=== PATIENT | male | born 1950 | race Caucasian/White ===

== ENCOUNTER 2023-07-22 15:19 | Outpatient (OUT) | payer MEDICARE, SELFPAY ==
--- NOTE | 2023-07-22 15:26 | CT_ITS ---
[address] [address] Patient Name: BECKI ALARCON MRN: [id number] date: 1950 Sex: M Assigned Patient Location: CT Current Patient Location: CT Accession/Order Number: [id number] Exam Date: 07/22/2023 15:30 Report Date: 07/22/2023 23:00 At the request of: ANGEL CARBALLO Procedure: CT lung screening low-dose EXAMINATION: CT lung screening low-dose HISTORY: Nicotine Dependence F17.210 COMPARISON: CT chest 07/09/2022 TECHNIQUE: Axial, Coronal, and Sagittal images were created without the administration of IV contrast material. Dose reduction techniques were achieved by using automated exposure control and/or adjustment of mA and/or kV according to patient size and/or use of iterative reconstruction technique. FINDINGS: LUNGS: Stable scarring within posterior right lung base. No suspicious nodules or acute infiltrates. Minimal emphysematous changes. PLEURA: No mass, effusion, or pneumothorax. VASCULATURE: No abnormality. PRATIMA: No mass or pathologic adenopathy. MEDIASTINUM: No mass or pathologic adenopathy. CARDIAC: No enlargement, pericardial thickening, or significant calcification. AORTA: No aneurysm or dissection. CHEST WALL: No mass or axillary adenopathy BONES: Subacute fracture of anterior lateral left seventh rib. LIMITED ABDOMEN: No suspicious findings. Limited images of the upper abdomen. OTHER: Negative. CT/CT lung screening low-dose IMPRESSION: 1. Lung-RADS Category 1 Negative. No nodules and definitely benign nodules. Continue annual screening with LDCT in 12 months. 2. Subacute healing fracture of anterior lateral left seventh rib. Electronically authenticated by: ESE MARRERO Date: 07/22/2023 23:00
== END 2023-07-22 15:20 | disposition home or self-care (01) ==
LOC: CT 15:19
PROVIDERS: PCP Internal Medicine; Visit Provider Internal Medicine
DX: F17.210 Nicotine dependence, cigarettes, uncomplicated (principal)
CPT/HCPCS: 71271

== ENCOUNTER 2024-08-02 15:26 | Outpatient (OUT) | payer MEDICARE, SELFPAY ==
--- NOTE | 2024-08-02 15:28 | CT_ITS ---
The [address] [address] Patient Name: BECKI ALARCON MRN: [id number] date: 1950 Sex: M Assigned Patient Location: CT Current Patient Location: Accession/Order Number: [id number] Exam Date: 08/02/2024 15:47 Report Date: 08/04/2024 07:17 At the request of: ANGEL CARBALLO Procedure: CT lung screening low-dose EXAMINATION: CT lung screening low-dose HISTORY: Nicotine Dependence COMPARISON: CT LUNG CANCER SCREENING 07/22/2023, 07/09/2022 TECHNIQUE: Axial, Coronal, and Sagittal images were created without the administration of IV contrast material. Dose reduction techniques were achieved by using automated exposure control and/or adjustment of mA and/or kV according to patient size and/or use of iterative reconstruction technique. FINDINGS: LUNGS: Stable scarring within posterior right lung base. Mild emphysematous changes. No suspicious nodules. PLEURA: No mass, effusion, or pneumothorax. VASCULATURE: No abnormality. PRATIMA: No mass or pathologic adenopathy. MEDIASTINUM: No mass or pathologic adenopathy. CARDIAC: No enlargement, pericardial thickening, or pericardial effusion. Coronary Artery calcifications: AORTA: No aneurysm or dissection. CHEST WALL: No mass or axillary adenopathy BONES: No bone lesion or fracture. LIMITED ABDOMEN: No suspicious findings. Limited images of the upper abdomen. OTHER: Negative. CT/CT lung screening low-dose IMPRESSION: 1. Lung-RADS 2- Benign Appearance or Behavior. Nodules with a very low likelihood of becoming a clinically active cancer due to size or lack of growth. Follow-up CT Chest in 1 year. Electronically authenticated by: ESE MARRERO Date: 08/04/2024 07:17
--- OUTSIDE RECORDS SUMMARY | 2024-08-02 15:45 | XMS_ITS | CCD ---
Author Organization [facility] Care Team Providers Care Office Technology Professor Name Role Phone WATSON CARBALLO Primary Care Physician [phone] MD Riky Self Attending Provider DO Watson Carballo Primary Care Provider KAIT, DR ORTIZ Admitting Unavailable KAIT, DR ORTIZ Attending Unavailable KAIT, DR ORTIZ Admitting Unavailable BALL, DR ORTIZ Attending Unavailable KAIT, DR ORTIZ Primary Care Unavailable KAIT, DR ORTIZ Consulting Unavailable WAUKESHA, DR JOANNA Portillo Consulting Unavailable DAYA CHANEL Admitting Unavailable DAYA CHANEL Attending Unavailable ELIDA, DR ESE Rosenbaum Consulting Unavailable DAYA CHANEL Consulting Unavailable KAIT, DR ORTIZ Admitting Unavailable KAIT, DR ORTIZ Attending Unavailable Watson Carballo Unavailable Renu Soni Unavailable Cheryl Wild Unavailable Janina Valdes Unavailable Janina Valdes Attending Unavailable Janina Valdes Admitting Unavailable NO FAMILY, PHYSICIAN Primary Care Unavailable Watson Carballo Primary Care Unavailable Riky Self Attending Unavailable Riky Self Admitting Unavailable Georgiana Rhodes Primary Care Physician Watson Ferraro DO Primary Care Provider Riky SELF Attending Unavailable Riky SELF Attending Unavailable Riky SELF Attending Unavailable Riky SELF Referring Unavailable Riky SELF Admitting Unavailable Riky SELF Attending Unavailable Riky SELF Attending Unavailable Rand FIELD SERVICER-HEADING MACHINE OPERATORZacarias Attending Cecillev ailable Watson Carballo DO Primary Care Unavail dianna David MD, Daya Mendes Attending Unavailab bella David MD, Dyaa Mendes Admitting Unavailab Watson Dimas DO Primary Care Unavail able Bharath Elam Consulting Unavailable Rand FIELD SERVICER-HEADING MACHINE OPERATOR, Zacarias Baker Attending Unav ailable Ball DO, [facility] Unavail able Rand FIELD SERVICER-HEADING MACHINE OPERATOR, Zacarias Baker Attending Unav ailable Ball DO, [facility] Unavail able Rand FIELD SERVICER-HEADING MACHINE OPERATOR, Zacarias Baker Attending Unav ailable Ball DO, [facility] Unavail able Rand FIELD SERVICER-HEADING MACHINE OPERATOR, Zacarias Baker Attending Unav ailable Ball DO, [facility] Unavail able Latrell CARRION, Milind Holloway Consulting Unavail able Rand FIELD SERVICER-HEADING MACHINE OPERATOR, Zacarias Baker Admitting Unav ailable Rand FIELD SERVICER-HEADING MACHINE OPERATOR, Zacarias Baker Attending Unav ailable Ball DO, [facility] Unavail able Rand FIELD SERVICER-HEADING MACHINE OPERATOR, Zacarias Baker Attending Unav ailable Ball DO, [facility] Unavail able Joann CARRION, Daya Mendes Attending Unavailab le Ball DO, [facility] Unavail able Joann CARRION, Daya Mendes Attending Unavailab le Ball DO, [facility] Unavail able Joann CARRION, Daya Mendes Attending Unavailab le Ball DO, [facility] Unavail able Rand FIELD SERVICER-HEADING MACHINE OPERATOR, Zacarias Baker Attending Unav ailable Ball DO, [facility] Unavail able Rand FIELD SERVICER-HEADING MACHINE OPERATOR, Zacarias Baker Attending Unav ailable Ball DO, [facility] Unavail able Kloepfer FIELD SERVICER-HEADING MACHINE OPERATOR, Dilcia Morejon Attending Un available Ball DO, [facility] Unavail able Latrell CARRION, Milind Holloway Consulting Unavail able Rand FIELD SERVICER-HEADING MACHINE OPERATOR, Zacarias Baker Attending Unav ailable Ball DO, [facility] Unavail able Rand FIELD SERVICER-HEADING MACHINE OPERATOR, Zacarias Baker Attending Unav ailable Ball DO, [facility] Unavail able Rand FIELD SERVICER-HEADING MACHINE OPERATOR, Zacarias Baker Attending Unav ailable Ball DO, [facility] Unavail able Rand FIELD SERVICER-HEADING MACHINE OPERATOR, Zacarias Baker Attending Unav ailable Ball DO, [facility] Unavail able Rand FIELD SERVICER-HEADING MACHINE OPERATOR, Zacarias Baker Attending Unav ailable Ball DO, [facility] Unavail able Rand FIELD SERVICER-HEADING MACHINE OPERATOR, Zacarias Baker Attending Unav ailable Ball DO, [facility] Unavail able RY, JUANIS P Attending Unavailable BALL, WATSON E Referring Unavailable BALL, WATSON E Primary Care Unavailable RY, JUANIS P Attending Unavailable BALL, WATSON E Referring Unavailable BALL, WATSON E Primary Care Unavailable RY, JUANIS P Attending Unavailable BALL, WATSON E Referring Unavailable BALL, WATSON E Primary Care Unavailable RY, JUANIS P Attending Unavailable BALL, WATSON E Referring Unavailable BALL, WATSON E Primary Care Unavailable RY, JUANIS P Attending Unavailable BALL, WATSON E Referring Unavailable BALL, WATSON E Primary Care Unavailable RY, JUANIS P Attending Unavailable BALL, WATSON E Referring Unavailable BALL, WATSON E Primary Care Unavailable RY, JUANIS P Attending Unavailable BALL, WATSON E Referring Unavailable BALL, WATSON E Primary Care Unavailable KOLMICHAEL VALENZUELA R Referring Unavailab le BALL, WATSON E Primary Care Unavailable KOLNICOLAS, MICHAEL R Referring Unavailab le BALL, WATSON E Primary Care Unavailable RY, JUANIS P Attending Unavailable BALL, WATSON E Referring Unavailable BALL, WATSON E Primary Care Unavailable RY, JUANIS P Attending Unavailable BALL, WATSON E Referring Unavailable BALL, WATSON E Primary Care Unavailable RY, JUANIS P Attending Unavailable BALL, WATSON E Referring Unavailable BALL, WATSON E Primary Care Unavailable Allergies Allergy Classification Reported Allergen(s) Allergy Type Date of Onset Reaction(s) Facility (16 sources) leflunomide; Translations: [leflunomide] Drug Allergy 3 Unknown (qualifier value), Other (See Comments) [facility] (1 source) Unable to Assess Drug allergy (disorder) 2 [facility] Repository (1 source) patient allergy list reviewed by nurse or physicia Propensity to adverse reactions 9 Comment:Done kapturem Other (1 source) Allergies Reconciled Propensity to adverse reactions Unknown [facility] [employer] Other (1 source) No Known Medication Allergies; Translations: [No Known Medication Allergies] Propensity to adverse reactions (disorder) [facility] Repository Medications Current Medications Medication Drug Class(es) Dates Sig (Normalized) Sig (Original) acetaminophen 325 mg / HYDROcodone bitartrate 7.5 mg oral tablet (2 sources) Opioid Agonist Start: 06-25-2022 take 1 tablet by mouth once [place] 325 mg-7.5 mg oral tablet 1 tab(s), Oral, Once, 1 tab(s), Refill(s) 0, Take 1 hour prior to procedure. Don't drive or operate machinery while taking this medication., [id number], 167, cm, 04/14/22 13:22:00 EDT, Height/Length Dosing, 72, kg, 04/14/22 13:22:00 EDT, W... Start Date: 06/25/22 Status: Ordered acetaminophen 325 mg / oxyCODONE hydrochloride 5 mg oral tablet (1 source) Opioid Agonist take 1 tablet by mouth every six hours oxyCODONE-Acetami nophen 5-325 MG 1 tablet as needed Orally every 6 hrs Active amLODIPine Besylate-Valsartan (7 sources) amLODIPine Besylate-Valsarta n Active amlodipine besylate/valsartan (AMLODIPINE-VALSARTAN ORAL) (8 sources) amlodipine besylate/valsarta n (AMLODIPINE-VALSA RTAN ORAL) Take by mouth daily. Active amlodipine besyl ate/valsartan (AMLODIPINE-VALSARTAN ORAL) Take by mouth daily. 0 Active apixaban 5 mg oral tablet (16 sources) Factor Xa Inhibitor Start: 08-10-2023 take 1 tablet by mouth twice daily Apixaban (Eliquis) 5 mg tablet Active 5 MG PO Twice daily December 15, 2023 12:00am take 1 tablet by mouth every twe lve hours Eliquis 2.5 MG 1 tablet Orally Twice a day Active ascorbic acid 500 mg oral capsule (2 sources) Vitamin C Start: 03-08-2024 Ascorbic Acid (Vitamin C) Active MG PO March 08, 2024 12:00am aspirin 81 mg delayed release oral tablet (20 sources) Platelet Aggregation Inhibitor, Nonsteroidal Anti-inflammatory Drug Start: 06-13-2024 take 1 tablet by mouth once daily aspirin 81 mg Oral EC Tab 81 mg = 1 tab(s), Oral, Daily Start Date: 06/13/24 Status: Ordered Start: 03-08-2024 take 81 mg by mouth once daily Aspirin Active 81 MG PO Daily March 08, 2024 12:00am aspirin 81 mg ch ewable tablet Chew 1 tablet (81 mg total) and swallow nightly. Active End: 09-11-2023 take 1 tablet by mouth once daily aspirin 325 mg EC tablet Take 325 mg by mouth daily. 0 09/11/2023 Discontinued (Therapy completed) take 1 tablet by mack once daily Aspirin 81 MG 1 tablet Orally Once a day Active Aspirin Active cephalexin 500 mg oral capsule (12 sources) Cephalosporin Antibacterial Start: 06-08-2023 take 1 capsule by mouth every eight hours Cephalexin 500 MG 1 capsule Orally tid for 10 day(s) Jun, Active Start: 01-16-2023 take 1 capsule by [facility] every eight hours Cephalexin 500 MG 1 capsule Orally tid for 10 day(s) January, Not-Taking Start: 11-25-2022 take 1 capsule by mo [facility] every six hours Cephalexin 500 MG 1 capsule Orally every 6 hrs for 7 days Nov, Not-Taking cholecalciferol 0.05 mg oral capsule (2 sources) Vitamin D Start: 03-08-2024 take 50 ug by mouth once daily Cholecalciferol (Vitamin D3) Active 50 MCG PO Daily March 08, 2024 12:00am ciprofloxacin 500 mg oral tablet (1 source) Quinolone Antimicrobial Start: 08-10-2023 End: 08-17-2023 Cipro 500 mg Tab 500 mg = 1 tab(s), Oral, BID, start 3 days prior to procedure, X 7 day(s), # 14 tab(s), Refills(s) 0, Pharmacy: [id number], 167, cm, 08/10/23 13:04:00 EST, Height/Length Dosing, 75, kg, 08/10/23 13:04:00 EST, Weight Dosing Start Date: 08/10/23 Stop Date: 08/17/23 Status: Ordered folic acid 1 mg oral tablet (19 sources) Start: 03-08-2024 take 1 mg by mouth once daily Folic Acid Active 1 MG PO Daily March 08, 2024 12:00am Folic Acid Activ e furosemide 40 mg oral tablet (1 source) Loop Diuretic Start: 06-08-2023 End: 06-15-2023 take 1 tablet by mouth every twenty-four hours Furosemide 40 MG 1 tablet Orally Once a day Jun, Jun, Active hydroxychloroquine sulfate 200 mg oral tablet (20 sources) Antimalarial, Antirheumatic Agent Start: 04-14-2022 take 200 mg by mouth once daily at bedtime Hydroxychloroquine Active 200 MG PO Daily at bedtime March 08, 2024 12:00am Plaquenil Active Hydroxychloroqui ne Sulfate Active levoFLOXacin 500 mg oral tablet (1 source) Quinolone Antimicrobial Start: 04-14-2022 take 1 tablet by mouth once daily Levaquin 500 mg Tab 500 mg = 1 tab(s), Oral, Daily, # 7 tab(s), Refills(s) 0, Pharmacy: [id number], 167, cm, 04/14/22 13:22:00 EDT, Height/Length Dosing, 72, kg, 04/14/22 13:22:00 EDT, Weight Dosing Start Date: 04/14/22 Status: Ordered meloxicam 15 mg oral tablet (14 sources) Nonsteroidal Anti-inflammatory Drug Start: 04-14-2022 End: 09-11-2023 meloxicam 15 mg oral tablet Refills(s) 0 Start Date: 04/14/22 Status: Ordered Meloxicam Active methotrexate 2.5 mg oral tablet (20 sources) Folate Analog Metabolic Inhibitor Start: 03-08-2024 take 2.5 mg by mouth every week Methotrexate Sodium Active 2.5 MG PO every week March 08, 2024 12:00am Start: 04-14-2022 Trexall 2.5 mg Tab Refills(s) 0 Start Date: 04/14/22 Status: Ordered Start: 04-14-2022 Trexall 2.5 mg Tab Refills(s) 0 Start Date: 04/14/22 Status: Ordered take 6 tablets by [facility] every week methotrexate 2.5 mg chemo tablet Take 6 tablets by mouth once a week Active Methotrexate Act maylin Multivitamin preparation (7 sources) Multivitamin Act maylin mupirocin 0.02 mg/mg topical ointment (2 sources) RNA Synthetase Inhibitor Antibacterial Start: 02-18-20 Mupirocin 2 % 1 application Externally three times a day for 7 days Feb, Active potassium chloride 20 meq extended release oral tablet (1 source) Start: 06-08-20 End: 06-15-20 take 1 tablet by mouth every twenty-four hours Potassium Chloride ER 20 MEQ 1 tablet with food Orally Once a day Jun, Jun, Active predniSONE 5 mg oral tablet (14 sources) Start: 03-08-20 End: 06-15-20 take 5 mg by mouth once daily Prednisone Active 5 MG PO Daily June 15, 2024 3:19pm Start: 04-14-2022 predniSONE 5 m g Tab Refills(s) 0 Start Date: 04/14/22 Status: Ordered take 1 tablet by mack th every twenty-four hours predniSONE 5 MG 1 tablet Orally Once a day Active Turmeric Root Extract (2 sources) Start: 03-08-2024 take 1500 mg by mouth once daily Turmeric Root Extract Active 1500 MG PO Daily March 08, 2024 12:00am valsartan (20 sources) Angiotensin 2 Receptor Homa Start: 05-20-2024 take 1 tablet by mouth once daily Valsartan Active 0 .ROUTE .COMPLEX May 20, 2024 12:51pm Take 1 tablet by mouth once daily Start: 04-14-2022 End: 05-20-2024 take 160 mg by mouth once daily Valsartan Discontinued 160 MG PO Daily December 15, 2023 12:00am May 20, 2024 12:51pm take 0.5 tablet by m outh in the morning valsartan (DIOVAN) 80 mg tablet Take 0.5 tablets (40 mg total) by mouth in the morning. Active Valsartan Active zinc sulfate 220 mg oral capsule (2 sources) Start: 03-08-2024 take 1 capsule by mouth once daily Zinc Sulfate (Orazinc) 50 mg zinc (220 mg) capsule Active 50 MG PO Daily March 08, 2024 12:00am Completed/Discontinued Medications Medication Drug Class(es) Dates Sig (Normalized) Sig (Original) amLODIPine 10 mg oral tablet (20 sources) Dihydropyridine Calcium Channel Homa Start: 11-26-2023 End: 03-08-2024 take 1 tablet by mouth once daily Amlodipine Discontinued 0 .ROUTE .COMPLEX 90 February 21, 2024 6:22pm March 08, 2024 3:17pm Take 1 tablet by mouth once daily Start: 11-26-2023 End: 11-26-2023 take 10 mg by mouth once daily Amlodipine Discontinued 10 MG PO Daily November 26, 2023 12:00am November 26, 2023 9:45am Start: 04-14-2022 amLODIPine 10 mg Tab Refills(s) 0 Start Date: 04/14/22 Status: Ordered doxycycline hyclate 100 mg oral tablet (11 sources) Tetracycline-class Drug Start: 01-16-2023 take 1 tablet by mouth every twelve hours Doxycycline Hyclate 100 MG 1 tablet Orally Twice a day for 10 day(s) January, Not-Taking Start: 11-28-2022 take 1 capsule by [facility] twice daily Doxycycline Hyclate 100 MG 1 capsule Orally twice daily for 7 days Nov, Not-Taking Ketorolac (8 sources) Nonsteroidal Anti-inflammatory Drug, Cyclooxygenase Inhibitor Start: 07-25-2017 Toradol per 15 mg Jul, 30 mg lidocaine 25 mg/ml / prilocaine 25 mg/ml topical cream (5 sources) Antiarrhythmic, Amide Local Anesthetic Start: 07-29-2024 End: 07-29-2024 1 Application, topical, Once, On Thu07/29/24 at 1500, For 1 dose, If no allergy, apply topically to wounds with each wound care appointment with practitioner for pain control. Start: 07-06-2024 End: 07-06-2024 1 Application, topical, Once , On Thu07/06/24 at 1615, For 1 dose, If no allergy, apply topically to wounds with each wound care appointment with practitioner for pain control. Start: 10-23-2023 End: 10-23-2023 lidocaine-prilocaine (EMLA) cream 1 Application Start: 09-23-2023 End: 09-23-2023 lidocaine-prilocaine (EMLA) cream 1 Application Start: 09-11-2023 End: 09-11-2023 lidocaine-prilocaine (EMLA) cream 1 Application potassium nitrate 250 mg/ml / silver nitrate 750 mg/ml medicated pad (1 source) Start: 10-23-2023 End: 10-23-2023 silver nitrate applicators (ARZOL) applicator 1 Application Start: 10-23-2023 End: 10-23-2023 silver nitrate applicators ( ARZOL) applicator 1 Application traMADol hydrochloride 50 mg oral tablet (1 source) Opioid Agonist Start: 02-18-2023 End: 09-11-2023 take 1 tablet by mouth every six hours as needed for pain traMADoL (ULTRAM) 50 mg tablet Take 1 tablet (50 mg total) by mouth every 6 (six) hours as needed for pain. 0 02/18/2023 09/11/2023 Discontinued (Therapy completed) Triamcinolone (8 sources) Corticosteroid Start: 07-25-2017 [place] Jul, 40 mg Problems Active Problems Problem Classification Problem Date Documented Da te Episodic/Chronic Cancer of prostate (20 sources) Malignant neoplasm of prostate; Translations: [Malignant tumor of prostate] Onset: 08-11-2022 Chronic Chronic ulcer of skin (1 source) Pressure ulcer of other site, unspecified stage; Translations: [Pressure ulcer of other site, unspecified stage] Onset: 02-17-2023 Chronic Complication of device; implant or graft (3 sources) Occlusion of arterial bypass graft; Translations: [Other specified complication of vascular prosthetic devices, implants and grafts, initial encounter] 03-06-2024 Chronic Diabetes mellitus with complications (16 sources) Secondary diabetes mellitus; 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] Onset: 09-11-2023 09-11-2023 Chronic Diverticulosis and diverticulitis (14 sources) Diverticulosis of sigmoid colon; Translations: [Diverticulosis of large intestine without perforation or abscess without bleeding] Onset: 07-07-2024 12-12-2023 Chronic Essential hypertension (20 sources) Essential hypertension; Translations: [Essential (primary) hypertension] Onset: 07-28-2014 04-11-2022 Chronic Genitourinary symptoms and ill-defined conditions (9 sources) Nocturia 04-11-2022 Episodic Hyperplasia of prostate (11 sources) Benign prostatic hyperplasia; Translations: [Benign prostatic hypertrophy without outflow obstruction] Onset: 07-25-2015 04-11-2022 Chronic Joint disorders and dislocations; trauma-related (1 source) Unspecified tear of unspecified meniscus, current injury, right knee, initial encounter; Translations: [Unspecified tear of unspecified meniscus, current injury, right knee, initial encounter] Episodic Osteoarthritis (9 sources) Osteoarthritis; Translations: [Unspecified osteoarthritis, unspecified site] Onset: 09-11-2023 09-11-2023 Chronic Other aftercare (1 source) Long-term current use of drug therapy; Translations: [Other intermediate (current) drug therapy] Episodic Other circulatory disease (4 sources) History of arterial bypass of lower limb artery; Translations: [Presence of other vascular implants and grafts] Onset: 09-07-2023 12-15-2023 Chronic Other connective tissue disease (9 sources) Pain in both feet 04-11-2022 Episodic Other connective tissue disease (1 source) Pain in right leg Onset: 02-25-2023 Episodic Other connective tissue disease (1 source) Pain in left leg Onset: 02-25-2023 Episodic Other diseases of veins and lymphatics (14 sources) Peripheral venous insufficiency; Translations: [Unspecified venous (peripheral) insufficiency] Onset: 03-27-2014 04-11-2022 Episodic Other diseases of veins and lymphatics (4 sources) Venous insufficiency (chronic) (peripheral); Translations: [Venous (peripheral) insufficiency, unspecified] 12-15-2023 Episodic Other injuries and conditions due to external causes (1 source) Foreign body in left ear; Translations: [Foreign body in left ear, initial encounter] Episodic Other nervous system disorders (8 sources) Neuropathy; Translations: [Polyneuropathy, unspecified] Onset: 09-11-2023 09-11-2023 Chronic Other nervous system disorders (16 sources) Paresthesia; Translations: [Paresthesia of skin] Onset: 07-07-2024 04-11-2022 Episodic Other nervous system disorders (1 source) Other disturbances of skin sensation Onset: 02-25-2023 Episodic Other non-traumatic joint disorders (17 sources) Charcot's joint of foot; Translations: [Charcot's joint, left ankle and foot] Onset: 09-11-2023 04-11-2022 Chronic Other non-traumatic joint disorders (2 sources) Arthropathy associated with a neurological disorder; Translations: [Charcot's joint, right ankle and foot] Chronic Other non-traumatic joint disorders (2 sources) Arthralgia of the pelvic region and thigh; Translations: [Pain in unspecified hip] Onset: 08-25-2013 Episodic Other nutritional; endocrine; and metabolic disorders (1 source) Obesity; Translations: [Obesity, unspecified] Onset: 09-19-2013 Chronic Other nutritional; endocrine; and metabolic disorders (10 sources) Overweight; Translations: [Overweight] 04-11-2022 Episodic Other skin disorders (1 source) Abnormal granulation tissue; Translations: [Granulomatous disorder of the skin and subcutaneous tissue, unspecified] 10-23-2023 Episodic Otitis media and related conditions (1 source) Dysfunction of left eustachian tube; Translations: [Other specified disorders of Eustachian tube, left ear] Episodic Peripheral and visceral atherosclerosis (17 sources) Atherosclerosis of artery of lower limb; Translations: [Atherosclerosis of alutiiq arteries of extremities with intermittent claudication, left leg] Onset: 09-11-2023 Chronic Phlebitis; thrombophlebitis and thromboembolism (11 sources) H/O: Deep vein thrombosis; Translations: [Thrombophlebitis of superficial veins of lower extremity] Onset: 03-27-2014 04-11-2022 Episodic Residual codes; unclassified (6 sources) History of arterial bypass of lower limb artery; Translations: [Other specified postprocedural states] Onset: 09-07-2023 03-06-2024 Episodic Residual codes; unclassified (1 source) Other specified postprocedural states; Translations: [Other specified postprocedural states] Onset: 07-07-2024 Episodic Rheumatoid arthritis and related disease (20 sources) Rheumatoid arthritis; Translations: [Rheumatoid arthritis of left wrist] Onset: 08-25-2013 04-11-2022 Chronic Skin and subcutaneous tissue infections (3 sources) Cellulitis of left toe Episodic Spondylosis; intervertebral disc disorders; other back problems (16 sources) Lumbar spondylosis; Translations: [Lumbosacral spondylosis without myelopathy] Onset: 07-07-2024 04-11-2022 Chronic Spondylosis; intervertebral disc disorders; other back problems (2 sources) Lumbar radiculopathy; Translations: [Radiculopathy, lumbar region] Onset: 08-25-2013 Episodic Substance-related disorders (20 sources) Nicotine dependence; Translations: [Nicotine dependence, unspecified, uncomplicated] Onset: 07-28-2014 Chronic Superficial injury; contusion (2 sources) Contusion of left shoulder; Translations: [Contusion of left shoulder, initial encounter] Episodic Unclassified (1 source) Wound Check Onset: 11-06-2023 Varicose veins of lower extremity (1 source) Varicose veins of lower limb co-occurrent with edema; Translations: [Varicose veins of left lower extremity with other complications] 07-07-2024 Episodic Past or Other Problems Problem Classification Problem Date Documented Date Episodic/Chronic Blindness and vision defects (1 source) Diplopia; Translations: [Diplopia] Onset: 10-08-2023 Episodic Complications of surgical procedures or medical care (19 sources) Dehiscence of surgical wound; Translations: [Disruption of external operation (surgical) wound, not elsewhere classified, initial encounter] Onset: 09-11-2023 09-11-2023 Episodic Immunizations and screening for infectious disease (9 sources) Vaccination given; Translations: [Encounter for immunization] Onset: 09-11-2023 09-11-2023 Episodic Other circulatory disease (8 sources) Ischemia; Translations: [Other disorder of circulatory system] Onset: 09-11-2023 09-11-2023 Episodic Other connective tissue disease (4 sources) Pain in right foot; Translations: [PAIN IN RIGHT FOOT] Onset: 07-18-2021 Episodic Other connective tissue disease (1 source) Pain in left foot; Translations: [PAIN IN LEFT FOOT] Onset: 07-25-2021 Episodic Other screening for suspected conditions (not mental disorders or infectious disease) (20 sources) Raised prostate specific antigen; Translations: [Elevated prostate specific antigen [PSA]] Onset: 04-14-2022 Episodic Other skin disorders (8 sources) Acquired keratoderma; 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] Onset: 09-11-2023 09-11-2023 Episodic Other skin disorders (1 source) Granulomatous disorder of the skin and subcutaneous tissue, unspecified; Translations: [Granulomatous disorder of the skin and subcutaneous tissue, unspecified] Onset: 10-09-2023 Episodic Residual codes; unclassified (1 source) Tobacco user; Translations: [Nondependent tobacco use disorder] Onset: 07-28-2014 Episodic Residual codes; unclassified (1 source) Edema; Translations: [Edema] Onset: 03-27-2014 Episodic Unclassified (9 sources) Contusion of left shoulder 04-11-2022 Unclassified (1 source) Identification of preoperative respiratory status; Translations: [Encounter for preprocedural respiratory examination] Onset: 07-28-2014 Results Test Name Value Interpretation Reference Range Facility Xeroform 4x4on 07-29-2024 Applied in clinic today MANUALLY TRANSCRIBED RESULTS [facility] Xeroform 4x4on 07-15-2024 Applied in clinic today. MANUALLY TRANSCRIBED RESULTS [facility] .eGFRon 07-12-2024 GFR/1.73 sq M.predicted MDRD (S/P/Bld) [Vol rate/Area] mL/min/{1.73_m2} Normal >=60 [facility] Comment on above: Result Comment: [facility] have implemented the eGFR calculation approach that does not have a coefficient for race and that conforms to the NKF-ASN Task Force Recommendations. Stages of Chronic Kidney Disease GFR Stage 3a Mild to moderate loss of kidney function 59 to 45 Stage 3b Moderate to severe loss of kidney function 44 to 33 Stage 4 Severe loss of kidney function 29 to 15 Stage 5 Kidney failure Less than 15 GFR calculated using the CKD-Epi Creatinine Equation (2020): eGFR = 142 X min(SCr/?, 1)? X max(SCr /?, 1)-1.200 X 0.9938Age X 1.012 [if female] Abbreviations/Units: eGFR (estimated glomerular filtration rate) = mL/min/1.73 m2 SCr (standardized serum creatinine) = mg/dL ? = 0.7 (females) or 0.9 (males) ? = -0.241 (females) or -0.302 (males) min = indicates the minimum of SCr/? or 1 max = indicates the maximum of SCr/? or 1 Age = years Performed By: #### E GFR ####[facility] [place] [address] Creatinineon 07-12-2024 Creatinine [Mass/Vol] 0.77 mg/dL Normal 0.61-1.24 [facility] Comment on above: Performed By: #### C ANGE #### [facility] [address] [place] [address] IR Angiogram Extremity Lower Lefton 07-12-2024 IR Angiogram Extremity Lower Left _Preop diagnosis: Graft threatening stenosis of left femoral to distal bypass graft Postop diagnosis: Same with occluded outflow Procedure: #1 ultrasound-guided access of right common femoral artery 2. Abdominal aortogram 3. Left lower extremity angiogram 4. Mynx closure of right common femoral artery Procedure note: The right common femoral artery was accessed under ultrasound guidance and a 5 Georgian sheath introduced. An Omni Flush catheter was inserted and parked in the aorta and an abdominal aortogram was performed. This revealed patent bilateral renal arteries. The distal aorta was patent. The bilateral common and external iliac arteries were patent. The bilateral internal iliac arteries were patent. The catheter was advanced into the left common femoral artery and an angiogram was performed that revealed a patent common femoral and profundofemoral artery. The proximal SFA is patent. The bypass graft is widely patent. There is no evidence of stenosis in the proximal bypass graft. The distal SFA and popliteal arteries are occluded. The above and below-knee popliteal arteries are occluded. There is reconstitution of the peroneal artery that is the main runoff to the foot. The bypass graft is patent down to the distal posterior tibial artery just above the ankle. However, the posterior tibial artery distal to the bypass graft is chronically occluded. There is retrograde filling of branches from the posterior tibial artery to the peroneal artery with branches supplying the foot. The dorsalis pedis artery also opacified. A stiff Glidewire was inserted and the 5 Georgian sheath was exchanged for a 6 Georgian sheath that was parked into the bypass graft in the mid thigh. A support catheter and Glidewire was used to select the posterior tibial artery distal to the bypass graft anastomosis. The Glidewire was able to pass. However, it ended up in a perforation that was confirmed by angiogram. Multiple 014 wires with floppy tips were used to attempt to cross the posterior tibial artery occlusion. However, this was unsuccessful. The distal posterior tibial artery was chronically occluded. An angiogram was performed again of the left lower extremity that opacified the peroneal artery up to its origin. At this time the outflow could not be recanalized. The sheath was then removed and the access site was closed with a 6 Georgian minx device. Pressure held for 10 minutes with no bleeding or hematoma. The patient tolerated the procedure well. Final Signed by: Milind Sams MD Signed (Electronic Signature): 07/12/2024 2:13 pm Transcribed DT/TM: 07/12/2024 2:13 (If Report Is Signed, Electronically Signed in Other Vendor System) Normal [facility] Cardiovascular Surgery Offic e/ClinicNoteon 07-07-2024 Cardiovascular Surgery Office/ClinicNote Chief Complaint fem/pop f/u History of Present Illness Routine office f/u s/p Lt Fem/PT bypass (cryovein) 02/09/24. Continues with a slow to heal wound of the left ankle, he is seeing wound care services in [facility] for this now. They are assuming care of the slow to heal wound. He recently underwent his postoperative graft testing, with arterial duplex. Results of this do show elevated velocities proximally within the graft 202.7 cm/sec and distally unable to obtain we discussed that this could mean a significant stenosis. Recommendation would be for formal angiogram with possible balloon angioplasty. He is interested in proceeding with this. Review of Systems Constitutional: No fevers, chills, sweats, weakness Eye: No recent vision changes, double vision ENMT: No ear pain, nasal congestion, sore throat, voice changes Respiratory: No shortness of breath, cough, wheezing or sputum Cardiovascular: No Chest pain or tightness, palpitations, syncope, swelling Gastrointestinal: No nausea, vomiting, diarrhea, blood in stool, indigestion Genitourinary: No hematuria, frequency or urgency Alejandro/Lymph: Negative for bruising tendency, swollen lymph glands Endocrine: Negative for excessive thirst, excessive hunger Musculoskeletal: No back pain, neck pain, joint pain, muscle pain, injury Integumentary: No rash, pruritus, abrasions, Neurologic: No headache, dizziness, fainting, seizures, balance problems Psychiatric: No anxiety, depression, suicidal thoughts [1] Physical Exam Vitals & Measurements HR: 70 (Peripheral) BP: 136/90 SpO2: 93 HT: 168 cm WT: 80.1 kg WT: 80.1 kg (Dosing) BMI: 28.38 General: calm, cooperative, A/Ox4 Lungs: Clear to auscultation bilaterally Heart: Normal rate, regular rhythm, no murmur, gallop or edema Abdomen: Soft, non-tender, non-distended, normal bowel sounds, no masses Left lower extremity: Left foot is pink and warm. Post tib pulse by Doppler with ease. Distal ankle incision still with 1 cm x 2 mm depth nonhealing area. [2] Additional Vitals BP Position/Location: Sitting, Right arm Assessment/Plan 1. S/P femoral-tibial bypass Recently underwent duplex of the bypass graft left lower extremity. The proximal and distal anastomosis of the graft concerning for a stenoses. Reviewed with the patient what this means. We discussed getting a formal angiogram with possible balloon angioplasty of the graft. He is interested in proceeding. He met with Dr. Sams today in the office and is agreeable with proceeding with angiogram. We will get this arranged for next week hopefully. He will need to stop his Eliquis 72 hours prior to procedure. Medical Decision Making Chronic conditions NOT treated during this visit that affected my overall medical decision making: [] Treatment plans discussed but not opted for at this time: [] Prescribed medication that requires intensive monitoring for toxicity: [] I have reviewed the patient?s medication list for medication interactions/contrain dications and/or for upcoming procedures: [yes or no] Time Spent with the Patient I have personally spent [25] minutes on this date, directly related to today's patient visit, including pre and post visit work, for this date of service. Time listed does not include time spent on separately billable services. Problem List/Past Medical History Ongoing Cancer of prostate Chronic rheumatic arthritis Nicotine abuse Nonhealing nonsurgical wound PAD (peripheral artery disease) Historical No qualifying data Procedure/Surgical History BIOPSY OF PROSTATE Colonoscopy (2010) Right foot reconstruction (2012) Bypass Graft Femorotibial (Left) (05/18/2023) Bypass Graft Femorotibial (Left) (02/09/2024) Medications aspirin 81 mg oral delayed release tablet, 81 mg, Oral, Daily DME, See Instructions Eliquis 5 mg oral tablet, See Instructions, Take 1 tablet by mouth twice daily folic acid 1 mg oral tablet, 1 mg= 1 tabs, Oral, HS (at bedtime) hydroxychloroquine 200 mg oral tablet, 200 mg= 1 tabs, Oral, HS (at bedtime) methotrexate 2.5 mg oral tablet, 20 mg= 8 tabs, Oral, Mclean predniSONE 5 mg oral tablet, 5 mg= 1 tabs, Oral, Daily, PRN Turmeric, 1500 mg, Oral, Daily valsartan 160 mg oral tablet, 160 mg= 1 tabs, Oral, Daily Vitamin C 500 mg oral tablet, 500 mg= 1 tabs, Oral, Daily Vitamin D3 2000 intl units oral capsule, 100 mcg= 2 caps, Oral, Daily zinc (as acetate) 50 mg oral capsule, 50 mg= 1 caps, Oral, Daily, on an empty stomach 1 hour before or 2 hours after eating Allergies No Known Allergies Social History Alcohol Never Exercise Exercise type: None d/t PAD and foot pain. Tries to be active by grocery shopping, yard work, etc. Up until December 2022 was bicycling daily.. Home/Environment Lives with Adult son. Living situation: Residential home. 3 CATS Nutrition/Health Regular, Caffeine intake amount: DENIES. Substance Abuse Denies All Tobacco 10 or more cigarettes (1/2 pack or more)/day in las (more content not included)... Normal [facility] Xeroform 4x4on 07-06-2024 Applied in clinic today MANUALLY TRANSCRIBED RESULTS [facility] VL Ankle Brachial Indiceson 07-05-2024 VL Ankle Brachial Indices Preliminary Technologist Report An ankle brachial index was performed. Patient has a left lower extremity superficial femoral artery to distal posterior tibial artery bypass graft. Unable to obtain left lower extremity ankle pressures due to the location of the bypass graft. See below for details. Medical Record Coder: Aicha Rodas RVT _ Radiologist Report BILATERAL LOWER EXTREMITY FENG STUDY CLINICAL INFORMATION: 74-year-old male with prior extremity bypass. COMPARISON: None. Bilateral brachial pressures, 136 mmHg left and 143 mmHg right, were performed along with segmental pressures of both lower legs at the ankles. LEFT: Posterior Tibial FENG = unable to obtain Dorsalis Pedis FENG = unable to obtain Toe Brachial Index = 0.50 RIGHT: Posterior Tibial FENG = 1.07 Dorsalis Pedis FENG = 1.09 Toe Brachial Index = 0.86 IMPRESSION: FENG could not be obtained on the left. Mild left small vessel disease. No evidence for peripheral arterial disease (PAD) on the right. Irregular cardiac rhythm. Correlate with history of cardiac arrhythmia and EKG as clinically necessary. Based on the findings of this testing the patient may benefit by being referred to Vascular Rehabilitation. If interested, please contact our Vascular Rehabilitation Department at [phone]. Final Signed by: Shonna CARRION, Benji Funes Signed (Electronic Signature): 07.05.2024 3:16 pm Transcribed by: Benji Kilpatrick MD Transcribed DT/TM: 07.05.2024 2:31 (If Report is Signed, Electronically Signed in Other Vendor System) Normal [facility] VL Extremity Arterial Duplex Lower Lefton 07-05-2024 VL Extremity Arterial Duplex Lower Left Preliminary Technologist Report A left superficial femoral to distal posterior tibial artery bypass graft was performed. Unable to visualize the distal anastomosis and the outflow artery due to bandage and non-healing wound. Incidental non-vascularized area noted in the left groin. Please see information as listed below. Medical Record Coder: Aicha Rodas RVT _ Radiologist Report FEMORAL- DISTAL POSTERIOR TIBIAL BYPASS GRAFT ARTERIAL DUPLEX STUDY CLINICAL INFORMATION: . COMPARISON: . TECHNIQUE: Grayscale and color-flow imaging was performed along with Doppler and waveform analysis of the bypass graft. LOWER EXTREMITY: Left lower extremity: Left Inflow (superficial femoral artery): 105.4 cm/sec Left proximal anastomosis: 202.7 cm/sec Left proximal bypass: 87.1 cm/sec Left mid bypass: 82.7 cm/sec Left distal bypass: 30.8 cm/sec Left distal anastomosis: unable to obtain Left Outflow (distal posterior tibial artery): unable to obtain Incidentally noted was an anechoic structure in the left groin measuring 1.7 cm. This may represent a small hematoma or seroma. Other etiologies are possible to exclude. CONCLUSION: Elevated velocity at the proximal anastomosis. A hemodynamically significant stenosis is suspected. The distal anastomosis cannot be visualized secondary to overlying bandages. Final Signed by: Cameron Kc MD Signed (Electronic Signature): 07.05.2024 3:22 pm Transcribed by: Cameron Kc MD Transcribed DT/TM: 07.05.2024 2:48 (If Report is Signed, Electronically Signed in Other Vendor System) Normal [facility] Cardiovascular Surgery Offic e/ClinicNoteon 06-23-2024 Cardiovascular Surgery Office/ClinicNote Chief Complaint slow to heal incisions History of Present Illness Routine office f/u s/p Lt Fem/PT bypass (cryovein) 02/09/24. Continues with a slow to heal wound of the left ankle. The distal 1 cm has yet to fully close. There is approximately a 2 mm in depth by 1 cm in length part of the wound that has been very resistant to healing. We talked about wound care options. Will have him continue with Dee Dee Promogran dressing as we have discussed previously. Referral to wound care. He does have a easily audible post tib pulse by Doppler. Denies any fever or chills. Denies any new issues or concerns other than the incision that has been resistant to healing. Review of Systems Constitutional: No fevers, chills, sweats, weakness Eye: No recent vision changes, double vision ENMT: No ear pain, nasal congestion, sore throat, voice changes Respiratory: No shortness of breath, cough, wheezing or sputum Cardiovascular: No Chest pain or tightness, palpitations, syncope, swelling Gastrointestinal: No nausea, vomiting, diarrhea, blood in stool, indigestion Genitourinary: No hematuria, frequency or urgency Alejandro/Lymph: Negative for bruising tendency, swollen lymph glands Endocrine: Negative for excessive thirst, excessive hunger Musculoskeletal: No back pain, neck pain, joint pain, muscle pain, injury Integumentary: No rash, pruritus, abrasions, Neurologic: No headache, dizziness, fainting, seizures, balance problems Psychiatric: No anxiety, depression, suicidal thoughts Physical Exam General: calm, cooperative, A/Ox4 Lungs: Clear to auscultation bilaterally Heart: Normal rate, regular rhythm, no murmur, gallop or edema Abdomen: Soft, non-tender, non-distended, normal bowel sounds, no masses Left lower extremity: Left foot is pink and warm. Post tib pulse by Doppler with ease. Distal ankle incision still with 1 cm x 2 mm depth nonhealing area. Additional Vitals No qualifying data available. Assessment/Plan 1. S/P femoral-tibial bypass Still unable to get the distal 1 cm of the ankle incision on the left to heal and close. This has been going on now for 4 months. Will make referral to wound care. He request that this be in [place]. We will help make these arrangements for them. Continue Dee Dee dressing changes every 72 hours. Easily audible dorsalis pedis pulse by Doppler. No other issues. Will arrange for graft duplex now that the area of the graft is healed and okay for duplex. Medical Decision Making Chronic conditions NOT treated during this visit that affected my overall medical decision making: [] Treatment plans discussed but not opted for at this time: [] Prescribed medication that requires intensive monitoring for toxicity: [] I have reviewed the patient?s medication list for medication interactions/contrain dications and/or for upcoming procedures: [yes or no] Time Spent with the Patient I have personally spent [] minutes on this date, directly related to today's patient visit, including pre and post visit work, for this date of service. Time listed does not include time spent on separately billable services. Problem List/Past Medical History Ongoing Cancer of prostate Chronic rheumatic arthritis Nicotine abuse Nonhealing nonsurgical wound PAD (peripheral artery disease) Historical No qualifying data Procedure/Surgical History BIOPSY OF PROSTATE Colonoscopy (2010) Right foot reconstruction (2012) Bypass Graft Femorotibial (Left) (05/18/2023) Bypass Graft Femorotibial (Left) (02/09/2024) Medications aspirin 81 mg oral delayed release tablet, 81 mg, Oral, Daily DME, See Instructions Eliquis 5 mg oral tablet, See Instructions, Take 1 tablet by mouth twice daily folic acid 1 mg oral tablet, 1 mg= 1 tabs, Oral, HS (at bedtime) hydroxychloroquine 200 mg oral tablet, 200 mg= 1 tabs, Oral, HS (at bedtime) Lasix 40 mg oral tablet, See Instructions, PRN, Daily as needed for swelling in Left Leg. methotrexate 2.5 mg oral tablet, 20 mg= 8 tabs, Oral, Mclean potassium chloride 20 mEq oral tablet, extended release, 20 mEq= 1 tabs, Oral, Daily, 1 refills, Take on days that Lasix is taken. predniSONE 5 mg oral tablet, 5 mg= 1 tabs, Oral, Daily, PRN Turmeric, 1500 mg, Oral, Daily valsartan 160 mg oral tablet, 160 mg= 1 tabs, Oral, Daily Vitamin C 500 mg oral tablet, 500 mg= 1 tabs, Oral, Daily Vitamin D3 2000 intl units oral capsule, 100 mcg= 2 caps, Oral, Daily zinc (as acetate) 50 mg oral capsule, 50 mg= 1 caps, Oral, Daily, on an empty stomach 1 hour before or 2 hours after eating Allergies No Known Allergies Social History Alcohol Never Exercise Exercise type: None d/t PAD and foot pain. Tries to be active by grocery shopping, yard work, etc. Up until December 2022 was bicycling daily.. Home/Environment Lives with Adult son. Living situation: Residential home. 3 CATS Nutrition/Health Regular, Caffeine intake amount: DENIES. Substance Abuse Denies All Tobacco 10 or more cigarettes (more content not included)... Normal [facility] Ambulatory Visit Summaryon 1 Ambulatory Visit Summary Ambulatory Visit Summary BECKI ALARCON :1950 Visit Date:06/13/2024 Ambulatory Visit Instructions Your Diagnosis Prostate cancer Current smoker Your Care Team Attending Physician - Riky SELF MD Primary Care Physician - WATSON CARBALLO DO This Is Your Medications List Contact prescribing physician if questions or concerns apixaban (Eliquis 5 mg oral tablet) aspirin (aspirin 81 mg Oral EC Tab) hydroxychloroquine (hydroxychloroquine 200 mg Tab) methotrexate (Trexall 2.5 mg Tab) predniSONE (predniSONE 5 mg Tab) valsartan (valsartan 160 mg Tab) Procedures Performed Transrectal biopsy of prostate using ultrasound guidance (09/22/2023), Transperineal needle biopsy of prostate using ultrasound guidance (07/22/2022), MRI-US fusion guided transperineal biopsy of prostate (05/27/2022), Colonoscopy, Leg, Right foot. Discharge Vitals Heart Rate (Peripheral) 99 Respiratory Rate 16 Blood Pressure 118/82 Height 66 in Height 167 cm Weight 176 lb Weight 80 kg BMI 28.69 What to do next Scheduled Follow-Up Appointments Thursday 2:15 PM EDT With: Riky SELF MD Where: [facility] [place] [address]- You Need to Schedule the Following Appointments Follow Up with Riky SELF MD, URL When: Comments: 8 mos w/ PSA Where: [facility] [address] [place] [address] [phone] Medications What How Much When Instructions Unchanged apixaban (Eliquis 5 mg oral tablet) Contact prescribing physician if questions or concerns Unchanged aspirin (aspirin 81 mg Oral EC Tab) 1 Tablets By Mouth Every day Contact prescribing physician if questions or concerns Unchanged hydroxychloroquine (hydroxychloroquine 200 mg Tab) Contact prescribing physician if questions or concerns Unchanged methotrexate (Trexall 2.5 mg Tab) Contact prescribing physician if questions or concerns Unchanged predniSONE (predniSONE 5 mg Tab) Contact prescribing physician if questions or concerns Unchanged valsartan (valsartan 160 mg Tab) Contact prescribing physician if questions or concerns Allergies No Known Allergies No Known Medication Allergies Problems Ongoing - Any problem that you are currently receiving treatment for. Current smoker Elevated PSA Prostate cancer Historical - Any problem that you are no longer receiving treatment for. Benign prostatic hyperplasia Bilateral foot pain Charcot joint of foot Chronic venous insufficiency Contusion of left shoulder Elevated PSA Essential hypertension History of DVT (deep vein thrombosis) Lumbar spondylosis Nicotine dependence Nocturia Overweight Paresthesia Rheumatoid arthritis Patient Survey You may receive a survey via text or e-mail asking about your office visit. Please share your experience with us by completing your survey. We appreciate your feedback and thank you for choosing us for your care. Education Materials Prostate Cancer Screening Prostate cancer screening is testing that is done to check for the presence of prostate cancer in men. The prostate gland is a walnut-sized gland that is located below the bladder and in front of the rectum in males. The function of the prostate is to add fluid to semen during ejaculation. Prostate cancer is one of the most common types of cancer in men. Who should have prostate cancer screening? Screening recommendations vary based on age and other risk factors, as well as between the professional organizations who make the recommendations. In general, screening is recommended if: ? You are age 50 to 70 and have an average risk for prostate cancer. You should talk with your health care provider about your need for screening and how often screening should be done. Because most prostate cancers are slow growing and will not cause , screening in this age group is generally reserved for men who have a 10- to 15-year life expectancy. ? You are younger than age 50, and you have these risk factors: ? Having a father, brother, or uncle who has been diagnosed with prostate cancer. The risk is higher if your family member's cancer occurred at an early age or if you have multiple family members with prostate cancer at an early age. ? Being a male who is Black or is of Geo or sub-Saharan descent. In general, screening is not recommended if: ? You are younger than age 40. ? You are between the ages of 40 and 49 and you have no risk factors. ? You are 70 years of age or older. At this age, the risks that screening can cause are greater than the benefits that it may provide. If you are at high risk for prostate cancer, your health care provider may recommend that you have screenings more often or that you start screening at a younger age. How is screening for prostate can (more content not included)... Normal [facility] Urology Office/Clinic Noteon 06-13-2024 Urology Office/Clinic Note Urology Office/Clinic Note Chief Complaint 8 month follow up with PSA HPI Staff 8 month follow up with PSA. Previous Dx: prostate cancer (ACTIVE SURVEILLANCE). S/P TRUS BX done 09/22/23 . Current PSA: 05/18/24- 5.46 & 11% Dysuria: denies Incomplete bladder emptying: denies Hematuria: denies Frequency: denies Urgency: yes Nocturia: sometimes 2 x a night and sometimes none at all Stream: denies hesitancy, has a steady stream Leaking: off and on Post void dripping: denies Wearing pads/ Depends: denies Urge incontinence: denies Stress incontinence: denies Incontinence without Sensory Awareness: denies Abdominal pain: denies Flank pain: denies Sexual complaints: _ History of Present Illness Tests reviewed: reviewed UA, PSA I have reviewed the previous health record information and history for this patient from Dr. Self. I have reviewed and verified the staff HPI to be accurate for this encounter. Review of Systems PHQ Score Initial Depression Screen Score: 0 SCORE ROS - Provider Constitutional: denies weight loss, denies hot flashes. Eyes: denies eye problems. Gastrointestinal: denies nausea, denies vomiting. Cardiovascular: denies chest pain or angina. Integumentary: no dryness Musculoskeletal: denies musculoskeletal symptoms. ENMT: denies otolaryngeal symptoms. Respiratory: no shortness of breath. Heme/Lymph: denies easy bleeding tendency, denies easy bruising tendency. Psychiatric: no confusion, no anxiety. Genitourinary: See HPI. Physical Exam Vitals & Measurements HR: 99(Peripheral) RR: 16 BP: 118/82 HT: 66 in HT: 167 cm WT: 80 kg WT: 176 lb BMI: 28.69 General Appearance: alert, no distress, well nourished, well developed male. Assessment/Plan 1. Prostate cancer (C61: Malignant neoplasm of prostate) ACTIVE SURVEILLANCE. PSA: 07/2019 - 3.75 07/2020 - 3.86 07/2021 - 4.36 08/2021 - 4.38 12/2021 - 3.95 02/2022 - 4.46 & 12% free 12/09/22 - 5.01 & 10% 06/17/23 - 6.60 & 10% 05/16/24 - 5.46 & 11% MRI prostate wo w con 05/27/22 - No MRI evidence of prostate malignancy. BPH change. S/P TRUS/Bx 07/22/22 - GS 7 (3+4), 28% core involvement in 2 cores. Repeat TRUS/bx 09/22/23 - Benign. PSA decreased. Will continue to monitor. UA today negative for blood and infection. Not taking any BPH meds. No bother with urination. -F/u in 8 mos w/ PSA 2. Current smoker (F17.200: Nicotine dependence, unspecified, uncomplicated) Began smoking cigarettes in 1969. Risk factor for urothelial ca. Follow-up With When Contact Information CLAIR CARRION, Riky R, URL [facility] [address], [place] [address] [phone] Additional Instructions: 8 mos w/ PSA Patient Education Prostate Cancer Screening Steps to Quit Smoking Nalini Sewell, personally scribed for Dr. Self on 06/13/2024 14:11:17. . Documentation recorded by the giovannaibeNalini, accurately reflects the services(s) I performed and decisions made by me. Authenticated by Dr. Self on 06/13/2024 14:15:26. Problem List/Past Medical History Ongoing Current smoker Elevated PSA Prostate cancer Historical Benign prostatic hyperplasia Bilateral foot pain Charcot joint of foot Chronic venous insufficiency Contusion of left shoulder Elevated PSA Essential hypertension History of DVT (deep vein thrombosis) Lumbar spondylosis Nicotine dependence Nocturia Overweight Paresthesia Rheumatoid arthritis Procedure/Surgical History Transrectal biopsy of prostate using ultrasound guidance (09/22/2023), Transperineal needle biopsy of prostate using ultrasound guidance (07/22/2022), MRI-US fusion guided transperineal biopsy of prostate (05/27/2022), Colonoscopy, Leg, Right foot. Medications aspirin 81 mg Oral EC Tab, 81 mg= 1 tab(s), Oral, Daily Eliquis 5 mg oral tablet hydroxychloroquine 200 mg Tab predniSONE 5 mg Tab Trexall 2.5 mg Tab valsartan 160 mg Tab Allergies No Known Allergies No Known Medication Allergies Social History Tobacco 5-9 cigarettes (between 1/4 to 1/2 pack)/day in last 30 days Tobacco Use:. Never Smokeless Tobacco Use:. Cigarettes, Ready to change: No. Household tobacco concerns: No. Yes, 06/13/2024 Family History Family history is negative Immunizations Vaccine Date Status Comments influenza virus vaccine, inactivated 07/10/2023 Recorded influenza virus vaccine, inactivated 06/30/2022 Recorded SARS-CoV-2 mRNA (tozinameran 5y-11y) vac - Not Given Postpone due to refusal SARS-CoV-2 (COVID-19) mRNA-1273 vaccine 07/03/2021 Recorded 2023-08-10: TPV65 SARS-CoV-2 (COVID-19) mRNA-1273 vaccine 12/14/2020 Recorded 2023-08-10: TPV65 SARS-CoV-2 (COVID-19) mRNA-1273 vaccine 11/13/2020 Recorded 2023-08-10: TPV65 pneumococcal 13-valent vaccine 11/26/2018 Recorded influenza virus vaccine, inactivated 08/01/2017 Recorded influenza virus vaccine, inactivated 07/27/2015 Recorded in (more content not included)... Normal [facility] Comment on above: Result Comment: Elec tronically Signed By: Riky SELF MD\.br\Date and Time Signed: 06/13/24 14:15 EDT\.br\Electronically Co-Signed By: Nalini High.br\Date and Time Co-Signed: 06/13/24 14:11 EDT Cardiovascular Surgery Offic e/ClinicNoteon 05-19-2024 Cardiovascular Surgery Office/ClinicNote History of Present Illness Routine office f/u s/p Lt Fem/PT bypass (cryovein) 02/09/24. Distal ankle incision wound is slowly improving. He continues to use deep Dee Dee Promogran dressing. When I examined the wound today the tissue is pink and getting granulocytes, however the Dee Dee dressing was pretty dry and this was its third day of being on the wound. Instructed him to use keep the Dee Dee more moist, sterile water application. He understands this. Denies any claudication issues. Left foot is pink and warm Review of Systems Constitutional: no fevers, chills, sweats Eye: no recent visual problems ENMT: no ear pain, nasal congestion or sore throat Respiratory: no shortness of breath, cough Cardiovascular: no chest pain, palpitations, syncope Gastrointestinal: no nausea, vomiting or diarrhea Genitourinary: no hematuria or dysuria Physical Exam Vitals & Measurements HR: 75 (Peripheral) BP: 128/82 SpO2: 95 HT: 168 cm WT: 79.46 kg WT: 79.46 kg (Dosing) BMI: 28.15 Cardio: Regular rate and rhythm, no murmurs, rubs, or gallops Lungs: Clear to auscultation bilaterally, no rales/rhonchi/wheezes Abdomen: Normal bowel sounds x 4 quadrants, soft, non-tender, no pulsatile masses Skin: groin incision intact, no eryhtema, drainage. Incisions healing appropriately, without erythema or drainage Lower extremitity: distal pulses AT/PT +1, warm and pink feet, cap refill <3 sec , generlaized mild edema [1] Additional Vitals BP Position/Location: Sitting, Left arm Assessment/Plan 1. S/P femoropopliteal bypass surgery Continue Dee Dee Promogran dressing every 72 hours. Instructed him to moisten the Dee Dee more initially, and as needed. After 72 hours the Dee Dee dressing has not been disintegrating. The wound itself appears healthy, the tissue is pink and granular. Additional Dee Dee given to him with Telfa dressing to continue to use. Follow-up in the office as scheduled Medical Decision Making Chronic conditions NOT treated during this visit that affected my overall medical decision making: [] Treatment plans discussed but not opted for at this time: [] Prescribed medication that requires intensive monitoring for toxicity: [] I have reviewed the patient?s medication list for medication interactions/contrain dications and/or for upcoming procedures: [yes or no] Time Spent with the Patient I have personally spent [] minutes on this date, directly related to today's patient visit, including pre and post visit work, for this date of service. Time listed does not include time spent on separately billable services. Problem List/Past Medical History Ongoing Cancer of prostate Chronic rheumatic arthritis Nicotine abuse Nonhealing nonsurgical wound PAD (peripheral artery disease) Historical No qualifying data Procedure/Surgical History BIOPSY OF PROSTATE Colonoscopy (2010) Right foot reconstruction (2012) Bypass Graft Femorotibial (Left) (05/18/2023) Bypass Graft Femorotibial (Left) (02/09/2024) Medications aspirin 81 mg oral delayed release tablet, 81 mg, Oral, Daily DME, See Instructions Eliquis 5 mg oral tablet, See Instructions, Take 1 tablet by mouth twice daily folic acid 1 mg oral tablet, 1 mg= 1 tabs, Oral, HS (at bedtime) hydroxychloroquine 200 mg oral tablet, 200 mg= 1 tabs, Oral, HS (at bedtime) Lasix 40 mg oral tablet, See Instructions, PRN, Daily as needed for swelling in Left Leg. methotrexate 2.5 mg oral tablet, 20 mg= 8 tabs, Oral, Mclean potassium chloride 20 mEq oral tablet, extended release, 20 mEq= 1 tabs, Oral, Daily, 1 refills, Take on days that Lasix is taken. predniSONE 5 mg oral tablet, 5 mg= 1 tabs, Oral, Daily, PRN Turmeric, 1500 mg, Oral, Daily valsartan 160 mg oral tablet, 160 mg= 1 tabs, Oral, Daily Vitamin C 500 mg oral tablet, 500 mg= 1 tabs, Oral, Daily Vitamin D3 2000 intl units oral capsule, 100 mcg= 2 caps, Oral, Daily zinc (as acetate) 50 mg oral capsule, 50 mg= 1 caps, Oral, Daily, on an empty stomach 1 hour before or 2 hours after eating Allergies No Known Allergies Social History Alcohol Never Exercise Exercise type: None d/t PAD and foot pain. Tries to be active by grocery shopping, yard work, etc. Up until December 2022 was bicycling daily.. Home/Environment Lives with Adult son. Living situation: Residential home. 3 CATS Nutrition/Health Regular, Caffeine intake amount: DENIES. Substance Abuse Denies All Tobacco 10 or more cigarettes (1/2 pack or more)/day in last 30 days Use:. Cigarettes, 0.5 per day. Packs, Started age 21 Years. [1] Office Visit Note; Zacarias Jimenez 04/28/2024 14:25 EDT Electronically signed by Rand PERAZA, Zacarias Baker 05/19/24 14:02 EDT Electronically signed by Daya David MD 06/23/2024 09:30 EDT Normal [facility] Cardiovascular Surgery Offic e/ClinicNoteon 04-28-2024 Cardiovascular Surgery Office/ClinicNote History of Present Illness Routine office f/u s/p Lt Fem/PT bypass (cryovein) 02/09/24. Distal ankle incision wound is slowly improving. He continues to use deep Dee Dee Promogran dressing. When I noticed in the office today is when he unwrapped his gauze dressing over top of the Dee Dee he is peeling off not only portions of Dee Dee but also scabbing with the gauze wrap. I will show him how to apply Telfa over top of this to prevent this from happening. This is delaying wound healing. Also noticed some more generalized edema in this leg today, he states he ran out of Lasix. The left foot remains pink and normothermic to touch, +1 PT pulse, +1 DP pulse. Review of Systems Constitutional: No fevers, chills, sweats, weakness Eye: No recent vision changes, double vision ENMT: No ear pain, nasal congestion, sore throat, voice changes Respiratory: No shortness of breath, cough, wheezing or sputum Cardiovascular: No Chest pain or tightness, palpitations, syncope, +swelling Gastrointestinal: No nausea, vomiting, diarrhea, blood in stool, indigestion Genitourinary: No hematuria, frequency or urgency Alejandro/Lymph: Negative for bruising tendency, swollen lymph glands Endocrine: Negative for excessive thirst, excessive hunger Musculoskeletal: No back pain, neck pain, joint pain, muscle pain, injury Integumentary: No rash, pruritus, abrasions, Neurologic: No headache, dizziness, fainting, seizures, balance problems Psychiatric: No anxiety, depression, suicidal thoughts Physical Exam Cardio: Regular rate and rhythm, no murmurs, rubs, or gallops Lungs: Clear to auscultation bilaterally, no rales/rhonchi/wheezes Abdomen: Normal bowel sounds x 4 quadrants, soft, non-tender, no pulsatile masses Skin: groin incision intact, no eryhtema, drainage. Incisions healing appropriately, without erythema or drainage Lower extremitity: distal pulses AT/PT +1, warm and pink feet, cap refill <3 sec , generlaized mild edema Additional Vitals No qualifying data available. Assessment/Plan 1. S/P femoral-tibial bypass Slow progress of the left ankle wound to fully close. He is using Dee Dee Promogran every 72 hours as directed however when he unwrapped the gauze wrap he uses and keeps peeling off new tissue growth that adheres to the gauze. I gave him Telfa and showed him how to use Telfa over top of the Dee Dee dressing so this gauze wrap does not peel off each time he removes it. He will continue using the Dee Dee Promogran dressing to the wound every 72 hours as previously directed. Otherwise no new issues. Follow-up in the office as scheduled and call with any questions or concerns. Ordered: Post-Op Follow-UP Visit [id number] Medical Decision Making Chronic conditions NOT treated during this visit that affected my overall medical decision making: [] Treatment plans discussed but not opted for at this time: [] Prescribed medication that requires intensive monitoring for toxicity: [] I have reviewed the patient?s medication list for medication interactions/contrain dications and/or for upcoming procedures: [yes or no] Time Spent with the Patient I have personally spent [] minutes on this date, directly related to today's patient visit, including pre and post visit work, for this date of service. Time listed does not include time spent on separately billable services. Problem List/Past Medical History Ongoing Cancer of prostate Chronic rheumatic arthritis Nicotine abuse Nonhealing nonsurgical wound PAD (peripheral artery disease) Historical No qualifying data Procedure/Surgical History BIOPSY OF PROSTATE Colonoscopy (2010) Right foot reconstruction (2012) Bypass Graft Femorotibial (Left) (05/18/2023) Bypass Graft Femorotibial (Left) (02/09/2024) Medications aspirin 81 mg oral delayed release tablet, 81 mg, Oral, Daily DME, See Instructions Eliquis 5 mg oral tablet, 5 mg= 1 tabs, Oral, BID, 6 refills folic acid 1 mg oral tablet, 1 mg= 1 tabs, Oral, HS (at bedtime) hydroxychloroquine 200 mg oral tablet, 200 mg= 1 tabs, Oral, HS (at bedtime) Lasix 40 mg oral tablet, See Instructions, PRN, Daily as needed for swelling in Left Leg. methotrexate 2.5 mg oral tablet, 20 mg= 8 tabs, Oral, Mclean predniSONE 5 mg oral tablet, 5 mg= 1 tabs, Oral, Daily, PRN Turmeric, 1500 mg, Oral, Daily valsartan 160 mg oral tablet, 160 mg= 1 tabs, Oral, Daily Vitamin C 500 mg oral tablet, 500 mg= 1 tabs, Oral, Daily Vitamin D3 2000 intl units oral capsule, 100 mcg= 2 caps, Oral, Daily zinc (as acetate) 50 mg oral capsule, 50 mg= 1 caps, Oral, Daily, on an empty stomach 1 hour before or 2 hours after eating Allergies No Known Allergies Social History Alcohol Never Exercise Exercise type: None d/t PAD and foot pain. Tries to be active by grocery shopping, yard work, etc. Up until December 2022 was bicycling daily.. Home/Environment Lives with Adult son. Living situation: Residential home. 3 [employer] Nutrition/Health Regular, Caffeine intake amoun (more content not included)... Normal [facility] Cardiovascular Surgery Offic e/ClinicNoteon 04-14-2024 Cardiovascular Surgery Office/ClinicNote Chief Complaint fem/pop f/u History of Present Illness Routine office f/u s/p Lt Fem/PT bypass (cryovein) 02/09/24. The right ankle incision is slowly healing, the exudate is gone after using the Melgisorb Ag dressing. Educated him on using Dee Dee Promogran dressing. This will be placed and refreshed every 72 hours. The incision and tissue itself looks healthy. Right foot is pink and warm. Overall nice progress Review of Systems Constitutional: no fevers, chills, sweats Eye: no recent visual problems ENMT: no ear pain, nasal congestion or sore throat Respiratory: no shortness of breath, cough Cardiovascular: no chest pain, palpitations, syncope Gastrointestinal: no nausea, vomiting or diarrhea Genitourinary: no hematuria or dysuria Physical Exam Cardio: Regular rate and rhythm, no murmurs, rubs, or gallops Lungs: Clear to auscultation bilaterally, no rales/rhonchi/wheezes Abdomen: Normal bowel sounds x 4 quadrants, soft, non-tender, no pulsatile masses Skin: groin incision intact, no eryhtema, drainage. Incisions healing appropriately, without erythema or drainage Lower extremitity: distal pulses AT/PT +1, warm and pink feet, cap refill <3 sec , trace edema Additional Vitals No qualifying data available. Assessment/Plan 1. S/P femoral-tibial bypass Right ankle wound steadily improving. Will start using Dee Dee Promogran dressing. This was cut and applied to the wound today in the office, he was educated on how to do this. He will reapply a new piece of this every 72 hours. Wound itself appears healthy, tissue is pink. Right foot is pink and warm. Wound itself appears healthy, tissue is pink. Right foot is pink and warm. Will see him back in the office in 2 weeks, to call if any questions or concerns Ordered: Post-Op Follow-UP Visit [id number] Medical Decision Making Chronic conditions NOT treated during this visit that affected my overall medical decision making: [] Treatment plans discussed but not opted for at this time: [] Prescribed medication that requires intensive monitoring for toxicity: [] I have reviewed the patient?s medication list for medication interactions/contrain dications and/or for upcoming procedures: [yes or no] Time Spent with the Patient I have personally spent [] minutes on this date, directly related to today's patient visit, including pre and post visit work, for this date of service. Time listed does not include time spent on separately billable services. Problem List/Past Medical History Ongoing Cancer of prostate Chronic rheumatic arthritis Nicotine abuse Nonhealing nonsurgical wound PAD (peripheral artery disease) Historical No qualifying data Procedure/Surgical History BIOPSY OF PROSTATE Colonoscopy (2010) Right foot reconstruction (2012) Bypass Graft Femorotibial (Left) (05/18/2023) Bypass Graft Femorotibial (Left) (02/09/2024) Medications aspirin 81 mg oral delayed release tablet, 81 mg, Oral, Daily DME, See Instructions Eliquis 5 mg oral tablet, 5 mg= 1 tabs, Oral, BID, 6 refills folic acid 1 mg oral tablet, 1 mg= 1 tabs, Oral, HS (at bedtime) hydroxychloroquine 200 mg oral tablet, 200 mg= 1 tabs, Oral, HS (at bedtime) Lasix 40 mg oral tablet, See Instructions, PRN, Daily as needed for swelling in Left Leg. methotrexate 2.5 mg oral tablet, 20 mg= 8 tabs, Oral, Mclean predniSONE 5 mg oral tablet, 5 mg= 1 tabs, Oral, Daily, PRN Turmeric, 1500 mg, Oral, Daily valsartan 160 mg oral tablet, 160 mg= 1 tabs, Oral, Daily Vitamin C 500 mg oral tablet, 500 mg= 1 tabs, Oral, Daily Vitamin D3 2000 intl units oral capsule, 100 mcg= 2 caps, Oral, Daily zinc (as acetate) 50 mg oral capsule, 50 mg= 1 caps, Oral, Daily, on an empty stomach 1 hour before or 2 hours after eating Allergies No Known Allergies Social History Alcohol Never Exercise Exercise type: None d/t PAD and foot pain. Tries to be active by grocery shopping, yard work, etc. Up until December 2022 was bicycling daily.. Home/Environment Lives with Adult son. Living situation: Residential home. 3 [employer] Nutrition/Health Regular, Caffeine intake amount: DENIES. Substance Abuse Denies All Tobacco 10 or more cigarettes (1/2 pack or more)/day in last 30 days Use:. Cigarettes, 0.5 per day. Packs, Started age 21 Years. Electronically signed by Zacarias Jimenez 04/14/24 14:38 EDT Electronically signed by Daya David MD 06/27/2024 12:59 EDT Normal [facility] Cardiovascular Surgery Offic e/ClinicNoteon 03-30-2024 Cardiovascular Surgery Office/ClinicNote History of Present Illness Routine office f/u s/p Lt Fem/PT bypass (cryovein) 02/09/24. Rt ankle incision is slow to heel. Approximately the incision is yet to fully close there is a shallow 2 mm in depth nonhealing portion of the wound with some sloughing tissue. The remaining sutures are not serving any purpose, we will remove these today. Distally the wound is scabbing over and appears to be healing nicely. mild 1+ edema around the incision. No erythema or drainage. No other issues or concerns. Review of Systems Constitutional: No fevers, chills, sweats, weakness Eye: No recent vision changes, double vision ENMT: No ear pain, nasal congestion, sore throat, voice changes Respiratory: No shortness of breath, cough, wheezing or sputum Cardiovascular: No Chest pain or tightness, palpitations, syncope, swelling Gastrointestinal: No nausea, vomiting, diarrhea, blood in stool, indigestion Genitourinary: No hematuria, frequency or urgency Alejandro/Lymph: Negative for bruising tendency, swollen lymph glands Endocrine: Negative for excessive thirst, excessive hunger Musculoskeletal: No back pain, neck pain, joint pain, muscle pain, injury Integumentary: No rash, pruritus, abrasions, Neurologic: No headache, dizziness, fainting, seizures, balance problems Psychiatric: No anxiety, depression, suicidal thoughts Physical Exam Vitals & Measurements HR: 73 (Peripheral) BP: 126/82 SpO2: 95 HT: 168 cm WT: 77.51 kg WT: 77.51 kg (Dosing) BMI: 27.46 Cardio: Regular rate and rhythm, no murmurs, rubs, or gallops Lungs: Clear to auscultation bilaterally, no rales/rhonchi/wheezes Abdomen: Normal bowel sounds x 4 quadrants, soft, non-tender, no pulsatile masses Skin: groin incision intact, no eryhtema, drainage. Incisions healing appropriately, without erythema or drainage Lower extremitity: distal pulses AT/PT +1, warm and pink feet, cap refill <3 sec , mild edema Additional Vitals BP Position/Location: Sitting, Left arm Assessment/Plan 1. S/P femoral-tibial bypass Start Mepilex AG to proximal section of distal ankle incision, change every 72 hours. Educated on how to use/apply this. A section of Mepilex was applied to the wound today in the office. And covered with dressing. To use Lasix prn for sweilling Packet of Mepilex Ag was sent home with him. He understands how to use this. Continue Eliquis and aspirin. Follow-up as scheduled Ordered: Post-Op Follow-UP Visit [id number] Medical Decision Making Chronic conditions NOT treated during this visit that affected my overall medical decision making: [] Treatment plans discussed but not opted for at this time: [] Prescribed medication that requires intensive monitoring for toxicity: [] I have reviewed the patient?s medication list for medication interactions/contrain dications and/or for upcoming procedures: [yes or no] Time Spent with the Patient I have personally spent [] minutes on this date, directly related to today's patient visit, including pre and post visit work, for this date of service. Time listed does not include time spent on separately billable services. Problem List/Past Medical History Ongoing Cancer of prostate Chronic rheumatic arthritis Nicotine abuse Nonhealing nonsurgical wound PAD (peripheral artery disease) Historical No qualifying data Procedure/Surgical History BIOPSY OF PROSTATE Colonoscopy (2010) Right foot reconstruction (2012) Bypass Graft Femorotibial (Left) (05/18/2023) Bypass Graft Femorotibial (Left) (02/09/2024) Medications aspirin 81 mg oral delayed release tablet, 81 mg, Oral, Daily DME, See Instructions Eliquis 5 mg oral tablet, 5 mg= 1 tabs, Oral, BID, 6 refills folic acid 1 mg oral tablet, 1 mg= 1 tabs, Oral, HS (at bedtime) hydroxychloroquine 200 mg oral tablet, 200 mg= 1 tabs, Oral, HS (at bedtime) Lasix 40 mg oral tablet, See Instructions, PRN, Daily as needed for swelling in Left Leg. methotrexate 2.5 mg oral tablet, 20 mg= 8 tabs, Oral, Mclean predniSONE 5 mg oral tablet, 5 mg= 1 tabs, Oral, Daily, PRN Turmeric, 1500 mg, Oral, Daily valsartan 160 mg oral tablet, 160 mg= 1 tabs, Oral, Daily Vitamin C 500 mg oral tablet, 500 mg= 1 tabs, Oral, Daily Vitamin D3 2000 intl units oral capsule, 100 mcg= 2 caps, Oral, Daily zinc (as acetate) 50 mg oral capsule, 50 mg= 1 caps, Oral, Daily, on an empty stomach 1 hour before or 2 hours after eating Allergies No Known Allergies Social History Alcohol Never Exercise Exercise type: None d/t PAD and foot pain. Tries to be active by grocery shopping, yard work, etc. Up until December 2022 was bicycling daily.. Home/Environment Lives with Adult son. Living situation: Residential home. 3 [employer] Nutrition/Health Regular, Caffeine intake amount: DENIES. Substance Abuse Denies All Tobacco 10 or more cigarettes (1/2 pack or more)/day in last 30 days Use:. Cigarettes, 0.5 per day. Packs, Started age 21 Years. [1] Office Visit Note; Zacarias Jimenez / (more content not included)... Normal [facility] Cardiovascular Surgery Offic e/ClinicNoteon 03-09-2024 Cardiovascular Surgery Office/ClinicNote Chief Complaint surgery f/u History of Present Illness Routine office f/u s/p Lt Fem/PT bypass (cryovein) 02/09/24. Swelling is better, trace edema at most in the left leg. Incision appears to be healing okay. I think we can start taking stitches out today. Denies any new issues or concerns. No drainage, no erythema. Review of Systems Constitutional: no fevers, chills, sweats Eye: no recent visual problems ENMT: no ear pain, nasal congestion or sore throat Respiratory: no shortness of breath, cough Cardiovascular: no chest pain, palpitations, syncope Gastrointestinal: no nausea, vomiting or diarrhea Genitourinary: no hematuria or dysuria Physical Exam Vitals & Measurements HR: 74 (Peripheral) BP: 122/80 SpO2: 96 HT: 168 cm WT: 78.9 kg WT: 78.9 kg (Dosing) BMI: 27.95 General: Alert/Oriented x4, NAD Cardio: Regular rate and rhythm, no murmurs, rubs, or gallops Lungs: Clear to auscultation bilaterally, no rales/rhonchi/wheezes Abdomen: Normal bowel sounds x 4 quadrants, soft, non-tender, no pulsatile masses Skin: groin incision intact, no eryhtema, drainage. Incisions healing appropriately, without erythema or drainage Lower extremitity: distal pulses AT/PT +1, warm and pink feet, cap refill <3 sec [1] Additional Vitals BP Position/Location: Sitting, Left arm Assessment/Plan 1. S/P femoral-tibial bypass Every other suture removed today. 4 total stitches remain. incision appears to be healing appropriately. Applied some Steri-Strips just to reinforce if his leg were to swell. Will also send him in some Lasix he can use as needed if his leg wants to swell over the holiday. Follow-up in the office next week, remaining stitches can be removed next week unless his leg swells up significantly in the meantime. Call with any questions or concerns. Slow steady progress Ordered: Post-Op Follow-UP Visit [id number] Medical Decision Making Chronic conditions NOT treated during this visit that affected my overall medical decision making: [] Treatment plans discussed but not opted for at this time: [] Prescribed medication that requires intensive monitoring for toxicity: [] I have reviewed the patient?s medication list for medication interactions/contrain dications and/or for upcoming procedures: [yes or no] Time Spent with the Patient I have personally spent [] minutes on this date, directly related to today's patient visit, including pre and post visit work, for this date of service. Time listed does not include time spent on separately billable services. Problem List/Past Medical History Ongoing Cancer of prostate Chronic rheumatic arthritis Nicotine abuse Nonhealing nonsurgical wound PAD (peripheral artery disease) Historical No qualifying data Procedure/Surgical History BIOPSY OF PROSTATE Colonoscopy (2010) Right foot reconstruction (2012) Bypass Graft Femorotibial (Left) (05/18/2023) Bypass Graft Femorotibial (Left) (02/09/2024) Medications aspirin 81 mg oral delayed release tablet, 81 mg, Oral, Daily DME, See Instructions Eliquis 5 mg oral tablet, 5 mg= 1 tabs, Oral, BID, 6 refills folic acid 1 mg oral tablet, 1 mg= 1 tabs, Oral, HS (at bedtime) hydroxychloroquine 200 mg oral tablet, 200 mg= 1 tabs, Oral, HS (at bedtime) Lasix 40 mg oral tablet, 40 mg= 1 tabs, Oral, Daily methotrexate 2.5 mg oral tablet, 20 mg= 8 tabs, Oral, Mclean potassium chloride 20 mEq oral tablet, extended release, 20 mEq= 1 tabs, Oral, Daily predniSONE 5 mg oral tablet, 5 mg= 1 tabs, Oral, Daily, PRN Turmeric, 1500 mg, Oral, Daily valsartan 160 mg oral tablet, 160 mg= 1 tabs, Oral, Daily Vitamin C 500 mg oral tablet, 500 mg= 1 tabs, Oral, Daily Vitamin D3 2000 intl units oral capsule, 100 mcg= 2 caps, Oral, Daily zinc (as acetate) 50 mg oral capsule, 50 mg= 1 caps, Oral, Daily, on an empty stomach 1 hour before or 2 hours after eating Allergies No Known Allergies Social History Alcohol Never Exercise Exercise type: None d/t PAD and foot pain. Tries to be active by grocery shopping, yard work, etc. Up until December 2022 was bicycling daily.. Home/Environment Lives with Adult son. Living situation: Residential home. 3 CATS Nutrition/Health Regular, Caffeine intake amount: DENIES. Substance Abuse Denies All Tobacco 10 or more cigarettes (1/2 pack or more)/day in last 30 days Use:. Cigarettes, 0.5 per day. Packs, Started age 21 Years. [1] Office Visit Note; Zacarias Jimenez 03/02/2024 13:59 EDT Electronically signed by Zacarias Jimenez 03/09/24 14:09 EDT Electronically signed by Daya David MD 03/14/2024 12:41 EDT Normal [facility] Cardiovascular Surgery Offic e/ClinicNoteon 03-02-2024 Cardiovascular Surgery Office/ClinicNote Chief Complaint surgery f/u History of Present Illness Routine office f/u s/p Lt Fem/PT bypass (cryovein) 02/09/24. Has been on Lasix daily , He says he is got 2 more days of this left. This swelling is steadily improving, this is a slow process. He still has 1+ pitting edema in the left ankle. The left ankle incision edges are well-approximated, sutures remain, there is no erythema or drainage noted. Still would not remove stitches at this point fearing dehiscence. No claudication symptoms. Left foot is pink and warm. +2 dorsalis pedis pulse, +1 post tib. Has some numbness around the left ankle other than that no symptoms. Review of Systems Constitutional: No fevers, chills, sweats, weakness Eye: No recent vision changes, double vision ENMT: No ear pain, nasal congestion, sore throat, voice changes Respiratory: No shortness of breath, cough, wheezing or sputum Cardiovascular: No Chest pain or tightness, palpitations, syncope, + swelling Gastrointestinal: No nausea, vomiting, diarrhea, blood in stool, indigestion Genitourinary: No hematuria, frequency or urgency Alejandro/Lymph: Negative for bruising tendency, swollen lymph glands Endocrine: Negative for excessive thirst, excessive hunger Musculoskeletal: No back pain, neck pain, joint pain, muscle pain, injury Integumentary: No rash, pruritus, abrasions, Neurologic: No headache, dizziness, fainting, seizures, balance problems Psychiatric: No anxiety, depression, suicidal thoughts Physical Exam General: Alert/Oriented x4, NAD Cardio: Regular rate and rhythm, no murmurs, rubs, or gallops Lungs: Clear to auscultation bilaterally, no rales/rhonchi/wheezes Abdomen: Normal bowel sounds x 4 quadrants, soft, non-tender, no pulsatile masses Skin: groin incision intact, no eryhtema, drainage. Incisions healing appropriately, without erythema or drainage Lower extremitity: distal pulses AT/PT +1, warm and pink feet, cap refill <3 sec Additional Vitals No qualifying data available. Assessment/Plan 1. S/P femoropopliteal bypass surgery Finish course of Lasix. Keep the left leg elevated above the heart level. Most distal suture removed, the remaining stitches remain. +1 edema around the left ankle. Removing stitches at this point would cause a dehiscence of the incision Keep it clean. A new silver Mepilex dressing was applied to the distal ankle incision. The remaining incisions are healed. Continue Eliquis twice daily for graft patency. Follow-up in the office as scheduled. Medical Decision Making Chronic conditions NOT treated during this visit that affected my overall medical decision making: [] Treatment plans discussed but not opted for at this time: [] Prescribed medication that requires intensive monitoring for toxicity: [] I have reviewed the patient?s medication list for medication interactions/contrain dications and/or for upcoming procedures: [yes or no] Time Spent with the Patient I have personally spent [] minutes on this date, directly related to today's patient visit, including pre and post visit work, for this date of service. Time listed does not include time spent on separately billable services. Problem List/Past Medical History Ongoing Cancer of prostate Chronic rheumatic arthritis Nicotine abuse Nonhealing nonsurgical wound PAD (peripheral artery disease) Historical No qualifying data Procedure/Surgical History BIOPSY OF PROSTATE Colonoscopy (2010) Right foot reconstruction (2012) Bypass Graft Femorotibial (Left) (05/18/2023) Bypass Graft Femorotibial (Left) (02/09/2024) Medications aspirin 81 mg oral delayed release tablet, 81 mg, Oral, Daily DME, See Instructions Eliquis 5 mg oral tablet, 5 mg= 1 tabs, Oral, BID folic acid 1 mg oral tablet, 1 mg= 1 tabs, Oral, HS (at bedtime) hydroxychloroquine 200 mg oral tablet, 200 mg= 1 tabs, Oral, HS (at bedtime) Lasix 40 mg oral tablet, 40 mg= 1 tabs, Oral, Daily methotrexate 2.5 mg oral tablet, 20 mg= 8 tabs, Oral, Mclean potassium chloride 20 mEq oral tablet, extended release, 20 mEq= 1 tabs, Oral, Daily predniSONE 5 mg oral tablet, 5 mg= 1 tabs, Oral, Daily, PRN Turmeric, 1500 mg, Oral, Daily valsartan 160 mg oral tablet, 160 mg= 1 tabs, Oral, Daily Vitamin C 500 mg oral tablet, 500 mg= 1 tabs, Oral, Daily Vitamin D3 2000 intl units oral capsule, 100 mcg= 2 caps, Oral, Daily zinc (as acetate) 50 mg oral capsule, 50 mg= 1 caps, Oral, Daily, on an empty stomach 1 hour before or 2 hours after eating Allergies No Known Allergies Social History Alcohol Never Exercise Exercise type: None d/t PAD and foot pain. Tries to be active by grocery shopping, yard work, etc. Up until December 2022 was bicycling daily.. Home/Environment Lives with Adult son. Living situation: Residential home. 3 [address]S Nutrition/Health Regular, Caffeine intake amount: DENIES. Substance Abuse Denies All Tobacco 10 or more cigarettes (1/2 pack or more)/day in last 30 days Use:. Cigarettes, (more content not included)... Normal [facility] Cardiovascular Surgery Offic e/ClinicNoteon 02-24-2024 Cardiovascular Surgery Office/ClinicNote Chief Complaint surgery f/u History of Present Illness Routine office f/u s/p Lt Fem/PT bypass (cryovein) 02/09/24. Has been on Lasix daily, swelling is better, but still 1+ pitting below the knees. His son is with him, he informs me that his dad has not been elevating his legs at rest. And Becki agrees, I educated him that the incision on the ankle area is going to have a hard time healing until he gets the swelling out of the leg. Denies having any claudication symptoms with activity. He states he is walking well, does not really need his walker?he states this. Excellent signals left foot by Doppler. The erythema is better. Biggest cruz at this point is getting the swelling out of his leg, we will continue the Lasix for an additional week. But he needs to take responsibility and keep the leg elevated, this will help the most. Review of Systems Constitutional: No fevers, chills, sweats, weakness Eye: No recent vision changes, double vision ENMT: No ear pain, nasal congestion, sore throat, voice changes Respiratory: No shortness of breath, cough, wheezing or sputum Cardiovascular: No Chest pain or tightness, palpitations, syncope, + swelling Gastrointestinal: No nausea, vomiting, diarrhea, blood in stool, indigestion Genitourinary: No hematuria, frequency or urgency Alejandro/Lymph: Negative for bruising tendency, swollen lymph glands Endocrine: Negative for excessive thirst, excessive hunger Musculoskeletal: No back pain, neck pain, joint pain, muscle pain, injury Integumentary: No rash, pruritus, abrasions, Neurologic: No headache, dizziness, fainting, seizures, balance problems Psychiatric: No anxiety, depression, suicidal thoughts Physical Exam General: Alert/Oriented x4, NAD Cardio: Regular rate and rhythm, no murmurs, rubs, or gallops Lungs: Clear to auscultation bilaterally, no rales/rhonchi/wheezes Abdomen: Normal bowel sounds x 4 quadrants, soft, non-tender, no pulsatile masses Skin: groin incision intact, no eryhtema, drainage. Incisions healing appropriately, without erythema or drainage Lower extremitity: distal pulses AT/PT by Doppler, warm and pink feet, cap refill <3 sec Additional Vitals No qualifying data available. Assessment/Plan 1. S/P femoropopliteal bypass surgery All incisions except the distal ankle incision have healed nicely. Still too much edema in the left leg. He needs to keep the leg elevated?he still has not been doing this despite continued education to keep the leg elevated above heart level at rest. Will continue the Lasix for an additional week. The erythema has cleared up. No claudication symptoms. Continue Eliquis 5 Mg twice daily for graft patency. Follow-up next week as scheduled. Call with any questions or concerns Medical Decision Making Chronic conditions NOT treated during this visit that affected my overall medical decision making: [] Treatment plans discussed but not opted for at this time: [] Prescribed medication that requires intensive monitoring for toxicity: [] I have reviewed the patient?s medication list for medication interactions/contrain dications and/or for upcoming procedures: [yes or no] Time Spent with the Patient I have personally spent [] minutes on this date, directly related to today's patient visit, including pre and post visit work, for this date of service. Time listed does not include time spent on separately billable services. Problem List/Past Medical History Ongoing Cancer of prostate Chronic rheumatic arthritis Nicotine abuse Nonhealing nonsurgical wound PAD (peripheral artery disease) Historical No qualifying data Procedure/Surgical History BIOPSY OF PROSTATE Colonoscopy (2010) Right foot reconstruction (2012) Bypass Graft Femorotibial (Left) (05/18/2023) Bypass Graft Femorotibial (Left) (02/09/2024) Medications aspirin 81 mg oral delayed release tablet, 81 mg, Oral, Daily DME, See Instructions Eliquis 5 mg oral tablet, 5 mg= 1 tabs, Oral, BID folic acid 1 mg oral tablet, 1 mg= 1 tabs, Oral, HS (at bedtime) hydroxychloroquine 200 mg oral tablet, 200 mg= 1 tabs, Oral, HS (at bedtime) Lasix 40 mg oral tablet, See Instructions, 1 tabs Oral BID x 3 days then 1 time daily thereafter methotrexate 2.5 mg oral tablet, 20 mg= 8 tabs, Oral, Mclean potassium chloride 20 mEq oral tablet, extended release, See Instructions, 1 tabs Oral BID x 3 days, then 1 time daily thereafter predniSONE 5 mg oral tablet, 5 mg= 1 tabs, Oral, Daily, PRN Turmeric, 1500 mg, Oral, Daily valsartan 160 mg oral tablet, 160 mg= 1 tabs, Oral, Daily Vitamin C 500 mg oral tablet, 500 mg= 1 tabs, Oral, Daily Vitamin D3 2000 intl units oral capsule, 100 mcg= 2 caps, Oral, Daily zinc (as acetate) 50 mg oral capsule, 50 mg= 1 caps, Oral, Daily, on an empty stomach 1 hour before or 2 hours after eating Allergies No Known Allergies Social History Alcohol Never Exercise Exercise type: None d/t PAD and foot pain. Tries to be active by grocery (more content not included)... Normal [facility] Cardiovascular Surgery Offic e/ClinicNoteon 02-16-2024 Cardiovascular Surgery Office/ClinicNote Chief Complaint f/u History of Present Illness Routine office f/u s/p Lt Fem/PT bypass (cryovein) 02/09/24. 2+ edema in the left leg, do not think he has been elevating the leg is much as he should be. He admits to this. The incisions all appear to be healing appropriately. Sutures are intact and edges well-approximated in the distal incision. There is some erythema around the distal GAVI site. No drainage noted. Denies any claudication type symptoms. No fevers or chills, chest pain or shortness of breath. Will start him on Lasix for the edema and he can increase his Eliquis to normal 5 mg twice daily dosing. He understands he needs to keep the leg elevated more at rest. Review of Systems Constitutional: No fevers, chills, sweats, weakness Eye: No recent vision changes, double vision ENMT: No ear pain, nasal congestion, sore throat, voice changes Respiratory: No shortness of breath, cough, wheezing or sputum Cardiovascular: No Chest pain or tightness, palpitations, syncope, + swelling Gastrointestinal: No nausea, vomiting, diarrhea, blood in stool, indigestion Genitourinary: No hematuria, frequency or urgency Alejandro/Lymph: Negative for bruising tendency, swollen lymph glands Endocrine: Negative for excessive thirst, excessive hunger Musculoskeletal: No back pain, neck pain, joint pain, muscle pain, injury Integumentary: No rash, pruritus, abrasions, Neurologic: No headache, dizziness, fainting, seizures, balance problems Psychiatric: No anxiety, depression, suicidal thoughts Physical Exam General: Alert/Oriented x4, NAD Cardio: Regular rate and rhythm, no murmurs, rubs, or gallops Lungs: Clear to auscultation bilaterally, no rales/rhonchi/wheezes Abdomen: Normal bowel sounds x 4 quadrants, soft, non-tender, no pulsatile masses Skin: groin incision intact, no eryhtema, drainage. Incisions healing appropriately, without erythema or drainage Lower extremitity: distal pulses AT/PT by Doppler, warm and pink feet, cap refill <3 sec Additional Vitals No qualifying data available. Assessment/Plan 1. S/P femoropopliteal bypass surgery Instructed to increase Eliquis dose to full 5 mg twice daily dosing. He has this Rx at home. Okay to resume home dose of valsartan, BPs have been in the 130s at home. Start Lasix 40 mg daily with KCl for edema ATX for erythema around the distal GAVI site Hold resuming amlodipine for now Follow-up in the office next week as scheduled. Call with any questions or concerns. All questions answered. Medical Decision Making Chronic conditions NOT treated during this visit that affected my overall medical decision making: [] Treatment plans discussed but not opted for at this time: [] Prescribed medication that requires intensive monitoring for toxicity: [] I have reviewed the patient?s medication list for medication interactions/contrain dications and/or for upcoming procedures: [yes or no] Time Spent with the Patient I have personally spent [] minutes on this date, directly related to today's patient visit, including pre and post visit work, for this date of service. Time listed does not include time spent on separately billable services. Problem List/Past Medical History Ongoing Cancer of prostate Chronic rheumatic arthritis Nicotine abuse Nonhealing nonsurgical wound PAD (peripheral artery disease) Historical No qualifying data Procedure/Surgical History BIOPSY OF PROSTATE Colonoscopy (2010) Right foot reconstruction (2012) Bypass Graft Femorotibial (Left) (05/18/2023) Bypass Graft Femorotibial (Left) (02/09/2024) Medications aspirin 81 mg oral delayed release tablet, 81 mg, Oral, Daily DME, See Instructions Eliquis 2.5 mg oral tablet, 2.5 mg, Oral, BID folic acid 1 mg oral tablet, 1 mg= 1 tabs, Oral, HS (at bedtime) hydroxychloroquine 200 mg oral tablet, 200 mg= 1 tabs, Oral, HS (at bedtime) methotrexate 2.5 mg oral tablet, 20 mg= 8 tabs, Oral, Mclean predniSONE 5 mg oral tablet, 5 mg= 1 tabs, Oral, Daily, PRN Turmeric, 1500 mg, Oral, Daily Vitamin C 500 mg oral tablet, 500 mg= 1 tabs, Oral, Daily Vitamin D3 2000 intl units oral capsule, 100 mcg= 2 caps, Oral, Daily zinc (as acetate) 50 mg oral capsule, 50 mg= 1 caps, Oral, Daily, on an empty stomach 1 hour before or 2 hours after eating Allergies No Known Allergies Social History Alcohol Never Exercise Exercise type: None d/t PAD and foot pain. Tries to be active by grocery shopping, yard work, etc. Up until December 2022 was bicycling daily.. Home/Environment Lives with Adult son. Living situation: Residential home. 3 [address] Nutrition/Health Regular, Caffeine intake amount: DENIES. Substance Abuse Denies All Tobacco 10 or more cigarettes (1/2 pack or more)/day in last 30 days Use:. Cigarettes, 0.5 per day. Packs, Started age 21 Years. [1] Progress/SOAP Note; Zacarias Jimenez 02/11/2024 09:32 EDT Electronically signed by Pratima (more content not included)... Normal [facility] .eGFRon 02-12-2024 GFR/1.73 sq M.predicted MDRD (S/P/Bld) [Vol rate/Area] mL/min/{1.73_m2} Normal >=60 [facility] Comment on above: Result Comment: [facility] have implemented the eGFR calculation approach that does not have a coefficient for race and that conforms to the NKF-ASN Task Force Recommendations. Stages of Chronic Kidney Disease GFR Stage 3a Mild to moderate loss of kidney function 59 to 45 Stage 3b Moderate to severe loss of kidney function 44 to 33 Stage 4 Severe loss of kidney function 29 to 15 Stage 5 Kidney failure Less than 15 GFR calculated using the CKD-Epi Creatinine Equation (2020): eGFR = 142 X min(SCr/?, 1)? X max(SCr /?, 1)-1.200 X 0.9938Age X 1.012 [if female] Abbreviations/Units: eGFR (estimated glomerular filtration rate) = mL/min/1.73 m2 SCr (standardized serum creatinine) = mg/dL ? = 0.7 (females) or 0.9 (males) ? = -0.241 (females) or -0.302 (males) min = indicates the minimum of SCr/? or 1 max = indicates the maximum of SCr/? or 1 Age = years Performed By: #### E GFR #### [address] [address] Basic Metabolic Profileon Anion gap [Moles/Vol] 9 mmol/L Normal 4-12 [facility] Comment on above: Performed By: #### C [id number] #### [address] [address] Calcium [Mass/Vol] 8.6 mg/dL Normal 8.5-10.3 [facility] Comment on above: Performed By: #### C [id number] #### [address] [place] [address] Chloride [Moles/Vol] 108 mmol/L Normal 98-110 [facility] Comment on above: Performed By: #### C [id number] #### [address] [address] CO2 [Moles/Vol] 21 mmol/L Low 22-32 [facility] Comment on above: Performed By: #### C [id number] #### [address] [address] Creatinine [Mass/Vol] 0.90 mg/dL Normal 0.61-1.24 [facility] Comment on above: Performed By: #### C [id number] #### [address] [address] Glucose [Mass/Vol] 99 mg/dL Normal 70-99 [facility] Comment on above: Performed By: #### C [id number] #### [address] [address] Potassium [Moles/Vol] 3.7 mmol/L Normal 3.4-4.8 [facility] Comment on above: Performed By: #### C [id number] #### [address] [address] Sodium [Moles/Vol] 138 mmol/L Normal 133-142 [facility] Comment on above: Performed By: #### C [id number] #### [address] [address] Urea nitrogen [Mass/Vol] 25 mg/dL Normal 8-26 [facility] Comment on above: Performed By: #### C [id number] #### [address] [address] Urea nitrogen/Creatinine [Mass ratio] 27.8 mg/mg High 10.0-20.0 [facility] Comment on above: Performed By: #### C [id number] #### [address] [address] CBC w/ Diffon 02-12-2024 Erythrocyte distribution width (RBC) [Ratio] 17.1 % High 11.6-14.8 [facility] Comment on above: Performed By: #### C [id number] #### [address] [address] Hematocrit (Bld) [Volume fraction] 33.4 % Low 41.0-53.0 [facility] Comment on above: Performed By: #### C [id number] #### [address] [address] Hemoglobin (Bld) [Mass/Vol] 11.4 g/dL Low 13.5-17.5 [facility] Comment on above: Performed By: #### C [id number] #### [address] [address] MCH (RBC) [Entitic mass] 30.2 pg Normal 27.0-35.0 [facility] Comment on above: Performed By: #### C [id number] #### [address] [address] MCHC 34.0 % Normal 31.0-37.0 [facility] Comment on above: Performed By: #### C [id number] #### [address] [address] MCV (RBC) [Entitic vol] 88.9 fL Normal 80.0-100.0 [facility] Comment on above: Performed By: #### C [id number] #### [address] [address] Platelet 174 x10*3/mcL Normal 150-450 [facility] Comment on above: Performed By: #### C [id number] #### [address] [address] Platelet mean volume (Bld) [Entitic vol] 8.4 fL Normal 6.7-10.6 [facility] Comment on above: Performed By: #### C [id number] #### [address] [address] RBC 3.76 x10*6/mcL Low 4.30-5.80 [facility] Comment on above: Performed By: #### C [id number] #### [address] [address] WBC 7.5 x10*3/mcL Normal 4.5-11.0 [facility] Comment on above: Performed By: #### C [id number] #### [address] [address] Diff [place] 02-12-2024 Baso Absolute 0.0 x10*3/mcL Normal 0.0-0.2 [facility] Comment on above: Performed By: #### P TT #### [address] [address] Basophils/100 WBC (Bld) 0.4 % Normal 0.0-1.2 [facility] Comment on above: Performed By: #### P TT #### [address] [address] Eos Absolute 0.1 x10*3/mcL Normal 0.0-0.4 [facility] Comment on above: Performed By: #### P TT #### [address] [address] Eosinophils/100 WBC (Bld) 1.0 % Normal 0.0-6.1 [facility] Comment on above: Performed By: #### P TT #### [address] [address] Lymph Absolute 1.0 x10*3/mcL Normal 1.0-4.8 [facility] Comment on above: Performed By: #### P TT #### [address] [address] Lymphocytes/100 WBC (Bld) 13.6 % Low 27.2-40.8 [facility] Comment on above: Performed By: #### P TT #### [address] [address] Coal Absolute 1.1 x10*3/mcL Normal 0.3-1.1 [facility] Comment on above: Performed By: #### P TT #### [address] [address] Monocytes/100 WBC (Bld) 15.1 % High 4.7-13.9 [facility] Comment on above: Performed By: #### P TT #### [address] [address] Neutro Absolute 5.2 x10*3/mcL Normal 1.8-7.7 [facility] Comment on above: Performed By: #### P TT #### [address] [address] Neutro Auto 69.9 % Normal 47.2-70.8 [facility] Comment on above: Performed By: #### P TT #### [address] [address] Inpatient Clinical Summaryon 02-12-2024 Inpatient Clinical Summary [address] [address] Clinical Summary Person Information Name: Bceki Alarcon Age: 74 Years : 1950 Sex: Male PCP: Watson Carballo DO Marital Status: PCP: Race: White Ethnicity: Not or Language: Telugu Visit Id: Visit Reason: Surgery Speciality: Acuity: Enc Type: Inpatient Med Service: Surgery Arrival: 02/09/2024 06:37:17 Discharge: Dispo Type: Address: [address] [place] [phone] Diagnosis: 1:PAD (peripheral artery disease); 2:S/P femoral-tibial bypass Discharged To: Home Treatments: Devices/Equipment: Professional Skilled Services: Special Services and Community Resources: Mode of Discharge Transportation: Discharge Orders Allergies No Known Allergies Functional Status: Sensory Deficits: None History of Falls: Mobility Assistance Prior to Admission: ADLs: Independent Gait: Ambulation Assist: Assistive Device: Walker Special Orthopedic Devices: Current Level of Assistance for Self-Care/Mobility: Cognitive Status: Orientation: Orientation Assessment Oriented x 4 Level of Consciousness: Alert Characteristics of Speech: Clear Aspiration Risk: None Affect/Behavior: Calm, Cooperative Laboratory or Other Results This Visit (last charted value for your 02/09/2024 visit) Hematology 02/12/2024 3:37 AM WBC: 7.5 x10 RBC: 3.76 x10 Neutro Auto: 69.9 % -- Normal range between ( 47.2 and 70.8 ) Lymph Auto: 13.6 % -- Normal range between ( 27.2 and 40.8 ) Coal Auto: 15.1 % -- Normal range between ( 4.7 and 13.9 ) Eos Auto: 1.0 % -- Normal range between ( 0.0 and 6.1 ) Basophil Auto: 0.4 % -- Normal range between ( 0.0 and 1.2 ) Baso Absolute: 0.0 x10 MCV: 88.9 fL -- Normal range between ( 80.0 and 100.0 ) MCHC: 34.0 % -- Normal range between ( 31.0 and 37.0 ) Lymph Absolute: 1.0 x10 Hct: 33.4 % -- Normal range between ( 41.0 and 53.0 ) Coal Absolute: 1.1 x10 MCH: 30.2 pg -- Normal range between ( 27.0 and 35.0 ) Neutro Absolute: 5.2 x10 Hgb: 11.4 g/dL -- Normal range between ( 13.5 and 17.5 ) Mean Platelet Volume: 8.4 fL -- Normal range between ( 6.7 and 10.6 ) Platelet: 174 x10 Eos Absolute: 0.1 x10 RDW: 17.1 % -- Normal range between ( 11.6 and 14.8 ) 02/03/2024 1:27 PM Platelets: Platelets Coagulation 02/09/2024 3:44 PM PTT: 26.7 seconds -- Normal range between ( 19.5 and 28.2 ) Chemistry 02/12/2024 3:37 AM Creatinine Lvl: 0.90 mg/dL -- Normal range between ( 0.61 and 1.24 ) BUN: 25 mg/dL -- Normal range between ( 8 and 26 ) Glucose Lvl: 99 mg/dL -- Normal range between ( 70 and 99 ) Potassium Lvl: 3.7 mmol/L -- Normal range between ( 3.4 and 4.8 ) Sodium Lvl: 138 mmol/L -- Normal range between ( 133 and 142 ) Calcium Lvl: 8.6 mg/dL -- Normal range between ( 8.5 and 10.3 ) Chloride: 108 mmol/L -- Normal range between ( 98 and 110 ) CO2: 21 mmol/L -- Normal range between ( 22 and 32 ) Anion Gap: 9 -- Normal range between ( 4 and 12 ) Estimated GFR: >60 mL/min/1.73m? BUN Crea Ratio: 27.8 -- Normal range between ( 10.0 and 20.0 ) Blood Bank 02/09/2024 7:23 AM Product Requested: RBCs 02/03/2024 1:43 PM ABO/Rh: B POS Computer XM Interp: Computer XM OK Antibody Screen: Negative ABSC 02/03/2024 1:27 PM Product Ready: Done POC Testing 02/11/2024 12:38 PM POC Gluc Random: 97 mg/dL -- Normal range between ( 70 and 99 ) Measurements: Height: Weight: Blood Pressure: 115 mmHg / BMI: Respiratory: Respirations: Unlabored Respiratory Symptoms: Cough Cardiovascular: Heart Sounds: Heart Rhythm: Regular Gastrointestinal: GI Symptoms: Bowel Sounds: Hypoactive Vital Signs: Temp Axillary: Temp Temporal Artery: 36.0 degC Temp Oral: 36.8 degC Temp Rectal: Apical Heart Rate: Peripheral Pulse Rate: 62 bpm Heart Rate: 92 bpm Respiratory Rate: 16 br/min Diet Diet: Feeding Tolerance: Appetite: Fair [place] Assessment: 19 Procedures BIOPSY OF PROSTATE Immunizations No Immunizations Documented This Visit HERE ARE THE MEDICATION CHANGES THAT OCCURRED DURING YOUR HOSPITAL STAY Medications That Were Updated - Follow Current Instructions Other Medications Current: apixaban (Eliquis 2.5 mg oral tablet) 2.5 Milligram Oral (given by mouth) 2 times a day. Last Dose: ____ Medications That Have Not Changed Other Medications ascorbic acid (Vitamin C 500 mg oral tablet) 1 Tabs Oral (given by mouth) every day. Last Dose: ____ aspirin (aspirin 81 mg oral delayed release tablet) 81 Milligram Oral (given by mouth) every day. Last Dose: ____ cholecalciferol (Vitamin D3 2000 intl units oral capsule) 2 Capsules Oral (given by mouth) every day. Last Dose: ____ DME Refills: 0. (more content not included)... Normal [facility] .eGFRon 02-11-2024 GFR/1.73 sq M.predicted MDRD (S/P/Bld) [Vol rate/Area] mL/min/{1.73_m2} Normal >=60 [facility] Comment on above: Result Comment: [facility] Laboratories have implemented the eGFR calculation approach that does not have a coefficient for race and that conforms to the NKF-ASN Task Force Recommendations. Stages of Chronic Kidney Disease GFR Stage 3a Mild to moderate loss of kidney function 59 to 45 Stage 3b Moderate to severe loss of kidney function 44 to 33 Stage 4 Severe loss of kidney function 29 to 15 Stage 5 Kidney failure Less than 15 GFR calculated using the CKD-Epi Creatinine Equation (2020): eGFR = 142 X min(SCr/?, 1)? X max(SCr /?, 1)-1.200 X 0.9938Age X 1.012 [if female] Abbreviations/Units: eGFR (estimated glomerular filtration rate) = mL/min/1.73 m2 SCr (standardized serum creatinine) = mg/dL ? = 0.7 (females) or 0.9 (males) ? = -0.241 (females) or -0.302 (males) min = indicates the minimum of SCr/? or 1 max = indicates the maximum of SCr/? or 1 Age = years Performed By: #### C [id number] #### [address] [address] Basic Metabolic Profileon Anion gap [Moles/Vol] 8 mmol/L Normal 4-12 [facility] Comment on above: Performed By: #### C [id number] #### [address] [address] Calcium [Mass/Vol] 8.3 mg/dL Low 8.5-10.3 [facility] Comment on above: Performed By: #### C [id number] #### [address] [address] Chloride [Moles/Vol] 110 mmol/L Normal 98-110 [facility] Comment on above: Performed By: #### C [id number] #### [address] [address] CO2 [Moles/Vol] 19 mmol/L Low 22-32 [facility] Comment on above: Performed By: #### C [id number] #### [address] [address] Creatinine [Mass/Vol] 0.89 mg/dL Normal 0.61-1.24 [facility] Comment on above: Performed By: #### C [id number] #### [address] [address] Glucose [Mass/Vol] 107 mg/dL High 70-99 [facility] Comment on above: Performed By: #### C [id number] #### [address] [address] Potassium [Moles/Vol] 3.8 mmol/L Normal 3.4-4.8 [facility] Comment on above: Performed By: #### C [id number] #### [address] [address] Sodium [Moles/Vol] 137 mmol/L Normal 133-142 [facility] Comment on above: Performed By: #### C [id number] #### [address] [address] Urea nitrogen [Mass/Vol] 20 mg/dL Normal 8-26 [facility] Comment on above: Performed By: #### C [id number] #### [address] [address] Urea nitrogen/Creatinine [Mass ratio] 22.5 mg/mg High 10.0-20.0 [facility] Comment on above: Performed By: #### C [id number] #### [address] [address] CBC w/ Diffon 02-11-2024 Erythrocyte distribution width (RBC) [Ratio] 16.9 % High 11.6-14.8 [facility] Comment on above: Performed By: #### C [id number] #### [address] [address] Hematocrit (Bld) [Volume fraction] 35.7 % Low 41.0-53.0 [facility] Comment on above: Performed By: #### C [id number] #### [address] [address] Hemoglobin (Bld) [Mass/Vol] 12.1 g/dL Low 13.5-17.5 [facility] Comment on above: Performed By: #### C [id number] #### [address] [address] MCH (RBC) [Entitic mass] 30.2 pg Normal 27.0-35.0 [facility] Comment on above: Performed By: #### C [id number] #### [address] [address] MCHC 33.9 % Normal 31.0-37.0 [facility] Comment on above: Performed By: #### C [id number] #### [address] [address] MCV (RBC) [Entitic vol] 89.0 fL Normal 80.0-100.0 [facility] Comment on above: Performed By: #### C [id number] #### [address] [place] [address] Platelet 174 x10*3/mcL Normal 150-450 [facility] Comment on above: Performed By: #### C [id number] #### [address] [address] Platelet mean volume (Bld) [Entitic vol] 8.1 fL Normal 6.7-10.6 [facility] Comment on above: Performed By: #### C [id number] #### [address] [address] RBC 4.01 x10*6/mcL Low 4.30-5.80 [facility] Comment on above: Performed By: #### C [id number] #### [address] [address] WBC 8.8 x10*3/mcL Normal 4.5-11.0 [facility] Comment on above: Performed By: #### C [id number] #### [address] [address] Cardiovascular Surgery Progr ess Noteon 02-11-2024 Cardiovascular Surgery Progress Note Subjective POD#2 Lt Fem/PT bypass (cryovein). Doing well, ambulates without issue. GAVI drains dry. some mild LLE swelling. Review of Systems Constitutional: no fevers, chills, sweats Eye: no recent visual problems ENMT: no ear pain, nasal congestion or sore throat Respiratory: no shortness of breath, cough Cardiovascular: no chest pain, palpitations, syncope Gastrointestinal: no nausea, vomiting or diarrhea Genitourinary: no hematuria or dysuria Objective Vitals & Measurements T: 36.7 ?C (Oral) HR: 72 (Monitored) RR: 16 BP: 107/70 BP: 0/0(Line) SpO2: 86% HT: 168 cm HT: 168 cm WT: 78.7 kg BMI: 28.06 BMI: 28.06 Additional Vitals No qualifying data available. Lab Results Microbiology - Current Encounter No qualifying data available. Last 24 Hours Basic Metabolic Panel: Hematology: Sodium Lvl: 137 (02/11/24) Hgb: 12.1 (02/11/24) Potassium Lvl: 3.8 (02/11/24) Hgb A1c: ------ Phosphorus: ------ WBC: 8.8 (02/11/24) Magnesium Lvl: ------ Platelet: 174 (02/11/24) BUN: 20 (02/11/24) INR POC: ------ Creatinine Lvl: 0.89 (02/11/24) Creatinine Clearance: ------ Additional - Last 24 Hours Anion Gap: 8 (02/11/24) Baso Absolute: 0.1 (02/11/24) Basophil Auto: 0.6 (02/11/24) BUN Crea Ratio: 22.5 (02/11/24) Calcium Lvl: 8.3 (02/11/24) Chloride: 110 (02/11/24) CO2: 19 (02/11/24) Eos Absolute: 0.1 (02/11/24) Eos Auto: 1.5 (02/11/24) Estimated GFR: >60 (02/11/24) Glucose Lvl: 107 (02/11/24) Hct: 35.7 (02/11/24) Lymph Absolute: 1.2 (02/11/24) Lymph Auto: 13.3 (02/11/24) MCH: 30.2 (02/11/24) MCHC: 33.9 (02/11/24) MCV: 89.0 (02/11/24) Mean Platelet Volume: 8.1 (02/11/24) Coal Absolute: 1.1 (02/11/24) Coal Auto: 12.1 (02/11/24) Neutro Absolute: 6.4 (02/11/24) Neutro Auto: 72.5 (02/11/24) RBC: 4.01 (02/11/24) RDW: 16.9 (02/11/24) Physical Exam General: Alert/Oriented x4, NAD Cardio: Regular rate and rhythm, no murmurs, rubs, or gallops Lungs: Clear to auscultation bilaterally, no rales/rhonchi/wheezes Abdomen: Normal bowel sounds x 4 quadrants, soft, non-tender, no pulsatile masses Skin: groin incision intact, no erythema, or edema. Incisions healing appropriately, without erythema or edema Lower extremitity: distal pulses AT/PT by Doppler, warm and pink feet, cap refill <3 sec [1] Medications Inpatient amLODIPine, 10 mg, Oral, HS (at bedtime) aspirin, 81 mg, Oral, Daily benzocaine-menthol 15 mg-2.6 mg mucous membrane lozenge, 1 lozenges, Oral, q1hr, PRN Eliquis, 2.5 mg, Oral, BID folic acid, 1 mg, Oral, HS (at bedtime) hydrALAZINE, 10 mg= 0.5 mL, IV Push, q4hr, PRN hydroxychloroquine, 200 mg, Oral, HS (at bedtime) Normal Saline Flush 0.9% injectable solution, 10 mL, IV Push, As Indicated, PRN Normal Saline Flush 0.9% injectable solution, 10 mL, IV Push, As Indicated, PRN oxyCODONE-acetaminoph en 5 mg-325 mg oral tablet, 1 tabs, Oral, q4hr, PRN potassium chloride extended release, 20 mEq, Oral, Once valsartan, 160 mg, Oral, HS (at bedtime) Zofran, 4 mg= 2 mL, IV Push, [id number] Times, PRN Assessment/Plan 1. PAD (peripheral artery disease) 2. S/P femoral-tibial bypass JPs dry pulses by doppler, PT/AT ambulating unit well mild swelling LLE, lasix 40mg iv w KCL home soon ASA: 81mg Eliquis: 2.5mg Orders: apixaban, 2.5 mg, Oral, Tab, BID, First Dose: 02/11/24 21:00:00 EDT, Other (See Comments), 02/11/24 9:18:00 EDT potassium chloride, 20 mEq, Oral, Tab-ER, Once, First Dose: 02/11/24 9:18:00 EDT, Stop Date: 02/11/24 9:18:00 EDT, Dispense From Location: [address], 02/11/24 9:18:00 EDT [1] Progress/SOAP Note; Zacarias Jimenez 02/10/2024 08:39 EDT Electronically signed by Rand BILLS-RADHAZacarias Samuel 02/11/24 09:37 EDT Electronically signed by Daya David MD 02/22/2024 15:19 EDT Normal [facility] Diff Autoon 02-11-2024 Baso Absolute 0.1 x10*3/mcL Normal 0.0-0.2 [facility] Comment on above: Performed By: #### C [id number] #### [address] [address] Basophils/100 WBC (Bld) 0.6 % Normal 0.0-1.2 [facility] Comment on above: Performed By: #### C [id number] #### [address] [address] Eos Absolute 0.1 x10*3/mcL Normal 0.0-0.4 [facility] Comment on above: Performed By: #### C [id number] #### [address] [address] Eosinophils/100 WBC (Bld) 1.5 % Normal 0.0-6.1 [facility] Comment on above: Performed By: #### C [id number] #### [address] [address] Lymph Absolute 1.2 x10*3/mcL Normal 1.0-4.8 [facility] Comment on above: Performed By: #### C [id number] #### [address] [address] Lymphocytes/100 WBC (Bld) 13.3 % Low 27.2-40.8 [facility] Comment on above: Performed By: #### C [id number] #### [place] [id number] Coal Absolute 1.1 x10*3/mcL Normal 0.3-1.1 [facility] Comment on above: Performed By: #### C D:[id number] #### [place] [id number] Monocytes/100 WBC (Bld) 12.1 % Normal 4.7-13.9 [facility] Comment on above: Performed By: #### C D:[id number] #### [place] [id number] Neutro Absolute 6.4 x10*3/mcL Normal 1.8-7.7 [facility] Comment on above: Performed By: #### C [id number] #### [place] [address] Neutro Auto 72.5 % High 47.2-70.8 [facility] Comment on above: Performed By: #### C D:[id number] #### [place] [id number] POC Glucose Randomon 024 Glucose [Mass/Vol] 97 mg/dL Normal 70-99 [facility] Comment on above: Performed By: #### C D:[id number] #### [place] [id number] .eGFRon 02-10-2024 GFR/1.73 sq M.predicted MDRD (S/P/Bld) [Vol rate/Area] mL/min/{1.73_m2} Normal >=60 [facility] Comment on above: Result Comment: [facility] Laboratories have implemented the eGFR calculation approach that does not have a coefficient for race and that conforms to the NKF-ASN Task Force Recommendations. Stages of Chronic Kidney Disease GFR Stage 3a Mild to moderate loss of kidney function 59 to 45 Stage 3b Moderate to severe loss of kidney function 44 to 33 Stage 4 Severe loss of kidney function 29 to 15 Stage 5 Kidney failure Less than 15 GFR calculated using the CKD-Epi Creatinine Equation (2020): eGFR = 142 X min(SCr/?, 1)? X max(SCr /?, 1)-1.200 X 0.9938Age X 1.012 [if female] Abbreviations/Units: eGFR (estimated glomerular filtration rate) = mL/min/1.73 m2 SCr (standardized serum creatinine) = mg/dL ? = 0.7 (females) or 0.9 (males) ? = -0.241 (females) or -0.302 (males) min = indicates the minimum of SCr/? or 1 max = indicates the maximum of SCr/? or 1 Age = years Performed By: #### E GFR #### [address] [address] Basic Metabolic Profileon Anion gap [Moles/Vol] 7 mmol/L Normal 4-12 [facility] Comment on above: Performed By: #### C D:[id number] #### [address] [address] Calcium [Mass/Vol] 7.6 mg/dL Low 8.5-10.3 [facility] Comment on above: Performed By: #### C [id number] #### [address] [address] Chloride [Moles/Vol] 109 mmol/L Normal 98-110 [facility] Comment on above: Performed By: #### C [id number] #### [address] [address] CO2 [Moles/Vol] 21 mmol/L Low 22-32 [facility] Comment on above: Performed By: #### C [id number] #### [address] [address] Creatinine [Mass/Vol] 0.75 mg/dL Normal 0.61-1.24 [facility] Comment on above: Performed By: #### C [id number] #### [address] [address] Glucose [Mass/Vol] 67 mg/dL Low 70-99 [facility] Comment on above: Performed By: #### C [id number] #### [address] [address] Potassium [Moles/Vol] 3.8 mmol/L Normal 3.4-4.8 [facility] Comment on above: Performed By: #### C [id number] #### [address] [address] Sodium [Moles/Vol] 137 mmol/L Normal 133-142 [facility] Comment on above: Performed By: #### C D:[id number] #### [address] [address] Urea nitrogen [Mass/Vol] 14 mg/dL Normal 8-26 [facility] Comment on above: Performed By: #### C [id number] #### [address] [address] Urea nitrogen/Creatinine [Mass ratio] 18.7 mg/mg Normal 10.0-20.0 [facility] Comment on above: Performed By: #### C [id number] #### [address] [address] CBC w/ Diffon 02-10-2024 Erythrocyte distribution width (RBC) [Ratio] 16.7 % High 11.6-14.8 [facility] Comment on above: Performed By: #### C BC ####[address] [address] Hematocrit (Bld) [Volume fraction] 35.6 % Low 41.0-53.0 [facility] Comment on above: Performed By: #### C BC ####[address] [address] Hemoglobin (Bld) [Mass/Vol] 11.7 g/dL Low 13.5-17.5 [facility] Comment on above: Performed By: #### C BC ####[address] [address] MCH (RBC) [Entitic mass] 29.4 pg Normal 27.0-35.0 [facility] Comment on above: Performed By: #### C BC ####[place] [id number] MCHC 32.8 % Normal 31.0-37.0 [facility] Comment on above: Performed By: #### C BC ####[place] [id number] MCV (RBC) [Entitic vol] 89.5 fL Normal 80.0-100.0 [facility] Comment on above: Performed By: #### C BC ####[place] [id number] Platelet 158 x10*3/mcL Normal 150-450 [facility] Comment on above: Performed By: #### C BC ####[place] [id number] Platelet mean volume (Bld) [Entitic vol] 8.3 fL Normal 6.7-10.6 [facility] Comment on above: Performed By: #### C BC ####[address] [address] RBC 3.97 x10*6/mcL Low 4.30-5.80 [facility] Comment on above: Performed By: #### C BC ####[address] [address] WBC 7.0 x10*3/mcL Normal 4.5-11.0 [facility] Comment on above: Performed By: #### C BC ####[place] [id number] Cardiovascular Surgery Progr ess Noteon 02-10-2024 Cardiovascular Surgery Progress Note Subjective POD#1 Lt Fem/PT bypass (cryovein). GAVI drainage scant, serous. Minimal pain. Rt foot PT by Doppler, pink foot. Review of Systems Constitutional: no fevers, chills, sweats Eye: no recent visual problems ENMT: no ear pain, nasal congestion or sore throat Respiratory: no shortness of breath, cough Cardiovascular: no chest pain, palpitations, syncope Gastrointestinal: no nausea, vomiting or diarrhea Genitourinary: no hematuria or dysuria Objective Vitals & Measurements T: 37.1 ?C (Oral) HR: 73 (Monitored) RR: 17 BP: 105/61 BP: 0/0(Line) SpO2: 92% HT: 168 cm HT: 168 cm WT: 80.2 kg BMI: 28.06 BMI: 28.06 Additional Vitals No qualifying data available. Lab Results Microbiology - Current Encounter No qualifying data available. Last 24 Hours Basic Metabolic Panel: Hematology: Sodium Lvl: 137 (02/10/24) Hgb: 11.7 (02/10/24) Potassium Lvl: 3.8 (02/10/24) Hgb A1c: ------ Phosphorus: ------ WBC: 7.0 (02/10/24) Magnesium Lvl: ------ Platelet: 158 (02/10/24) BUN: 14 (02/10/24) INR POC: ------ Creatinine Lvl: 0.75 (02/10/24) Creatinine Clearance: ------ Additional - Last 24 Hours Anion Gap: 7 (02/10/24) Baso Absolute: 0.0 (02/10/24) Basophil Auto: 0.7 (02/10/24) BUN Crea Ratio: 18.7 (02/10/24) Calcium Lvl: 7.6 (02/10/24) Chloride: 109 (02/10/24) CO2: 21 (02/10/24) Eos Absolute: 0.1 (02/10/24) Eos Auto: 1.8 (02/10/24) Estimated GFR: >60 (02/10/24) Glucose Lvl: 67 (02/10/24) Hct: 35.6 (02/10/24) Lymph Absolute: 0.7 (02/10/24) Lymph Auto: 9.6 (02/10/24) MCH: 29.4 (02/10/24) MCHC: 32.8 (02/10/24) MCV: 89.5 (02/10/24) Mean Platelet Volume: 8.3 (02/10/24) Coal Absolute: 0.8 (02/10/24) Coal Auto: 11.8 (02/10/24) Neutro Absolute: 5.3 (02/10/24) Neutro Auto: 76.1 (02/10/24) POC Gluc Random: 84 (02/10/24) PTT: 26.7 (02/09/24) RBC: 3.97 (02/10/24) RDW: 16.7 (02/10/24) Physical Exam General: Alert/Oriented x4, NAD Cardio: Regular rate and rhythm, no murmurs, rubs, or gallops Lungs: Clear to auscultation bilaterally, no rales/rhonchi/wheezes Abdomen: Normal bowel sounds x 4 quadrants, soft, non-tender, no pulsatile masses Skin: groin incision intact, no erythema, or edema. Incisions healing appropriately, without erythema or edema Lower extremitity: distal pulses AT/PT by Doppler, warm and pink feet, cap refill <3 sec Medications Inpatient amLODIPine, 10 mg, Oral, HS (at bedtime) Barhemsys, 10 mg= 4 mL, IV Push, Once, PRN benzocaine-menthol 15 mg-2.6 mg mucous membrane lozenge, 1 lozenges, Oral, q1hr, PRN Dilaudid, 0.5 mg= 0.5 mL, IV Push, q5min, PRN fentaNYL, 50 mcg= 1 mL, IV Push, q5min, PRN folic acid, 1 mg, Oral, HS (at bedtime) hydrALAZINE, 10 mg= 0.5 mL, IV Push, q4hr, PRN hydrALAZINE, 5 mg= 0.25 mL, IV Push, q5min, PRN hydroxychloroquine, 200 mg, Oral, HS (at bedtime) labetalol, 5 mg= 1 mL, IV Push, q5min, PRN LR 1,000 mL, 1000 mL, IV niCARdipine IV additive 20 mg [5 mg/hr] + Premix Diluent 200 mL norepinephrine IV additive 16 mg [0.05 mcg/kg/min] + Dextrose 5% in Water* 484 mL Normal Saline Flush 0.9% injectable solution, 10 mL, IV Push, As Indicated, PRN Normal Saline Flush 0.9% injectable solution, 10 mL, IV Push, As Indicated, PRN oxyCODONE-acetaminoph en 5 mg-325 mg oral tablet, 1 tabs, Oral, q4hr, PRN prochlorperazine, 5 mg= 1 mL, IV Push, Once, PRN Sodium Chloride 0.9% intravenous solution 1,000 mL, 1000 mL, IV valsartan, 160 mg, Oral, HS (at bedtime) Zofran, 4 mg= 2 mL, IV Push, [id number] Times, PRN Assessment/Plan 1. PAD (peripheral artery disease) 2. S/P femoral-tibial bypass GAVI dry pulses by doppler, PT OOB and ambulate dc parada no swelling, not much pain ASA: 81mg Eliquis: Orders: benzocaine-menthol topical, 1 lozenges, Oral, Lozenge, q1hr, PRN sore throat, First Dose: 02/09/24 14:47:00 EDT, Dispense From Location: [employer], 02/09/24 14:47:00 EDT hydrALAZINE, 10 mg, IV Push, Injection, q4hr, PRN hypertension, First Dose: 02/09/24 14:25:00 EDT, Dispense From Location: [facility], 02/09/24 14:25:00 EDT niCARdipine 20 mg [5 mg/hr] + Premix Diluent 200 mL, 200 mL, Soln-IV, IV, 50 mL/hr, Start Date: 02/09/24 14:25:00 EDT, Titration range: 5 - 15 mg/hr, Titration instructions: 2.5 mg/hr every 15 minutes, Maintain SBP Less Than 140, Dispense From Location: [facility], 02/09/24 14:25:00 EDT ondansetron, 4 mg, IV Push, Injection, [id number] Times, PRN nausea/vomiting, First Dose: 02/09/24 14:25:00 EDT, Dispense From Location: [facility], 02/09/24 14:25:00 EDT oxyCODONE-acetaminoph en, 1 tabs, Oral, Tab, q4hr, PRN moderate pain [4-6 on pain scale], First Dose: 02/09/24 14:25:00 EDT, Dispense From Location: [address], 02/09/24 14:25:00 EDT sodium chloride, 10 mL, IV Push, Injection, As Indicated, PRN flush, First Dose: 02/09/24 14:25:00 EDT, Dispense From Location: [address], 02/09/24 14:25:00 EDT Sodium Chloride 0.9% intravenous solution 1,000 mL, 1,000 mL, Soln-IV, (more content not included)... Normal [facility] Diff Autoon 02-10-2024 Baso Absolute 0.0 x10*3/mcL Normal 0.0-0.2 [facility] Comment on above: Performed By: #### P TT #### [address] [address] Basophils/100 WBC (Bld) 0.7 % Normal 0.0-1.2 [facility] Comment on above: Performed By: #### P TT #### [address] [address] Eos Absolute 0.1 x10*3/mcL Normal 0.0-0.4 [facility] Comment on above: Performed By: #### P TT #### [address] [address] Eosinophils/100 WBC (Bld) 1.8 % Normal 0.0-6.1 [facility] Comment on above: Performed By: #### P TT #### [address] [address] Lymph Absolute 0.7 x10*3/mcL Low 1.0-4.8 [facility] Comment on above: Performed By: #### P TT #### [address] [address] Lymphocytes/100 WBC (Bld) 9.6 % Low 27.2-40.8 [facility] Comment on above: Performed By: #### P TT #### [address] [address] Coal Absolute 0.8 x10*3/mcL Normal 0.3-1.1 [facility] Comment on above: Performed By: #### P TT #### [address] [address] Monocytes/100 WBC (Bld) 11.8 % Normal 4.7-13.9 [facility] Comment on above: Performed By: #### P TT #### [address] [address] Neutro Absolute 5.3 x10*3/mcL Normal 1.8-7.7 [facility] Comment on above: Performed By: #### P TT #### [address] [address] Neutro Auto 76.1 % High 47.2-70.8 [facility] Comment on above: Performed By: #### P TT #### [address] [address] POC Glucose Randomon 024 Glucose [Mass/Vol] 84 mg/dL Normal 70-99 [facility] Comment on above: Performed By: #### C [id number] ####[address] [address] Glucose [Mass/Vol] 56 mg/dL Low 70-99 [facility] Comment on above: Performed By: #### C [id number] #### [address] [address] CBC w/ Diffon 02-09-2024 Erythrocyte distribution width (RBC) [Ratio] 17.0 % High 11.6-14.8 [facility] Comment on above: Performed By: #### C BC ####[address] [address] Hematocrit (Bld) [Volume fraction] 37.9 % Low 41.0-53.0 [facility] Comment on above: Performed By: #### C BC ####[address] [address] Hemoglobin (Bld) [Mass/Vol] 12.5 g/dL Low 13.5-17.5 [facility] Comment on above: Performed By: #### C BC ####[address] [address] MCH (RBC) [Entitic mass] 29.6 pg Normal 27.0-35.0 [facility] Comment on above: Performed By: #### C BC ####[address] [address] MCHC 33.1 % Normal 31.0-37.0 [facility] Comment on above: Performed By: #### C BC ####[address] [address] MCV (RBC) [Entitic vol] 89.4 fL Normal 80.0-100.0 [facility] Comment on above: Performed By: #### C BC ####[address] [address] Platelet 159 x10*3/mcL Normal 150-450 [facility] Comment on above: Performed By: #### C BC ####[address] [address] Platelet mean volume (Bld) [Entitic vol] 7.9 fL Normal 6.7-10.6 [facility] Comment on above: Performed By: #### C BC ####[address] [address] RBC 4.24 x10*6/mcL Low 4.30-5.80 [facility] Comment on above: Performed By: #### C BC ####[address] [address] WBC 10.1 x10*3/mcL Normal 4.5-11.0 [facility] Comment on above: Performed By: #### C BC ####[address] [address] Diff Autoon 02-09-2024 Baso Absolute 0.1 x10*3/mcL Normal 0.0-0.2 [facility] Comment on above: Performed By: #### . Automated Diff ####[address] [address] Basophils/100 WBC (Bld) 0.5 % Normal 0.0-1.2 [facility] Comment on above: Performed By: #### . Automated Diff ####[address] [address] Eos Absolute 0.1 x10*3/mcL Normal 0.0-0.4 [facility] Comment on above: Performed By: #### . Automated Diff ####[address] [address] Eosinophils/100 WBC (Bld) 1.1 % Normal 0.0-6.1 [facility] Comment on above: Performed By: #### . Automated Diff ####[address] [address] Lymph Absolute 0.9 x10*3/mcL Low 1.0-4.8 [facility] Comment on above: Performed By: #### . Automated Diff ####[address] [address] Lymphocytes/100 WBC (Bld) 8.6 % Low 27.2-40.8 [facility] Comment on above: Performed By: #### . Automated Diff ####[address] [address] Coal Absolute 0.7 x10*3/mcL Normal 0.3-1.1 [facility] Comment on above: Performed By: #### . Automated Diff ####[address] [address] Monocytes/100 WBC (Bld) 6.9 % Normal 4.7-13.9 [facility] Comment on above: Performed By: #### . Automated Diff ####[address] [address] Neutro Absolute 8.3 x10*3/mcL High 1.8-7.7 [facility] Comment on above: Performed By: #### . Automated Diff ####[address] [place] [address] Neutro Auto 82.9 % High 47.2-70.8 [facility] Comment on above: Performed By: #### . Automated Diff ####[address] [place] [address] Operative Reporton 4 Operative Report Indication for Surgery foot pain, graft closure, pad Preoperative Diagnosis same Postoperative Diagnosis same + friable tissues Operation Bypass Graft Femorotibial, REDO FEM-TIB WITH 85CM CRYOVEIN, Left sfa proximally distal posterior tibial artery distally 3 incisions cell saver adhesiolysis Surgeon(s) Joann CARRION, Daya Mendes (Surgeon - Primary) [employer] Connie PERAZA, Vic Zazueta (Clay Preparation Supervisor) Papa RIBERA, Bharath Chan (Clay Preparation Supervisor) Connie PERAZA, Vic Zazueta (Clay Preparation Supervisor) Papa RIBERA, Bharath Chan (Clay Preparation Supervisor) Anesthesia General Marques CARRION, Domenico Roa (Linux Vmware Administrator) Darlene MORGAN, Juan Jose Davis (Provider) Estimated Blood Loss cell saved Urine Output 550.0 mL Findings 1.5 florester Complications bre Tourniquet Time Tourniquet Cuff 18x4 [id number], Leg lower (Left), Total Time 16 Settin mmHg Sponge/Needle Count accurate Fluid Count jamison Catheters, Drains, Tubes Device: Parada Tray 16FR Latex Free [id number] floseal nylons flows 42 cc with papa no comps prox and dist 7o anastomoses Electronically signed by Daya David MD 02/09/24 12:12 EDT After smooth induction of general anesthesia patient was prepped draped usual manner for the above procedure he received preop dose IV antibiotic strict intraoperative glucose control. This was a redo procedure. Cell Saver was available procedure commenced with a left groin incision this was a redo groin incision electrocautery was utilized dissected subcutaneous tissues. There were significant adhesions and sharp as well as blunt dissection was required as well as meds and electrocautery of all energy settings. We elected to utilize the proximal SFA as the inflow as this was the easiest to dissected out. Vesseloops were placed proximally distally. A skip incision was made above the knee to help with tunneling. A third incision distal in the calf was made to expose the distal posterior tibial artery. Electrocautery was utilized dissected subcutaneous tissues. We identified some cord crossing nerves which were preserved. We identified the artery which was a 1.5 mm target and it was dissected out proximally and distally. CryoVein specifically ordered for the case was prepared in usual fashion by the staff. It was then examined for leaks of which there were none. It was then pressurized and marked to aid tunneling. It would then be tunneled from the groin to the counterincision from the counterincision down to the post tib incision. Test flushing revealed no resistance and good flow. I was happy with the online the graft. Was patient was then systemically heparinized . Heparinization time circulation time the SFA proximally was clamped with 2 small clamped long arteriotomy was made graft spatulated and proximal anastomosis fashion with running 7-0 Prolene suture without difficulty was backbled near release of the clamps and noted very good flow coming out the graft distally. A small balloon was placed on the vein graft was then sized to accommodate distal anastomosis at the level of the distal post tib distal close to proceed with arteriotomy was made and a 1.5 mm occluder was placed within the vessel. Graft was spatulated and anastomosed in a segment of running 7-0 Prolene suture without difficulty was backbled and de-aired with release of the clamps fluid was removed 2030 cc/min range after adequate administration intragraft flows peaked at about 42 cc mean with no evidence of competition. No repair sutures were necessary. Floseal was placed on each anastomosis. Wounds were copiously irrigated with antibiotic solution. And then closed in layers. Please note nylons were utilized for the distal incision because of the patient's poor tissue and skin quality. Remainder of the incisions were closed with layers of Vicryl 2 oh and 3 oh as well as 4 Monocryl for the skin and Dermabond. Sterile dressings were applied. Sponge count needle count instrument count were all accurate including procedure there were no known complications. Total tourniquet time for the left lower leg was 16 minutes. Electronically signed by Daya David MD 03/07/24 13:49 EDT Normal [facility] PTTon 02-09-2024 aPTT Coag (Bld) [Time] 26.7 s Normal 19.5-28.2 [facility] Comment on above: Performed By: #### P TT #### [place] [address] Plateletson 02-08-2024 Platelets PLT Transfuse Reason : Surgery Normal [facility] Comment on above: Performed By: #### P LT ####[facility] (UNKNOWN)[address] [place] [address] .Hematocrit (No Charge)on Hematocrit (Bld) [Volume fraction] 42.7 % Normal 41.0-53.0 [facility] Comment on above: Performed By: #### P TT #### [place] [address] .Platelet (No Charge)on 01-06 Platelet 215 x10*3/mcL Normal 150-450 [facility] Comment on above: Performed By: #### C [id number] #### [place] [address] .eGFRon 02-03-2024 GFR/1.73 sq M.predicted MDRD (S/P/Bld) [Vol rate/Area] mL/min/{1.73_m2} Normal >=60 [facility] Comment on above: Result Comment: [facility] have implemented the eGFR calculation approach that does not have a coefficient for race and that conforms to the NKF-ASN Task Force Recommendations. Stages of Chronic Kidney Disease GFR Stage 3a Mild to moderate loss of kidney function 59 to 45 Stage 3b Moderate to severe loss of kidney function 44 to 33 Stage 4 Severe loss of kidney function 29 to 15 Stage 5 Kidney failure Less than 15 GFR calculated using the CKD-Epi Creatinine Equation (2020): eGFR = 142 X min(SCr/?, 1)? X max(SCr /?, 1)-1.200 X 0.9938Age X 1.012 [if female] Abbreviations/Units: eGFR (estimated glomerular filtration rate) = mL/min/1.73 m2 SCr (standardized serum creatinine) = mg/dL ? = 0.7 (females) or 0.9 (males) ? = -0.241 (females) or -0.302 (males) min = indicates the minimum of SCr/? or 1 max = indicates the maximum of SCr/? or 1 Age = years Performed By: #### E GFR ####[facility] [place] [address] ABO/Rhon 02-03-2024 ABO/Rh ABO/Rh: B POS Normal [facility] Comment on above: Performed By: #### A BORH ####[facility] ([facility])[address] [place] [address] ABSC Autoon 02-03-2024 ABSC Auto Negative Normal [facility] Comment on above: Performed By: #### A SA ####[facility] ([facility])[address] [place] [address] Basic Metabolic Profileon Anion gap [Moles/Vol] 8 mmol/L Normal 4-12 [facility] Comment on above: Performed By: #### C [id number] #### [facility] [address] [place] [address] Calcium [Mass/Vol] 8.6 mg/dL Normal 8.5-10.3 [facility] Comment on above: Performed By: #### C [id number] #### [facility] [address] [place] [address] Chloride [Moles/Vol] 109 mmol/L Normal 98-110 [facility] Comment on above: Performed By: #### C [id number] #### [address] [address] CO2 [Moles/Vol] 23 mmol/L Normal 22-32 [facility] Comment on above: Performed By: #### C [id number] #### [address] [address] Creatinine [Mass/Vol] 0.73 mg/dL Normal 0.61-1.24 [facility] Comment on above: Performed By: #### C [id number] #### [address] [address] Glucose [Mass/Vol] 89 mg/dL Normal 70-99 [facility] Comment on above: Performed By: #### C [id number] #### [address] [address] Potassium [Moles/Vol] 3.6 mmol/L Normal 3.4-4.8 [facility] Comment on above: Performed By: #### C [id number] #### [address] [address] Sodium [Moles/Vol] 140 mmol/L Normal 133-142 [facility] Comment on above: Performed By: #### C [id number] #### [address] [address] Urea nitrogen [Mass/Vol] 23 mg/dL Normal 8-26 [facility] Comment on above: Performed By: #### C [id number] #### [address] [address] Urea nitrogen/Creatinine [Mass ratio] 31.5 mg/mg High 10.0-20.0 [facility] Comment on above: Performed By: #### C [id number] #### [address] [address] CBC w/ Diffon 02-03-2024 Erythrocyte distribution width (RBC) [Ratio] 16.9 % High 11.6-14.8 [facility] Comment on above: Performed By: #### C BC ####[address] [address] Hematocrit (Bld) [Volume fraction] 42.5 % Normal 41.0-53.0 [facility] Comment on above: Performed By: #### C BC ####[address] [address] Hemoglobin (Bld) [Mass/Vol] 14.1 g/dL Normal 13.5-17.5 [facility] Comment on above: Performed By: #### C BC ####[address] [address] MCH (RBC) [Entitic mass] 29.4 pg Normal 27.0-35.0 [facility] Comment on above: Performed By: #### C BC ####[address] [address] MCHC 33.1 % Normal 31.0-37.0 [facility] Comment on above: Performed By: #### C BC ####[address] [address] MCV (RBC) [Entitic vol] 88.6 fL Normal 80.0-100.0 [facility] Comment on above: Performed By: #### C BC ####[address] [address] Platelet 209 x10*3/mcL Normal 150-450 [facility] Comment on above: Performed By: #### C BC ####[address] [address] Platelet mean volume (Bld) [Entitic vol] 8.2 fL Normal 6.7-10.6 [facility] Comment on above: Performed By: #### C BC ####[address] [address] RBC 4.80 x10*6/mcL Normal 4.30-5.80 [facility] Comment on above: Performed By: #### C BC ####[address] [place] [address] WBC 8.2 x10*3/mcL Normal 4.5-11.0 [facility] Comment on above: Performed By: #### C BC ####[address] [address] Diff Autoon 02-03-2024 Baso Absolute 0.1 x10*3/mcL Normal 0.0-0.2 [facility] Comment on above: Performed By: #### . Automated Diff #### [address] [address] Basophils/100 WBC (Bld) 0.7 % Normal 0.0-1.2 [facility] Comment on above: Performed By: #### . Automated Diff #### [address] [address] Eos Absolute 0.1 x10*3/mcL Normal 0.0-0.4 [facility] Comment on above: Performed By: #### . Automated Diff #### [address] [address] Eosinophils/100 WBC (Bld) 1.4 % Normal 0.0-6.1 [facility] Comment on above: Performed By: #### . Automated Diff #### [address] [address] Lymph Absolute 0.8 x10*3/mcL Low 1.0-4.8 [facility] Comment on above: Performed By: #### . Automated Diff #### [address] [address] Lymphocytes/100 WBC (Bld) 10.1 % Low 27.2-40.8 [facility] Comment on above: Performed By: #### . Automated Diff #### [address] [address] Coal Absolute 0.5 x10*3/mcL Normal 0.3-1.1 [facility] Comment on above: Performed By: #### . Automated Diff #### [address] [place] [address] Monocytes/100 WBC (Bld) 6.1 % Normal 4.7-13.9 [facility] Comment on above: Performed By: #### . Automated Diff #### [id number] Neutro Absolute 6.7 x10*3/mcL Normal 1.8-7.7 [facility] Comment on above: Performed By: #### . Automated Diff #### [id number] Neutro Auto 81.7 % High 47.2-70.8 [facility] Comment on above: Performed By: #### . Automated Diff #### [place] [address] PFAon 02-03-2024 Collagen And ADP 90 seconds Normal 54-116 [facility] Comment on above: Performed By: #### P TT #### [place] [address] Collagen And Epinephrine 118 seconds Normal 71-192 [facility] Comment on above: Performed By: #### P TT #### [id number] Cardiovascular Surgery Offic e/ClinicNoteon 12-16-2023 Cardiovascular Surgery Office/ClinicNote History of Present Illness General: [Alert and oriented, well nourished, no acute distress]. Eye: [PERRL, EOMI, normal conjunctiva]. HENT: [Normocephalic, clear tympanic membranes, normal hearing, moist oral mucosa, no scleral icterus, no sinus tenderness]. Neck: [Supple, non-tender, no carotid bruits, no JVD, no lymphadenopathy]. Lungs: [Clear to auscultation and percussion, non-labored respiration]. Heart: [Normal rate, regular rhythm, no murmur, gallop or edema]. Abdomen: [Soft, non-tender, non-distended, normal bowel sounds, no masses]. Musculoskeletal: [Normal range of motion and strength, no tenderness or swelling]. Skin: [Skin is warm, dry and pink, no rashes or lesions]. Neurologic: [Awake, alert, and oriented X3, CN II-XII intact]. Psychiatric: [Cooperative, appropriate mood and affect]. Review of Systems Cardiology Chest pain/pressure: No Claudication: No Edema: No Exertional dyspnea: No Orthopnea: No Other Cardiovascular: No Palpitations: No Syncope: No Constitutional Const Fever: No Const Loss of Appetite: No Daytime sleepiness: No Lack of energy: No Other Const.: No Trouble sleeping: No Weight changes: No Endocrine Cold or heat intolerance: No Excessive hunger: No Excessive thirst: No Excessive urination: No Gastrointestinal Belly pain: No Bloody or tarry stools: No Change in bowel habits: No Diarrhea/constipation : No Gallstones: No Heartburn/Indigestion : No Jaundice: No Nausea/vomiting: No Vomiting blood: No Genitourinary Frequent urination: No Kidney stones: No Painful urination: No Prostate problems: No Urinating at night: No HEENT Bleeding gums: No Blurred vision: Yes Cataracts: No Glaucoma: No Hearing problems: No Nose bleeds: No Other HEENT: No Sinus Problems: No Hematologic Anemia: No Bleeding problems: No Easy bruising: Yes Prior blood transfusion: No Musculoskeletal Gout: No Joint pains: Yes Joint swelling/redness: No Neurologic Cardio ROS Neuro Headache: Negative Loss of balance/falling: Positive Loss of memory: Negative Numbness: Negative Paralysis (even temporary): Negative Seizures: Negative Stroke: Negative Tremor/shakiness: Negative Psychiatric Crying or sadness: No Depression: No Nervousness/anxiety: No Suicidal thought/attempt: No Unusual thoughts: No Respiratory Cardio ROS Resp Cough: No Cardio ROS Resp Shortness of Breath: No Coughing up blood: No Other Resp.: No Wheezing: No Physical Exam Vitals & Measurements HR: 78 (Peripheral) BP: 124/60 HT: 168 cm WT: 80.5 kg WT: 80.5 kg (Dosing) BMI: 28.52 Additional Vitals BP Position/Location: Sitting, Left arm Medical Decision Making Chronic conditions NOT treated during this visit that affected my overall medical decision making: [] Treatment plans discussed but not opted for at this time: [] Prescribed medication that requires intensive monitoring for toxicity: [] I have reviewed the patient?s medication list for medication interactions/contrain dications and/or for upcoming procedures: [yes or no] Time Spent with the Patient I have personally spent [] minutes on this date, directly related to today's patient visit, including pre and post visit work, for this date of service. Time listed does not include time spent on separately billable services. Problem List/Past Medical History Ongoing Cancer of prostate Chronic rheumatic arthritis Nicotine abuse Nonhealing nonsurgical wound PAD (peripheral artery disease) Historical No qualifying data Procedure/Surgical History Colonoscopy (2010) Right foot reconstruction (2012) Bypass Graft Femorotibial (Left) (05/18/2023) Medications amLODIPine 10 mg oral tablet, 10 mg= 1 tabs, Oral, HS (at bedtime) aspirin 81 mg oral delayed release tablet, 81 mg, Oral, Daily DME, See Instructions Eliquis 5 mg oral tablet, See Instructions, 4 refills folic acid 1 mg oral tablet, 1 mg= 1 tabs, Oral, HS (at bedtime) hydroxychloroquine 200 mg oral tablet, 200 mg= 1 tabs, Oral, HS (at bedtime) methotrexate 2.5 mg oral tablet, 20 mg= 8 tabs, Oral, Mclean predniSONE 5 mg oral tablet, 5 mg= 1 tabs, Oral, Daily, PRN valsartan 160 mg oral tablet, 160 mg= 1 tabs, Oral, HS (at bedtime) Allergies No Known Allergies Social History Alcohol Never Exercise Exercise type: None d/t PAD and foot pain. Tries to be active by grocery shopping, yard work, etc. Up until December 2022 was bicycling daily.. Home/Environment Lives with Adult son. Nutrition/Health Regular Substance Abuse Denies All Tobacco 10 or more cigarettes (1/2 pack or more)/day in last 30 days Use:. Cigarettes, 0.5 per day. Packs, Started age 21 Years. Electronically signed by Daya David MD 02/08/24 15:13 EDT Normal [facility] Cardiovascular Surgery Office/ClinicNote Chief Complaint Premature graft closure History of Present Illness 73-year-old male status post left Carreno post tib bypass in May who was scheduled to have arterial duplex 3 months later but was never done. Patient also ran out of Eliquis prematurely and was off Eliquis for more than a week. In addition patient's Eliquis was held for 3 days because of a prostate biopsy. Ultimately he did get arterial studies done about 6 months after surgery and sridevi his graft is closed. Patient is having recurrent symptoms related to graft closure which is primarily foot pain on the dorsum of the foot on the left side. I have reviewed the patient's CTA from April. He has a bypassable target in the anterior tib distribution. Review of Systems Constitutional: [No fevers, chills, sweats] Eye: [No recent visual problems] ENMT: [No ear pain, nasal congestion, sore throat] Respiratory: [No shortness of breath, cough] Cardiovascular: [No Chest pain, palpitations, syncope] Gastrointestinal: [No nausea, vomiting, diarrhea] Genitourinary: [No hematuria] Physical Exam Lungs: [Clear to auscultation and percussion, non-labored respiration]. Heart: [Normal rate, regular rhythm, no murmur, gallop or edema]. Abdomen: [Soft, non-tender, non-distended, normal bowel sounds, no masses]. Mental Status:[Alert and oriented x3]. Decreased dorsalis pedis signal left foot Healed surgical incisions left leg Additional Vitals No qualifying data available. Assessment/Plan I had a long conversation with the patient and his family. I am recommending bypass to the anterior tib artery on an elective basis. All risk benefits alternatives related procedure discussed with patient in detail all questions answered. He is eager to proceed. Of note patient has chronic rheumatic arthritis and does take prednisone 5 mg as well as methotrexate 2 and half milligrams and hydroxychloroquine 200 mg. We will hold his Eliquis 2 days prior to surgery. We will reserve cryo vein for the procedure since the patient does not have adequate saphenous vein. All questions answered. I have reinforced with the patient that he should not hold his Eliquis at all in the postoperative interval. I have also reinforced with the patient that he should not wear any compression hose whatsoever on the left leg especially after an infra geniculate bypass. Medical Decision Making Chronic conditions NOT treated during this visit that affected my overall medical decision making: [] Treatment plans discussed but not opted for at this time: [] Prescribed medication that requires intensive monitoring for toxicity: [] I have reviewed the patient?s medication list for medication interactions/contrain dications and/or for upcoming procedures: [yes or no] Time Spent with the Patient I have personally spent [40] minutes on this date, directly related to today's patient visit, including pre and post visit work, for this date of service. Time listed does not include time spent on separately billable services. Problem List/Past Medical History Ongoing Cancer of prostate Chronic rheumatic arthritis Nicotine abuse Nonhealing nonsurgical wound PAD (peripheral artery disease) Historical No qualifying data Procedure/Surgical History Colonoscopy (2010) Right foot reconstruction (2012) Bypass Graft Femorotibial (Left) (05/18/2023) Medications amLODIPine 10 mg oral tablet, 10 mg= 1 tabs, Oral, HS (at bedtime) aspirin 81 mg oral delayed release tablet, 81 mg, Oral, Daily DME, See Instructions Eliquis 5 mg oral tablet, See Instructions, 4 refills folic acid 1 mg oral tablet, 1 mg= 1 tabs, Oral, HS (at bedtime) hydroxychloroquine 200 mg oral tablet, 200 mg= 1 tabs, Oral, HS (at bedtime) methotrexate 2.5 mg oral tablet, 20 mg= 8 tabs, Oral, Mclean predniSONE 5 mg oral tablet, 5 mg= 1 tabs, Oral, Daily, PRN valsartan 160 mg oral tablet, 160 mg= 1 tabs, Oral, HS (at bedtime) Allergies No Known Allergies Social History Alcohol Never Exercise Exercise type: None d/t PAD and foot pain. Tries to be active by grocery shopping, yard work, etc. Up until December 2022 was bicycling daily.. Home/Environment Lives with Adult son. Nutrition/Health Regular Substance Abuse Denies All Tobacco 10 or more cigarettes (1/2 pack or more)/day in last 30 days Use:. Cigarettes, 0.5 per day. Packs, Started age 21 Years. Electronically signed by Daya David MD 12/16/23 15:19 EDT Normal [facility] VL Ankle Brachial Indiceson 11-12-2023 VL Ankle Brachial Indices Preliminary Technologist Report See below for details. Medical Record Coder: Aicha Rodas RVT _ Radiologist Report BILATERAL LOWER EXTREMITY FENG STUDY CLINICAL INFORMATION: Follow-up femoral tibial bypass. COMPARISON: None. Bilateral brachial pressures, 137 mm/Hg left and 130 mm/Hg right, were performed along with segmental pressures of both lower legs at the ankles. LEFT: Posterior Tibial FENG = 0.70 Dorsalis Pedis FENG = 0.55 Toe Brachial Index = 0.0 RIGHT: Posterior Tibial FENG = 1.14 Dorsalis Pedis FENG = 1.07 Toe Brachial Index = 0.65 There are triphasic and biphasic waveforms of the right and weak biphasic waveforms on the left. There is normal waveform in the left great toe. IMPRESSION: 1. Ankle brachial indices indicate mild peripheral artery occlusive disease on the left, however waveforms are markedly abnormal and findings are likely more severe. 2. No peripheral artery occlusive disease or small vessel disease on the right. Final Signed by: Cameron Kc MD Signed (Electronic Signature): 11.12.2023 2:32 pm Transcribed by: Aicha Rodas Transcribed DT/TM: 11.11.2023 4:05 (If Report is Signed, Electronically Signed in Other Vendor System) Normal [facility] VL Extremity Arterial Duplex Lower Lefton 11-12-2023 VL Extremity Arterial Duplex Lower Left Preliminary Technologist Report A left lower extremity femoral to posterior tibial bypass graft was performed. The bypass graft was noted to be without flow. Unable to visualize the distal anastomosis due to wound and bandage. A large collateral was noted in the distal thigh. Results called to Louise at 15:53. Please see information as listed below. Medical Record Coder: Aicha Clark, RVT _ Radiologist Report FEMOROPOPLITEAL BYPASS GRAFT ARTERIAL DUPLEX STUDY CLINICAL INFORMATION: Nonhealing wound of the graft.. COMPARISON: . TECHNIQUE: Grayscale and color-flow imaging was performed along with Doppler and waveform analysis of the bypass graft. LOWER EXTREMITY: Left lower extremity: Left Inflow (PAPER SLITTER): 70.6 cm/sec Left proximal anastomosis: occluded Left proximal bypass: occluded Left mid bypass: occluded Left distal bypass: occluded Left distal anastomosis: unable to visualize Left Outflow (WOODEN FENCE ERECTOR): 23.2 cm/sec CONCLUSION: 1. Occluded left femoral tibial bypass.. Final Signed by: Cameron Kc MD Signed (Electronic Signature): 11.12.2023 2:31 pm Transcribed by: Aicha Rodas Transcribed DT/TM: 11.11.2023 3:57 (If Report is Signed, Electronically Signed in Other Vendor System) [facility] [employer] 10-23-2023 Applied in clinic today MANUALLY TRANSCRIBED RESULTS [facility] Ambulatory Visit Summaryon 0 10-12-2023 Ambulatory Visit Summary BECKI ALARCON :1950 Visit Date:10/12/2023 Ambulatory Visit Instructions Your Diagnosis Prostate cancer Current smoker Your Care Team Attending Physician - CLAIR CARRION, Riky Rosenbaum Primary Care Physician - WATSON CARBALLO DO This Is Your Medications List Contact prescribing physician if questions or concerns amlodipine (amLODIPine 10 mg Tab) apixaban (Eliquis 5 mg oral tablet) hydroxychloroquine (hydroxychloroquine 200 mg Tab) methotrexate (Trexall 2.5 mg Tab) predniSONE (predniSONE 5 mg Tab) valsartan (valsartan 160 mg Tab) Procedures Performed Transrectal biopsy of prostate using ultrasound guidance (09/22/2023), Transperineal needle biopsy of prostate using ultrasound guidance (07/22/2022), MRI-US fusion guided transperineal biopsy of prostate (05/27/2022), Colonoscopy, Leg, Right foot. Discharge Vitals Heart Rate (Peripheral) 73 Respiratory Rate 16 Blood Pressure 131/81 Height 167 cm Height 66 in Weight 75 kg Weight 165 lb BMI 26.89 What to do next You Need to Schedule the Following Appointments Follow Up with CLAIR CARRION, Riky Rosenbaum, URL When: Comments: 6 mos w/ PSA Where: [facility] [address], [place] [address]- [phone] Medications What When Instructions Unchanged amlodipine (amLODIPine 10 mg Tab) Contact prescribing physician if questions or concerns Unchanged apixaban (Eliquis 5 mg oral tablet) Contact prescribing physician if questions or concerns Unchanged hydroxychloroquine (hydroxychloroquine 200 mg Tab) Contact prescribing physician if questions or concerns Unchanged methotrexate (Trexall 2.5 mg Tab) Contact prescribing physician if questions or concerns Unchanged predniSONE (predniSONE 5 mg Tab) Contact prescribing physician if questions or concerns Unchanged valsartan (valsartan 160 mg Tab) Contact prescribing physician if questions or concerns Allergies No Known Medication Allergies Problems Ongoing - Any problem that you are currently receiving treatment for. Current smoker Elevated PSA Prostate cancer Historical - Any problem that you are no longer receiving treatment for. Benign prostatic hyperplasia Bilateral foot pain Charcot joint of foot Chronic venous insufficiency Contusion of left shoulder Elevated PSA Essential hypertension History of DVT (deep vein thrombosis) Lumbar spondylosis Nicotine dependence Nocturia Overweight Paresthesia Rheumatoid arthritis Patient Survey You may receive a survey via text or e-mail asking about your office visit. Please share your experience with us by completing your survey. We appreciate your feedback and thank you for choosing us for your care. Education Materials Prostate Cancer Screening Prostate cancer screening is testing that is done to check for the presence of prostate cancer in men. The prostate gland is a walnut-sized gland that is located below the bladder and in front of the rectum in males. The function of the prostate is to add fluid to semen during ejaculation. Prostate cancer is one of the most common types of cancer in men. Who should have prostate cancer screening? Screening recommendations vary based on age and other risk factors, as well as between the professional organizations who make the recommendations. In general, screening is recommended if: ? You are age 50 to 70 and have an average risk for prostate cancer. You should talk with your health care provider about your need for screening and how often screening should be done. Because most prostate cancers are slow growing and will not cause , screening in this age group is generally reserved for men who have a 10- to 15-year life expectancy. ? You are younger than age 50, and you have these risk factors: ? Having a father, brother, or uncle who has been diagnosed with prostate cancer. The risk is higher if your family member's cancer occurred at an early age or if you have multiple family members with prostate cancer at an early age. ? Being a male who is Black or is of Geo or sub-Saharan descent. In general, screening is not recommended if: ? You are younger than age 40. ? You are between the ages of 40 and 49 and you have no risk factors. ? You are 70 years of age or older. At this age, the risks that screening can cause are greater than the benefits that it may provide. If you are at high risk for prostate cancer, your health care provider may recommend that you have screenings more often or that you start screening at a younger age. How is screening for prostate cancer done? The recommended prostate cancer screening test is a blood test called the prostate-specific antigen (PSA) test. PSA is a protein that is made in the prostate. As you age, your prostate naturally produces more PSA. Abnormally high PSA levels may be caused by: ? Prostate cancer. ? An enlarged prost (more content not included)... Normal [facility] Patient Educationon 10-12-19 24 Patient Education Oncology Prostate Cancer Screening Prostate cancer screening is testing that is done to check for the presence of prostate cancer in men. The prostate gland is a walnut-sized gland that is located below the bladder and in front of the rectum in males. The function of the prostate is to add fluid to semen during ejaculation. Prostate cancer is one of the most common types of cancer in men. Who should have prostate cancer screening? Screening recommendations vary based on age and other risk factors, as well as between the professional organizations who make the recommendations. In general, screening is recommended if: ? You are age 50 to 70 and have an average risk for prostate cancer. You should talk with your health care provider about your need for screening and how often screening should be done. Because most prostate cancers are slow growing and will not cause , screening in this age group is generally reserved for men who have a 10- to 15-year life expectancy. ? You are younger than age 50, and you have these risk factors: ? Having a father, brother, or uncle who has been diagnosed with prostate cancer. The risk is higher if your family member's cancer occurred at an early age or if you have multiple family members with prostate cancer at an early age. ? Being a male who is Black or is of Geo or sub-Saharan descent. In general, screening is not recommended if: ? You are younger than age 40. ? You are between the ages of 40 and 49 and you have no risk factors. ? You are 70 years of age or older. At this age, the risks that screening can cause are greater than the benefits that it may provide. If you are at high risk for prostate cancer, your health care provider may recommend that you have screenings more often or that you start screening at a younger age. How is screening for prostate cancer done? The recommended prostate cancer screening test is a blood test called the prostate-specific antigen (PSA) test. PSA is a protein that is made in the prostate. As you age, your prostate naturally produces more PSA. Abnormally high PSA levels may be caused by: ? Prostate cancer. ? An enlarged prostate that is not caused by cancer (benign prostatic hyperplasia, or BPH). This condition is very common in older men. ? A prostate gland infection (prostatitis) or urinary tract infection. ? Certain medicines such as male hormones (like testosterone) or other medicines that raise testosterone levels. A rectal exam may be done as part of prostate cancer screening to help provide information about the size of your prostate gland. When a rectal exam is performed, it should be done after the PSA level is drawn to avoid any effect on the results. Depending on the PSA results, you may need more tests, such as: ? A physical exam to check the size of your prostate gland, if not done as part of screening. ? Blood and imaging tests. ? A procedure to remove tissue samples from your prostate gland for testing (biopsy). This is the only way to know for certain if you have prostate cancer. What are the benefits of prostate cancer screening? ? Screening can help to identify cancer at an early stage, before symptoms start and when the cancer can be treated more easily. ? There is a small chance that screening may lower your risk of dying from prostate cancer. The chance is small because prostate cancer is a slow-growing cancer, and most men with prostate cancer from a different cause. What are the risks of prostate cancer screening? The main risk of prostate cancer screening is diagnosing and treating prostate cancer that would never have caused any symptoms or problems. This is called overdiagnosisand overtreatment. PSA screening cannot tell you if your PSA is high due to cancer or a different cause. A prostate biopsy is the only procedure to diagnose prostate cancer. Even the results of a biopsy may not tell you if your cancer needs to be treated. Slow-growing prostate cancer may not need any treatment other than monitoring, so diagnosing and treating it may cause unnecessary stress or other side effects. Questions to ask your health care provider ? When should I start prostate cancer screening? ? What is my risk for prostate cancer? ? How often do I need screening? ? What type of screening tests do I need? ? How do I get my test results? ? What do my results mean? ? Do I need treatment? Where to find more information ? The [place] [employer]: www.cancer.org ? [place] [employer]: www.auanet.org Contact a health care provider if: ? You have difficulty urinating. ? You have pain when you urinate or ejaculate. ? You have blood in your urine or semen. ? You have pain in your back or in the area of your prostate. Summary ? Prostate cancer is a common type of cancer in men. The prostate gland is located below the bladder and in front of the rectum. This gland adds flu (more content not included)... Normal [facility] Urology Office/Clinic Noteon 10-12-2023 Urology Office/Clinic Note Chief Complaint prostate cancer (ACTIVE SURVEILLANCE) HPI Staff F/u to TRUS BX done 09/22/23. Previous dx of prostate cancer (ACTIVE SURVEILLANCE). Dysuria: no Incomplete bladder emptying: no Hematuria: no Frequency: no Urgency: no Nocturia: 1x Stream: good steady most of the time Leaking: no Post void dripping: no Wearing pads/ Depends: no Urge incontinence: no Stress incontinence: no Incontinence without Sensory Awareness: no Abdominal pain: no Flank pain: no Sexual complaints: no History of Present Illness Tests reviewed: reviewed path report I have reviewed the previous health record information and history for this patient from Dr. Self. I have reviewed and verified the staff HPI to be accurate for this encounter. Review of Systems PHQ Score Initial Depression Screen Score: 0 SCORE ROS - Provider Constitutional: denies weight loss, denies hot flashes. Eyes: denies eye problems. Gastrointestinal: denies nausea, denies vomiting. Cardiovascular: denies chest pain or angina. Integumentary: no dryness Musculoskeletal: denies musculoskeletal symptoms. ENMT: denies otolaryngeal symptoms. Respiratory: no shortness of breath. Heme/Lymph: denies easy bleeding tendency, denies easy bruising tendency. Psychiatric: no confusion, no anxiety. Genitourinary: See HPI. Physical Exam Vitals & Measurements HR: 73(Peripheral) RR: 16 BP: 131/81 HT: 66 in HT: 167 cm WT: 75 kg WT: 165 lb BMI: 26.89 General Appearance: alert, no distress, well nourished, well developed male. Genitourinary: normal scrotum, normal testes, normal urethra, normal epididymis, normal vas deferens/spermatic cord. Flank Pain: none. Bladder: nonpalpable. Assessment/Plan 1. Prostate cancer (C61: Malignant neoplasm of prostate) ACTIVE SURVEILLANCE. PSA: 07/2019 - 3.75 07/2020 - 3.86 07/2021 - 4.36 08/2021 - 4.38 12/2021 - 3.95 02/2022 - 4.46 & 12% free 12/09/22 - 5.01 & 10% 06/17/23 - 6.60 & 10% MRI prostate wo w con 05/27/22 - No MRI evidence of prostate malignancy. BPH change. S/P TRUS/Bx 07/22/22 - GS 7 (3+4), 28% core involvement in 2 cores. Repeat TRUS/bx 09/22/23 - Benign. The pathology report was reviewed with the patient in detail today. There is no evidence of malignancy and no further evaluation of the tissue removed is planned. All questions were answered and the report discussed in terms that the patient could understand. Discussed that neg bx does not warrant treatment. Will continue . Advised pt another bx will need done in the future for further restaging. Voiding well. UA today negative for blood and infection. Denies any bothersome urinary habits. -F/u in 6 mos w/ PSA and MICHELLE 2. Current smoker (F17.200: Nicotine dependence, unspecified, uncomplicated) Began smoking cigarettes in 1969. [1] Risk factor for urothelial ca. Follow-up With When Contact Information CLAIR CARRION, Riky Rosenbaum, URL [facility] [address], [place] [address] [phone] Additional Instructions: 6 mos w/ PSA Patient Education Prostate Cancer Screening I, Nalini High, personally scribed for Dr. Self on 10/12/2023 15:34:25. . Documentation recorded by the scribe, Nalini High, accurately reflects the services(s) I performed and decisions made by me. Authenticated by Dr. Self on 10/12/2023 15:40:17. Problem List/Past Medical History Ongoing Current smoker Elevated PSA Prostate cancer Historical Benign prostatic hyperplasia Bilateral foot pain Charcot joint of foot Chronic venous insufficiency Contusion of left shoulder Elevated PSA Essential hypertension History of DVT (deep vein thrombosis) Lumbar spondylosis Nicotine dependence Nocturia Overweight Paresthesia Rheumatoid arthritis Procedure/Surgical History Transrectal biopsy of prostate using ultrasound guidance (09/22/2023), Transperineal needle biopsy of prostate using ultrasound guidance (07/22/2022), MRI-US fusion guided transperineal biopsy of prostate (05/27/2022), Colonoscopy, Leg, Right foot. Medications amLODIPine 10 mg Tab Eliquis 5 mg oral tablet hydroxychloroquine 200 mg Tab predniSONE 5 mg Tab Trexall 2.5 mg Tab valsartan 160 mg Tab Allergies No Known Medication Allergies Social History Tobacco 5-9 cigarettes (between 1/4 to 1/2 pack)/day in last 30 days Tobacco Use:. Never Smokeless Tobacco Use:. Cigarettes, Ready to change: No. Household tobacco concerns: No. Yes, 08/10/2023 Family History Family history is negative Immunizations Vaccine Date Status Comments influenza virus vaccine, inactivated 07/10/2023 Recorded influenza virus vaccine, inactivated 06/30/2022 Recorded SARS-CoV-2 mRNA (tozinameran 5y-11y) vac - Not Given Postpone due to refusal SARS-CoV-2 (COVID-19) mRNA-1273 vaccine 07/03/2021 Recorded 2023-08-10: [id number] SARS-CoV-2 (COVID-19) mRNA-1273 vaccine 12/14/2020 Recorded 2023-08-10: TPV65 (more content not included)... Normal [facility] Comment on above: Result Comment: Elec tronically Signed By: Riky SELF MD\.br\Date and Time Signed: 10/12/23 15:40 EST\.br\Electronically Co-Signed By: Nalini High\.br\Date and Time Co-Signed: 10/12/23 15:[address] BRAIN W WO CONTon 024 CT BRAIN W WO CONT CT BRAIN W WO CONT Clinical: Diplopia. Unsteady gait. EXAM: ENHANCED AND NONENHANCED CT BRAIN Comparison: none Procedure: Multi-detector CT performed through the brain with and without administration of 100cc Omnipaque 300. Automatic exposure control utilized. Findings: There is no hydrocephalus, extra-axial fluid collection, mass effect, or midline shift No abnormal enhancement is identified. No venous sinuses appear patent. Minimal right maxillary sinus mucosal thickening. IMPRESSION: * No acute abnormality or abnormal enhancement. All CT scans at this facility use dose modulation, iterative reconstruction, and/or weight based dosing when appropriate to reduce radiation dose to as low as reasonably achievable. Finalized by David Nieves MD on 10/08/2023 6:39 PM Normal [facility] CT ORBITS SELLA EAR W WO CON Ton 10-08-2023 CT ORBITS SELLA EAR W WO CONT CT ORBITS SELLA EAR W WO CONT CT ORBITS SELLA EAR W WO CONT: 10/08/2023 4:46 PM Clinical: Diplopia. CT ORBITS Axial sonographic sections obtained through orbits without and with IV administration of 100 cc Omnipaque 300 Automatic exposure control utilized. Findings Rectus muscles are symmetric. Optic nerves are symmetric. No intraconal masses are seen. Globes are symmetric. No fracture seen. No subperiosteal abscess. Mild right frontal, ethmoid, and maxillary sinus mucosal thickening. Right TMJ degenerative change. No abnormal enhancement. Impression: * Unremarkable CT orbits. If symptoms persist, MRI recommended. All CT scans at this facility use dose modulation, iterative reconstruction, and/or weight based dosing when appropriate to reduce radiation dose to as low as reasonably achievable. Finalized by David Nieves MD on 10/08/2023 6:43 PM Normal [facility] Prostate Histology ([facility]) on 10-02-2023 Prostate Histology Diagnosis Info Invalid Interpretation Code [facility] Comment on above: Result Comment: A:Pr ostate,Left Lateral Base:Needle Biopsy Interpretation - - Benign prostatic tissue. MicroScopic Description - B:Prostate,Left Lateral [place]:Needle Biopsy Interpretation - - Benign prostatic tissue. MicroScopic Description - C:Prostate,Left Base:Needle Biopsy Interpretation - - Benign prostatic tissue. MicroScopic Description - D:Prostate,Left Mid:Needle Biopsy Interpretation - - Benign prostatic tissue. MicroScopic Description - E:Prostate,Left [place]:Needle Biopsy Interpretation - - Benign prostatic tissue (see comment). MicroScopic Description - F:Prostate,Right Base:Needle Biopsy Interpretation - - Benign prostatic tissue. MicroScopic Description - G:Prostate,Right Mid:Needle Biopsy Interpretation - - Benign prostatic tissue. MicroScopic Description - H:Prostate,Right [place]:Needle Biopsy Interpretation - - Benign prostatic tissue (see comment). MicroScopic Description - I:Prostate,Right Lateral Base:Needle Biopsy Interpretation - - Benign prostatic tissue. MicroScopic Description - J:Prostate,Right Lateral Mid:Needle Biopsy Interpretation - - Benign prostatic tissue. MicroScopic Description - K:Prostate,Right Lateral [place]:Needle Biopsy Interpretation - - Benign prostatic stromal tissue. MicroScopic Description - Gross Description Site ID:A color bliss-white fixative Formalin cores 1 units cm Site ID:B color bliss-white fixative Formalin cores 1 units cm partially coiled Site ID:C color bliss-white fixative Formalin cores 1 units cm partially coiled Site ID:D color bliss-white fixative Formalin cores 5 units cm partially stringy, partially coiled, adhered to sponge Site ID:E color bliss-white fixative Formalin cores 1 units cm Site ID:F color bliss-white fixative Formalin cores 1 units cm stringy Site ID:G color dark brown fixative Formalin cores 1 units cm fragmented, stringy Site ID:H color bliss-white fixative Formalin cores 1 units cm Site ID:I color dark brown fixative Formalin cores 1 units cm fragmented, adhered to sponge Site ID:J color dark brown fixative Formalin cores 1 units cm fragmented Site ID:K color dark brown fixative Formalin cores 1 units cm stringy CPT code: 64918 x 11 35393 x 2 Electronically signed by : on: 10/02/2023 12:09:15 Performed By: #### 1 [id number] ####[facility] [address] [place] [address] Maxorb II Alginateon 024 Applied in clinic today MANUALLY TRANSCRIBED RESULTS [facility] Consent for Procedure/Surger yon 09-22-2023 Consent for Procedure/Surgery [id number]# 1.00TIFF Normal [facility] Consent for Treatmenton 09-07 Consent for Treatment [id number] .00TIFF Normal [facility] IntraOperative Documentson 0 09-22-2023 IntraOperative Documents [id number]# 1.00TIFF Normal [facility] IntraOperative Documents [id number]# 1.00TIFF Normal [facility] Main OR Intraoperative Recor don 09-22-2023 Main OR Intraoperative Record IntraOp Document Type FTURO Summary Primary Physician: Riky SELF MD Finalized Date/Time: 09/22/23 16:26:57 Pt. Name: CAROLEBECKI ADEN/Sex: 1950 Male Med Rec #: [id number] Physician: Riky SELF MD Financial #: [id number] Pt. Type: O Room/Bed: / Admit/Disch: 09/22/23 15:06:32 - Institution: Case Times FTURO Entry 1 Patient Times In Room 09/22/23 16:09:00 Out Room 09/22/23 16:33:00 Procedure Times Start 09/22/23 16:13:00 Stop 09/22/23 16:28:00 Anesthesia Times Last Modified By: Nery HERMAN, Hoda CHARLTON 09/22/23 16:26:14 Case Attendance FTURO Entry 1 Entry 2 Entry 3 Case Attendee CLAIR CARRION, Riky Gabriel RN, USMANOR, Fanta Acuña Role Performed Surgeon - Primary Inspector [employer] Products - Primary Scrub - Primary Time In 09/22/23 16:09:00 09/22/23 16:09:00 09/22/23 16:09:00 Time Out 09/22/23 16:33:00 09/22/23 16:33:00 09/22/23 16:33:00 Procedure PROSTATE TRANSRECTAL PROSTATE TRANSRECTAL PROSTATE TRANSRECTAL ULTRASOUND WITH BIO(.) ULTRASOUND WITH BIO(.) ULTRASOUND WITH BIO(.) Comments Last Modified By: Nery HERMAN, USMANOR, Nery HERMAN, USMANOR, Nery HERMAN, USMANOR, Hoda 09/22/23 Hoda 09/22/23 Hoda 09/22/23 16:26:16 16:26:16 16:26:16 Surgical Procedures FTURO Entry 1 Procedure Description Procedure PROSTATE TRANSRECTAL Modifiers . ULTRASOUND WITH BIOPSY Surgeon Description TRUS BIOPSY Primary Procedure Yes Primary Surgeon Riky SELF MD Start 09/22/23 16:13:00 Stop 09/22/23 16:28:00 Anesthesia Type Local Surgical Service Urology Wound Class 2 - Clean-Contaminated Last Modified By: ZOLTAN Gabriel RN, Hoda 09/22/23 16:26:18 General Case Data FTURO Pre-Care Text: Classifies surgical wound, implements aseptic technique, initiates traffic control Entry 1 Case Information OR URO 1 FT Case Level None Wound Class 2 - Clean-Contaminated Specialty Urology Preop Diagnosis ELEVATED PSA AND Postop Same As Preop Yes PROSTATE CANCER Postop Diagnosis ELEVATED PSA AND Outcomes Met? Yes PROSTATE CANCER Last Modified By: ZOLTAN Gabriel RN, Hoda 09/22/23 15:32:39 Post-Care Text: The patient is free from signs and symptoms of infection EU IntraOp - FTURO Pre-Care Text: Implements protective measures prior to operative or invasive procedure, confirms identity before the operative or invasive procedure, verifies operative procedure, surgical site, and laterality Entry 1 EU Perioperative Protocols Procedure(s) PROSTATE TRANSRECTAL Patient Identity Birthday, ID Band ULTRASOUND WITH BIO(.) Verified (select at Check, Patient least 2): Participation Consents / H and P HandP, Surgery/Procedure Operative Site N/A Verified Consent Marking Verified Surgical Site Yes Laterality Verified n/a Verified Procedure Verified Yes Correct Patient Yes Position Verified Availability Equipment, Medication Time Out Riky SELF MD, Verified (If Participants Nery HERMAN, CNOR, Applicable) Domenico Drummond Laura C Time Out Complete 09/22/23 16:09:00 Allergies Reviewed? Yes Allergies Reviewed Self/Patient With Body Position Lateral, right side up Prep Area none Prep Agents None Skin. Condition Unable to Visualize Additional Tissue Specimens Collected Vitals - EU Blood Pressure 131/85 Pulse 95 bpm Respirations 16 br/min SPO2 EBL 0 IandO - EU Total Intake 0 mL Total Output 0 mL Outcomes Met? Yes Last Modified By: ZOLTAN Gabriel RN, Ruthann 09/22/23 16:26:52 Post-Care Text: The patient is free from signs and symptoms of injury caused by extraneous objects Sign Out FTURO Entry 1 Before Patient Leaves OR Nurse verbally Yes Nurse verbally n/a confirms with the confirms with the team the name of team that the procedure(s) instrument, sponge, recorded and needle counts are correct (or N/A) Nurse verbally Yes Nurse verbally n/a confirms with the confirms with the team how the team whether there specimen is labeled are any equipment (including patient problems to be name), if applicable addressed Sign Out Complete 09/22/23 16:29:00 Last Modified By: ZOLTAN Gabriel RN, Ruthann 09/22/23 16:26:28 Case Comments Finalized By: ZOLTAN Gabriel RN, Ruthann Document Signatures Signed By: ZOLTAN Gabriel RN, Ruthann 09/22/23 16:26 Normal [facility] Main OR Preoperative Recordo n 09-22-2023 Main OR Preoperative Record Holding Area Document Type FTURO Summary Primary Physician: Riky SELF MD Finalized Date/Time: 09/22/23 16:07:04 Pt. Name: BECKI ALARCON/Sex: 1950 Male Med Rec #: [id number] Physician: Riky SELF MD Financial #: [id number] Pt. Type: O Room/Bed: / Admit/Disch: 09/22/23 15:06:32 - Institution: Case Times Holding FTURO Pre-Care Text: Verifies consent for planned procedure, identifies individual values and wishes concerning care, includes family members in perioperative teaching Secures patient's records' belongings, and valuables, maintains patient's dignity and privacy, and maintains patient confidentiality Entry 1 In Holding 09/22/23 15:56:00 Outcomes Met? Yes Last Modified By: Jazmyne Torre RN 09/22/23 15:56:53 Post-Care Text: The patient participates in decisions affecting his or her perioperative plan of care The patient's right to privacy is maintained Surgery Checklist FTURO Entry 1 Patient Birthday, ID Band Procedure History and Physical, Identification: Check, Patient Verification: Surgical Consent, With Participation Patient NPO after Midnight: n/a Personal Items: Glasses Personal Items GLASSES Limitations: UP AD BHAVANA Comment: Complaints of Pain: No Pain Comment: 0/10 Skin Integrity Dry, Warm Vitals - EU Blood Pressure 131/85 Pulse 95 bpm Respirations 16 br/min SPO2 99 % Additional None RN Reviewed Yes Specimens Collected Last Modified By: Jazmyne Torre RN 09/22/23 16:00:10 Finalized By: Jazmyne Torre RN Document Signatures Signed By: Jazmyne Torre RN 09/22/23 16:07 Normal [facility] Operative Reporton Operative Report Patient: BECKI ALARCON Age: 73 years Sex: Male : 1950 Associated Diagnoses: None Author: Riky SELF MD Procedure Operative Information Details: Date/ Time: 09/22/2023 16:30:00. Pre-Op Dx: Hx of Prostate CA - Z85.46. Post-Op Dx: Same. Anesthesia Type: Local, Periprostatic Nerve Block. Procedure: Transrectal Ultrasound and Transrectal Ultrasound-Guided Biopsy of the Prostate. Complications: None. Risks/Benefits/Inform ed Consent: Surgical risks, benefits, details of the procedure have been explained to the patient, Full informed consent has been obtained. Intraoperative Information Prepped: The patient was brought to the office suite, placed in the modified left lateral Moralez position, The patient was draped appropriately, 80 mg Gentamicin IM injection administered. Procedure: Then 2% Xylocaine jelly was used for intrarectal anesthesia, After waiting several minutes, a well lubricated ultrasound probe was introduced per rectum, The prostate was carefully evaluated in the AP and Sagittal views. Volume: 22 CC. Specimens Removed: A total of 12 biopsies were taken, 6 from each side, and sent to pathology, 2 additional biopsies were taken from the left mid aspect where his prior [place] 7 was identified. Devices Implanted: None. Postoperative Information Discharge: The patient tolerated the procedure well and was discharged home in satisfactory condition, The patient was instructed to (Finish antibiotics, Avoid strenuous activity, Go to the emergency room for gross bleeding, fever, or chills). Radiology Report Procedure: Transrectal Ultrasound of the Prostate, Transrectal US guided needle biopsy of the prostate. Narrative: Ultrasound probe is introduced and performed in the longitudinal and transverse plains, The gland measures (37 MM Length, 47 MM Width, 25 MM Depth, with a calculated volume of 22 CC), The prostatic capsule and seminal vesicles appear to be within normal limits, The peripheral zone demonstrates Calcifications, Rest of the prostate demonstrates No abnormalities, Ultrasound guidance was then utilized to obtain 12 biopsies, These were sent to pathology for evaluation, A total of 14 biopsies were taken. 2 extra from the left mid. All samples were sent to pathology.. Normal [facility] Comment on above: Result Comment: Elec tronically Signed By: CLAIR CARRION, Riky Mckeon.br\Date and Time Signed: 09/22/23 16:31 EST Patient Educationon 09-22-19 Patient Education Normal [facility] Prostate Histology ([facility]) on 09-22-2023 PH Method of Extraction Needle Biopsy Normal [facility] Comment on above: Performed By: #### 1 [id number] ####[facility] [address] [place] [address] PH Number of Jars 2 Invalid Interpretation Code [facility] Comment on above: Performed By: #### 1 [id number] ####[facility] [address] [place] [address] PH Specimen 1 L Apx Prostate Normal [facility] Comment on above: Performed By: #### 1 [id number] ####[facility] [address] [place] [address] PH Specimen 10 R Lat Bse Prost Normal [facility] Comment on above: Performed By: #### 1 [id number] ####[facility] [address] [place] [address] PH Specimen 11 R Mid Prostate Normal [facility] Comment on above: Performed By: #### 1 [id number] ####[facility] [address] [place] [address] PH Specimen 12 R Lat Mid Prost Normal [facility] Comment on above: Performed By: #### 1 [id number] ####[facility] [address] [place] [address] PH Specimen 2 L Base Prostate Normal [facility] Comment on above: Performed By: #### 1 [id number] ####[facility] [address] [place] [address] PH Specimen 3 L Lat Apx Prost Normal [facility] Comment on above: Performed By: #### 1 [id number] ####[facility] [address] [place] [address] PH Specimen 4 L Lat Bse Prost Normal [facility] Comment on above: Performed By: #### 1 [id number] ####[facility] [address] [place] [address] PH Specimen 5 L Mid Prost 1 Normal [facility] Comment on above: Performed By: #### 1 [id number] ####[facility] [address] [place] [address] PH Specimen 6 L Lat Mid Prost Normal [facility] Comment on above: Performed By: #### 1 [id number] ####[facility] [address] [place] [address] PH Specimen 7 R Apx Prostate Normal [facility] Comment on above: Performed By: #### 1 [id number] ####[facility] [address] [place] [address] PH Specimen 8 R Base Prostate Normal [facility] Comment on above: Performed By: #### 1 [id number] ####[facility] [address] [place] [address] PH Specimen 9 R Lat Apx Prost Normal [facility] Comment on above: Performed By: #### 1 [id number] ####[facility] [address] [place] [address] PH Type of Service Technical Only Normal [facility] Comment on above: Performed By: #### 1 [id number] ####[facility] [address] [place] [address] [employer] 09-15-2023 Forms [id number]. 00TIFF Normal [facility] Maxorb II Alginateon 024 Applied in clinic today MANUALLY TRANSCRIBED RESULTS [employer] 09-10-2023 Forms [id number] .00TIFF Normal [facility] Cardiovascular Surgery Offic e/ClinicNoteon 08-26-2023 Cardiovascular Surgery Office/ClinicNote Chief Complaint RLE wound History of Present Illness Becki is s/p Lt fem/post tib bypass (cryo) 05/18/2023. last time I had seen him his incisions were healed. He states about a month ago the distal incison opened up and he hasnt been able to heal it since. Now there is a shallow dehiscence about the size of a quarter on the distal end of the incision of the LLE, there is a slight erythema around this. He has also been out of Eliquis for the last 2 weeks and had not made us aware. He denies claudication Sx. There is a generalized edema below the knee on the L. L foot is pink and warm. Denies fevers, chills, CP or SOB. Review of Systems Constitutional: No fevers, chills, sweats, weakness Eye: No recent vision changes, double vision ENMT: No ear pain, nasal congestion, sore throat, voice changes Respiratory: No shortness of breath, cough, wheezing or sputum Cardiovascular: No Chest pain or tightness, palpitations, syncope, swelling Gastrointestinal: No nausea, vomiting, diarrhea, blood in stool, indigestion Genitourinary: No hematuria, frequency or urgency Alejandro/Lymph: Negative for bruising tendency, swollen lymph glands Endocrine: Negative for excessive thirst, excessive hunger Musculoskeletal: No back pain, neck pain, joint pain, muscle pain, injury Integumentary: No rash, pruritus, abrasions, Neurologic: No headache, dizziness, fainting, seizures, balance problems Psychiatric: No anxiety, depression, suicidal thoughts Physical Exam Vitals & Measurements HR: 83 (Peripheral) BP: 112/82 SpO2: 97 HT: 168 cm WT: 77.11 kg WT: 77.11 kg (Dosing) BMI: 27.32 General: calm, cooperative, A/Ox4 Lungs: Clear to auscultation bilaterally Heart: Normal rate, regular rhythm, no murmur, gallop or edema Abdomen: Soft, non-tender, non-distended, normal bowel sounds, no masses lower extremity: Left distal incision with Quarter sized, shallow dehiscence. Slight erythematous border. Additional Vitals BP Position/Location: Sitting, Right arm Assessment/Plan 1. S/P femoral-popliteal bypass surgery 2 Eliquis boxes from office given. Rx refill sent to [facility] [employer] to shallow dehiscence of distal incision. Covered w mepilex. Teaching provided how to do [employer] dressing changes daily. Rx [facility] D[facility]ine [facility]. Myself and Attending provider for our office will be out for the next 10 days, will have him follow with [facility] so there is a medical professional following his wound during this time. Fu in office as scheduled. Ordered: Post-Op Follow-UP Visit [id number] Orders: apixaban, See Instructions, Take 1 tablet by mouth twice daily, # 60 tabs, 4 Refill(s), Pharmacy: [facility] doxycycline, 1 caps, Oral, Daily, X 10 days, # 10 caps, 0 Refill(s), 09/05/23 14:38:00 EST, Pharmacy: [facility] Medical Decision Making Chronic conditions NOT treated during this visit that affected my overall medical decision making: [] Treatment plans discussed but not opted for at this time: [] Prescribed medication that requires intensive monitoring for toxicity: [] I have reviewed the patient?s medication list for medication interactions/contrain dications and/or for upcoming procedures: [yes or no] Time Spent with the Patient I have personally spent [] minutes on this date, directly related to today's patient visit, including pre and post visit work, for this date of service. Time listed does not include time spent on separately billable services. Problem List/Past Medical History Ongoing Cancer of prostate Chronic rheumatic arthritis Nicotine abuse Nonhealing nonsurgical wound PAD (peripheral artery disease) Historical No qualifying data Procedure/Surgical History Colonoscopy (2010) Right foot reconstruction (2012) Bypass Graft Femorotibial (Left) (05/18/2023) Medications amLODIPine 10 mg oral tablet, 10 mg= 1 tabs, Oral, HS (at bedtime) aspirin 81 mg oral delayed release tablet, 81 mg, Oral, Daily DME, See Instructions doxycycline hyclate 100 mg oral capsule, 100 mg= 1 caps, Oral, Daily Eliquis 5 mg oral tablet, See Instructions, 4 refills folic acid 1 mg oral tablet, 1 mg= 1 tabs, Oral, HS (at bedtime) hydroxychloroquine 200 mg oral tablet, 200 mg= 1 tabs, Oral, HS (at bedtime) methotrexate 2.5 mg oral tablet, 20 mg= 8 tabs, Oral, Mclean Potassium Chloride (Qur-Mzel-Qel M20) 20 mEq oral tablet, extended release, See Instructions predniSONE 5 mg oral tablet, 5 mg= 1 tabs, Oral, Daily, PRN valsartan 160 mg oral tablet, 160 mg= 1 tabs, Oral, HS (at bedtime) Allergies No Known Allergies Social History Alcohol Never Exercise Exercise type: None d/t PAD and foot pain. Tries to be active by grocery shopping, yard work, etc. Up until December 2022 was bicycling daily.. Home/Environment Lives with Adult son. Nutrition/Health Regular Substance Abuse Denies All Tobacco 10 or more cigarettes (1/2 pack or more)/day in last 30 days Use:. Cigarettes, 0.5 per day (more content not included)... Normal [facility] Ambulatory Visit Summaryon 1 10-11-2022 Ambulatory Visit Summary EBCKI ALARCON :1950 Visit Date:08/10/2023 Ambulatory Visit Instructions Your Diagnosis Prostate cancer Current smoker Tests Performed Urnls Dip Stick Auto w/o Microscopy POC 26025 Your Care Team Attending Physician - CLAIR CARRION, Riky Rosenbaum Primary Care Physician - BALL DO, WATSON This Is Your Medications List Contact prescribing physician if questions or concerns amlodipine (amLODIPine 10 mg Tab) apixaban (Eliquis 5 mg oral tablet) hydroxychloroquine (hydroxychloroquine 200 mg Tab) methotrexate (Trexall 2.5 mg Tab) predniSONE (predniSONE 5 mg Tab) valsartan (valsartan 160 mg Tab) Procedures Performed Transperineal needle biopsy of prostate using ultrasound guidance (07/22/2022), MRI-US fusion guided transperineal biopsy of prostate (05/27/2022), Colonoscopy, Leg, Right foot. Discharge Vitals Heart Rate (Peripheral) 80 Respiratory Rate 16 Blood Pressure 132/78 Height 167 cm Height 66 in Weight 75 kg Weight 165 lb BMI 26.89 What to do next You Need to Schedule the Following Appointments Follow Up with CLAIR CARRION, JEMAL Dowling When: Comments: sched repeat TRUS/bx Where: [facility] [address] , [place] [address] [phone] Medications What When Instructions Unchanged amlodipine (amLODIPine 10 mg Tab) Contact prescribing physician if questions or concerns Unchanged apixaban (Eliquis 5 mg oral tablet) Contact prescribing physician if questions or concerns Unchanged hydroxychloroquine (hydroxychloroquine 200 mg Tab) Contact prescribing physician if questions or concerns Unchanged methotrexate (Trexall 2.5 mg Tab) Contact prescribing physician if questions or concerns Unchanged predniSONE (predniSONE 5 mg Tab) Contact prescribing physician if questions or concerns Unchanged valsartan (valsartan 160 mg Tab) Contact prescribing physician if questions or concerns Test Results Urnls Dip Stick Auto w/o Microscopy POC 57926 (08/10/2023) Bilirubin Urine Dipstick - Negative Blood Urine Dipstick - Trace-intact Glucose Urine Dipstick - Negative Ketones Urine Dipstick - Negative Leukocytes Urine Dipstick - Negative Nitrite Urine Dipstick - Negative Protein Urine Dipstick - Negative Specific [place] Urine Dipstick - 1.020 Urine Appearance Urine Dipstick - Clear Urine Color Urine Dipstick - Yellow Urobilinogen Urine Dipstick - Normal 0.2-1 EU/dl pH Urine Dipstick - 6 Allergies No Known Medication Allergies Problems Ongoing - Any problem that you are currently receiving treatment for. Current smoker Elevated PSA Prostate cancer Historical - Any problem that you are no longer receiving treatment for. Benign prostatic hyperplasia Bilateral foot pain Charcot joint of foot Chronic venous insufficiency Contusion of left shoulder Elevated PSA Essential hypertension History of DVT (deep vein thrombosis) Lumbar spondylosis Nicotine dependence Nocturia Overweight Paresthesia Rheumatoid arthritis Patient Survey You may receive a survey via text or e-mail asking about your office visit. Please share your experience with us by completing your survey. We appreciate your feedback and thank you for choosing us for your care. Education Materials Transrectal Ultrasound-Guided Prostate Biopsy, Care After The following information offers guidance on how to care for yourself after your procedure. Your health care provider may also give you more specific instructions. If you have problems or questions, contact your health care provider. What can I expect after the procedure? After the procedure, it is common to have: ? Pain and discomfort near your rectum, especially while sitting. ? [place]-colored urine due to small amounts of blood in your urine. ? A burning feeling while urinating. ? Blood in your stool (feces) or bleeding from your rectum. ? Blood in your semen. Follow these instructions at home: Medicines ? Take zopn-dnq-ujadblm and prescription medicines only as told by your health care provider. ? If you were given a sedative during your procedure, it can affect you for several hours. Do not drive or operate machinery until your health care provider says that it is safe. ? If you were prescribed an antibiotic medicine, take it as told by your health care provider. Do not stop using the antibiotic even if you start to feel better. Activity ? Return to your normal activities as told by your health care provider. Ask your health care provider what activities are safe for you. ? Ask your health care provider when it is okay for you to resume sexual activity. ? You may have to avoid lifting. Ask your health care provider how much you can safely lift. General instructions ? Drink enough fluid to keep your urine pale yellow. ? Watch your urine, stool, and semen for new or increased bleeding. ? (more content not included)... Normal [facility] Patient Educationon 08-10-20 Patient Education Oncology Transrectal Ultrasound-Guided Prostate Biopsy, Care After The following information offers guidance on how to care for yourself after your procedure. Your health care provider may also give you more specific instructions. If you have problems or questions, contact your health care provider. What can I expect after the procedure? After the procedure, it is common to have: ? Pain and discomfort near your rectum, especially while sitting. ? [place]-colored urine due to small amounts of blood in your urine. ? A burning feeling while urinating. ? Blood in your stool (feces) or bleeding from your rectum. ? Blood in your semen. Follow these instructions at home: Medicines ? Take ufvw-mrq-gdgbuox and prescription medicines only as told by your health care provider. ? If you were given a sedative during your procedure, it can affect you for several hours. Do not drive or operate machinery until your health care provider says that it is safe. ? If you were prescribed an antibiotic medicine, take it as told by your health care provider. Do not stop using the antibiotic even if you start to feel better. Activity ? Return to your normal activities as told by your health care provider. Ask your health care provider what activities are safe for you. ? Ask your health care provider when it is okay for you to resume sexual activity. ? You may have to avoid lifting. Ask your health care provider how much you can safely lift. General instructions ? Drink enough fluid to keep your urine pale yellow. ? Watch your urine, stool, and semen for new or increased bleeding. ? Keep all follow-up visits. This is important. Contact a health care provider if: ? You have any of the following: ? Blood clots in your urine or stool. ? Blood in your urine more than 2 weeks after the procedure. ? Blood in your semen more than 2 months after the procedure. ? New or increased bleeding in your urine, stool, or semen. ? Severe pain in your abdomen. ? Your urine smells bad or unusual. ? You have trouble urinating. ? Your lower abdomen feels firm. ? You have problems getting an erection. ? You have nausea or you vomit. Get help right away if: ? You have a fever or chills. This could be a sign of infection. ? You have bright red urine. ? You have severe pain that does not get better with medicine. ? You cannot urinate. Summary ? After this procedure, it is common to have pain and discomfort around your rectum, especially while sitting. ? You may have blood in your urine and stool after the procedure. ? It is common to have blood in your semen after this procedure. ? Get help right away if you have a fever or chills. This could be a sign of infection. This information is not intended to replace advice given to you by your health care provider. Make sure you discuss any questions you have with your health care provider. Document Revised: 02/17/2022 Document Reviewed: 02/17/2022 [employer] Patient Education ? 2022 [employer]. Transrectal Ultrasound-Guided Prostate Biopsy A transrectal ultrasound-guided prostate biopsy is a procedure to remove samples of prostate tissue for testing. The prostate is a walnut-sized gland that is located below the bladder and in front of the rectum. During this procedure, a small device (probe) is lubricated and put inside the rectum. The probe sends out sound waves that make a picture of the prostate and surrounding tissues (transrectal ultrasound). The images are used to help guide the process of removing the samples. The samples are taken to a lab to be checked for prostate cancer. This procedure is usually done to evaluate the prostate gland of men who have raised (elevated) levels of prostate-specific antigen (PSA), which can be a sign of prostate cancer or prostate enlargement related to aging (benign prostatic hyperplasia, or BPH). Tell a health care provider about: ? Any allergies you have. ? All medicines you are taking, including vitamins, herbs, eye drops, creams, and hmyp-ijf-baykfov medicines. ? Any problems you or family members have had with anesthetic medicines. ? Any bleeding problems you have. ? Any surgeries you have had. ? Any medical conditions you have. ? Any prostate infections you have had. What are the risks? Generally, this is a safe procedure. However, problems may occur, including: ? Prostate infection. ? Bleeding from the rectum. ? Blood in the urine. ? Allergic reactions to medicines. ? Damage to surrounding structures such as blood vessels, organs, or muscles. ? Difficulty passing urine. ? Nerve damage. This is usually temporary. What happens before the procedure? Medicines Ask your health care provider about: ? Changing or stopping your regular medicines. This is especially important if you are taking diabetes medicines or blood thinners. ? Taking medicines such as aspirin (more content not included)... Normal [facility] Urology Office/Clinic Noteon 08-10-2023 Urology Office/Clinic Note Chief Complaint 6m PSA ACTIVE SURVEILLANCE HPI Staff 6m PSA/MICHELLE & per last encounter & schedule repeat Bx DX: Prostate Cancer S/P ACTIVE SURVEILLANCE *No Urology Meds PSA 06/17/23- 6.60 & 10% Denies pain/burning & visible blood in urine. Weak stream, attributes to age. No urological concerns at this time. Did have recent vein surgery in his leg, currently experiencing pain, is waiting to hear from his PCP in regards to pain. History of Present Illness Tests reviewed: reviewed UA, PSA I have reviewed the previous health record information and history for this patient from Dr. Self. I have reviewed and verified the staff HPI to be accurate for this encounter. Review of Systems PHQ Score Initial Depression Screen Score: 0 SCORE ROS - Provider Constitutional: denies weight loss, denies hot flashes. Eyes: denies eye problems. Gastrointestinal: denies nausea, denies vomiting. Cardiovascular: denies chest pain or angina. Integumentary: no dryness Musculoskeletal: denies musculoskeletal symptoms. ENMT: denies otolaryngeal symptoms. Respiratory: no shortness of breath. Heme/Lymph: denies easy bleeding tendency, denies easy bruising tendency. Psychiatric: no confusion, no anxiety. Genitourinary: See HPI. Physical Exam Vitals & Measurements HR: 80(Peripheral) RR: 16 BP: 132/78 HT: 66 in HT: 167 cm WT: 75 kg WT: 165 lb BMI: 26.89 General Appearance: alert, no distress, well nourished, well developed male. Genitourinary: normal scrotum, normal testes, normal urethra, normal epididymis, normal vas deferens/spermatic cord. Flank Pain: none. Bladder: nonpalpable. Prostate: normal prostate, estimated weight 40 gms, no hard nodule observed. Assessment/Plan 1. Prostate cancer (C61: Malignant neoplasm of prostate) ACTIVE SURVEILLANCE. PSA: 07/2019 - 3.75 07/2020 - 3.86 07/2021 - 4.36 08/2021 - 4.38 12/2021 - 3.95 02/2022 - 4.46 & 12% free 12/09/22 - 5.01 & 10% 06/17/23 - 6.60 & 10% MRI prostate wo w con 05/27/22 - No MRI evidence of prostate malignancy. BPH change. S/P TRUS/Bx 07/22/22 - GS 7 (3+4), 28% core involvement in 2 cores. MICHELLE: 40 gm, no nodules. Discussed recent PSA level which is elevated since prior but remains in range for active surveillance. Voiding well wo complaints at this time. UA today negative for blood and infection. -Will schedule repeat TRUS of Prostate with Biopsy. The procedural risks, benefits, details, and treatment alternatives have been discussed with the patient. These include minimal to severe bleeding, infection, blood in the semen, inability to urinate, and severe infection requiring hospitalization and IV antibiotics, among others. Full informed consent has been obtained. Will order Local anesthesia. 2. Current smoker (F17.200: Nicotine dependence, unspecified, uncomplicated) Began smoking cigarettes in 1969. [1] Follow-up With When Contact Information CLAIR CARRION, Riky Rosenbaum, [facility] [address], [place] [address] [phone] Additional Instructions: sched repeat TRUS/bx Patient Education Transrectal Ultrasound-Guided Prostate Biopsy, Care After Transrectal Ultrasound-Guided Prostate Biopsy INalini, personally scribed for Dr. Self on 08/10/2023 13:34:02. . Documentation recorded by the scribeNalini, accurately reflects the services(s) I performed and decisions made by me. Authenticated by Dr. Self on 08/10/2023 13:43:35. Problem List/Past Medical History Ongoing Current smoker Elevated PSA Prostate cancer Historical Benign prostatic hyperplasia Bilateral foot pain Charcot joint of foot Chronic venous insufficiency Contusion of left shoulder Elevated PSA Essential hypertension History of DVT (deep vein thrombosis) Lumbar spondylosis Nicotine dependence Nocturia Overweight Paresthesia Rheumatoid arthritis Procedure/Surgical History Transperineal needle biopsy of prostate using ultrasound guidance (07/22/2022), MRI-US fusion guided transperineal biopsy of prostate (05/27/2022), Colonoscopy, Leg, Right foot. Medications amLODIPine 10 mg Tab Eliquis 5 mg oral tablet hydroxychloroquine 200 mg Tab predniSONE 5 mg Tab Trexall 2.5 mg Tab valsartan 160 mg Tab Allergies No Known Medication Allergies Social History Tobacco 5-9 cigarettes (between 1/4 to 1/2 pack)/day in last 30 days Tobacco Use:. Never Smokeless Tobacco Use:. Cigarettes, Ready to change: No. Household tobacco concerns: No. Yes, 08/10/2023 Family History Family history is negative Immunizations Vaccine Date Status Comments influenza virus vaccine, inactivated 07/10/2023 Recorded influenza virus vaccine, inactivated 06/30/2022 Recorded SARS-CoV-2 mRNA (tozinameran 5y-11y) vac - Not Given Postpone due to refusal SARS-CoV-2 (COVID-19) mRNA-1273 vaccine 07/03/2021 Recorded 2023-08-10: [id number] SARS-CoV-2 (COVID-19) mRNA-12 (more content not included)... Normal [facility] Comment on above: Result Comment: Elec tronically Signed By: Riky SELF MD\.br\Date and Time Signed: 08/10/23 13:43 EST\.br\Electronically Co-Signed By: Nalini High\.br\Date and Time Co-Signed: 08/10/23 13:34 EST Lab Report[facility] 07-08-2023 Lab Reports [id number] .00TIFF [facility] Lab Reportson 07-02-2023 Lab Reports [id number] .00TIFF [facility] Aerobic Cultureon 02-17-2023 Aerobic Culture Reason for Exam Pressure injury of skin of toe of left foot, unspecified inj Toe,Left Great Heavy Normal Skin Joan 2 Days Reason for Exam Pressure injury of skin of toe of left foot, unspecified inj Toe,Left Great No Anaerobes Isolated 3 Days Reason for Exam Pressure injury of skin of toe of left foot, unspecified inj Toe,Left Great Gram Stain Result 1+ Gram Positive Cocci Rare Gram Positive Diplococci PERFORMED BY: [place] [address] PATHOLOGIST BROOMCORN SORTER BLOSSOM LAY M.D. [facility] Comment on above: Performed By: #### G S, AERC #### [address] Gram Stainon 02-17-2023 Microscopic observation Gram stain Nom (Unsp spec) Reason for Exam Pressure injury of skin of toe of left foot, unspecified inj Toe,Left Great Gram Stain Result 1+ Gram Positive Cocci Rare Gram Positive Diplococci PERFORMED BY: [facility] [address] [place] [address] PATHOLOGIST BROOMCORN SORTER BLOSSOM LAY M.D. Normal [facility] Comment on above: Performed By: #### G S, AERC #### [facility] [address] LUNG CANCER SCREENINGon 1 09-09-2021 CT LUNG CANCER SCREENING EXAMINATION: CT LUNG CANCER SCREENING HISTORY: Tobacco dependence caused by cigarettes COMPARISON: Plain x-ray 07/21/2014 TECHNIQUE: Axial, Coronal, and Sagittal images were created without the administration of IV contrast material. Dose reduction techniques were achieved by using automated exposure control and/or adjustment of mA and/or kV according to patient size and/or use of iterative reconstruction technique. FINDINGS: LUNGS: Area of patchy opacity medial basilar segment of the right lower lobe. Atelectasis and/or scar is favored. Mild diffuse centrilobular emphysema with an upper lobe predominance. PLEURA: No mass, effusion, or pneumothorax. VASCULATURE: No abnormality. PRATIMA: Small calcified right hilar lymph nodes MEDIASTINUM: No mass or pathologic adenopathy. CARDIAC: No enlargement or pericardial effusion. Mild to moderate coronary atherosclerosis AORTA: No aortic aneurysm. Atherosclerosis CHEST WALL: No mass or axillary adenopathy BONES: No bone lesion or fracture. LIMITED ABDOMEN: No suspicious findings. Limited images of the upper abdomen. OTHER: Negative. IMPRESSION: LUNG SCREENING: Lung-RADS Category 1 Negative. No nodules and definitely benign nodules. Continue annual screening with LDCT in 12 months. Electronically authenticated by: JOANNA BOOTHE Date: 2022-07-10 07:18 Normal [facility] Creatinine (Bld) [Mass/Vol]O rdered By: Riky Self on 05-27-2022 Creatinine [Mass/Vol] 0.8 mg/dL 0.6-1.3 [facility] Comment on above: ER/ESD physician is notified/shown all ISTAT results. Critical values may be confirmed by laboratory testing if deemed necessary by ER attending doctor. ISTAT XRay CREon 05-27-2022 Creatinine [Mass/Vol] 0.8 mg/dL Normal 0.6-1.3 [facility] Comment on above: Result Comment: ER/E [place] physician is notified/shown all ISTAT results. Critical values may be confirmed by laboratory testing if deemed necessary by ER attending doctor. Performed By: #### I SCRE #### [address] Point of Care testing , ISTAT GFR ( > 60 Normal [facility] Comment on above: Result Comment: GFR estimated reference range: According to KDOQI guidelines, <60 ml/min/1.73m2 is sufficient to diagnose a patient with chronic kidney disease. PERFORMED BY: [place] [address] PATHOLOGIST BROOMCORN SORTER BLOSSOM LAY M.D. Performed By: #### I SCRE #### [address] Point of Care testing , ISTAT GFR (Non- Am > 60 Normal [facility] Comment on above: Performed By: #### I SCRE #### [address] Point of Care testing , MR prostate wo/w conon 05-27 MR prostate wo/w con [facility] [place] [address] [place] [address] MRI Report Signed Patient: Becki Alarcon MR#: [id number] : 1950 Acct:[id number] Age/Sex: 72 / M ADM Date: 05/27/22 Loc: MR Room: Type: [facility] Attending Dr: Riky Self MD Copies to: Riky Self MD Ordering Provider: Riky Self MD Date of Service: 05/27/22 MR/MR prostate wo/w con: ELEVATED PSA EXAMINATION: MR prostate wo/w con HISTORY: Elevated PSA COMPARISON: NONE TECHNIQUE: Multiparametric imaging of the prostate gland was performed with IV contrast. FINDINGS: Prostate Dimensions: 4.3 x 2.9 x 4.1 cm. Prostate Volume: 26 mL Peripheral Zone: Heterogenous inT2 signal suggestive of prior prostatitis. No suspicious T2 or ADC map abnormality is identified to suggest prostate malignancy. Central/Transitional Zone: BPH changes. Seminal Vesicles: Unremarkable Neurovascular bundles: Unremarkable. Lymphadenopathy: No evidence of lymphadenopathy. Bladder: No focal lesion. Bowel: Diverticulosis. Peritoneal Cavity: No free fluid. Bones: No suspicious bony lesion. MR/MR prostate wo/w con IMPRESSION: No MRI evidence of prostate malignancy. BPH change. Impression dictated by: Deniz Murcia Jr., D.OAustin05/27/2022 2:30 PM Dictation Location: [place] [address] Transcribed By: [facility] 05/27/22 1430 Dictated By: Deniz Murcia Jr, DO 05/27/22 1426 Signed By: 05/27/22 1430 Normal [facility] No Panel InformationOrdered By: Riky Self on 05-27-2022 POC Estimated GFR > 60 [facility] Comment on above: GFR estimated refere nce range: According to KDOQI guidelines, <60 ml/min/1.73m2 is sufficient to diagnose a patient with chronic kidney disease. POC Estimated GFR Non- Amer > 60 [facility] XR FOOT KINGSLEY MIN 3 VIEWSon XR FOOT KINGSLEY MIN 3 VIEWS EXAMINATION: XR FOOT KINGSLEY MIN 3 VIEWS HISTORY: Pain in both feet COMPARISON: No relevant comparison available. FINDINGS: RIGHT FINDINGS: BONES: Advanced degenerative changes of the midfoot with midfoot fusion via multiple bone shameka and securing screws. Talocalcaneal fusion via 2 lag screws. Complete loss of plantar arch. No appreciable hardware or bone fracture. SOFT TISSUES: Mild soft tissue swelling. OTHER: Negative. LEFT FINDINGS: BONES: Advanced degenerative changes of the midfoot and complete loss of plantar arch; possible neuropathic joint. SOFT TISSUES: Mild soft tissue swelling. OTHER: Negative. IMPRESSION: RIGHT CONCLUSION: 1. Advanced degenerative changes and multifocal surgical changes without evidence of hardware failure. No comparison studies. LEFT CONCLUSION: 1. 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 No surgical hardware. Electronically authenticated by: ESE MARRERO Date: 2021-07-19 11:49 Normal [facility] Vital Signs Date Time Vital Sign Value Performing Clinician Facility 07-29-2024 14:55-0500 Diastolic blood pressure 77 mm[Hg] Juanis Raza FIELD SERVICER-HEADING MACHINE OPERATOR Work Phone: [facility] 07-29-2024 14:55-0500 Heart rate 81 /min Juanis Raza FIELD SERVICER-HEADING MACHINE OPERATOR Work Phone: [facility] 07-29-2024 14:55-0500 Systolic blood pressure 145 mm[Hg] Juanis Raaz FIELD SERVICER-HEADING MACHINE OPERATOR Work Phone: [facility] 07-29-2024 14:31-0500 Body temperature 97.5 [degF] Juanis Raza FIELD SERVICER-HEADING MACHINE OPERATOR Work Phone: [facility] 07-29-2024 14:31-0500 Respiratory rate 16 /min Juanis Raza FIELD SERVICER-HEADING MACHINE OPERATOR Work Phone: [facility] 07-15-2024 13:30-0500 Body temperature 97.81 [degF] Juanis Raza FIELD SERVICER-HEADING MACHINE OPERATOR Work Phone: [facility] 07-15-2024 13:30-0500 Diastolic blood pressure 93 mm[Hg] Juanis Raza FIELD SERVICER-HEADING MACHINE OPERATOR Work Phone: [facility] 07-15-2024 13:30-0500 Heart rate 82 /min Juanis Raza FIELD SERVICER-HEADING MACHINE OPERATOR Work Phone: [facility] 07-15-2024 13:30-0500 Systolic blood pressure 119 mm[Hg] Juanis Raza FIELD SERVICER-HEADING MACHINE OPERATOR Work Phone: [facility] 07-06-2024 15:07-0400 Body temperature 98.4 [degF] Juanis Raza FIELD SERVICER-HEADING MACHINE OPERATOR Work Phone: [facility] 07-06-2024 15:07-0400 Diastolic blood pressure 76 mm[Hg] Juanis Raza FIELD SERVICER-HEADING MACHINE OPERATOR Work Phone: [facility] 07-06-2024 15:07-0400 Heart rate 83 /min Juanis Raza FIELD SERVICER-HEADING MACHINE OPERATOR Work Phone: [facility] 07-06-2024 15:07-0400 Respiratory rate 16 /min Juanis Raza FIELD SERVICER-HEADING MACHINE OPERATOR Work Phone: [facility] 07-06-2024 15:07-0400 Systolic blood pressure 126 mm[Hg] Juanis Raza FIELD SERVICER-HEADING MACHINE OPERATOR Work Phone: [facility] 06-15-2024 15:10-0400 Body height 167.64 cm [facility] 06-15-2024 15:10-0400 Body mass index (BMI) [Ratio] 28.1 kg/m2 [facility] 06-15-2024 [id number] Body weight 79.15 kg [facility] 06-15-2024 15:10-0400 Diastolic blood pressure 84 mm[Hg] [facility] 06-15-2024 15:10-0400 Heart rate 71 /min [facility] 06-15-2024 15:10-0400 Respiratory rate 12 /min [facility] 06-15-2024 15:10-0400 Systolic blood pressure 132 mm[Hg] [facility] 06-13-2024 13:53-0400 Diastolic blood pressure 82 mm[Hg] Riky SELF [facility] 06-13-2024 13:53-0400 Mean blood pressure 94 mm[Hg] Riky SELF [facility] 06-13-2024 13:53-0400 Systolic blood pressure 118 mm[Hg] Riky SELF [facility] 06-13-2024 13:37-0400 Blood Pressure Location Riky SELF [facility] 06-13-2024 13:37-0400 Diastolic blood pressure 95 mm[Hg] Riky SELF [facility] 06-13-2024 13:37-0400 Heart rate 99 /min Riky SELF [facility] 06-13-2024 13:37-0400 Respiratory rate 16 /min Riky SELF [facility] 06-13-2024 13:37-0400 Systolic blood pressure 160 mm[Hg] Riky SELF [facility] 03-08-2024 15:17-0400 Body height 167.64 cm [facility] 03-08-2024 15:17-0400 Body mass index (BMI) [Ratio] 28 kg/m2 [facility] 03-08-2024 15:17-0400 Body weight 78.64 kg [facility] 03-08-2024 15:17-0400 Diastolic blood pressure 81 mm[Hg] [facility] 03-08-2024 15:17-0400 Heart rate 82 /min [facility] 03-08-2024 15:17-0400 Respiratory rate 12 /min [facility] 03-08-2024 15:17-0400 Systolic blood pressure 124 mm[Hg] [facility] 12-15-2023 15:37-0400 Body height 167.64 cm [facility] 12-15-2023 15:37-0400 Body mass index (BMI) [Ratio] 28.7 kg/m2 [facility] 12-15-2023 15:37-0400 Body weight 80.73 kg [facility] 12-15-2023 15:37-0400 Diastolic blood pressure 79 mm[Hg] [facility] 12-15-2023 15:37-0400 Heart rate 78 /min [facility] 12-15-2023 15:37-0400 Respiratory rate 12 /min [facility] 12-15-2023 15:37-0400 Systolic blood pressure 125 mm[Hg] [facility] 11-06-2023 14:32-0500 Body temperature 98.01 [degF] Juanis Raza STU Work Phone: [facility] [employer] [facility] 11-06-2023 14:32-0500 Diastolic blood pressure 77 mm[Hg] Juanis Raza FIELD SERVICER-HEADING MACHINE OPERATOR Work Phone: [facility] 11-06-2023 14:32-0500 Heart rate 92 /min Juanis Raza FIELD SERVICER-HEADING MACHINE OPERATOR Work Phone: [facility] 11-06-2023 14:32-0500 Respiratory rate 16 /min Juanis Raza FIELD SERVICER-HEADING MACHINE OPERATOR Work Phone: [facility] 11-06-2023 14:32-0500 Systolic blood pressure 141 mm[Hg] Juanis Raza FIELD SERVICER-HEADING MACHINE OPERATOR Work Phone: [facility] 10-23-2023 13:59-0500 Body temperature 97.81 [degF] Juanis Raza FIELD SERVICER-HEADING MACHINE OPERATOR Work Phone: [facility] 10-23-2023 13:59-0500 Diastolic blood pressure 78 mm[Hg] Juanis Raza FIELD SERVICER-HEADING MACHINE OPERATOR Work Phone: [facility] 10-23-2023 13:59-0500 Heart rate 92 /min Juanis Raza FIELD SERVICER-HEADING MACHINE OPERATOR Work Phone: [facility] 10-23-2023 13:59-0500 Respiratory rate 16 /min Juanis Raza FIELD SERVICER-HEADING MACHINE OPERATOR Work Phone: [facility] 10-23-2023 13:59-0500 Systolic blood pressure 135 mm[Hg] Juanis Raza FIELD SERVICER-HEADING MACHINE OPERATOR Work Phone: [facility] 10-12-2023 14:56-0500 Blood Pressure Location Riky SELF [facility] 10-12-2023 14:56-0500 Diastolic blood pressure 81 mm[Hg] Riky SELF [facility] 10-12-2023 14:56-0500 Heart rate 73 /min Riky SELF [facility] 10-12-2023 14:56-0500 Respiratory rate 16 /min Riky SELF [facility] 10-12-2023 14:56-0500 Systolic blood pressure 131 mm[Hg] Riky SELF [facility] 09-23-2023 13:25-0500 Body temperature 97.81 [degF] Juanis Raza FIELD SERVICER-HEADING MACHINE OPERATOR Work Phone: [facility] 09-23-2023 13:25-0500 Diastolic blood pressure 75 mm[Hg] Juanis Raza FIELD SERVICER-HEADING MACHINE OPERATOR Work Phone: [facility] [employer] [facility] 09-23-2023 13:25-0500 Heart rate 95 /min Juanis Raza FIELD SERVICER-HEADING MACHINE OPERATOR Work Phone: [facility] 09-23-2023 13:25-0500 Respiratory rate 16 /min Juanis Raza FIELD SERVICER-HEADING MACHINE OPERATOR Work Phone: [facility] [employer] [facility] 09-23-2023 13:25-0500 Systolic blood pressure 120 mm[Hg] Juanis Raza FIELD SERVICER-HEADING MACHINE OPERATOR Work Phone: [facility] 09-11-2023 10:59-0500 Body mass index (BMI) [Ratio] 27.83 kg/m2 Juanis Raza FIELD SERVICER-HEADING MACHINE OPERATOR Work Phone: [facility] 09-11-2023 10:59-0500 Body temperature 97.81 [degF] Juanis Raza FIELD SERVICER-HEADING MACHINE OPERATOR Work Phone: [facility] [employer] [facility] 09-11-2023 10:59-0500 Body weight 78.2 kg Juanis Raza FIELD SERVICER-HEADING MACHINE OPERATOR Work Phone: [facility] 09-11-2023 10:59-0500 Diastolic blood pressure 99 mm[Hg] Juanis Raza FIELD SERVICER-HEADING MACHINE OPERATOR Work Phone: [facility] 09-11-2023 10:59-0500 Heart rate 92 /min Juanis Raza FIELD SERVICER-HEADING MACHINE OPERATOR Work Phone: [facility] 09-11-2023 10:59-0500 Respiratory rate 16 /min Juanis Raza FIELD SERVICER-HEADING MACHINE OPERATOR Work Phone: [facility] 09-11-2023 10:59-0500 Systolic blood pressure 128 mm[Hg] Juanis Raza FIELD SERVICER-HEADING MACHINE OPERATOR Work Phone: [facility] 08-10-2023 13:02-0500 Blood Pressure Location Riky SELF [facility] 08-10-2023 13:02-0500 Diastolic blood pressure 78 mm[Hg] Rikytamir SELF [facility] 08-10-2023 13:02-0500 Heart rate 80 /min Rikytamir SELF [facility] 08-10-2023 13:02-0500 Respiratory rate 16 /min Riky SELF [facility] 08-10-2023 13:02-0500 Systolic blood pressure 132 mm[Hg] Riky SELF [facility] 02-25-2023 16:10-0400 Body height 162.56 cm [facility] 02-25-2023 16:10-0400 Body mass index (BMI) [Ratio] 27.89 kg/m2 [facility] 02-25-2023 16:10-0400 Body surface area Derived from formula 1.82 m2 [facility] 02-25-2023 16:10-0400 Body weight 73.71 kg Georgiana[facility]visena 02-25-2023 16:10-0400 Diastolic blood pressure 68 mm[Hg] [facility] 02-25-2023 16:10-0400 Heart rate 78 /min [facility] 02-25-2023 16:10-0400 Systolic blood pressure 118 mm[Hg] [facility] 01-16-2023 11:10-0400 Body height 167.64 cm Cheryl Blackmond Other [employer] Other 01-16-2023 11:10-0400 Body mass index (BMI) [Ratio] 27.44 kg/m2 Cheryl Torri Other [employer] Other 01-16-2023 11:10-0400 Body temperature 99.7 [degF] Cheryl Blackmond Other [employer] Other 01-16-2023 11:10-0400 Body weight 77.11 kg Cheryl Blackmond Other [employer] Other 01-16-2023 11:10-0400 Diastolic blood pressure 94 mm[Hg] Cheryl Torri Other [employer] Other 01-16-2023 11:10-0400 Respiratory rate 18 /min Cheryl Torri Other [employer] Other 01-16-2023 11:10-0400 SaO2% (BldA) [Mass fraction] 99 % Cheryl Torri Other [employer] Other 01-16-2023 11:10-0400 Systolic blood pressure 146 mm[Hg] Cheryl Wild Other [facility] [employer] Other 12-15-2022 13:22-0400 Blood Pressure Location Riky SELF [facility] 12-15-2022 13:22-0400 Diastolic blood pressure 82 mm[Hg] Riky SELF [facility] 12-15-2022 13:22-0400 Heart rate 71 /min Riky SELF [facility] 12-15-2022 13:22-0400 Respiratory rate 16 /min Riky SELF [facility] 12-15-2022 13:22-0400 Systolic blood pressure 130 mm[Hg] Riky SELF [facility] 11-28-2022 14:45-0400 Body height 167.64 cm Watson Ball Other [facility] [employer] Other 11-28-2022 14:45-0400 Body mass index (BMI) [Ratio] 27.47 kg/m2 Watson Ball Other [facility] [employer] Other 11-28-2022 14:45-0400 Body weight 77.2 kg Watson Ball Other [facility] [employer] Other 11-28-2022 14:45-0400 Diastolic blood pressure 78 mm[Hg] Watson Ball Other [employer] Other 11-28-2022 14:45-0400 Respiratory rate 16 /min Watson Ball Other [employer] Other 11-28-2022 14:45-0400 Systolic blood pressure 124 mm[Hg] Watson Ball Other [employer] Other 11-25-2022 19:45-0400 Body height 167.64 cm Renu Soni Other [employer] Other 11-25-2022 19:45-0400 Body mass index (BMI) [Ratio] 26.63 kg/m2 Renu Soni Other [employer] Other 11-25-2022 19:45-0400 Body temperature 99.3 [degF] Renu Soni Other [employer] Other 11-25-2022 19:45-0400 Body weight 74.84 kg Renu Soni Other [employer] Other 11-25-2022 19:45-0400 Respiratory rate 18 /min Renu Soni Other [employer] Other 11-25-2022 19:45-0400 SaO2% (BldA) [Mass fraction] 96 % Renu Soni Other [employer] Other 08-11-2022 09:24-0500 Blood Pressure Location Riky SELF [facility] 08-11-2022 09:24-0500 Diastolic blood pressure 68 mm[Hg] Riky SELF [facility] 08-11-2022 09:24-0500 Heart rate 78 /min Riky SELF [facility] 08-11-2022 09:24-0500 Respiratory rate 16 /min Riky SELF [facility] 08-11-2022 09:24-0500 Systolic blood pressure 128 mm[Hg] Riky SELF [facility] 05-27-2022 10:20-0400 Body height 167.64 cm MD Riky Self Work Phone: [facility] 05-27-2022 10:20-0400 Body weight 72.57 kg MD Riky Self Work Phone: [facility] 04-14-2022 13:21-0400 Blood Pressure Location Riky SELF [facility] 04-14-2022 13:21-0400 Diastolic blood pressure 80 mm[Hg] Riky SELF [facility] 04-14-2022 13:21-0400 Heart rate 68 /min Riky SELF [facility] 04-14-2022 13:21-0400 Systolic blood pressure 124 mm[Hg] Riky SELF [facility] Encounters Encounter Date Encounter Type Care Provider Facility Start: 02-13-2025 ambulatory Riky Nathani ty:[facility] [place] Start: 07-29-2024 End: 07-29-2024 ambulatory JUANIS RAZA [facility] Start: 07-29-2024 End: 07-29-2024 Office outpatient visit 10 minutes Juanis Raza FIELD SERVICER-HEADING MACHINE OPERATOR Work Phone: [facility] Comment on above: Dehiscence of operat maylin wound, subsequent encounter (Primary Dx) Start: 07-15-2024 End: 07-15-2024 ambulatory JUANIS RAZA [facility] Start: 07-15-2024 End: 07-15-2024 Office outpatient visit 10 minutes Juanis Raza FIELD SERVICER-HEADING MACHINE OPERATOR Work Phone: [facility] Comment on above: Dehiscence of operat maylin wound, subsequent encounter (Primary Dx); S/P femoral-tibial bypass Start: 07-12-2024 End: 07-12-2024 ambulatory Milind Sams MD Facility:[facility] Start: 07-07-2024 End: 07-07-2024 ambulatory Milind Sams MD Facility:[facility] Start: 07-06-2024 End: 07-06-2024 ambulatory JUANIS RAZA [facility] Start: 07-06-2024 End: 07-06-2024 Patient encounter procedure Juanis Raza FIELD SERVICER-HEADING MACHINE OPERATOR Work Phone: [facility] Comment on above: Dehiscence of operat maylin wound, subsequent encounter (Primary Dx); Varicose veins of left leg with edema Start: 07-05-2024 End: 07-05-2024 ambulatory Zacariaskrystian Gordillo FIELD SERVICER-HEADING MACHINE OPERATOR Facility:[facility] Start: 06-23-2024 End: 06-23-2024 ambulatory Zacariaskrystian Andujaruse FIELD SERVICER-HEADING MACHINE OPERATOR Facility:[facility] Start: 06-15-2024 End: 06-15-2024 ambulatory [facility] Work Phone: Start: 06-15-2024 End: 06-15-2024 Patient encounter procedure [facility] Work Phone: Start: 06-13-2024 End: 06-13-2024 ambulatory Riky SELF Facility:[facility] Start: 06-13-2024 End: 06-13-2024 Patient encounter procedure Riky SELF [facility] Start: 05-19-2024 End: 05-19-2024 ambulatory Zacarias Samuel Rand FIELD SERVICER-HEADING MACHINE OPERATOR Facility:[facility] Start: 04-28-2024 End: 04-28-2024 ambulatory Zacarias Samuel Rand FIELD SERVICER-HEADING MACHINE OPERATOR Facility:[facility] Start: 04-14-2024 End: 04-14-2024 ambulatory Zacarias Samuel Rand FIELD SERVICER-HEADING MACHINE OPERATOR Facility:[facility] Start: 03-30-2024 End: 03-30-2024 ambulatory Zacarias Samuel Rand FIELD SERVICER-HEADING MACHINE OPERATOR Facility:[facility] Start: 03-16-2024 End: 03-16-2024 ambulatory Dilcia Morejon Saralois FIELD SERVICER-HEADING MACHINE OPERATOR Facility:[facility] Start: 03-09-2024 End: 03-09-2024 ambulatory Zacarias Samuel Rand FIELD SERVICER-HEADING MACHINE OPERATOR Facility:[facility] Start: 03-08-2024 End: 03-08-2024 ambulatory [facility] Work Phone: Start: 03-08-2024 End: 03-08-2024 [facility] Work Phone: Start: 03-02-2024 End: 03-02-2024 ambulatory Zacarias Samuel Rand FIELD SERVICER-HEADING MACHINE OPERATOR Facility:[facility] Start: 02-24-2024 End: 02-24-2024 ambulatory Zacarias Samuel Rand FIELD SERVICER-HEADING MACHINE OPERATOR Facility:[facility] Start: 02-16-2024 End: 02-16-2024 ambulatory Zacarias Samuel Rand FIELD SERVICER-HEADING MACHINE OPERATOR Facility:[facility] Start: 02-09-2024 End: 02-12-2024 Evaluation and management of inpatient Daya David MD Facility:[facility] Start: 02-04-2024 End: 02-04-2024 ambulatory Daya David MD Facility:[facility] Start: 02-03-2024 End: 02-03-2024 ambulatory Daya David MD Facility:[facility] Start: 12-16-2023 End: 12-16-2023 ambulatory Daya David MD Facility:[facility] Start: 12-15-2023 End: 12-15-2023 ambulatory [facility] Work Phone: Start: 12-15-2023 End: 12-15-2023 Patient encounter procedure [facility] Work Phone: Start: 11-26-2023 Non-patient / Non-visit [facility] Work Phone: Start: 11-11-2023 End: 11-11-2023 ambulatory Zacarias Samuel Gordillo FIELD SERVICER-HEADING MACHINE OPERATOR Facility:[facility] Start: 11-06-2023 End: 11-06-2023 ambulatory JUANIS Sanchez RY [facility] Start: 11-06-2023 End: 11-06-2023 Office outpatient visit 10 minutes Juanis Raza FIELD SERVICER-HEADING MACHINE OPERATOR Work Phone: [facility] Comment on above: Dehiscence of operat maylin wound, subsequent encounter (Primary Dx) Start: 10-23-2023 End: 10-23-2023 Patient encounter procedure Juanis Raza FIELD SERVICER-HEADING MACHINE OPERATOR Work Phone: [facility] Comment on above: Dehiscence of operat maylin wound, subsequent encounter (Primary Dx); Hypergranulation Start: 10-23-2023 End: 10-23-2023 ambulatory JUANIS RAZA [facility] Start: 10-12-2023 End: 10-12-2023 ambulatory Riky SELF Facility:[facility] Start: 10-12-2023 End: 10-12-2023 Patient encounter procedure Riky SELF [facility] Start: 10-09-2023 End: 10-09-2023 ambulatory JUANIS RAZA [facility] Start: 10-08-2023 End: 11-06-2023 ambulatory JUANIS RAZA [facility] Start: 10-08-2023 End: 10-09-2023 ambulatory MICHAEL BERMUDEZ [facility] Start: 10-02-2023 Telephone encounter Bobbi Diaz [facility] Start: 09-23-2023 End: 09-23-2023 ambulatory JUANIS RAZA [facility] Start: 09-23-2023 End: 09-23-2023 Patient encounter procedure Juanis Raza FIELD SERVICER-HEADING MACHINE OPERATOR Work Phone: [facility] Comment on above: Dehiscence of operat maylin wound, subsequent encounter (Primary Dx) Start: 09-22-2023 End: 09-22-2023 ambulatory Riky SELF [facility] Start: 09-22-2023 End: 09-22-2023 Patient encounter procedure Riky SELF [facility] Start: 09-16-2023 End: 10-08-2023 ambulatory JUANIS RAZA [facility] Start: 09-11-2023 End: 09-11-2023 ambulatory Zacarias Gordillo FIELD SERVICER-HEADING MACHINE OPERATOR Facility:[facility] Start: 09-11-2023 End: 09-11-2023 Office outpatient new 20 minutes Juanis Raza FIELD SERVICER-HEADING MACHINE OPERATOR Work Phone: [facility] Comment on above: Dehiscence of operat maylin wound, initial encounter (Primary Dx) Start: 09-11-2023 End: 09-11-2023 ambulatory JUANIS RAZA [facility] Start: 08-26-2023 End: 08-26-2023 ambulatory Zacarias Samuel Gordillo FIELD SERVICER-HEADING MACHINE OPERATOR Facility:[facility] Start: 08-10-2023 End: 08-10-2023 ambulatory Riky SELF Facility:[facility] Start: 08-10-2023 End: 08-10-2023 Patient encounter procedure Riky R CLAIR [facility] [place] Start: 06-09-2023 End: 06-09-2023 ambulatory Watson Carballo Other [employer] Other Start: 06-09-2023 Telephone encounter Watson Carballo [facility] Start: 02-25-2023 [facility] Georgiana Cabrera rne Other [facility] Office Start: 02-20-2023 End: 02-20-2023 ambulatory Janina Valdes Other [employer] Other Start: 02-20-2023 Telephone encounter Janina [facility] Start: 02-17-2023 End: 02-17-2023 ambulatory Janina Leon Keisha [employer] Other Start: 02-17-2023 Telephone encounter Watson [facility] Start: 01-16-2023 End: 01-16-2023 ambulatory Cheryl Wild Other [employer] Other Start: 01-16-2023 Office outpatient vi sit 15 minutes Cheryl Wild [facility] Start: 01-16-2023 Telephone encounter Watson Carballo [facility] Start: 12-16-2022 End: 12-16-2022 ambulatory Watson Carballo Other [employer] Other Start: 12-16-2022 Telephone encounter Watson Carballo [facility] Start: 12-15-2022 End: 12-15-2022 Patient encounter procedure Riky Rosenbaum CLAIR [facility] [place] Start: 11-28-2022 End: 11-28-2022 ambulatory Watson Carballo Other [employer] Other Start: 11-28-2022 Office outpatient vi sit 15 minutes Watson Carballo [facility] Start: 11-25-2022 End: 11-25-2022 ambulatory Renu Soni Other [employer] Other Start: 11-25-2022 Office outpatient ne w 20 minutes Renu Snoi [facility] Start: 08-11-2022 End: 08-11-2022 Patient encounter procedure Riky SELF [facility] Start: 07-22-2022 End: 07-22-2022 Patient encounter procedure Riky SELF [facility] Start: 07-09-2022 End: 07-10-[address] WATSON CARBALLO Facility:[facility] Start: 06-30-2022 Adult health examination Yoan Carballo Other [employer] Other Start: 05-27-2022 End: 05-27-2022 ambulatory Watson Carballo Facility:[facility] Start: 05-27-2022 End: 05-27-2022 Patient encounter procedure MD Riky Self Work Phone: [facility] [place] Start: 04-14-2022 End: 04-14-2022 Patient encounter procedure Riky SELF [facility] Start: 01-02-[address] WATSON CARBALLO Facilemili ty:[facility] Start: 10-11-[address] WATSON Quintana ty:[facility] Start: 07-18-2021 End: 07-19-2021 ambulatory DAYA CHANEL Facility:[facility] Start: 06-11-2019 Preoperative cardiovascular examination Watson Carballo Other [employer] Other Procedures Date Procedure Procedure Detail Performing Clinician Start: 07-29-2024 NURSING COMMUNICATION Carolyn Raza FIELD SERVICER-HEADING MACHINE OPERATOR Work Phone: Start: 07-15-2024 NURSING COMMUNICATION Carolyn Raza FIELD SERVICER-HEADING MACHINE OPERATOR Work Phone: Start: 07-06-2024 NURSING COMMUNICATION Carolyn Raza FIELD SERVICER-HEADING MACHINE OPERATOR Work Phone: Start: 10-23-2023 NURSING COMMUNICATION Carolyn Raza FIELD SERVICER-HEADING MACHINE OPERATOR Work Phone: Start: 09-23-2023 NURSING COMMUNICATION Carolyn Raza FIELD SERVICER-HEADING MACHINE OPERATOR Work Phone: Start: 09-22-2023 Transrectal biopsy o f prostate using ultrasound guidance Riky SELF Start: 09-11-2023 NURSING COMMUNICATION Carolyn Raza FIELD SERVICER-HEADING MACHINE OPERATOR Work Phone: Start: 02-25-2023 Nerve conduction chepe dies 7-8 studies Georgiana Rhodes Start: 07-22-2022 Ultrasonography guid ed transperineal needle biopsy of prostate Riky SELF Start: 05-27-2022 MR prostate wo/w con MD Riky Self Work Phone: Start: 05-27-2022 MRI-US fusion guided transperineal biopsy of prostate Riky SELF Start: 07-25-2015 General examination of patient Watson Carballo Other Start: 07-25-2015 Screening for malign ant neoplasm of colon Watson Carballo Other Start: 07-25-2015 Screening for malign ant neoplasm of prostate Watson Carballo Other Start: 07-28-2014 Pre-surgery evaluation Watson Carballo Other Colonoscopy Rikytamir SELF Counseling Watson Carballo Other Lower limb structure (body structure) Riky SELF Screening for malign ant neoplasm of colon Watson Carballo Other Screening for malign ant neoplasm of prostate Watson Carballo Other Structure of right f oot (body structure) Riky SELF Plan of Treatment Date Care Activity Detail Author Start: 07-15-2025 Tobacco Screening Tobacco Screening [facility] Start: 07-07-2025 Tobacco Screening Tobacco Screening [facility] Start: 07-06-2025 Tobacco Screening Tobacco Screening [facility] Start: 11-05-2024 Tobacco Screening Tobacco Screening [facility] Start: 10-09-2024 Tobacco Screening Tobacco Screening [facility] Start: 09-23-2024 Tobacco Screening Tobacco Screening [facility] Start: 09-11-2024 Adult BMI Screening Adult BMI Screening [facility] Start: 09-11-2024 Tobacco Screening Tobacco Screening [facility] Start: 08-10-2024 End: 08-10-2024 Patient encounter procedure 08/10/2024 2:40 PM EST Office Visit [facility] [address] [place] [address] Juanis Raza, FIELD SERVICER-HEADING MACHINE OPERATOR [address] [place] [address] [facility] Start: 07-29-2024 End: 07-29-2024 Patient encounter procedure 07/29/2024 2:20 PM EST Office Visit [facility] [address] [place] [address] Juanis Raza, FIELD SERVICER-HEADING MACHINE OPERATOR [address] [place] [address] [facility] Start: 07-15-2024 End: 07-15-2024 Patient encounter procedure 07/15/2024 1:20 PM EST Office Visit [facility] [address] [place] [address] Juanis Raza, FIELD SERVICER-HEADING MACHINE OPERATOR [address] [place] [address] [facility] Start: 05-08-2024 COVID-19 Vaccine () COVID-19 Vaccine () [facility] Start: 11-06-2023 End: 11-06-2023 Patient encounter procedure 11/06/2023 2:20 PM EST Office Visit [facility] [address] [place] [address] Juanis Raza, FIELD SERVICER-HEADING MACHINE OPERATOR [address] [place] [address] [facility] Start: 10-09-2023 End: 10-09-2023 Patient encounter procedure [facility] Start: 09-23-2023 End: 09-23-2023 Patient encounter procedure 09/23/2023 1:20 PM EST Office Visit [facility] [address] [place] [address] Juanis Raza, FIELD SERVICER-HEADING MACHINE OPERATOR [address] [place] [address] [facility] Start: 08-06-2023 DTaP,Tdap and Td Vaccines (2 - Td or Tdap) DTaP,Tdap and Td Vaccines (2 - Td or Tdap) [facility] Start: 05-08-2023 COVID-19 Vaccine ( season) COVID-19 Vaccine () [facility] Start: 01-08-2017 Abdominal aortic aneurysm screening Abdominal Aortic Aneurysm (AAA) Screen [facility] Start: 01-08-2017 Fall Risk Screening Fall Risk Screening [facility] Start: 01-08-1971 Administration of varicella zoster vaccine Zoster (Shingles) Vaccine (1 of 2) [facility] Start: 01-08-1971 DTaP,Tdap and Td Vaccines (1 - Tdap) DTaP,Tdap and Td Vaccines (1 - Tdap) [facility] Start: 01-08-1970 Adult BMI Follow Up Plan Adult BMI Follow Up Plan [facility] Start: 01-08-1970 Diabetic foot examination Diabetic Foot Exam [facility] Start: 1964 Depression Screening Depression Screening [facility] Start: 1952 Glaucoma screening Diabetic Ophthalmology Exam [facility] Start: 1952 Medicare Annual Wellness Visit Medicare Annual Wellness Visit [facility] Start: 1952 Tobacco Counseling Tobacco Counseling [facility] Comprehensive metabo lic 2000 panel - Serum or Plasma [facility] Immunizations Immunization Date Immunization Notes Care Provider Fa little 06-15-2024 influenza, high dose seasonal, preservative-free [facility] 07-10-2023 influenza virus vaccine, unspecified formulation Riky SELF [facility] 06-30-2022 influenza virus vaccine, split virus (incl. purified surface antigen) Watson Carballo Other [employer] Other 06-30-2022 influenza virus vaccine, unspecified formulation Riky SELF [facility] 07-03-2021 SARS-CoV-2 (COVID-19 ) mRNA-1273 vaccine Riky SELF [facility] Comment on above: Result Comment: 2022: [id number] 06-14-2021 influenza virus vaccine, split virus (incl. purified surface antigen) Watson Carballo Other [employer] Other 06-14-2021 influenza virus vaccine, unspecified formulation [facility] 12-14-2020 SARS-CoV-2 (COVID-19 ) mRNA-1273 vaccine Riky SELF [facility] Comment on above: Result Comment: 2022: [id number] 11-13-2020 SARS-CoV-2 (COVID-19 ) mRNA-1273 vaccine Riky SELF [facility] Comment on above: Result Comment: 2022: [id number] 06-13-2020 influenza virus vaccine, split virus (incl. purified surface antigen) Watson Carballo Other [facility] [employer] Other 06-13-2020 influenza virus vaccine, unspecified formulation [facility] 11-09-2019 pneumococcal polysaccharide vaccine, 23 valent Watson Carballo Other [facility] 06-10-2019 influenza virus vaccine, split virus (incl. purified surface antigen) Watson Carballo Other [employer] Other 06-10-2019 influenza virus vaccine, unspecified formulation [facility] 11-26-2018 pneumococcal conjuga te vaccine, 13 valent Watson Carballo Other [facility] 11-26-2018 pneumococcal Conjugate, unspecified formulation; Translations: [Need for prophylactic vaccination against Streptococcus pneumoniae (pneumococcus)] Watson Carballo Other [employer] Other 06-09-2018 influenza virus vaccine, split virus (incl. purified surface antigen) Watson Carballo Other [employer] Other 06-09-2018 influenza virus vaccine, unspecified formulation [facility] 08-01-2017 influenza virus vaccine, unspecified formulation Riky SELF [facility] 07-27-2015 influenza virus vaccine, split virus (incl. purified surface antigen) Watson Carballo Other [employer] Other 07-27-2015 influenza virus vaccine, unspecified formulation Riky SELF [facility] 07-21-2014 influenza virus vaccine, unspecified formulation Riky SELF [facility] 08-06-2013 tetanus and diphther ia toxoids, adsorbed, preservative free, for adult use (5 Lf of tetanus toxoid and 2 Lf of diphtheria toxoid) Watson Carballo Other [facility] NEGATED: Highlighted row has not occurred!04-14-2022 SARS-CoV-2 mRNA (tozinameran 5y-11y) vaccine Riky SELF [facility] Payers Date Payer Category Payer Unknown 2022 Self-pay [id number] 2018 Medicare ANTHEM MEDICARE ANTHEM MEDICARE ADVANTAGE [id number] 2018-Present [phone] [address] [place] [address] [id number] 2018 Medicare HMO [facility] [id number] 1959 Medicare [id number] 1957 Self-pay [id number] 1950 Unknown [id number] 1952 Unknown [id number] 1952 Unknown [id number] 1952 Unknown [id number] 2.16.840.1.992213.3.579.2.593 1950 Unknown [id number] 2.16.840.1.742905.3.579.2.727 1950 Unknown [id number] 2.16.840.1.449620.3.579.2.727 1950 Unknown [id number] 2.16.840.1.276419.3.579.2.727 1950 Unknown [id number] 2.16.840.1.249049.3.579.2.727 1950 Unknown [id number] 2.16.840.1.435207.3.579.2.727 1950 Unknown [id number] 2.16.840.1.101303.3.579.2.196 1950 Unknown [id number] 2.16.840.1.497256.3.579.2.196 1950 Unknown [id number] 2.16.840.1.815117.3.579.2.196 1950 Unknown [id number] 2.16.840.1.806336.3.579.2.196 1952 Unknown [id number] 2.16.840.1.449201.3.579.2.196 1950 Unknown [id number] 2.16.840.1.107837.3.579.2.196 1952 Unknown [id number] 2.16.840.1.948769.3.579.2.196 1952 Unknown [id number] 2.16.840.1.972851.3.579.2.196 1952 Unknown [id number] 2.16.840.1.185341.3.579.2.196 1952 Unknown [id number] 2.16.840.1.490386.3.579.2.196 1952 Unknown [id number] 2.16.840.1.742901.3.579.2.196 1952 Unknown [id number] 2.16.840.1.172566.3.579.2.196 1952 Unknown [id number] 2.16.840.1.041419.3.579.2.196 1952 Unknown [id number] 2.16.840.1.287670.3.579.2.196 1952 Unknown [id number] 2.16.840.1.113724.3.579.2.196 1952 Unknown [id number] 2.16.840.1.061511.3.579.2.196 1952 Unknown [id number] 2.16.840.1.555721.3.579.2.196 1952 Unknown [id number] 2.16.840.1.541083.3.579.2.196 1952 Unknown [id number] 2.16.840.1.034186.3.579.2.196 1952 Unknown [id number] 2.16.840.1.434247.3.579.2.196 1952 Unknown [id number] 2.16.840.1.426866.3.579.2.1285 1952 Unknown [id number] 2.16.840.1.563832.3.579.2.1285 1952 Unknown [id number] 2.16.840.1.171521.3.579.2.1285 1952 Unknown [id number] 2.16.840.1.307423.3.579.2.1285 1952 Unknown [id number] 2.16.840.1.823021.3.579.2.1285 1952 Unknown [id number] 2.16.840.1.751259.3.579.2.1285 1952 Unknown [id number] 2.16.840.1.271022.3.579.2.1285 1952 Unknown [id number] 2.16.840.1.872758.3.579.2.1285 1952 Unknown [id number] 2.16.840.1.462623.3.579.2.1285 1952 Unknown [id number] 2.16.840.1.824184.3.579.2.1285 1950 Unknown [id number] 2.16.840.1.789144.3.579.2.1285 1950 Unknown [id number] 2.16.840.1.109126.3.579.2.1286 Unknown [facility] [id number] Unknown [id number] 2.16.840.1.903323.3.579.2.531 Unknown [id number] 2.16.840.1.809098.3.579.2.531 Social History Date Type Detail Facility Start: 04-14-2022 Tobacco smoking status Never s moked tobacco (finding) [facility] Tobacco smoking status Never [facility] Start: 06-15-2019 End: 10-18-2020 Sex Assigned At Male [facility] Start: 1950 Sex Assigned At Male [facility] Start: 08-11-2022 End: 06-13-2024 Tobacco smoking status Light tobacco smoker (finding) [facility] Start: 09-11-2023 End: 07-06-2024 Tobacco smoking status NHIS Smokes tobacco daily [facility] History of tobacco use Cigarette Smoker P [facility] Start: 10-18-2020 End: 09-11-2023 Cigarettes smoked current (pack per day) - [facility] Start: 09-11-2023 End: 07-06-2024 Tobacco use and exposure Smokeless tobacco [facility] Start: 09-11-2023 End: 07-29-2024 Alcohol intake Ex-drinker (finding) [facility] Start: 1950 Sex Assigned At Not on file [facility] Start: 11-26-2023 Tobacco smoking stat us NHIS Smoker (finding) [facility] Start: 04-12-2015 Sex Male (finding) [facility] Functional Status Date Assessment Result Facility 06-13-2024 Functional Status N/A [facility] 10-12-2023 Functional Status N/A [facility] 09-22-2023 Functional Status N/A [facility] 08-10-2023 Functional Status N/A [facility] 12-15-2022 Functional Status N/A [facility] 08-11-2022 Functional Status N/A [facility] 04-14-2022 Functional Status N/A [facility] Clinical Notes 04-14-2022 to 07-29-2024 [facility], [facility] - 07/29/2024 2:20 PM ESTPatient InstructionsJuanis Raza, FIELD SERVICER-HEADING MACHINE OPERATOR - 07/15/2024 1:20 PM ESTPatient InstructionsJuanis Raza, [facility] - 07/06/2024 3:00 PM EDT Note Date & Type Note Facility 07-29-2024 History of Presen t illness Narrative Images from the original note were not included. Wound Care Progress Note Patient: Becki Alarcon Date of : 1950 Chief Compliant: Dehisced surgical wounds, follow up SUBJECTIVE/HPI: Becki is a 74 y.o. male who presents to [facility] for evaluation of 2 ulcer(s) on the left medial lower calf. Patient established with wound clinic on 09/11/2023. Current daily wound care includes : Xeroform and single layer Tubigrip, changing once a day. Patient reports wearing compression stockings for history of DVT's. Presents to wound clinic wearing a thigh high compression stockings to right leg only. Patient had arterial bypass surgery 05/18/2023 at [facility] by . Patient had a repeat bypass surgery 02/09/2024. Remains with a delayed healing wound. Measurable wound changes: decrease in wound measurements 1.3 cm increase in left calf circumference Patient accompanied by: Self, ambulatory Nutritional screen shows patient does take in three servings of protein per day. Patient does deny fever, chills, sweats, or other signs of infection. Prescribed antibiotics: none Today's reported Blood Sugar:does not check Tobacco use: cigarette smoking 6 per day Contributing comorbid conditions: PAD,charcot deformity, prostate cancer, RA treated with methotrexate. Patient Active Problem List Diagnosis Charcot's joint of foot, left Acquired keratoderma Current smoker Diabetes mellitus due to underlying condition with diabetic polyneuropathy (CMS-HCC) Diabetic peripheral neuropathy (CMS-HCC) Elevated PSA Ischemia Neuropathy PAD (peripheral artery disease) (CMS-HCC) Primary osteoarthritis of left foot Prostate cancer (CMS-HCC) Rheumatoid factor positive Rupture of operation wound Essential (primary) hypertension Nicotine dependence Paresthesia of skin Rheumatoid arthritis ([facility]) S/P femoral-tibial bypass Sigmoid diverticulosis Spondylosis without myelopathy or radiculopathy, lumbar region Past Medical History: Diagnosis Date Arthritis Hypertension Rheumatoid arthritis ([facility]) Past Surgical History: Procedure Laterality Date ARTERIAL BYPASS SURGERY Left Medial ARTERIAL BYPASS SURGERY Left Medial february 2024 at [facility] Current Outpatient Medications Medication Sig Dispense Refill amlodipine besylate/valsartan (AMLODIPINE-VALSARTAN ORAL) Take by mouth daily. apixaban (ELIQUIS) 5 mg tablet Take by mouth 2 (two) times a day. aspirin 81 mg chewable tablet Chew 1 tablet (81 mg total) and swallow nightly. folic acid (FOLVITE) 1 mg tablet Take 1 tablet (1 mg total) by mouth in the morning. hydroxychloroquine (PLAQUENIL) 200 mg tablet Take by mouth daily. methotrexate 2.5 mg chemo tablet Take 6 tablets by mouth once a week valsartan (DIOVAN) 80 mg tablet Take 0.5 tablets (40 mg total) by mouth in the morning. No current facility-administered medications for this visit. Allergies Allergen Reactions Leflunomide Other (See Comments) The following portions of the patient's history were reviewed and updated as appropriate: allergies, current medications, past family history, past medical history, past social history, past surgical history, problem list, and medication reconciliation was completed including current medication and post discharge medication. Pain Scale:denies Pain Scale 0/10: 0 Review of Systems Constitutional: Negative. Negative for activity change, appetite change and fever. HENT: Negative. Negative for trouble swallowing. Eyes: Positive for visual disturbance. Respiratory: Negative. Negative for cough, shortness of breath and wheezing. Cardiovascular: Positive for leg swelling. Negative for chest pain and palpitations. Gastrointestinal: Negative. Negative for abdominal distention, nausea and vomiting. Genitourinary: Negative. Negative for dysuria, frequency and urgency. Musculoskeletal: Positive for arthralgias. Negative for neck stiffness. Skin: Positive for color change and wound. Neurological: Negative. Negative for dizziness, numbness and headaches. Objective: Vitals: 07/29/24 1455 BP: 145/77 Pulse: 81 Resp: Temp: Physical Exam Vitals and nursing note reviewed. Constitutional: Appearance: He is well-developed. HENT: Head: Normocephalic and atraumatic. Cardiovascular: Rate and Rhythm: Normal rate and regular rhythm. Pulses: Dorsalis pedis pulses are detected w/ Doppler on the left side. Posterior tibial pulses are detected w/ Doppler on the left side. Heart sounds: Normal heart sounds. No murmur heard. No gallop. Comments: Left DP/PT Doppler signals biphasic, moderate, Left leg with hemosiderin staining, diminished hair growth, warm, 2+ soft pitting edema, visible veins Pulmonary: Effort: Pulmonary effort is normal. Breath sounds: Normal breath sounds. No wheezing or rales. Abdominal: General: Bowel sounds are normal. Palpations: Abdomen is soft. Musculoskeletal: General: Normal range of motion. Cervical back: Normal range of motion. Left foot: Charcot foot present. Skin: General: Skin is warm and dry. Neurological: Mental Status: He is alert and oriented to person, place, and time. Wound Assessment Wound 07/06/24 1 Incision Calf Left;Proximal (Active) Wound Image 07/29/241446 Site Assessment Red;Yellow 07/29/241446 Kaya-wound Assessment [place];Blanchable erythema 07/29/241446 Wound Length (cm) 0.8 cm 07/29/241446 Wound Width (cm) 0.2 cm 07/29/241446 Wound Surface Area (cm^2) 0.16 cm^2 07/29/241446 Wound Depth (cm) 0.1 cm 07/29/241446 Wound Volume (cm^3) 0.016 cm^3 07/29/241446 Change in Wound Size % 80 07/29/241446 Drainage Description Serosanguineous;Yellow 07/29/241446 Drainage Amount Scant 07/29/241446 Treatments Cleansed with;Soak with;Vashe/Hypochlorous Acid 07/29/241446 Debridement Performed? N 07/29/241446 Dressing Type Xeroform;Gauze Rolled/Kerlix 07/29/241446 Dressing Changed Changed 07/29/241446 Dressing Status Clean;Dry;Intact 07/29/241446 Wound Bed Granulation (%) 75% to 100% 07/29/241446 Wound Bed Slough (%) < 25% 07/29/241446 Wound 07/06/24 2 Incision Calf Left;Distal (Active) Wound Image 07/29/241446 Site Assessment Red;Yellow 07/29/241446 Kaya-wound Assessment [place];Blanchable erythema 07/29/241446 Wound Length (cm) 1.2 cm 07/29/241446 Wound Width (cm) 0.3 cm 07/29/241446 Wound Surface Area (cm^2) 0.36 cm^2 07/29/241446 Wound Depth (cm) 0.1 cm 07/29/241446 Wound Volume (cm^3) 0.036 cm^3 07/29/241446 Change in Wound Size % 59.09 07/29/241446 Drainage Description Serosanguineous;Yellow 07/29/241446 Drainage Amount Scant 07/29/241446 Treatments Cleansed with;Soak with;Vashe/Hypochlorous Acid 07/29/241446 Debridement Performed? N 07/29/241446 Dressing Type Xeroform;Gauze Rolled/Kerlix 07/29/241446 Dressing Changed Changed 07/29/241446 Dressing Status Clean;Dry;Intact 07/29/241446 Wound Bed Granulation (%) 75% to 100% 07/29/241446 Wound Bed Slough (%) < 25% 07/29/241446 Assessment/Plan/Education: 1. Dehiscence of operative wound, subsequent encounter Wash mild soap and water Cover with Xeroform Cover with gauze Secure with roll gauze Medium compression Tubigrip Avoid prolonged leg dependency. Wash legs and feet every day, apply moisturizing lotion at night, avoid lotion between the toes. Raise feet above the level of the heart 10-15 min several times daily. Follow a low sodium diet. Wear compression stockings as prescribed. Medium compression Tubigrip Calf pump exercises daily. Patient instructed in dehisced surgical wound care to left, inner, and calf. Short term goal: medical compliance custodial goal: wound closure Patient verbalize ability to perform wound care. Follow up in wound clinic in 2 weeks Instructed to contact wound clinic, PCP or ER should symptoms worsen. The patient was taught to watch for S/S of infection (redness, pus, pain, increased swelling, chills or fever) and to call the PCP or wound care clinic if such occurs. The patient was educated on offloading the area by avoiding direct pressure to the wound bed. Education as well as the pathophysiology of the disease process was provided on infection, edema, necrotic tissue and its relationship to nonhealing wounds. Education was also provided on treatment plan. Patient verbalized understanding. Total time spent was 19 minutes: Preparing to see the patient (e.g., review of tests) Obtaining and/or reviewing separately obtained history Performing a medically appropriate examination and/or evaluation Counseling and educating the patient/family/caregiver Ordering medications, tests, or procedures Documenting clinical information in the electronic or other health record - STU MCINTYRE 07/29/24 3:25 PM Juanis Raza APRN, RADHA, MOIZ, LUIS [facility]: [phone] STU Mcintyre 10/09/23 1355 STU Mcintyre 10/23/23 1441 STU Mcintyre 11/09/23 0815 STU Mcintyre 07/07/24 0847 STU Mcintyre 07/15/24 1425 STU Mcintyre 07/29/24 1527 documented in this encounter [facility] 07-29-2024 Instructions Galilea Herman RN - 07/29/2024 2:20 PM EST Wound Management Treatment Plan Wound Location(s): left proximal medial (upper, inner)calf, left distal medial (lower,inner) calf HOW TO CARE FOR YOUR WOUND The following should be performed Daily and as needed. STEP 1: Cleanse wound with Soap and water, rinse well, and pat dry. Irrigate or rinse wound with NO IRRIGATION REQUIRED. STEP 2: Soak wound with NO SOAK REQUIRED. STEP 3: Pack with NO PACKING REQUIRED STEP 4: Apply NO TOPICAL AGENT REQUIRED to wound bed. STEP 5: Cover wound with xeroform gauze STEP 6: Secure dressings with Roll gauze/Kerlix and Tubi/Medigrip To assist with controlling edema (swelling of lower legs) elevate legs several times throughout the day. While sitting, you can also do ankle pumps and ankle circles several times throughout the day as well. ACTIVITY: Avoid direct pressure to wound(s) at all times and Reposition at least every 2 hours NUTRITION: High protein diet SKIN CARE: keep wounds covered at all times SWELLING CONTROL: Avoid standing for prolonged periods of time. Elevate legs whenever sitting to level of heart/hips or higher. ITEMS TO FOLLOW UP ON: None Length Width Depth Wound 07/06/24 2 Incision Calf Left;Distal-Wound Length (cm): 1.2 cm Wound 07/06/24 1 Incision Calf Left;Proximal-Wound Length (cm): 0.8 cm Wound 07/06/24 2 Incision Calf Left;Distal-Wound Width (cm): 0.3 cm Wound 07/06/24 1 Incision Calf Left;Proximal-Wound Width (cm): 0.2 cm Wound 07/06/24 2 Incision Calf Left;Distal-Wound Depth (cm): 0.1 cm Wound 07/06/24 1 Incision Calf Left;Proximal-Wound Depth (cm): 0.1 cm Wound drainage Type Description scant Serosanginous Serosanguinous, bliss documented in this encounter [facility] 07-15-2024 History of Presen t illness Narrative Images from the original note were not included. Wound Care Progress Note Patient: Becki Alarcon Date of : 1950 Chief Compliant: Dehisced surgical wounds, follow up SUBJECTIVE/HPI: Becki is a 74 y.o. male who presents to [facility] for evaluation of 2 ulcer(s) on the left medial lower calf. Patient established with wound clinic on 09/11/2023. Current daily wound care includes : Xeroform and single layer Tubigrip, changing once a day. Patient reports wearing compression stockings for history of DVT's. Presents to wound clinic wearing a thigh high compression stockings to right leg only. Patient had arterial bypass surgery 05/18/2023 at [facility] by . Patient had a repeat bypass surgery 02/09/2024. Remains with a delayed healing wound. Measurable wound changes: decrease in wound measurements 0.4 cm decrease in left calf circumference Patient accompanied by: Self, ambulatory Nutritional screen shows patient does take in three servings of protein per day. Patient does deny fever, chills, sweats, or other signs of infection. Prescribed antibiotics: none Today's reported Blood Sugar:does not check Tobacco use: cigarette smoking 6 per day Contributing comorbid conditions: PAD,charcot deformity, prostate cancer, RA treated with methotrexate. Patient Active Problem List Diagnosis Charcot's joint of foot, left Acquired keratoderma Current smoker Diabetes mellitus due to underlying condition with diabetic polyneuropathy ([facility]) Diabetic peripheral neuropathy ([facility]) Elevated PSA Ischemia Neuropathy PAD (peripheral artery disease) ([facility]) Primary osteoarthritis of left foot Prostate cancer ([facility]) Rheumatoid factor positive Rupture of operation wound Essential (primary) hypertension Nicotine dependence Paresthesia of skin Rheumatoid arthritis ([facility]) S/P femoral-tibial bypass Sigmoid diverticulosis Spondylosis without myelopathy or radiculopathy, lumbar region Past Medical History: Diagnosis Date Arthritis Hypertension Rheumatoid arthritis ([facility]) Past Surgical History: Procedure Laterality Date ARTERIAL BYPASS SURGERY Left Medial ARTERIAL BYPASS SURGERY Left Medial february 2024 at [facility] Current Outpatient Medications Medication Sig Dispense Refill amlodipine besylate/valsartan (AMLODIPINE-VALSARTAN ORAL) Take by mouth daily. apixaban (ELIQUIS) 5 mg tablet Take by mouth 2 (two) times a day. aspirin 81 mg chewable tablet Chew 1 tablet (81 mg total) and swallow nightly. folic acid (FOLVITE) 1 mg tablet Take 1 tablet (1 mg total) by mouth in the morning. hydroxychloroquine (PLAQUENIL) 200 mg tablet Take by mouth daily. methotrexate 2.5 mg chemo tablet Take 6 tablets by mouth once a week valsartan (DIOVAN) 80 mg tablet Take 0.5 tablets (40 mg total) by mouth in the morning. No current facility-administered medications for this visit. Allergies Allergen Reactions Leflunomide Other (See Comments) The following portions of the patient's history were reviewed and updated as appropriate: allergies, current medications, past family history, past medical history, past social history, past surgical history, problem list, and medication reconciliation was completed including current medication and post discharge medication. Pain Scale:denies Pain Scale 0/10: 0 Review of Systems Constitutional: Negative. Negative for activity change, appetite change and fever. HENT: Negative. Negative for trouble swallowing. Eyes: Positive for visual disturbance. Respiratory: Negative. Negative for cough, shortness of breath and wheezing. Cardiovascular: Positive for leg swelling. Negative for chest pain and palpitations. Gastrointestinal: Negative. Negative for abdominal distention, nausea and vomiting. Genitourinary: Negative. Negative for dysuria, frequency and urgency. Musculoskeletal: Positive for arthralgias. Negative for neck stiffness. Skin: Positive for color change and wound. Neurological: Negative. Negative for dizziness, numbness and headaches. Objective: Vitals: 07/15/24 1330 BP: (!) 119/93 Pulse: 82 Temp: 36.6 C (97.8 F) Physical Exam Vitals and nursing note reviewed. Constitutional: Appearance: He is well-developed. HENT: Head: Normocephalic and atraumatic. Cardiovascular: Rate and Rhythm: Normal rate and regular rhythm. Pulses: Dorsalis pedis pulses are detected w/ Doppler on the left side. Posterior tibial pulses are detected w/ Doppler on the left side. Heart sounds: Normal heart sounds. No murmur heard. No gallop. Comments: Left DP/PT Doppler signals biphasic, moderate, left leg with hemosiderin staining, diminished hair growth, warm, soft pitting edema around ankle, visible veins Pulmonary: Effort: Pulmonary effort is normal. Breath sounds: Normal breath sounds. No wheezing or rales. Abdominal: General: Bowel sounds are normal. Palpations: Abdomen is soft. Musculoskeletal: General: Normal range of motion. Cervical back: Normal range of motion. Left foot: Charcot foot present. Skin: General: Skin is warm and dry. Neurological: Mental Status: He is alert and oriented to person, place, and time. Wound Assessment Wound 07/06/24 1 Incision Calf Left;Proximal (Active) Wound Image 07/15/24 134 Site Assessment Red;Yellow 07/15/24 134 Kaya-wound Assessment [place];Blanchable erythema 07/15/24 1344 Wound Length (cm) 0.9 cm 07/15/24 134 Wound Width (cm) 0.3 cm 07/15/24 134 Wound Surface Area (cm^2) 0.27 cm^2 07/15/24 1344 Wound Depth (cm) 0.1 cm 07/15/24 1344 Wound Volume (cm^3) 0.027 cm^3 07/15/24 134 Change in Wound Size % 66.25 07/15/24 134 Drainage Description Serosanguineous;Yellow 07/15/24 1344 Drainage Amount Scant 07/15/24 1344 Treatments Cleansed with;Wound cleanser;Soak with;Vashe/Hypochlorous Acid 07/15/241343 Debridement Performed? N 07/15/241356 Dressing Type Xeroform;Gauze Rolled/Kerlix 07/15/241356 Dressing Changed Changed 07/15/241356 Dressing Status Clean;Dry;Intact 07/15/241356 Wound Bed Granulation (%) 75% to 100% 07/15/241343 Wound Bed Slough (%) < 25% 07/15/241343 Wound 07/06/24 2 Incision Calf Left;Distal (Active) Wound Image 07/15/241343 Site Assessment Red;Yellow 07/15/241343 Kaya-wound Assessment [place];Blanchable erythema 07/15/241343 Wound Length (cm) 1.2 cm 07/15/24 134 Wound Width (cm) 0.2 cm 07/15/24 134 Wound Surface Area (cm^2) 0.24 cm^2 07/15/24 1344 Wound Depth (cm) 0.2 cm 07/15/24 134 Wound Volume (cm^3) 0.048 cm^3 07/15/241343 Change in Wound Size % 72.73 07/15/24 134 Drainage Description Serosanguineous;Yellow 07/15/24 134 Drainage Amount Scant 07/15/24 134 Treatments Cleansed with;Wound cleanser;Soak with;Vashe/Hypochlorous Acid 07/15/241343 Debridement Performed? N 07/15/241356 Dressing Type Xeroform;Gauze Rolled/Kerlix 07/15/241356 Dressing Changed Changed 07/15/241356 Dressing Status Clean;Dry;Intact 07/15/241356 Wound Bed Granulation (%) 75% to 100% 07/15/241343 Wound Bed Slough (%) < 25% 07/15/24 1344 Assessment/Plan/Education: 1. Dehiscence of operative wound, subsequent encounter 2. S/P femoral-tibial bypass Wash mild soap and water Cover with Xeroform Cover with gauze Secure with roll gauze Medium compression Tubigrip Avoid prolonged leg dependency. Wash legs and feet every day, apply moisturizing lotion at night, avoid lotion between the toes. Raise feet above the level of the heart 10-15 min several times daily. Follow a low sodium diet. Wear compression stockings as prescribed. Medium compression Tubigrip Calf pump exercises daily. Patient instructed in dehisced surgical wound care to left, inner, and calf. Short term goal: medical compliance custodial goal: wound closure Patient verbalize ability to perform wound care. Follow up in wound clinic in 2 weeks Instructed to contact wound clinic, PCP or ER should symptoms worsen. The patient was taught to watch for S/S of infection (redness, pus, pain, increased swelling, chills or fever) and to call the PCP or wound care clinic if such occurs. The patient was educated on offloading the area by avoiding direct pressure to the wound bed. Education as well as the pathophysiology of the disease process was provided on infection, edema, necrotic tissue and its relationship to nonhealing wounds. Education was also provided on treatment plan. Patient verbalized understanding. Total time spent was 19 minutes: Preparing to see the patient (e.g., review of tests) Obtaining and/or reviewing separately obtained history Performing a medically appropriate examination and/or evaluation Counseling and educating the patient/family/caregiver Ordering medications, tests, or procedures Documenting clinical information in the electronic or other health record - STU MCINTYRE 07/15/24 2:22 PM Juanis Raza APRN, RADHA, CWS, LUIS [facility]: [phone] STU Mcintyre 10/09/23 135 STU Mcintyre 10/23/23 1441 STU Mcintyre 11/09/23 0815 STU Mcintyre 07/07/24 0859 STU Mcintyre 07/15/24 1424 documented in this encounter [facility] 07-15-2024 Instructions Fela Maciel RN - 07/15/2024 1:20 PM EST Wound Management Treatment Plan Wound Location(s): left proximal medial (upper, inner)calf, left distal medial (lower,inner) calf HOW TO CARE FOR YOUR WOUND The following should be performed Daily and as needed. STEP 1: Cleanse wound with Soap and water, rinse well, and pat dry. Irrigate or rinse wound with NO IRRIGATION REQUIRED. STEP 2: Soak wound with NO SOAK REQUIRED. STEP 3: Pack with NO PACKING REQUIRED STEP 4: Apply NO TOPICAL AGENT REQUIRED to wound bed. STEP 5: Cover wound with xeroform gauze STEP 6: Secure dressings with Roll gauze/Kerlix and Tubi/Medigrip To assist with controlling edema (swelling of lower legs) elevate legs several times throughout the day. While sitting, you can also do ankle pumps and ankle circles several times throughout the day as well. ACTIVITY: Avoid direct pressure to wound(s) at all times and Reposition at least every 2 hours NUTRITION: High protein diet SKIN CARE: keep wounds covered at all times SWELLING CONTROL: Avoid standing for prolonged periods of time. Elevate legs whenever sitting to level of heart/hips or higher. ITEMS TO FOLLOW UP ON: None Length Width Depth Wound drainage Type Description scant Serosanginous Serosanguinous, bliss documented in this encounter [facility] 07-12-2024 Note Patient Education Ma terials Name: Becki Alarcon Current Date: 07/12/2024 10:11:14 [place] : 1950 The following sheet(s) are the Patient Education Leaflets for Becki Alarcon CARDIOVASCULAR LAB DISCHARGE INSTRUCTIONS POST FEMORAL ACCESS ACTIVITY: Do not drive or make any legal decisions today. For the first 24 hours rest and relax in a reclined position. Avoid sitting for prolonged periods in a regular chair (at 90 degree angle). May resume light activity as tolerated. Please avoid the following for 3-5 days: Excessive walking Stair climbing. (You may go up/down stairs to go to bed one time/day) Lifting over 10 pounds Soaking in a tub or swimming Avoid strenuous activities, sports, exercise, pushing or pulling. DIET: Eat your regular diet as tolerated. Hydrate with 1-2 glasses of water every hour until bedtime today. This helps to flush IV dye used in your procedure out of your system. Avoid caffeine products and alcohol intake today. Glucophage/Metformin Special Instructions: Patients that are on Glucophage/Metformin or any combination drug containing these, Special instructions should have been given to you after the procedure. If you were not given these instructions, and were given X-Ray Contrast please hold your Metformin and contact the [facility]/cardiovascular lab at [phone], and ask to speak with a Woodworking Shop Laborer Nurse for these instructions. If you did not receive contrast during your procedure, i.e. an Electrophysiology Study (EP Procedure) this does not apply to you. SITE CARE: Please leave your current dressing in place for 24 hours. After 24 hours, remove the dressing and you may shower (remember-do not submerge your site). While showering, gently clean your site with mild soap and water (do not scrub or rub site). After showering, pat the area dry with a clean towel and apply a new band aid. Change band aid if it becomes soiled or wet. Cover site with new band aid for 2 days after procedure, then leave it open to the air. It is normal to have mild soreness or aching at the site. Bruising may also occur after this procedure. If this persists or other symptoms develop, call your doctor. If needed, you may take acetaminophen (Tylenol) according to the package directions for discomfort. Avoid other pain relief medications (Ibuprofen, Naproxen, Aleve) because they may increase your risk of bleeding. IF BLEEDING OCCURS OR YOU HAVE SEVERE PAIN AT THE SITE: Lay down flat and apply firm and direct pressure to site. If someone is with you, call to them for help. If bleeding is minor and controlled after 15 minutes of holding pressure to site, your site is soft and you feel well, rest and relax, keeping your affected leg straight for 2 hours. If bleeding is not controlled with manual pressure to the site or you feel a hard-sore area under the skin that is enlarged in size: DO NOT drive yourself to the hospital. CALL 911 and continue to hold pressure to your site until the EMS arrives. CALL YOUR DOCTOR FOR THE FOLLOWING: Your site becomes very red, tender, swollen, warm to the touch or has drainage. You develop fevers or chills. You have numbness, loss of feeling or severe pain in your leg or foot. SMOKING / USE OF PRODUCTS CONTAINING NICOTINE: Because the use of tobacco products greatly increases your risk of having a blood clot forming in the blood vessel, DO NOT smoke for 24 hours after your procedure. Please consider quitting smoking if you have Coronary Artery Disease (CAD) or Peripheral Vascular Disease. Not smoking is one of the best things you can do to reduce the risk of your disease. RESOURCES FOR BREAKING YOUR NICOTINE HABIT: [place] [employer] [place] [employer] [place] [employer] [facility] Quit Line Your family doctor can assist you with smoking/nicotine cessation therapies and treatments. Please call [phone] [facility] / Cardiovascular Lab Thursday through Thursday from 7am to 3pm for any questions or concerns. [facility] 07-06-2024 History of Presen t illness Narrative Images from the original note were not included. Wound Care Progress Note Patient: Becki Alarcon Date of : 1950 Chief Compliant: Dehisced surgical wounds, follow up Last seen in wound clinic 11/06/2023. SUBJECTIVE/HPI: Becki is a 74 y.o. male who presents to [facility] for evaluation of 2 ulcer(s) on the left medial lower calf. Patient established with wound clinic on 09/11/2023. Current daily wound care includes : adaptic, changing once a day. Patient reports wearing compression stockings for history of DVT's. Presents to wound clinic wearing a thigh high compression stockings to right leg only. Patient had arterial bypass surgery 05/18/2023 at [facility] by . Patient had a repeat bypass surgery 02/09/2024. Remains with a delayed healing wound. Measurable wound changes: new wound evaluation, 0.4 decrease in left calf circumference since 11/06/2023 Patient accompanied by: Self, ambulatory Nutritional screen shows patient does take in three servings of protein per day. Patient does deny fever, chills, sweats, or other signs of infection. Prescribed antibiotics: none Today's reported Blood Sugar:does not check Tobacco use: cigarette smoking 6 per day Contributing comorbid conditions: PAD,charcot deformity, prostate cancer, RA treated with methotrexate. Patient Active Problem List Diagnosis Charcot's joint of foot, left Acquired keratoderma Current smoker Diabetes mellitus due to underlying condition with diabetic polyneuropathy ([facility]) Diabetic peripheral neuropathy ([facility]) Elevated PSA Ischemia Neuropathy PAD (peripheral artery disease) ([facility]) Primary osteoarthritis of left foot Prostate cancer ([facility]) Rheumatoid factor positive Rupture of operation wound Essential (primary) hypertension Nicotine dependence Paresthesia of skin Rheumatoid arthritis ([facility]) S/P femoral-tibial bypass Sigmoid diverticulosis Spondylosis without myelopathy or radiculopathy, lumbar region Past Medical History: Diagnosis Date Arthritis Hypertension Rheumatoid arthritis ([facility]) Past Surgical History: Procedure Laterality Date ARTERIAL BYPASS SURGERY Left Medial ARTERIAL BYPASS SURGERY Left Medial february 2024 at [facility] Current Outpatient Medications Medication Sig Dispense Refill amlodipine besylate/valsartan (AMLODIPINE-VALSARTAN ORAL) Take by mouth daily. apixaban (ELIQUIS) 5 mg tablet Take by mouth 2 (two) times a day. aspirin 81 mg chewable tablet Chew 1 tablet (81 mg total) and swallow nightly. folic acid (FOLVITE) 1 mg tablet Take 1 tablet (1 mg total) by mouth in the morning. hydroxychloroquine (PLAQUENIL) 200 mg tablet Take by mouth daily. methotrexate 2.5 mg chemo tablet Take 6 tablets by mouth once a week valsartan (DIOVAN) 80 mg tablet Take 0.5 tablets (40 mg total) by mouth in the morning. No current facility-administered medications for this visit. Allergies Allergen Reactions Leflunomide Other (See Comments) The following portions of the patient's history were reviewed and updated as appropriate: allergies, current medications, past family history, past medical history, past social history, past surgical history, problem list, and medication reconciliation was completed including current medication and post discharge medication. Pain Scale:denies Pain Scale 0/10: 0 Review of Systems Constitutional: Negative. Negative for activity change, appetite change and fever. HENT: Negative. Negative for trouble swallowing. Eyes: Positive for visual disturbance. Respiratory: Negative. Negative for cough, shortness of breath and wheezing. Cardiovascular: Positive for leg swelling. Negative for chest pain and palpitations. Gastrointestinal: Negative. Negative for abdominal distention, nausea and vomiting. Genitourinary: Negative. Negative for dysuria, frequency and urgency. Musculoskeletal: Positive for arthralgias. Negative for neck stiffness. Skin: Positive for color change and wound. Neurological: Negative. Negative for dizziness, numbness and headaches. Objective: Vitals: 07/06/24 1507 BP: 126/76 Pulse: 83 Resp: 16 Temp: 36.9 C (98.4 F) Physical Exam Vitals and nursing note reviewed. Constitutional: Appearance: He is well-developed. HENT: Head: Normocephalic and atraumatic. Cardiovascular: Rate and Rhythm: Normal rate and regular rhythm. Pulses: Dorsalis pedis pulses are detected w/ Doppler on the left side. Posterior tibial pulses are detected w/ Doppler on the left side. Heart sounds: Normal heart sounds. No murmur heard. No gallop. Comments: Left DP/PT Doppler signals biphasic, moderate, left leg with hemosiderin staining, diminished hair growth, warm, soft pitting edema around ankle, visible veins Pulmonary: Effort: Pulmonary effort is normal. Breath sounds: Normal breath sounds. No wheezing or rales. Abdominal: General: Bowel sounds are normal. Palpations: Abdomen is soft. Musculoskeletal: General: Normal range of motion. Cervical back: Normal range of motion. Left foot: Charcot foot present. Skin: General: Skin is warm and dry. Neurological: Mental Status: He is alert and oriented to person, place, and time. Wound Assessment 07/06/24 1548 Wound 07/06/24 1 Incision Calf Left;Proximal Date First Assessed/Time First Assessed: 07/06/24 1526 Wound Age: 3 - 6 months Hand Hygiene Completed: Yes Wound Number: 1 Primary Wound Type: Incision Location: Calf Orientation: Left;Proximal Wound Image Pre debridement Wound Length (cm) 2 cm Wound Width (cm) 0.4 cm Wound Surface Area (cm^2) 0.8 cm^2 Wound Depth (cm) 0.1 cm Wound Volume (cm^3) 0.08 cm^3 Change in Wound Size % 0 Debridement Performed? Y Type of Debridement Sharp to Subcutaneous Debridement Area (cm^2) 0.8 cm^2 Dressing Type Xeroform;Gauze Rolled/Kerlix Dressing Changed New Dressing Status Clean;Dry;Intact Wound 07/06/24 2 Incision Calf Left;Distal Date First Assessed/Time First Assessed: 07/06/24 1527 Wound Age: 1 - 3 months Hand Hygiene Completed: Yes Wound Number: 2 Primary Wound Type: Incision Location: Calf Orientation: Left;Distal Wound Image (#2 post debridement pic included with wound #1) Wound Length (cm) 2.2 cm Wound Width (cm) 0.4 cm Wound Surface Area (cm^2) 0.88 cm^2 Wound Depth (cm) 0.3 cm Wound Volume (cm^3) 0.264 cm^3 Change in Wound Size % 0 Debridement Performed? Y Type of Debridement Sharp to Subcutaneous Debridement Area (cm^2) 0.88 cm^2 Dressing Type Xeroform;Gauze Rolled/Kerlix Dressing Changed New Dressing Status Clean;Dry;Intact Pre debridement Post debridement wounds #1 & 2 Assessment/Plan/Education: 1. Dehiscence of operative wound, subsequent encounter 2. Varicose veins of left leg with edema Wash mild soap and water Cover with Xeroform Cover with gauze Secure with roll gauze Medium compression Tubigrip Avoid prolonged leg dependency. Wash legs and feet every day, apply moisturizing lotion at night, avoid lotion between the toes. Raise feet above the level of the heart 10-15 min several times daily. Follow a low sodium diet. Wear compression stockings as prescribed. Medium compression Tubigrip Calf pump exercises daily. Patient instructed in dehisced surgical wound care to left, inner, and calf. 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 Follow up in wound clinic in 1 week Instructed to contact wound clinic, PCP or ER should symptoms worsen. The patient was taught to watch for S/S of infection (redness, pus, pain, increased swelling, chills or fever) and to call the PCP or wound care clinic if such occurs. The patient was educated on offloading the area by avoiding direct pressure to the wound bed. Education as well as the pathophysiology of the disease process was provided on infection, edema, necrotic tissue and its relationship to nonhealing wounds. Education was also provided on treatment plan. Patient verbalized understanding. Total time spent was 20 minutes: Preparing to see the patient (e.g., review of tests) Obtaining and/or reviewing separately obtained history Performing a medically appropriate examination and/or evaluation Counseling and educating the patient/family/caregiver Ordering medications, tests, or procedures Documenting clinical information in the electronic or other health record - STU MCINTYRE 07/07/24 8:38 AM Juanis Raza APRN, RADHA, CWS, LUIS [facility]: [phone] STU Mcintyre 10/09/23 3896 STU Mcintyre 10/23/23 1441 STU Mcintyre 11/09/23 0815 STU Mcintyre 07/07/24 0847 documented in this encounter [facility] 07-06-2024 Instructions Galilea Herman RN - 07/06/2024 3:00 PM EDT Wound Management Treatment Plan Wound Location(s): left proximal medial (upper, inner)calf, left distal medial (lower,inner) calf HOW TO CARE FOR YOUR WOUND The following should be performed Daily and as needed. STEP 1: Cleanse wound with Soap and water, rinse well, and pat dry. Irrigate or rinse wound with NO IRRIGATION REQUIRED. STEP 2: Soak wound with NO SOAK REQUIRED. STEP 3: Pack with NO PACKING REQUIRED STEP 4: Apply NO TOPICAL AGENT REQUIRED to wound bed. STEP 5: Cover wound with xeroform gauze STEP 6: Secure dressings with Roll gauze/Kerlix and Tubi/Medigrip To assist with controlling edema (swelling of lower legs) elevate legs several times throughout the day. While sitting, you can also do ankle pumps and ankle circles several times throughout the day as well. ACTIVITY: Avoid direct pressure to wound(s) at all times and Reposition at least every 2 hours NUTRITION: High protein diet SKIN CARE: keep wounds covered at all times SWELLING CONTROL: Avoid standing for prolonged periods of time. Elevate legs whenever sitting to level of heart/hips or higher. ITEMS TO FOLLOW UP ON: None Length Width Depth Wound 07/06/24 1 Incision Calf Left;Proximal-Wound Length (cm): 2 cm Wound 07/06/24 2 Incision Calf Left;Distal-Wound Length (cm): 2.2 cm Wound 07/06/24 1 Incision Calf Left;Proximal-Wound Width (cm): 0.4 cm Wound 07/06/24 2 Incision Calf Left;Distal-Wound Width (cm): 0.4 cm Wound 07/06/24 1 Incision Calf Left;Proximal-Wound Depth (cm): 0.1 cm Wound 07/06/24 2 Incision Calf Left;Distal-Wound Depth (cm): 0.3 cm Wound drainage Type Description scant Serosanginous Serosanguinous, bliss documented in this encounter [facility] 06-13-2024 Hospital Discharg e instructions Patient Education 06/13/2024 14:10:47 Prostate Cancer Screening Prostate Cancer Screening Prostate cancer screening is testing that is done to check for the presence of prostate cancer in men. The prostate gland is a walnut-sized gland that is located below the bladder and in front of the rectum in males. The function of the prostate is to add fluid to semen during ejaculation. Prostate cancer is one of the most common types of cancer in men. Who should have prostate cancer screening? Screening recommendations vary based on age and other risk factors, as well as between the professional organizations who make the recommendations. In general, screening is recommended if: You are age 50 to 70 and have an average risk for prostate cancer. You should talk with your health care provider about your need for screening and how often screening should be done. Because most prostate cancers are slow growing and will not cause , screening in this age group is generally reserved for men who have a 10- to 15-year life expectancy. You are younger than age 50, and you have these risk factors: ?Having a father, brother, or uncle who has been diagnosed with prostate cancer. The risk is higher if your family member's cancer occurred at an early age or if you have multiple family members with prostate cancer at an early age. ?Being a male who is Black or is of [place] or sub-Saharan descent. In general, screening is not recommended if: You are younger than age 40. You are between the ages of 40 and 49 and you have no risk factors. You are 70 years of age or older. At this age, the risks that screening can cause are greater than the benefits that it may provide. If you are at high risk for prostate cancer, your health care provider may recommend that you have screenings more often or that you start screening at a younger age. How is screening for prostate cancer done? The recommended prostate cancer screening test is a blood test called the prostate-specific antigen (PSA) test. PSA is a protein that is made in the prostate. As you age, your prostate naturally produces more PSA. Abnormally high PSA levels may be caused by: Prostate cancer. An enlarged prostate that is not caused by cancer (benign prostatic hyperplasia, or BPH). This condition is very common in older men. A prostate gland infection (prostatitis) or urinary tract infection. Certain medicines such as male hormones (like testosterone) or other medicines that raise testosterone levels. A rectal exam may be done as part of prostate cancer screening to help provide information about the size of your prostate gland. When a rectal exam is performed, it should be done after the PSA level is drawn to avoid any effect on the results. Depending on the PSA results, you may need more tests, such as: A physical exam to check the size of your prostate gland, if not done as part of screening. Blood and imaging tests. A procedure to remove tissue samples from your prostate gland for testing (biopsy). This is the only way to know for certain if you have prostate cancer. What are the benefits of prostate cancer screening? Screening can help to identify cancer at an early stage, before symptoms start and when the cancer can be treated more easily. There is a small chance that screening may lower your risk of dying from prostate cancer. The chance is small because prostate cancer is a slow-growing cancer, and most men with prostate cancer from a different cause. What are the risks of prostate cancer screening? The main risk of prostate cancer screening is diagnosing and treating prostate cancer that would never have caused any symptoms or problems. This is called overdiagnosisand overtreatment. PSA screening cannot tell you if your PSA is high due to cancer or a different cause. A prostate biopsy is the only procedure to diagnose prostate cancer. Even the results of a biopsy may not tell you if your cancer needs to be treated. Slow-growing prostate cancer may not need any treatment other than monitoring, so diagnosing and treating it may cause unnecessary stress or other side effects. Questions to ask your health care provider When should I start prostate cancer screening? What is my risk for prostate cancer? How often do I need screening? What type of screening tests do I need? How do I get my test results? What do my results mean? Do I need treatment? Where to find more information The [place] [employer]: www.cancer.org [place] [employer]: www.auanet.org Contact a health care provider if: You have difficulty urinating. You have pain when you urinate or ejaculate. You have blood in your urine or semen. You have pain in your back or in the area of your prostate. Summary Prostate cancer is a common type of cancer in men. The prostate gland is located below the bladder and in front of the rectum. This gland adds fluid to semen during ejaculation. Prostate cancer screening may identify cancer at an early stage, when the cancer can be treated more easily and is less likely to have spread to other areas of the body. The prostate-specific antigen (PSA) test is the recommended screening test for prostate cancer, but it has associated risks. Discuss the risks and benefits of prostate cancer screening with your health care provider. If you are age 70 or older, the risks that screening can cause are greater than the benefits that it may provide. This information is not intended to replace advice given to you by your health care provider. Make sure you discuss any questions you have with your health care provider. Document Revised: 02/17/2022 Document Reviewed: 02/17/2022 [employer] Patient Education 2023 [employer]. 06/13/2024 14:05:41 Steps to Quit Smoking Steps to Quit Smoking Smoking tobacco is the leading cause of preventable . It can affect almost every organ in the body. Smoking puts you and those around you at risk for developing many serious chronic diseases. Quitting smoking can be very challenging. Do not get discouraged if you are not successful the first time. Some people need to make many attempts to quit before they achieve long-term success. Do your best to stick to your quit plan, and talk with your health care provider if you have any questions or concerns. How do I get ready to quit? When you decide to quit smoking, create a plan to help you succeed. Before you quit: Pick a date to quit. Set a date within the next 2 weeks to give you time to prepare. Write down the reasons why you are quitting. Keep this list in places where you will see it often. Tell your family, friends, and co-workers that you are quitting. Support from people you are close to can make quitting easier. Talk with your health care provider about your options for quitting smoking. Find out what treatment options are covered by your health insurance. Identify people, places, things, and activities that make you want to smoke (triggers). Avoid them. What first steps can I take to quit smoking? Throw away all cigarettes at home, at work, and in your car. Throw away smoking accessories, such as ashtrays and lighters. Clean your car. Make sure to empty the ashtray. Clean your home, including curtains and carpets. What strategies can I use to quit smoking? Talk with your health care provider about combining strategies, such as taking medicines while you are also receiving in-person counseling. Using these two strategies together makes you more likely to succeed in quitting than if you used either strategy on its own. If you are or , talk with your health care provider about finding counseling or other support strategies to quit smoking. Do not take medicine to help you quit smoking unless your health care provider tells you to. Quit right away Quit smoking completely, instead of gradually reducing how much you smoke over a period of time. Stopping smoking right away may be more successful than gradually quitting. Attend in-person counseling to help you build problem-solving skills. You are more likely to succeed in quitting if you attend counseling sessions regularly. Even short sessions of 10 minutes can be effective. Take medicine You may take medicines to help you quit smoking. Some medicines require a prescription. You can also purchase [id number] medicines. Medicines may have nicotine in them to replace the nicotine in cigarettes. Medicines may: Help to stop cravings. Help to relieve withdrawal symptoms. Your health care provider may recommend: Nicotine patches, gum, or lozenges. Nicotine inhalers or sprays. Non-nicotine medicine that you take by mouth. Find resources Find resources and support systems that can help you quit smoking and remain smoke-free after you quit. These resources are most helpful when you use them often. They include: Online chats with a counselor. Telephone quitlines. Printed self-help materials. Support groups or group counseling. Text messaging programs. Mobile phone apps or applications. Use apps that can help you stick to your quit plan by providing reminders, tips, and encouragement. Examples of free services include Quit Guide from the CDC and smokefree.gov What can I do to make it easier to quit? Reach out to your family and friends for support and encouragement. Call telephone quitlines, such as 7-319-NLAR-NOW, reach out to support groups, or work with a counselor for support. Ask people who smoke to avoid smoking around you. Avoid places that trigger you to smoke, such as bars, parties, or smoke-break areas at work. Spend time with people who do not smoke. Lessen the stress in your life. Stress can be a smoking trigger for some people. To lessen stress, try: ?Exercising regularly. ?Doing deep-breathing exercises. ?Doing yoga. ?Meditating. What benefits will I see if I quit smoking? Over time, you should start to see positive results, such as: Improved sense of smell and taste. Decreased coughing and sore throat. Slower heart rate. Lower blood pressure. Clearer and healthier skin. The ability to breathe more easily. Fewer sick days. Summary Quitting smoking can be very challenging. Do not get discouraged if you are not successful the first time. Some people need to make many attempts to quit before they achieve long-term success. When you decide to quit smoking, create a plan to help you succeed. Quit smoking right away, not slowly over a period of time. Find resources and support systems that can help you quit smoking and remain smoke-free after you quit. This information is not intended to replace advice given to you by your health care provider. Make sure you discuss any questions you have with your health care provider. Document Revised: 08/15/2022 Document Reviewed: 08/15/2022 [employer] Patient Education 2023 [employer] Follow Up Care 10/12/2023 15:41:26 With:CLAIR CARRION, Riky Rosenbaum, URL Address: [facility] [address] , [place] [id number]- [phone] When: Unknown Comments:8 mos w/ PSA [facility] 06-13-2024 Note Patient Education Oncology Prostate Cancer Screening Prostate cancer screening is testing that is done to check for the presence of prostate cancer in men. The prostate gland is a walnut-sized gland that is located below the bladder and in front of the rectum in males. The function of the prostate is to add fluid to semen during ejaculation. Prostate cancer is one of the most common types of cancer in men. Who should have prostate cancer screening? Screening recommendations vary based on age and other risk factors, as well as between the professional organizations who make the recommendations. In general, screening is recommended if: ? You are age 50 to 70 and have an average risk for prostate cancer. You should talk with your health care provider about your need for screening and how often screening should be done. Because most prostate cancers are slow growing and will not cause , screening in this age group is generally reserved for men who have a 10- to 15-year life expectancy. ? You are younger than age 50, and you have these risk factors: ? Having a father, brother, or uncle who has been diagnosed with prostate cancer. The risk is higher if your family member's cancer occurred at an early age or if you have multiple family members with prostate cancer at an early age. ? Being a male who is Black or is of Geo or sub-Saharan descent. In general, screening is not recommended if: ? You are younger than age 40. ? You are between the ages of 40 and 49 and you have no risk factors. ? You are 70 years of age or older. At this age, the risks that screening can cause are greater than the benefits that it may provide. If you are at high risk for prostate cancer, your health care provider may recommend that you have screenings more often or that you start screening at a younger age. How is screening for prostate cancer done? The recommended prostate cancer screening test is a blood test called the prostate-specific antigen (PSA) test. PSA is a protein that is made in the prostate. As you age, your prostate naturally produces more PSA. Abnormally high PSA levels may be caused by: ? Prostate cancer. ? An enlarged prostate that is not caused by cancer (benign prostatic hyperplasia, or BPH). This condition is very common in older men. ? A prostate gland infection (prostatitis) or urinary tract infection. ? Certain medicines such as male hormones (like testosterone) or other medicines that raise testosterone levels. A rectal exam may be done as part of prostate cancer screening to help provide information about the size of your prostate gland. When a rectal exam is performed, it should be done after the PSA level is drawn to avoid any effect on the results. Depending on the PSA results, you may need more tests, such as: ? A physical exam to check the size of your prostate gland, if not done as part of screening. ? Blood and imaging tests. ? A procedure to remove tissue samples from your prostate gland for testing (biopsy). This is the only way to know for certain if you have prostate cancer. What are the benefits of prostate cancer screening? ? Screening can help to identify cancer at an early stage, before symptoms start and when the cancer can be treated more easily. ? There is a small chance that screening may lower your risk of dying from prostate cancer. The chance is small because prostate cancer is a slow-growing cancer, and most men with prostate cancer from a different cause. What are the risks of prostate cancer screening? The main risk of prostate cancer screening is diagnosing and treating prostate cancer that would never have caused any symptoms or problems. This is called overdiagnosisand overtreatment. PSA screening cannot tell you if your PSA is high due to cancer or a different cause. A prostate biopsy is the only procedure to diagnose prostate cancer. Even the results of a biopsy may not tell you if your cancer needs to be treated. Slow-growing prostate cancer may not need any treatment other than monitoring, so diagnosing and treating it may cause unnecessary stress or other side effects. Questions to ask your health care provider ? When should I start prostate cancer screening? ? What is my risk for prostate cancer? ? How often do I need screening? ? What type of screening tests do I need? ? How do I get my test results? ? What do my results mean? ? Do I need treatment? Where to find more information ? The [place] [employer]: www.cancer.org ? [place] [employer]: www.auanet.org Contact a health care provider if: ? You have difficulty urinating. ? You have pain when you urinate or ejaculate. ? You have blood in your urine or semen. ? You have pain in your back or in the area of your prostate. Summary ? Prostate cancer is a common type of cancer in men. The prostate gland is located below the bladder and in front of the rectum. (more content not included)... [facility] 02-12-2024 Note Admission Informatio n Admit 02/09/2024 Discharge 02/12/2024 Staged femoral-post tib bypass surgery. Hospital Course Patient underwent left redo femoral?posttibial bypass with CryoVein on 02/09/2024. Admitted postoperatively to the coronary care unit. Incisions all healed appropriately. Left foot with excellent post tib signal by Doppler. Left foot pink and warm. Incisions all healed appropriately. Becik did well in his postop recovery, was ambulating in the hallways multiple laps without issue. His BP meds were held for low blood pressures. Once these were held his blood pressure was excellent and WNL. He was started on aspirin and Eliquis for graft patency. This was well-tolerated. By postoperative day #3 he was independently ambulatory, pain was minimal, incisions all healing appropriately and he was ready for discharge to home. A follow-up appointment was made with vascular services. Detailed discharge instructions provided Medications Home amLODIPine 10 mg oral tablet, 10 mg= 1 tabs, Oral, HS (at bedtime) aspirin 81 mg oral delayed release tablet, 81 mg, Oral, Daily folic acid 1 mg oral tablet, 1 mg= 1 tabs, Oral, HS (at bedtime) hydroxychloroquine 200 mg oral tablet, 200 mg= 1 tabs, Oral, HS (at bedtime) methotrexate 2.5 mg oral tablet, 20 mg= 8 tabs, Oral, Mclean predniSONE 5 mg oral tablet, 5 mg= 1 tabs, Oral, Daily, PRN Turmeric, 1500 mg, Oral, Daily valsartan 160 mg oral tablet, 160 mg= 1 tabs, Oral, HS (at bedtime) Vitamin C 500 mg oral tablet, 500 mg= 1 tabs, Oral, Daily Vitamin D3 2000 intl units oral capsule, 100 mcg= 2 caps, Oral, Daily zinc (as acetate) 50 mg oral capsule, 50 mg= 1 caps, Oral, Daily, on an empty stomach 1 hour before or 2 hours after eating Prescriptions DME, See Instructions Eliquis 5 mg oral tablet, See Instructions, 4 refills, Take 1 tablet by mouth twice daily Procedures and Treatment Provided Lt Fem/PT bypass (cryovein). [1] Physical Exam Vitals & Measurements T: 36.8 ?C (Oral) HR: 85 (Monitored) RR: 16 BP: 112/73 BP: 0/0(Line) SpO2: 95% HT: 168 cm HT: 168 cm WT: 77.6 kg BMI: 28.06 BMI: 28.06 General: Alert/Oriented x4, NAD Cardio: Regular rate and rhythm, no murmurs, rubs, or gallops Lungs: Clear to auscultation bilaterally, no rales/rhonchi/wheezes Abdomen: Normal bowel sounds x 4 quadrants, soft, non-tender, no pulsatile masses Skin: groin incision intact, no erythema, or edema. Incisions healing appropriately, without erythema or edema Lower extremitity: distal pulses AT/PT by Doppler, warm and pink feet, cap refill <3 sec Additional Vitals No qualifying data available. Discharge Plan 1. PAD (peripheral artery disease) 2. S/P femoral-tibial bypass DC GAVI drain. Ambulating unit well Home later today. Acetaminophen seems to work well for pain. OTC acetaminophen at home Aspirin and Eliquis 2.5 Mg twice daily. Will escalate Eliquis out patient Instructions to keep left lower extremity elevated above heart level when at rest. Blood pressures low 100s, likely would not tolerate Lasix yet. Will diurese starting next week when seen in the office if needed Keep incisions clean, covered with silver Mepilex Follow-up in the office early next week as scheduled Orders: acetaminophen, 1,000 mg, IV Piggyback, Soln-IV, [id number] Times, PRN mild pain [1-3 on pain scale], infuse over 15 minutes, First Dose: 02/11/24 14:19:00 EDT, Dispense From Location: [address], 02/11/24 14:19:00 EDT apixaban, 2.5 mg, Oral, Tab, BID, First Dose: 02/11/24 21:00:00 EDT, Dispense From Location: [address], Other (See Comments), 02/11/24 9:18:00 EDT traMADol, 50 mg, Oral, Tab, [id number] Times, PRN moderate pain [4-6 on pain scale], First Dose: 02/11/24 14:18:00 EDT, Dispense From Location: [id number], 02/11/24 14:18:00 EDT Elevate Affected Extremity Patient Discharge Condition Improved Discharge Disposition Home [1] Progress/SOAP Note; Rand PERAZA Zacarias Baker 02/10/2024 08:39 EDT Electronically signed by Rand PERAZA Zacarias Baker 02/12/24 11:10 EDT Electronically signed by Daya David MD 02/22/2024 15:18 EDT [facility] 02-09-2024 Note Chief Complaint SCHEDULED FOR BYPASS GRAFT-LEFT REDO FEM-TIB History of Present Illness 73-year-old male status post left Carreno post tib bypass in May who was scheduled to have arterial duplex 3 months later but was never done. Patient also ran out of Eliquis prematurely and was off Eliquis for more than a week. In addition patient's Eliquis was held for 3 days because of a prostate biopsy. Ultimately he did get arterial studies done about 6 months after surgery and lo and behold his graft is closed. Patient is having recurrent symptoms related to graft closure which is primarily foot pain on the dorsum of the foot on the left side. I have reviewed the patient's CTA from April. He has a bypassable target in the anterior tib distribution. Returns to hospital today for a staged left femoral?post tib bypass. Review of Systems Constitutional: No fevers, chills, sweats, weakness Eye: No recent vision changes, double vision ENMT: No ear pain, nasal congestion, sore throat, voice changes Respiratory: No shortness of breath, cough, wheezing or sputum Cardiovascular: No Chest pain or tightness, palpitations, syncope, swelling Gastrointestinal: No nausea, vomiting, diarrhea, blood in stool, indigestion Genitourinary: No hematuria, frequency or urgency Alejandro/Lymph: Negative for bruising tendency, swollen lymph glands Endocrine: Negative for excessive thirst, excessive hunger Musculoskeletal: No back pain, neck pain, joint pain, muscle pain, injury Integumentary: No rash, pruritus, abrasions, Neurologic: No headache, dizziness, fainting, seizures, balance problems Psychiatric: No anxiety, depression, suicidal thoughts [1] Physical Exam Vitals & Measurements HR: 76 (Peripheral) RR: 16 BP: 135/86 SpO2: 98% Lungs: [Clear to auscultation and percussion, non-labored respiration]. Heart: [Normal rate, regular rhythm, no murmur, gallop or edema]. Abdomen: [Soft, non-tender, non-distended, normal bowel sounds, no masses]. Mental Status:[Alert and oriented x3]. Decreased dorsalis pedis signal left foot Healed surgical incisions left leg [2] Additional Vitals No qualifying data available. Assessment/Plan 1. PAD (peripheral artery disease) Dr David had a long conversation with the patient and his family. He recommending bypass to the anterior tib artery on an elective basis. All risk benefits alternatives related procedure discussed with patient in detail all questions answered. He is eager to proceed. Of note patient has chronic rheumatic arthritis and does take prednisone 5 mg as well as methotrexate 2 and half milligrams and hydroxychloroquine 200 mg. We will hold his Eliquis 2 days prior to surgery. We will reserve cryo vein for the procedure since the patient does not have adequate saphenous vein. All questions answered. I have reinforced with the patient that he should not hold his Eliquis at all in the postoperative interval. I have also reinforced with the patient that he should not wear any compression hose whatsoever on the left leg especially after an infra geniculate bypass. Problem List/Past Medical History Ongoing Cancer of prostate Chronic rheumatic arthritis Nicotine abuse Nonhealing nonsurgical wound PAD (peripheral artery disease) Historical No qualifying data Procedure/Surgical History BIOPSY OF PROSTATE Colonoscopy (2010) Right foot reconstruction (2012) Bypass Graft Femorotibial (Left) (05/18/2023) Medications Inpatient acetaminophen, 1000 mg, Oral, Once amLODIPine, 10 mg, Oral, HS (at bedtime) ceFAZolin, 2 g= 50 mL, IV Piggyback, Once ceFAZolin IV additive + Sodium Chloride 0.9% Irrigation 250 mL folic acid, 1 mg, Oral, HS (at bedtime) heparin IV additive 5,000 units + Sodium Chloride 0.9% intermittent 500 mL hydroxychloroquine, 200 mg, Oral, HS (at bedtime) LR 1,000 mL, 1000 mL, IV Marcaine HCl 0.5% injectable solution, 150 mg= 30 mL, Subcutaneous, Once methylene blue, 10 mg= 2 mL, IV Push, Once Normal Saline Flush 0.9% injectable solution, 10 mL, IV Push, As Indicated, PRN papaverine + Sodium Chloride 0.9% Irrigation 36 mL valsartan, 160 mg, Oral, HS (at bedtime) Home amLODIPine 10 mg oral tablet, 10 mg= 1 tabs, Oral, HS (at bedtime) aspirin 81 mg oral delayed release tablet, 81 mg, Oral, Daily DME, See Instructions Eliquis 5 mg oral tablet, See Instructions, 4 refills, Take 1 tablet by mouth twice daily folic acid 1 mg oral tablet, 1 mg= 1 tabs, Oral, HS (at bedtime) hydroxychloroquine 200 mg oral tablet, 200 mg= 1 tabs, Oral, HS (at bedtime) methotrexate 2.5 mg oral tablet, 20 mg= 8 tabs, Oral, Mclean predniSONE 5 mg oral tablet, 5 mg= 1 tabs, Oral, Daily, PRN Turmeric, 1500 mg, Oral, Daily valsartan 160 mg oral tablet, 160 mg= 1 tabs, Oral, HS (at bedtime) Vitamin C 500 mg oral tablet, 500 mg= 1 tabs, Oral, Daily Vitamin D3 2000 intl units oral capsule, 100 mcg= 2 caps, Oral, Daily zinc (as acetate) 50 mg oral capsule, 50 mg= 1 caps, Oral, Daily, on an em (more content not included)... [facility] 02-07-2024 Note PROCEDURE: XR Chest 2 Views DATE: 02/03/2024 12:08 PM CDT COMPARISONS: 05/04/2023 CLINICAL INDICATION: 74 years Male Other (please specify), pre-op testing FINDINGS: The cardiomediastinal silhouette and pulmonary vasculature are within normal limits. The lungs are clear. There is no evidence of pleural effusion or pneumothorax. IMPRESSION: Chest radiograph is within normal limits. Final Dictated by: Eren Peres MD Dictated DT/TM: 02/07/2024 8:51 am Signed by: Eren Peres MD Signed (Electronic Signature): 02/07/2024 8:52 am (If Report Is Signed, Electronically Signed in Other Vendor System) [facility] 11-06-2023 History of Presen t illness Narrative Images from the original note were not included. Wound Care Progress Note Patient: Becki Alarcon Date of : 1950 Chief Compliant: Dehisced surgical wounds, follow up SUBJECTIVE/HPI: Becki is a 73 y.o. male who presents to [facility] for evaluation of 1 ulcer(s) on the left medial lower calf. Patient established with wound clinic on 09/11/2023. Current daily wound care includes : adaptic, changing once a day. Patient reports wearing compression stockings for history of DVT's. Patient is wearing a single layer Tubigrip stocking. Patient had arterial bypass surgery 05/18/2023 at [facility] by . Patient reports after sutures were removed he developed bleeding from the surgical site. He was evaluated in the local emergency room 08/06/2023. Patient is taking Eliquis. Follow up ABIs and a vascular appointment are scheduled. Measurable wound changes: wound resolved, 0.8 increase in left calf circumference Patient accompanied by: Self, ambulatory Nutritional screen shows patient does take in three servings of protein per day. Patient does deny fever, chills, sweats, or other signs of infection. Prescribed antibiotics: none Today's reported Blood Sugar:does not check Tobacco use: cigarette smoking 6 per day Contributing comorbid conditions:PAD,charcot deformity Patient Active Problem List Diagnosis Charcot's joint of foot, left Acquired keratoderma Current smoker Diabetes mellitus due to underlying condition with diabetic polyneuropathy ([facility]) Diabetic peripheral neuropathy ([facility]) Elevated PSA Ischemia Neuropathy PAD (peripheral artery disease) ([facility]) Primary osteoarthritis of left foot Prostate cancer ([facility]) Rheumatoid factor positive Rupture of operation wound Past Medical History: Diagnosis Date Arthritis Hypertension Rheumatoid arthritis ([facility]) Past Surgical History: Procedure Laterality Date ARTERIAL BYPASS SURGERY Left Medial Current Outpatient Medications Medication Sig Dispense Refill amlodipine besylate/valsartan (AMLODIPINE-VALSARTAN ORAL) Take by mouth daily. apixaban (ELIQUIS) 5 mg tablet Take by mouth 2 (two) times a day. aspirin 81 mg chewable tablet Chew 1 tablet (81 mg total) and swallow nightly. folic acid (FOLVITE) 1 mg tablet Take 1 tablet (1 mg total) by mouth in the morning. hydroxychloroquine (PLAQUENIL) 200 mg tablet Take by mouth daily. methotrexate 2.5 mg chemo tablet Take 6 tablets by mouth once a week valsartan (DIOVAN) 80 mg tablet Take 0.5 tablets (40 mg total) by mouth in the morning. No current facility-administered medications for this visit. Allergies Allergen Reactions Leflunomide Other (See Comments) The following portions of the patient's history were reviewed and updated as appropriate: allergies, current medications, past family history, past medical history, past social history, past surgical history, problem list, and medication reconciliation was completed including current medication and post discharge medication. Pain Scale:denies Pain Scale 0/10: 0 Review of Systems Constitutional: Negative. Negative for activity change, appetite change and fever. HENT: Negative. Negative for trouble swallowing. Eyes: Positive for visual disturbance. Respiratory: Negative. Negative for cough, shortness of breath and wheezing. Cardiovascular: Positive for leg swelling. Negative for chest pain and palpitations. Gastrointestinal: Negative. Negative for abdominal distention, nausea and vomiting. Genitourinary: Negative. Negative for dysuria, frequency and urgency. Musculoskeletal: Positive for arthralgias. Negative for neck stiffness. Skin: Positive for color change and wound. Neurological: Negative. Negative for dizziness, numbness and headaches. Objective: Vitals: 11/06/23 1432 BP: 141/77 Pulse: 92 Resp: 16 Temp: 36.7 C (98 F) Physical Exam Vitals and nursing note reviewed. Constitutional: Appearance: He is well-developed. HENT: Head: Normocephalic and atraumatic. Cardiovascular: Rate and Rhythm: Normal rate and regular rhythm. Pulses: Dorsalis pedis pulses are detected w/ Doppler on the left side. Posterior tibial pulses are detected w/ Doppler on the left side. Heart sounds: Normal heart sounds. No murmur heard. No gallop. Comments: Left DP/PT Doppler signals difficult to locate, weak Left leg with hemosiderin staining, diminished hair growth, warm, soft pitting edema around ankle Pulmonary: Effort: Pulmonary effort is normal. Breath sounds: Normal breath sounds. No wheezing or rales. Abdominal: General: Bowel sounds are normal. Palpations: Abdomen is soft. Musculoskeletal: General: Normal range of motion. Cervical back: Normal range of motion. Left foot: Charcot foot present. Skin: General: Skin is warm and dry. Neurological: Mental Status: He is alert and oriented to person, place, and time. Wound Assessment Resolved Assessment/Plan/Education: 1. Dehiscence of operative wound, initial encounter Wash mild soap and water Cover with Vaseline for 2 weeks Secure with a band aid Wear compression stockings as previously prescribed. Follow with vascular as scheduled Patient instructed in dehisced surgical wound care to left, inner, and calf. Short term goal: medical compliance custodial goal: wound closure Patient verbalize ability to perform wound care. Follow up in wound clinic PRN Instructed to contact wound clinic, PCP or ER should symptoms worsen. The patient was taught to watch for S/S of infection (redness, pus, pain, increased swelling, chills or fever) and to call the PCP or wound care clinic if such occurs. The patient was educated on offloading the area by avoiding direct pressure to the wound bed. Education as well as the pathophysiology of the disease process was provided on infection, edema, necrotic tissue and its relationship to nonhealing wounds. Education was also provided on treatment plan. Patient verbalized understanding. Total time spent was 15 minutes: Preparing to see the patient (e.g., review of tests) Obtaining and/or reviewing separately obtained history Performing a medically appropriate examination and/or evaluation Counseling and educating the patient/family/caregiver Ordering medications, tests, or procedures Documenting clinical information in the electronic or other health record - STU MCINTYRE 11/06/23 2:56 PM Juanis Raza APRN, RADHA, CWS, LUIS Lopez [facility]: [phone] STU Mcintyre 10/09/23 0249 STU Mcintyre 10/23/23 7851 STU Mcintyre 11/09/23 [id number] documented in this encounter [facility] 11-06-2023 Instructions Tina Clifton RN - 11/06/2023 2:20 PM EST PLEASE CALL YOUR VASCULAR DOCTOR ON 10/26/2023, SO YOU CAN GET THE TESTING ORDERED THAT THEY WANT YOU TO HAVE DONE. Vascular Test scheduled 11/11/2023 Wound Management Treatment Plan Silver nitrate used 10/09/23 Wound Location(s): Left medial calf: healed today. HOW TO CARE FOR YOUR WOUND The following should be performed daily and as needed. APPLY VASELINE ALONG INCISION LINE For the next two weeks until wound is completely healed. STEP 1: Cleanse wound with Soap and water, rinse well, and pat dry. STEP 2: Apply vaseline to wound bed STEP 3: Apply a band aid or may wrap in roll gauze. Tissue is fragile. Pad and protect. STEP 4: Secure with tubi offensive coordinator. From the toes to just below the knees. Once the wound is completely resolved may begin wearing your compression Stockings. Apply in the morning and may remove at night. ACTIVITY: Avoid direct pressure to wound(s) at all times NUTRITION: High protein diet SKIN CARE: Moisturize all dry and intact skin SWELLING CONTROL: Elevate legs whenever sitting to level of heart/hips or higher. ITEMS TO FOLLOW UP ON: Call the wound care clinic if any further concerns related to wound care. Continue to Follow up with Vascular Physician and tests ordered. Length Width Depth Wound 09/11/23 1 Calf Left Medial-Wound Length (cm): 0 cm Wound 09/11/23 1 Calf Left Medial-Wound Width (cm): 0 cm Wound 09/11/23 1 Calf Left Medial-Wound Depth (cm): 0 cm Wound drainage Type Description none none none documented in this encounter [facility] 10-23-2023 History of Presen t illness Narrative Images from the original note were not included. Wound Care Progress Note Patient: Becki Alarcon Date of : 1950 Chief Compliant: Dehisced surgical wounds, follow up SUBJECTIVE/HPI: Becki is a 73 y.o. male who presents to [facility] for evaluation of ulcer(s) on the left medial lower calf. Patient established with wound clinic on 09/11/2023. Current daily wound care includes : adaptic, changing once a day. Patient reports wearing compression stockings for history of DVT's. Not wearing compression stockings today in wound clinic. Patient had arterial bypass surgery 05/18/2023 at [facility] by . Patient reports after sutures were removed he developed bleeding from the surgical site. He was evaluated in the local emergency room 08/06/2023. Patient is taking Eliquis. Reports he went 1 week without Eliquis due to refill difficulties. He currently is taking Eliquis B.I.D as prescribed. Measurable wound changes: decrease wound measurements, 1.8 decrease in left calf circumference Patient accompanied by: Self, ambulatory Nutritional screen shows patient does take in three servings of protein per day. Patient does deny fever, chills, sweats, or other signs of infection. Prescribed antibiotics: none Today's reported Blood Sugar:does not check Tobacco use: cigarette smoking 6 per day Contributing comorbid conditions:PAD,charcot deformity Patient Active Problem List Diagnosis Charcot's joint of foot, left Acquired keratoderma Current smoker Diabetes mellitus due to underlying condition with diabetic polyneuropathy ([facility]) Diabetic peripheral neuropathy ([facility]) Elevated PSA Ischemia Neuropathy PAD (peripheral artery disease) ([facility]) Primary osteoarthritis of left foot Prostate cancer ([facility]) Rheumatoid factor positive Rupture of operation wound Past Medical History: Diagnosis Date Arthritis Hypertension Rheumatoid arthritis ([facility]) Past Surgical History: Procedure Laterality Date ARTERIAL BYPASS SURGERY Left Medial Current Outpatient Medications Medication Sig Dispense Refill amlodipine besylate/valsartan (AMLODIPINE-VALSARTAN ORAL) Take by mouth daily. apixaban (ELIQUIS) 5 mg tablet Take by mouth 2 (two) times a day. aspirin 81 mg chewable tablet Chew 1 tablet (81 mg total) and swallow nightly. folic acid (FOLVITE) 1 mg tablet Take 1 tablet (1 mg total) by mouth in the morning. hydroxychloroquine (PLAQUENIL) 200 mg tablet Take by mouth daily. methotrexate 2.5 mg chemo tablet Take 6 tablets by mouth once a week valsartan (DIOVAN) 80 mg tablet Take 0.5 tablets (40 mg total) by mouth in the morning. No current facility-administered medications for this visit. Allergies Allergen Reactions Leflunomide Other (See Comments) The following portions of the patient's history were reviewed and updated as appropriate: allergies, current medications, past family history, past medical history, past social history, past surgical history, problem list, and medication reconciliation was completed including current medication and post discharge medication. Pain Scale:denies Pain Scale 0/10: 0 Review of Systems Constitutional: Negative. Negative for activity change, appetite change and fever. HENT: Negative. Negative for trouble swallowing. Eyes: Positive for visual disturbance. Respiratory: Negative. Negative for cough, shortness of breath and wheezing. Cardiovascular: Positive for leg swelling. Negative for chest pain and palpitations. Gastrointestinal: Negative. Negative for abdominal distention, nausea and vomiting. Genitourinary: Negative. Negative for dysuria, frequency and urgency. Musculoskeletal: Positive for arthralgias. Negative for neck stiffness. Skin: Positive for color change and wound. Neurological: Negative. Negative for dizziness, numbness and headaches. Objective: Vitals: 10/23/23 1359 BP: 135/78 Pulse: 92 Resp: 16 Temp: 36.6 C (97.8 F) Physical Exam Vitals and nursing note reviewed. Constitutional: Appearance: He is well-developed. HENT: Head: Normocephalic and atraumatic. Cardiovascular: Rate and Rhythm: Normal rate and regular rhythm. Pulses: Dorsalis pedis pulses are detected w/ Doppler on the left side. Posterior tibial pulses are detected w/ Doppler on the left side. Heart sounds: Normal heart sounds. No murmur heard. No gallop. Comments: Left DP/PT Doppler signals difficult to locate, weak Left leg with hemosiderin staining, diminished hair growth, warm, soft pitting edema around ankle Pulmonary: Effort: Pulmonary effort is normal. Breath sounds: Normal breath sounds. No wheezing or rales. Abdominal: General: Bowel sounds are normal. Palpations: Abdomen is soft. Musculoskeletal: General: Normal range of motion. Cervical back: Normal range of motion. Left foot: Charcot foot present. Skin: General: Skin is warm and dry. Neurological: Mental Status: He is alert and oriented to person, place, and time. Wound Assessment Wound 09/11/23 1 Calf Left Medial (Active) Wound Image 10/23/231402 Site Assessment Red 10/23/231402 Kaya-wound Assessment [place];Intact 10/23/231402 Wound Length (cm) 2.2 cm 10/23/231402 Wound Width (cm) 0.6 cm 10/23/231402 Wound Surface Area (cm^2) 1.32 cm^2 10/23/231402 Wound Depth (cm) 0.1 cm 10/23/231402 Wound Volume (cm^3) 0.132 cm^3 10/23/231402 Change in Wound Size % 67.49 10/23/231402 Drainage Description Yellow;Serous 10/23/231402 Drainage Amount Small 10/23/231402 Treatments Cleansed with;Soak with;Vashe/Hypochlorous Acid 10/23/231402 Debridement Performed? Y 10/23/231402 Type of Debridement Other (Comment) 10/23/231402 Dressing Type Vaseline gauze;Gauze Rolled/Kerlix 10/23/231402 Dressing Changed Changed 10/23/231402 Dressing Status Clean;Dry;Intact 10/23/231402 Wound Bed Granulation (%) 100% 10/23/231402 Discussion:Risks, benefits and alternatives were discussed with the patient. We discussed possible complications, including infection and bleeding. Written consent was obtained prior to the procedure. Timeout procedure completed. Procedure: Debridement/Procedure Level: Removal of devitalized tissue, nonviable tissue and/or infection. Chemical cautery of hypergranulation tissue Instrument Used: One silver nitrate stick Anesthesia EMLA Bleeding: None Bleeding Control: None Added Pain Control: None Specimen Taken: None Patient tolerates well. Assessment/Plan/Education: 1. Dehiscence of operative wound, initial encounter Wash mild soap and water Cover with adaptic Secure with roll gauze Wear compression stockings as previously prescribed. Change dressing every day . Follow with vascular as scheduled Patient instructed in dehisced surgical wound care to left, inner, and calf. 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 Follow up in wound clinic in 2 weeks Instructed to contact wound clinic, PCP or ER should symptoms worsen. The patient was taught to watch for S/S of infection (redness, pus, pain, increased swelling, chills or fever) and to call the PCP or wound care clinic if such occurs. The patient was educated on offloading the area by avoiding direct pressure to the wound bed. Education as well as the pathophysiology of the disease process was provided on infection, edema, necrotic tissue and its relationship to nonhealing wounds. Education was also provided on treatment plan. Patient verbalized understanding. Total time spent was 19 minutes: Preparing to see the patient (e.g., review of tests) Obtaining and/or reviewing separately obtained history Performing a medically appropriate examination and/or evaluation Counseling and educating the patient/family/caregiver Ordering medications, tests, or procedures Documenting clinical information in the electronic or other health record - STU MCINTYRE 10/23/23 2:29 PM Juanis Raza APRN, RDAHA, MOIZ, LUIS Lopez [facility]: [phone] STU Mcintyre 10/09/23 4449 SUT Mcintyre 10/23/23 9341 documented in this encounter [facility] 10-23-2023 Instructions Galilea Herman RN - 10/23/2023 2:00 PM EST PLEASE CALL YOUR VASCULAR DOCTOR ON 10/26/2023, SO YOU CAN GET THE TESTING ORDERED THAT THEY WANT YOU TO HAVE DONE. Wound Management Treatment Plan Silver nitrate used 10/09/23 Wound Location(s): Left medial calf HOW TO CARE FOR YOUR WOUND The following should be performed Every other day and as needed. APPLY VASELINE ALONG INCISION LINE STEP 1: Cleanse wound with Soap and water, rinse well, and pat dry. STEP 2: Apply adaptic to wound bed STEP 3: Wrap leg with roll gauze STEP 4: Secure with tubi offensive coordinator ACTIVITY: Avoid direct pressure to wound(s) at all times NUTRITION: High protein diet SKIN CARE: Moisturize all dry and intact skin SWELLING CONTROL: Elevate legs whenever sitting to level of heart/hips or higher. ITEMS TO FOLLOW UP ON: Length Width Depth Wound 09/11/23 1 Calf Left Medial-Wound Length (cm): 2.2 cm Wound 09/11/23 1 Calf Left Medial-Wound Width (cm): 0.6 cm Wound 09/11/23 1 Calf Left Medial-Wound Depth (cm): 0.1 cm Wound drainage Type Description none none none documented in this encounter [facility] 10-12-2023 Hospital Discharg e instructions Patient Education 10/12/2023 15:32:46 Prostate Cancer Screening Prostate Cancer Screening Prostate cancer screening is testing that is done to check for the presence of prostate cancer in men. The prostate gland is a walnut-sized gland that is located below the bladder and in front of the rectum in males. The function of the prostate is to add fluid to semen during ejaculation. Prostate cancer is one of the most common types of cancer in men. Who should have prostate cancer screening? Screening recommendations vary based on age and other risk factors, as well as between the professional organizations who make the recommendations. In general, screening is recommended if: You are age 50 to 70 and have an average risk for prostate cancer. You should talk with your health care provider about your need for screening and how often screening should be done. Because most prostate cancers are slow growing and will not cause , screening in this age group is generally reserved for men who have a 10- to 15-year life expectancy. You are younger than age 50, and you have these risk factors: ?Having a father, brother, or uncle who has been diagnosed with prostate cancer. The risk is higher if your family member's cancer occurred at an early age or if you have multiple family members with prostate cancer at an early age. ?Being a male who is Black or is of [place] or sub-Saharan descent. In general, screening is not recommended if: You are younger than age 40. You are between the ages of 40 and 49 and you have no risk factors. You are 70 years of age or older. At this age, the risks that screening can cause are greater than the benefits that it may provide. If you are at high risk for prostate cancer, your health care provider may recommend that you have screenings more often or that you start screening at a younger age. How is screening for prostate cancer done? The recommended prostate cancer screening test is a blood test called the prostate-specific antigen (PSA) test. PSA is a protein that is made in the prostate. As you age, your prostate naturally produces more PSA. Abnormally high PSA levels may be caused by: Prostate cancer. An enlarged prostate that is not caused by cancer (benign prostatic hyperplasia, or BPH). This condition is very common in older men. A prostate gland infection (prostatitis) or urinary tract infection. Certain medicines such as male hormones (like testosterone) or other medicines that raise testosterone levels. A rectal exam may be done as part of prostate cancer screening to help provide information about the size of your prostate gland. When a rectal exam is performed, it should be done after the PSA level is drawn to avoid any effect on the results. Depending on the PSA results, you may need more tests, such as: A physical exam to check the size of your prostate gland, if not done as part of screening. Blood and imaging tests. A procedure to remove tissue samples from your prostate gland for testing (biopsy). This is the only way to know for certain if you have prostate cancer. What are the benefits of prostate cancer screening? Screening can help to identify cancer at an early stage, before symptoms start and when the cancer can be treated more easily. There is a small chance that screening may lower your risk of dying from prostate cancer. The chance is small because prostate cancer is a slow-growing cancer, and most men with prostate cancer from a different cause. What are the risks of prostate cancer screening? The main risk of prostate cancer screening is diagnosing and treating prostate cancer that would never have caused any symptoms or problems. This is called overdiagnosisand overtreatment. PSA screening cannot tell you if your PSA is high due to cancer or a different cause. A prostate biopsy is the only procedure to diagnose prostate cancer. Even the results of a biopsy may not tell you if your cancer needs to be treated. Slow-growing prostate cancer may not need any treatment other than monitoring, so diagnosing and treating it may cause unnecessary stress or other side effects. Questions to ask your health care provider When should I start prostate cancer screening? What is my risk for prostate cancer? How often do I need screening? What type of screening tests do I need? How do I get my test results? What do my results mean? Do I need treatment? Where to find more information The [place] [employer]: www.cancer.org [place] [employer]: www.auanet.org Contact a health care provider if: You have difficulty urinating. You have pain when you urinate or ejaculate. You have blood in your urine or semen. You have pain in your back or in the area of your prostate. Summary Prostate cancer is a common type of cancer in men. The prostate gland is located below the bladder and in front of the rectum. This gland adds fluid to semen during ejaculation. Prostate cancer screening may identify cancer at an early stage, when the cancer can be treated more easily and is less likely to have spread to other areas of the body. The prostate-specific antigen (PSA) test is the recommended screening test for prostate cancer, but it has associated risks. Discuss the risks and benefits of prostate cancer screening with your health care provider. If you are age 70 or older, the risks that screening can cause are greater than the benefits that it may provide. This information is not intended to replace advice given to you by your health care provider. Make sure you discuss any questions you have with your health care provider. Document Revised: 02/17/2022 Document Reviewed: 02/17/2022 [employer] Patient Education 2022 [employer]. Follow Up Care 08/10/2023 13:42:07 With:CLAIR CARRION, Riky Rosenbaum, URL Address: [facility] [address], [place] [address] [phone] When: Unknown Comments:6 mos w/ PSA [facility] 10-02-2023 Miscellaneous Notes Title Camera Operator called patient to inquire about moving appointment time to the morning due to schedule conflict. Provided call back number for [facility]. documented in this encounter [facility] 10-02-2023 Telephone encounter Note Title Camera Operator called patient to inquire about moving appointment time to the morning due to schedule conflict. Provided call back number for [facility]. [facility] 09-23-2023 History of Presen t illness Narrative Images from the original note were not included. Wound Care Progress Note Patient: Becki Alarcon Date of : 1950 Chief Compliant: Dehisced surgical wounds, follow up SUBJECTIVE/HPI: Becki is a 73 y.o. male who presents to [facility] for evaluation of ulcer(s) on the left medial lower calf. Patient established with wound clinic on 09/11/2023. Current daily wound care includes : Alginate, changing every other day. Patient reports wearing compression stockings for history of DVT's. Patient had arterial bypass surgery 05/18/2023 at [facility] by . Patient reports after sutures were removed he developed bleeding from the surgical site. He was evaluated in the local emergency room 08/06/2023. Patient is taking Eliquis. Reports he went 1 week without Eliquis due to refill difficulties. He currently is taking Eliquis B.I.D as prescribed. Measurable wound changes: decrease in wound measurements, 0.5 increase in left calf circumference Patient accompanied by: Self, ambulatory Nutritional screen shows patient does take in three servings of protein per day. Patient does deny fever, chills, sweats, or other signs of infection. Prescribed antibiotics: none Today's reported Blood Sugar:does not check Tobacco use: cigarette smoking 6 per day Contributing comorbid conditions:PAD,charcot deformity Past Surgical History: Procedure Laterality Date ARTERIAL BYPASS SURGERY Left Medial Patient Active Problem List Diagnosis Charcot's joint of foot, left Acquired keratoderma Current smoker Diabetes mellitus due to underlying condition with diabetic polyneuropathy ([facility]) Diabetic peripheral neuropathy ([facility] Elevated PSA Ischemia Neuropathy PAD (peripheral artery disease) ([facility]) Primary osteoarthritis of left foot Prostate cancer ([facility]) Rheumatoid factor positive Rupture of operation wound Current Outpatient Medications Medication Sig Dispense Refill amlodipine besylate/valsartan (AMLODIPINE-VALSARTAN ORAL) Take by mouth daily. apixaban (ELIQUIS) 5 mg tablet Take by mouth 2 (two) times a day. aspirin 81 mg chewable tablet Chew 1 tablet (81 mg total) and swallow nightly. folic acid (FOLVITE) 1 mg tablet Take 1 tablet (1 mg total) by mouth in the morning. hydroxychloroquine (PLAQUENIL) 200 mg tablet Take by mouth daily. methotrexate 2.5 mg chemo tablet Take 6 tablets by mouth once a week valsartan (DIOVAN) 80 mg tablet Take 0.5 tablets (40 mg total) by mouth in the morning. No current facility-administered medications for this visit. Allergies Allergen Reactions Leflunomide Other (See Comments) The following portions of the patient's history were reviewed and updated as appropriate: allergies, current medications, past family history, past medical history, past social history, past surgical history, problem list, and medication reconciliation was completed including current medication and post discharge medication. Pain Scale:denies Review of Systems Constitutional: Negative. Negative for activity change, appetite change and fever. HENT: Negative. Negative for trouble swallowing. Eyes: Positive for visual disturbance. Respiratory: Negative. Negative for cough, shortness of breath and wheezing. Cardiovascular: Positive for leg swelling. Negative for chest pain and palpitations. Gastrointestinal: Negative. Negative for abdominal distention, nausea and vomiting. Genitourinary: Negative. Negative for dysuria, frequency and urgency. Musculoskeletal: Positive for arthralgias. Negative for neck stiffness. Skin: Positive for color change and wound. Neurological: Negative. Negative for dizziness, numbness and headaches. Objective: Vitals: 09/23/23 1325 BP: 120/75 Pulse: 95 Resp: 16 Temp: 36.6 C (97.8 F) Physical Exam Vitals and nursing note reviewed. Constitutional: Appearance: He is well-developed. HENT: Head: Normocephalic and atraumatic. Cardiovascular: Rate and Rhythm: Normal rate and regular rhythm. Pulses: Dorsalis pedis pulses are detected w/ Doppler on the left side. Posterior tibial pulses are detected w/ Doppler on the left side. Heart sounds: Normal heart sounds. No murmur heard. No gallop. Comments: Left DP/PT Doppler signals difficult to locate, weak Left leg with hemosiderin staining, diminished hair growth, warm, soft pitting edema around ankle Pulmonary: Effort: Pulmonary effort is normal. Breath sounds: Normal breath sounds. No wheezing or rales. Abdominal: General: Bowel sounds are normal. Palpations: Abdomen is soft. Musculoskeletal: General: Normal range of motion. Cervical back: Normal range of motion. Left foot: Charcot foot present. Skin: General: Skin is warm and dry. Neurological: Mental Status: He is alert and oriented to person, place, and time. Wound Assessment Wound 09/11/23 1 Calf Left Medial (Active) Wound Image Pre debridement 09/23/23 1300 Site Assessment Moist;Red;Yellow 09/23/23 1300 Kaya-wound Assessment Blanchable erythema;White;[place] 09/23/23 1300 Wound Length (cm) 2.4 cm 09/23/23 1343 Wound Width (cm) 1 cm 09/23/23 1343 Wound Surface Area (cm^2) 2.4 cm^2 09/23/23 1343 Wound Depth (cm) 0.3 cm 09/23/23 134 Wound Volume (cm^3) 0.72 cm^3 09/23/23 134 Change in Wound Size % 40.89 09/23/23 134 Drainage Description Serosanguineous;Yellow 09/23/23 1300 Drainage Amount Small 09/23/23 1300 Treatments Cleansed with;Wound cleanser 09/23/23 1300 Debridement Performed? Y 09/23/23 134 Type of Debridement Sharp to Subcutaneous 09/23/23 134 Debridement Area (cm^2) 2.4 cm^2 09/23/23 1300 Dressing Type Alginate;Gauze Rolled/Kerlix 09/23/231342 Dressing Changed Changed 09/23/23 134 Dressing Status Clean;Intact;Dry 09/23/23 134 Wound Bed Granulation (%) 50% to 75% 09/23/23 1300 Wound Bed Slough (%) 25% to 50% 09/23/23 1300 Discussion:Risks, benefits and alternatives were discussed with the patient. We discussed possible complications, including infection and bleeding. Written consent was obtained prior to the procedure. Timeout procedure completed. Procedure: Debridement/Procedure Level: Removal of devitalized tissue, nonviable tissue and/or infection. Sub-q/Tissue Instrument Used: Curette Anesthesia EMLA Bleeding: Small Bleeding Control: Pressure Added Pain Control: None Specimen Taken: None Total Surface Area of Debridement: 2.4 cm2 Patient tolerates well. Assessment/Plan/Education: 1. Dehiscence of operative wound, initial encounter Wash mild soap and water Alginate, cut to fit Secure with roll gauze Wear compression stockings as previously prescribed. Change dressing every day to other day. Patient instructed in dehisced surgical wound care to left, inner, and calf. 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 Follow up in wound clinic in 2 weeks Instructed to contact wound clinic, PCP or ER should symptoms worsen. The patient was taught to watch for S/S of infection (redness, pus, pain, increased swelling, chills or fever) and to call the PCP or wound care clinic if such occurs. The patient was educated on offloading the area by avoiding direct pressure to the wound bed. Education as well as the pathophysiology of the disease process was provided on infection, edema, necrotic tissue and its relationship to nonhealing wounds. Education was also provided on treatment plan. Patient verbalized understanding. Total time spent was 19 minutes: Preparing to see the patient (e.g., review of tests) Obtaining and/or reviewing separately obtained history Performing a medically appropriate examination and/or evaluation Counseling and educating the patient/family/caregiver Ordering medications, tests, or procedures Documenting clinical information in the electronic or other health record - STU MCINTYRE 09/23/23 1:29 PM Juanis Raza APRN, RADHA, CWS, LUIS [facility]: [phone] STU Mcintyre 09/23/23 1401 documented in this encounter [facility] 09-23-2023 Instructions Luann Alves RN - 09/23/2023 1:20 PM EST Wound Management Treatment Plan Wound Location(s): Left medial calf HOW TO CARE FOR YOUR WOUND The following should be performed Every other day and as needed. APPLY VASELINE ALONG INCISION LINE STEP 1: Cleanse wound with Soap and water, rinse well, and pat dry. STEP 2: Apply alginate (cut to fit) in wound bed STEP 3: Wrap leg with roll gauze over alginate (no tape on skin) STEP 4: Secure with tubi offensive coordinator ACTIVITY: Avoid direct pressure to wound(s) at all times NUTRITION: High protein diet SKIN CARE: Moisturize all dry and intact skin SWELLING CONTROL: Elevate legs whenever sitting to level of heart/hips or higher. ITEMS TO FOLLOW UP ON: Length Width Depth Wound 09/11/23 1 Calf Left Medial-Wound Length (cm): 2.4 cm Wound 09/11/23 1 Calf Left Medial-Wound Width (cm): 1 cm Wound 09/11/23 1 Calf Left Medial-Wound Depth (cm): 0.3 cm Wound drainage Type Description small Serosanginous Yellow/bliss documented in this encounter [facility] 09-22-2023 Note [id number] [facility] 09-11-2023 History of Presen t illness Narrative Images from the original note were not included. Wound Care Progress Note Patient: Becki Alarcon Date of : 1950 Chief Compliant: Dehisced surgical wounds New patient evaluation SUBJECTIVE/HPI: Becki is a 73 y.o. male who presents to [facility] for evaluation of ulcer(s) on the left medial lower calf. Patient established with wound clinic on 09/11/2023. Current daily wound care includes : Alginate, changing every other day. Patient reports wearing compression stockings for history of DVT's. Patient had arterial bypass surgery 05/18/2023 at [facility] by . Patient reports after sutures were removed he developed bleeding from the surgical site. He was evaluated in the local emergency room 08/06/2023. Patient is taking Eliquis. Reports he went 1 week without Eliquis due to refill difficulties. He currently is taking Eliquis B.I.D as prescribed. Measurable wound changes: New evaluation Patient accompanied by: Self, ambulatory Nutritional screen shows patient does take in three servings of protein per day. Patient does deny fever, chills, sweats, or other signs of infection. Prescribed antibiotics: none Today's reported Blood Sugar:does not check Tobacco use: cigarette smoking 6 per day Contributing comorbid conditions:PAD,charcot deformity Patient Active Problem List Diagnosis Charcot's joint of foot, left Acquired keratoderma Current smoker Diabetes mellitus due to underlying condition with diabetic polyneuropathy ([facility]) Diabetic peripheral neuropathy ([facility]) Elevated PSA Ischemia Neuropathy PAD (peripheral artery disease) ([facility]) Primary osteoarthritis of left foot Prostate cancer ([facility]) Rheumatoid factor positive Rupture of operation wound Current Outpatient Medications Medication Sig Dispense Refill amlodipine besylate/valsartan (AMLODIPINE-VALSARTAN ORAL) Take by mouth daily. apixaban (ELIQUIS) 5 mg tablet Take by mouth 2 (two) times a day. aspirin 81 mg chewable tablet Chew 1 tablet (81 mg total) and swallow nightly. folic acid (FOLVITE) 1 mg tablet Take 1 tablet (1 mg total) by mouth in the morning. hydroxychloroquine (PLAQUENIL) 200 mg tablet Take by mouth daily. methotrexate 2.5 mg chemo tablet Take 6 tablets by mouth once a week valsartan (DIOVAN) 80 mg tablet Take 0.5 tablets (40 mg total) by mouth in the morning. No current facility-administered medications for this visit. Allergies Allergen Reactions Leflunomide Other (See Comments) The following portions of the patient's history were reviewed and updated as appropriate: allergies, current medications, past family history, past medical history, past social history, past surgical history, problem list, and medication reconciliation was completed including current medication and post discharge medication. Pain Scale: Pain Scale 0/10: 0 Review of Systems Constitutional: Negative. Negative for activity change, appetite change and fever. HENT: Negative. Negative for trouble swallowing. Eyes: Positive for visual disturbance. Respiratory: Negative. Negative for cough, shortness of breath and wheezing. Cardiovascular: Positive for leg swelling. Negative for chest pain and palpitations. Gastrointestinal: Negative. Negative for abdominal distention, nausea and vomiting. Genitourinary: Negative. Negative for dysuria, frequency and urgency. Musculoskeletal: Positive for arthralgias. Negative for neck stiffness. Skin: Positive for color change and wound. Neurological: Negative. Negative for dizziness, numbness and headaches. Objective: Vitals: 09/11/23 1059 BP: (!) 128/99 Pulse: 92 Resp: 16 Temp: 36.6 C (97.8 F) Physical Exam Vitals and nursing note reviewed. Constitutional: Appearance: He is well-developed. HENT: Head: Normocephalic and atraumatic. Cardiovascular: Rate and Rhythm: Normal rate and regular rhythm. Pulses: Dorsalis pedis pulses are detected w/ Doppler on the left side. Posterior tibial pulses are detected w/ Doppler on the left side. Heart sounds: Normal heart sounds. No murmur heard. No gallop. Comments: Left DP/PT Doppler signals difficult to locate, weak Left leg with hemosiderin staining, diminished hair growth, warm, soft pitting edema around ankle Pulmonary: Effort: Pulmonary effort is normal. Breath sounds: Normal breath sounds. No wheezing or rales. Abdominal: General: Bowel sounds are normal. Palpations: Abdomen is soft. Musculoskeletal: General: Normal range of motion. Cervical back: Normal range of motion. Left foot: Charcot foot present. Skin: General: Skin is warm and dry. Neurological: Mental Status: He is alert and oriented to person, place, and time. Wound Assessment Wound 09/11/23 1 Calf Left Medial (Active) Wound Image 09/11/23 1057 Site Assessment Moist;Yellow;Red 09/11/23 1057 Kaya-wound Assessment Blanchable erythema;White;Intact;[place] 09/11/23 1057 Wound Length (cm) 2.9 cm 09/11/23 1057 Wound Width (cm) 1.4 cm 09/11/23 1057 Wound Surface Area (cm^2) 4.06 cm^2 09/11/23 1057 Wound Depth (cm) 0.3 cm 09/11/23 1057 Wound Volume (cm^3) 1.218 cm^3 09/11/23 1057 Drainage Description Serosanguineous;Yellow;Bliss 09/11/23 1057 Drainage Amount Small 09/11/23 1057 Treatments Cleansed with;Wound cleanser 09/11/23 1057 Debridement Performed? N 09/11/23 1123 Dressing Type Alginate;Gauze Rolled/Kerlix 09/11/23 1123 Dressing Changed Changed 09/11/23 1123 Dressing Status Clean;Dry;Intact 09/11/23 1123 Wound Bed Granulation (%) 50% to 75% 09/11/23 1057 Wound Bed Slough (%) 25% to 50% 09/11/23 1057 Assessment/Plan/Education: 1. Dehiscence of operative wound, initial encounter Wash mild soap and water Alginate, cut to fit Secure with roll gauze Wear compression stockings as previously prescribed. Change dressing every other day. Patient instructed in dehisced surgical wound care to left, inner, and calf. Short term goal: medical compliance custodial goal: wound closure Patient verbalize ability to perform wound care. Follow up in wound clinic in 2 weeks Instructed to contact wound clinic, PCP or ER should symptoms worsen. The patient was taught to watch for S/S of infection (redness, pus, pain, increased swelling, chills or fever) and to call the PCP or wound care clinic if such occurs. The patient was educated on offloading the area by avoiding direct pressure to the wound bed. Education as well as the pathophysiology of the disease process was provided on infection, edema, necrotic tissue and its relationship to nonhealing wounds. Education was also provided on treatment plan. Patient verbalized understanding. Total time spent was 23 minutes: Preparing to see the patient (e.g., review of tests) Obtaining and/or reviewing separately obtained history Performing a medically appropriate examination and/or evaluation Counseling and educating the patient/family/caregiver Ordering medications, tests, or procedures Documenting clinical information in the electronic or other health record - STU MCINTYRE 09/11/23 12:59 PM Juanis Raza APRN, RADHA, CWS, LUIS [facility]: [phone] STU Mcintyre 09/11/23 1300 documented in this encounter [facility] 09-11-2023 Instructions Luann Alves RN - 09/11/2023 10:40 AM EST Wound Management Treatment Plan Wound Location(s): Left medial calf HOW TO CARE FOR YOUR WOUND The following should be performed Every other day and as needed. APPLY VASELINE ALONG INCISION LINE STEP 1: Cleanse wound with Soap and water, rinse well, and pat dry. STEP 2: Apply alginate (cut to fit) in wound bed STEP 3: Wrap leg with roll gauze over alginate (no tape on skin) STEP 4: Secure with tubi offensive coordinator ACTIVITY: Avoid direct pressure to wound(s) at all times NUTRITION: High protein diet SKIN CARE: Moisturize all dry and intact skin SWELLING CONTROL: Elevate legs whenever sitting to level of heart/hips or higher. ITEMS TO FOLLOW UP ON: Length Width Depth Wound 09/11/23 1 Calf Left Medial-Wound Length (cm): 2.9 cm Wound 09/11/23 1 Calf Left Medial-Wound Width (cm): 1.4 cm Wound 09/11/23 1 Calf Left Medial-Wound Depth (cm): 0.3 cm Wound drainage Type Description small Serosanginous Yellow/bliss documented in this encounter [facility] 09-10-2023 Hospital Discharg e instructions Follow Up Care 09/10/2023 08:24:09 With:Riky SELF Address: [facility] [address], [place] [address]- Business (1) When: Unknown Comments:Keep scheduled appointment [facility] 08-10-2023 Hospital Discharg e instructions Patient Education 08/10/2023 13:32:36 Transrectal Ultrasound-Guided Prostate Biopsy, Care After Transrectal Ultrasound-Guided Prostate Biopsy, Care After The following information offers guidance on how to care for yourself after your procedure. Your health care provider may also give you more specific instructions. If you have problems or questions, contact your health care provider. What can I expect after the procedure? After the procedure, it is common to have: Pain and discomfort near your rectum, especially while sitting. [place]-colored urine due to small amounts of blood in your urine. A burning feeling while urinating. Blood in your stool (feces) or bleeding from your rectum. Blood in your semen. Follow these instructions at home: Medicines Take eack-kqg-kohuzcj and prescription medicines only as told by your health care provider. If you were given a sedative during your procedure, it can affect you for several hours. Do not drive or operate machinery until your health care provider says that it is safe. If you were prescribed an antibiotic medicine, take it as told by your health care provider. Do not stop using the antibiotic even if you start to feel better. Activity Return to your normal activities as told by your health care provider. Ask your health care provider what activities are safe for you. Ask your health care provider when it is okay for you to resume sexual activity. You may have to avoid lifting. Ask your health care provider how much you can safely lift. General instructions Drink enough fluid to keep your urine pale yellow. Watch your urine, stool, and semen for new or increased bleeding. Keep all follow-up visits. This is important. Contact a health care provider if: You have any of the following: ?Blood clots in your urine or stool. ?Blood in your urine more than 2 weeks after the procedure. ?Blood in your semen more than 2 months after the procedure. ?New or increased bleeding in your urine, stool, or semen. ?Severe pain in your abdomen. Your urine smells bad or unusual. You have trouble urinating. Your lower abdomen feels firm. You have problems getting an erection. You have nausea or you vomit. Get help right away if: You have a fever or chills. This could be a sign of infection. You have bright red urine. You have severe pain that does not get better with medicine. You cannot urinate. Summary After this procedure, it is common to have pain and discomfort around your rectum, especially while sitting. You may have blood in your urine and stool after the procedure. It is common to have blood in your semen after this procedure. Get help right away if you have a fever or chills. This could be a sign of infection. This information is not intended to replace advice given to you by your health care provider. Make sure you discuss any questions you have with your health care provider. Document Revised: 02/17/2022 Document Reviewed: 02/17/2022 [employer] Patient Education 2022 [employer] 08/10/2023 13:32:35 Transrectal Ultrasound-Guided Prostate Biopsy Transrectal Ultrasound-Guided Prostate Biopsy A transrectal ultrasound-guided prostate biopsy is a procedure to remove samples of prostate tissue for testing. The prostate is a walnut-sized gland that is located below the bladder and in front of the rectum. During this procedure, a small device (probe) is lubricated and put inside the rectum. The probe sends out sound waves that make a picture of the prostate and surrounding tissues (transrectal ultrasound). The images are used to help guide the process of removing the samples. The samples are taken to a lab to be checked for prostate cancer. This procedure is usually done to evaluate the prostate gland of men who have raised (elevated) levels of prostate-specific antigen (PSA), which can be a sign of prostate cancer or prostate enlargement related to aging (benign prostatic hyperplasia, or BPH). Tell a health care provider about: Any allergies you have. All medicines you are taking, including vitamins, herbs, eye drops, creams, and reid-fkn-tvfnjkp medicines. Any problems you or family members have had with anesthetic medicines. Any bleeding problems you have. Any surgeries you have had. Any medical conditions you have. Any prostate infections you have had. What are the risks? Generally, this is a safe procedure. However, problems may occur, including: Prostate infection. Bleeding from the rectum. Blood in the urine. Allergic reactions to medicines. Damage to surrounding structures such as blood vessels, organs, or muscles. Difficulty passing urine. Nerve damage. This is usually temporary. What happens before the procedure? Medicines Ask your health care provider about: Changing or stopping your regular medicines. This is especially important if you are taking diabetes medicines or blood thinners. Taking medicines such as aspirin and ibuprofen. These medicines can thin your blood. Do not take these medicines unless your health care provider tells you to take them. Taking fkyn-uxg-eilwfhd medicines, vitamins, herbs, and supplements. General instructions Follow instructions from your health care provider about eating and drinking. In most instances, you will not need to stop eating and drinking completely before the procedure. You will be given an enema. During an enema, a liquid is injected into your rectum to clear out waste. You may have a blood or urine sample taken. Ask your health care provider what steps will be taken to help prevent infection. These steps may include: ?Washing skin with a germ-killing soap. ?Taking antibiotic medicine. If you will be going home right after the procedure, plan to have a responsible adult: ?Take you home from the hospital or clinic. You will not be allowed to drive. ?Care for you for the time you are told. What happens during the procedure? An IV will be inserted into one of your veins. You will be given one or both of the following: ?A medicine to help you relax (sedative). ?A medicine to numb the area (local anesthetic). You will be placed on your left side, and your knees will be bent toward your chest. A probe with lubricated gel will be placed into your rectum, and images will be taken of your prostate and surrounding structures. Numbing medicine will be injected into your prostate. A biopsy needle will be inserted through your rectum or perineum and guided to your prostate using the ultrasound images. Prostate tissue samples will be removed, and the needle and probe will then be removed. The biopsy samples will be sent to a lab to be tested. The procedure may vary among health care providers and hospitals. What happens after the procedure? Your blood pressure, heart rate, breathing rate, and blood oxygen level will be monitored until you leave the hospital or clinic. You may have some discomfort in the rectal area. You will be given pain medicine as needed. If you were given a sedative during the procedure, it can affect you for several hours. Do not drive or operate machinery until your health care provider says that it is safe. It is up to you to get the results of your procedure. Ask your health care provider, or the department that is doing the procedure, when your results will be ready. Keep all follow-up visits. This is important. Summary A transrectal ultrasound-guided biopsy removes samples of tissue from your prostate using ultrasound-guided sound waves to help guide the process. This procedure is usually done to evaluate the prostate gland of men who have raised (elevated) levels of prostate-specific antigen (PSA), which can be a sign of prostate cancer or prostate enlargement related to aging. After your procedure, you may feel some discomfort in the rectal area. Plan to have a responsible adult take you home from the hospital or clinic, and follow up with your health care provider for your results. This information is not intended to replace advice given to you by your health care provider. Make sure you discuss any questions you have with your health care provider. Document Revised: 02/17/2022 Document Reviewed: 02/17/2022 [employer] Patient Education 2022 [employer]. Follow Up Care 12/15/2022 14:58:48 With:CLAIR CARRION, Riky Rosenbaum, URL Address: [facility] [address] , [place] [address]- [phone] When: Unknown Comments:sched repeat TRUS/bx [facility] 01-16-2023 Evaluation note Encounter Date Diagnosis Assessment Notes January, Cellulitis of toe of left foot (ICD-10 - L03.032) Cellulitis: adult home care material was printed Drink plenty fluids, get plenty of rest. Take the antibiotics as prescribed until gone. Soak your foot in warm soapy water 2-3 times a day. Follow-up with your plugger man, call today for an appointment to be seen next week [facility] Other 04-11-2023 Evaluation note* Encounter Date Diagnosis Assessment Notes Treatment Notes Treatment Clinical Notes Dec, Prostate cancer (ICD-10 - C61) [place] score 7, Group 2 Radiation therapy [employer] Other 04-10-2023 Hospital Discharge instructions Patient Education 12/15/2022 08:36:13 Prostate Cancer Prostate Cancer The prostate is a walnut-sized gland that is involved in the production of semen. It is located below a man's bladder, in front of the rectum. Prostate cancer is the abnormal growth of cells in the prostate gland. What are the causes? The exact cause of this condition is not known. What increases the risk? This condition is more likely to develop in men who: Are older than age 65. Are -[place]. Are obese. Have a family history of prostate cancer. Have a family history of breast cancer. What are the signs or symptoms? Symptoms of this condition include: A need to urinate often. Weak or interrupted flow of urine. Trouble starting or stopping urination. Inability to urinate. Pain or burning during urination. Painful ejaculation. Blood in urine or semen. Persistent pain or discomfort in the lower back, lower abdomen, hips, or upper thighs. Trouble getting an erection. Trouble emptying the bladder all the way. How is this diagnosed? This condition can be diagnosed with: A digital rectal exam. For this exam, a health care provider inserts a gloved finger into the rectum to feel the prostate gland. A blood test called a prostate-specific antigen (PSA) test. An imaging test called transrectal ultrasonography. A procedure in which a sample of tissue is taken from the prostate and examined under a microscope (prostate biopsy). Once the condition is diagnosed, tests will be done to determine how far the cancer has spread. This is called staging the cancer. Staging may involve imaging tests, such as: A bone scan. A CT scan. A PET scan. An MRI. The stages of prostate cancer are as follows: Stage I. At this stage, the cancer is found in the prostate only. The cancer is not visible on imaging tests and it is usually found by accident, such as during a prostate surgery. Stage II. At this stage, the cancer is more advanced than it is in stage I, but the cancer has not spread outside the prostate. Stage III. At this stage, the cancer has spread beyond the outer layer of the prostate to nearby tissues. The cancer may be found in the seminal vesicles, which are near the bladder and the prostate. Stage IV. At this stage, the cancer has spread other parts of the body, such as the lymph nodes, bones, bladder, rectum, liver, or lungs. How is this treated? Treatment for this condition depends on several factors, including the stage of the cancer, your age, personal preferences, and your overall health. Talk with your health care provider about treatment options that are recommended for you. Common treatments include: Observation for early stage prostate cancer (active surveillance). This involves having exams, blood tests, and in some cases, more biopsies. For some men, this is the only treatment needed. Surgery. Types of surgeries include: ?Open surgery. In this surgery, a larger incision is made to remove the prostate. ?A laparoscopic prostatectomy. This is a surgery to remove the prostate and lymph nodes through several, small incisions. It is often referred to as a minimally invasive surgery. ?A robotic prostatectomy. This is a surgery to remove the prostate and lymph nodes with the help ofa robotic arm that is controlled by a computer. ?Orchiectomy. This is a surgery to remove the testicles. ?Cryosurgery. This is a surgery to freeze and destroy cancer cells. Radiation treatment. Types of radiation treatment include: ?External beam radiation. This type aims beams of radiation from outside the body at the prostate to destroy cancerous cells. ?Brachytherapy. This type uses radioactive needles, seeds, wires, or tubes that are implanted into the prostate gland. Like external beam radiation, brachytherapy destroys cancerous cells. An advantage is that this type of radiation limits the damage to surrounding tissue and has fewer side effects. High-intensity, focused ultrasonography. This treatment destroys cancer cells by delivering high-energy ultrasound waves to the cancerous cells. Chemotherapy medicines. This treatment kills cancer cells or stops them from multiplying. Hormone treatment. This treatment involves taking medicines that act on one of the male hormones (testosterone): ?By stopping your body from producing testosterone. ?By blocking testosterone from reaching cancer cells. Follow these instructions at home: Take usqw-gyj-atfhpfr and prescription medicines only as told by your health care provider. Maintain a healthy diet. Get plenty of sleep. Consider joining a support group for men who have prostate cancer. Meeting with a support group mayhelp you learn to cope with the stress of having cancer. Keep all follow-up visits as told by your health care provider. This is important. If you have to go to the hospital, notify your cancer specialist (oncologist). Treatment for prostate cancer may affect sexual function. Continue to have intimate moments with your partner. This may include touching, holding, hugging, and caressing. Contact a health care provider if: You have trouble urinating. You have blood in your urine. You have pain in your hips, back, or chest. Get help right away if: You have weakness or numbness in your legs. You cannot control urination or your bowel movements (incontinence). You have trouble breathing. You have sudden chest pain. You have chills or a fever. Summary The prostate is a walnut-sized gland that is involved in the production of semen. It is located below a man's bladder, in front of the rectum. Prostate cancer is the abnormal growth of cells in the prostate gland. Treatment for this condition depends on several factors, including the stage of the cancer, your age, personal preferences, and your overall health. Talk with your health care provider about treatment options that are recommended for you. Consider joining a support group for men who have prostate cancer. Meeting with a support group mayhelp you learn to cope with the stress of having cancer. This information is not intended to replace advice given to you by your health care provider. Make sure you discuss any questions you have with your health care provider. Document Released: 08/24/2006 Document Revised: 08/06/2018 Document Reviewed: 05/04/2017 [employer] Patient Education 2020 [employer]. Follow Up Care 08/11/2022 10:29:18 With:CLAIR CARRION, Riky Rosenbaum, URL Address: [facility] [address] [place] [address]- When: Unknown [facility] 03-24-2023 Evaluation note* Encounter Date Diagnosis Assessment Notes Treatment Notes Treatment Clinical Notes Nov, Paronychia of toe of left foot (ICD-10 - L03.032) Warm soaks, cortisone along the nail bed. COntinue Keflex, decrease to bid. Add Doryx for MRSA coverage. If no improvement, refer to Podiatry for I&D Nov, Atherosclerosis of alutiiq artery of left lower extremity with intermittent claudication (ICD-10 - I70.212) Inspect feet daily for cuts and calluses. FENG if infection fails to clear Nov, Primary hypertension (ICD-10 - I10) This patient is instructed to consume a healthy, low-fat, low-salt diet. They are also encouraged to continue exercise to achieve/maintain a normal BMI. [employer] Other 03-21-2023 Evaluation note* Encounter Date Diagnosis Assessment Notes Treatment Notes Treatment Clinical Notes Nov, Cellulitis of toe of left foot (ICD-10 - L03.032) Discussed diagnosis with patient in detail. Instructed patient to take antibiotic as directed, complete entire course even if feeling better, take with food and plenty of water. Instructed close monitoring of wound. Area marked today in office. Wound care as discussed. Avoid use of ointments as it may prolong healing process. Follow up with PCP in the next 2-3 days. Immediate eval by ER if fever, chills, body aches, increase in swelling or redness, red streaking from wound, pain with ambulation, calf swelling, tenderness, redness warmth, SOB, difficulty breathing, chest pain, or any new or concerning symptoms. Patient verbalizes understanding and is agreeable to treatment plan. Nov, Other Cellulitis: tami lt home care material was printed [employer] Other 12-05-2022 Evaluation note* Diagnosis Onset Date Resolution Status Essential (primary) hypertension acute Malignant neoplasm of prostate August 11, 2022 acute Nicotine dependence acute Rheumatoid arthritis acute Venous insufficiency (chronic) (peripheral) acute Medicare annual wellness visit, subsequent noneactive Essential (primary) hypertension acute Malignant neoplasm of prostate August 11, 2022 acute Nicotine dependence acute Occlusion of femorotibial bypass graft acute Rheumatoid arthritis acute Venous insufficiency (chronic) (peripheral) acute [facility] Work Phone: 1(470) 984-925712-05-2022 Evaluation note* Diagnosis Onset Date Resolution Status Essential (primary) hypertension acute Malignant neoplasm of prostate August 11, 2022 acute Nicotine dependence acute Rheumatoid arthritis acute Venous insufficiency (chronic) (peripheral) [facility] Work Phone: 1(678) 254-841112-05-2022 Hospital Discharge instructions Patient Education 08/11/2022 10:12:32 Prostate Cancer Prostate Cancer The prostate is a walnut-sized gland that is involved in the production of semen. It is located below a man's bladder, in front of the rectum. Prostate cancer is the abnormal growth of cells in the prostate gland. What are the causes? The exact cause of this condition is not known. What increases the risk? This condition is more likely to develop in men who: Are older than age 65. Are -[place]. Are obese. Have a family history of prostate cancer. Have a family history of breast cancer. What are the signs or symptoms? Symptoms of this condition include: A need to urinate often. Weak or interrupted flow of urine. Trouble starting or stopping urination. Inability to urinate. Pain or burning during urination. Painful ejaculation. Blood in urine or semen. Persistent pain or discomfort in the lower back, lower abdomen, hips, or upper thighs. Trouble getting an erection. Trouble emptying the bladder all the way. How is this diagnosed? This condition can be diagnosed with: A digital rectal exam. For this exam, a health care provider inserts a gloved finger into the rectum to feel the prostate gland. A blood test called a prostate-specific antigen (PSA) test. An imaging test called transrectal ultrasonography. A procedure in which a sample of tissue is taken from the prostate and examined under a microscope (prostate biopsy). Once the condition is diagnosed, tests will be done to determine how far the cancer has spread. This is called staging the cancer. Staging may involve imaging tests, such as: A bone scan. A CT scan. A PET scan. An MRI. The stages of prostate cancer are as follows: Stage I. At this stage, the cancer is found in the prostate only. The cancer is not visible on imaging tests and it is usually found by accident, such as during a prostate surgery. Stage II. At this stage, the cancer is more advanced than it is in stage I, but the cancer has not spread outside the prostate. Stage III. At this stage, the cancer has spread beyond the outer layer of the prostate to nearby tissues. The cancer may be found in the seminal vesicles, which are near the bladder and the prostate. Stage IV. At this stage, the cancer has spread other parts of the body, such as the lymph nodes, bones, bladder, rectum, liver, or lungs. How is this treated? Treatment for this condition depends on several factors, including the stage of the cancer, your age, personal preferences, and your overall health. Talk with your health care provider about treatment options that are recommended for you. Common treatments include: Observation for early stage prostate cancer (active surveillance). This involves having exams, blood tests, and in some cases, more biopsies. For some men, this is the only treatment needed. Surgery. Types of surgeries include: ?Open surgery. In this surgery, a larger incision is made to remove the prostate. ?A laparoscopic prostatectomy. This is a surgery to remove the prostate and lymph nodes through several, small incisions. It is often referred to as a minimally invasive surgery. ?A robotic prostatectomy. This is a surgery to remove the prostate and lymph nodes with the help ofa robotic arm that is controlled by a computer. ?Orchiectomy. This is a surgery to remove the testicles. ?Cryosurgery. This is a surgery to freeze and destroy cancer cells. Radiation treatment. Types of radiation treatment include: ?External beam radiation. This type aims beams of radiation from outside the body at the prostate to destroy cancerous cells. ?Brachytherapy. This type uses radioactive needles, seeds, wires, or tubes that are implanted into the prostate gland. Like external beam radiation, brachytherapy destroys cancerous cells. An advantage is that this type of radiation limits the damage to surrounding tissue and has fewer side effects. High-intensity, focused ultrasonography. This treatment destroys cancer cells by delivering high-energy ultrasound waves to the cancerous cells. Chemotherapy medicines. This treatment kills cancer cells or stops them from multiplying. Hormone treatment. This treatment involves taking medicines that act on one of the male hormones (testosterone): ?By stopping your body from producing testosterone. ?By blocking testosterone from reaching cancer cells. Follow these instructions at home: Take gneo-mqp-xaqwhvu and prescription medicines only as told by your health care provider. Maintain a healthy diet. Get plenty of sleep. Consider joining a support group for men who have prostate cancer. Meeting with a support group mayhelp you learn to cope with the stress of having cancer. Keep all follow-up visits as told by your health care provider. This is important. If you have to go to the hospital, notify your cancer specialist (oncologist). Treatment for prostate cancer may affect sexual function. Continue to have intimate moments with your partner. This may include touching, holding, hugging, and caressing. Contact a health care provider if: You have trouble urinating. You have blood in your urine. You have pain in your hips, back, or chest. Get help right away if: You have weakness or numbness in your legs. You cannot control urination or your bowel movements (incontinence). You have trouble breathing. You have sudden chest pain. You have chills or a fever. Summary The prostate is a walnut-sized gland that is involved in the production of semen. It is located below a man's bladder, in front of the rectum. Prostate cancer is the abnormal growth of cells in the prostate gland. Treatment for this condition depends on several factors, including the stage of the cancer, your age, personal preferences, and your overall health. Talk with your health care provider about treatment options that are recommended for you. Consider joining a support group for men who have prostate cancer. Meeting with a support group mayhelp you learn to cope with the stress of having cancer. This information is not intended to replace advice given to you by your health care provider. Make sure you discuss any questions you have with your health care provider. Document Released: 08/24/2006 Document Revised: 08/06/2018 Document Reviewed: 05/04/2017 [employer] Patient Education 2019 [employer]. Follow Up Care 06/25/2022 11:32:29 With:CLAIR CARRION, Riky Rosenbaum, URL Address: [facility] [address], [place] [address]- When:Within 4 Month(s) Comments:with PSA [facility] 11-15-2022 Hospital Discharge instructions Patient Education 07/22/2022 12:20:15 [facility] - Transrectal Ultrasound of the Prostate with US guided biopsy Discharge Instructions (CUSTOM) Transrectal Ultrasound of the Prostate with US guided biopsy Even though there are no visible incisions, multiple prostate biopsies have been taken through the rectum and you need to follow some instructions to minimize the risks of bleeding. You may see some blood in your urine and stool for up to 1 week (and blood in the semen for severalmonths) Diet -You may resume your normal diet, but you may want to avoid alcohol, carbonated drinks, caffeine, and spicy foods, which may increase the irritation from the surgery. -Drink plenty of water to keep the urine clear. Activity -You should limit any physical activity for about 48 hours -No heavy lifting or straining (10 pound limit) -No driving a car and limit long car rides for 2 days -No strenuous exercise -No sexual intercourse until this is discussed with your doctor Bowels -Try to keep your bowel movements soft to minimize straining to have a bowel movement. -You may use a stool softener or over the counter laxative if needed -Difficult bowel movement may lead to straining and bleeding from the prostate Medications -You may resume your home medications unless instructed otherwise -Hold aspirin, ibuprofen, Coumadin (warfarin) and other blood thinners for about two days or until there is no active bleeding unless otherwise instructed -Finish the antibiotic which you have already started Things to watch for which would require an Emergency Room visit or call 911: (this is not a complete list) -Persistent or heavy bleeding or blood clots from the rectum or in the urine -Inability to urinate -Fever over 101.5 degrees Fahrenheit, with or without chills -Severe drug reactions with itching, hives or rash -Tenderness or swelling of the calves, chest pain, or shortness of breath Please call the office to arrange for your post-operative appointment in 1-2 weeks [phone] or [phone] Follow Up Care 06/25/2022 11:05:56 With:Riky SELF Address: [facility] [address], [place] [address]- [facility] (1) When: Unknown Comments:Keep scheduled appointment [facility]08-08-2022 Hospital Discharge instructions Patient Education 04/14/2022 13:54:29 Prostate Cancer Screening Prostate Cancer Screening The prostate is a walnut-sized gland that is located below the bladder and in front of the rectum in males. The function of the prostate (prostate gland) is to add fluid to semen during ejaculation. Prostate cancer is the second most common type of cancer in men. A screening test for cancer is a test that is done before cancer symptoms start. Screening can helpto identify cancer at an early stage, when the cancer can be treated more easily. The recommended prostate cancer screening test is a blood test called the prostate-specific antigen (PSA) test. PSA is a protein that is made in the prostate. As you age, your prostate naturally produces more PSA. Abnormally high PSA levels may be caused by: Prostate cancer. An enlarged prostate that is not caused by cancer (benign prostatic hyperplasia, BPH). This condition is very common in older men. A prostate gland infection (prostatitis). Medicines to assist with hair growth, such as finasteride. Depending on the PSA results, you may need more tests, such as: A physical exam to check the size of your prostate gland. Blood and imaging tests. A procedure to remove tissue samples from your prostate gland for testing (biopsy). Who should have screening? Screening recommendations vary based on age. If you are younger than age 40, screening is not recommended. If you are age 40 54 and you have no risk factors, screening is not recommended. If you are younger than age 55, ask your health care provider if you need screening if you have oneof these risk factors: ?Being of -[place] descent. ?Having a family history of prostate cancer. If you are age 55 69, talk with your health care provider about your need for screening and how often screening should be done. If you are older than age 70, screening is not recommended. This is because the risks that screening can cause are greater than the benefits that it may provide (risks outweigh the benefits). If you are at high risk for prostate cancer, your health care provider may recommend that you have screenings more often or start screening at a younger age. You may be at high risk if you: Are older than age 55. Are -[place]. Have a father, brother, or uncle who has been diagnosed with prostate cancer. The risk may be higher if your family member's cancer occurred at an early age. What are the benefits of screening? There is a small chance that screening may lower your risk of dying from prostate cancer. The chance is small because prostate cancer is typically a slow-growing cancer, and most men with prostate cancer from a different cause. What are the risks of screening? The main risk of prostate cancer screening is diagnosing and treating prostate cancer that would never have caused any symptoms or problems (overdiagnosis and overtreatment). PSA screening cannot tell you if your PSA is high due to cancer or a different cause. A prostate biopsy is the only procedure to diagnose prostate cancer. Even the results of a biopsy may not tell you if your cancer needs diana treated. Slow-growing prostate cancer may not need any treatment other than monitoring, so diagnosing and treating it may cause unnecessary stress or other side effects. A prostate biopsy may also cause: Infection or fever. A false negative. This is a result that shows that you do not have prostate cancer when you actually do have prostate cancer. Questions to ask your health care provider When should I start prostate cancer screening? What is my risk for prostate cancer? How often do I need screening? What type of screening tests do I need? How do I get my test results? What do my results mean? Do I need treatment? Contact a health care provider if: You have difficulty urinating. You have pain when you urinate or ejaculate. You have blood in your urine or semen. You have pain in your back or in the area of your prostate. You have trouble getting or maintaining an erection (erectile dysfunction, ED). Summary Prostate cancer is a common type of cancer in men. The prostate (prostate gland) is located below the bladder and in front of the rectum. This gland adds fluid to semen during ejaculation. Prostate cancer screening may identify cancer at an early stage, when the cancer can be treated more easily. The prostate-specific antigen (PSA) test is the recommended screening test for prostate cancer. Discuss the risks and benefits of prostate cancer screening with your health care provider. If you are age 70 or older, screening is likely to lead to more risks than benefits (risks outweigh the benefits). This information is not intended to replace advice given to you by your health care provider. Make sure you discuss any questions you have with your health care provider. Document Released: 06/04/2018 Document Revised: 08/06/2018 Document Reviewed: 06/04/2018 [employer] Patient Education 2020 [employer]. Follow Up Care 03/12/2022 15:40:41 With:CLAIR CARRION, Riky Rosenbaum, URL Address: [facility] [address] [place] [address]- [phone] When: Unknown Comments:schedule MRI of prostate and TRUS bx [facility] evaluation + Plan note No data available for this section [facility] evaluation + Plan note Future Appointments Appointment Date:08/04/2022 10:45:00 AM Scheduled Provider:Riky SELF MD Location:[facility] Appointment Type:URO Office Visit Diagnostic Tests Pending * Prostate [facility]ments Appointment Date:12/15/2022 01:15:00 PM Scheduled Provider:Riky SELF MD Location:[facility] Appointment Type:URO Office Visit Diagnostic Tests Pending * PSA Free & Total 08/11/22 [facility] evaluation + Plan note Future Appointments Appointment Date:06/22/2023 02:15:00 PM Scheduled Provider:Riky SELF MD Location:[facility] Appointment Type:URO Office Visit Diagnostic Tests Pending * PSA Free & Total 12/15/22 [facility] evaluation + Plan note Future Appointments Appointment Date:10/12/2023 02:30:00 PM Scheduled Provider:Riky SELF MD Location:[facility] Appointment Type:URO Office Visit [facility] evaluation + Plan note Future Appointments Appointment Date:10/12/2023 02:30:00 PM Scheduled Provider:[facility]EL[facility] Type:[facility] Office Visit Diagnostic Tests Pending * Prostate Histology [facility]) [facility]ments Appointment Date:04/11/2024 02:15:00 PM Scheduled Provider:[facility] SELF [facility] Type:[facility]O Office Visit Diagnostic Tests Pending * PSA Free & Total 10/12/23 [facility] evaluation + Plan note Future Appointments Appointment Date:02/13/2025 02:15:00 PM Scheduled Provider:Riky SELF MD Location:[facility] Appointment Type:URO Office Visit Diagnostic Tests Pending * PSA Free & Total 06/13/24 [facility] evaluation noteNo assessment information available [facility] Work Phone: evaluation noteNo InformationNort Clipyoo Other Evaluation note* Diagnosis Dehiscence of operative wound, initial encounter- Primary documented in this encounter [facility]* Diagnosis Dehiscence of operative wound, subsequent encounter- Primary documented in this encounter [facility]* Diagnosis Dehiscence of operative wound, subsequent encounter- Primary Hypergranulation documented in this encounter [facility]* Diagnosis Dehiscence of operative wound, subsequent encounter- Primary documented in this encounter [facility]* Diagnosis Onset Date Resolution Status Essential (primary) hypertension acute Rheumatoid arthritis acute Venous insufficiency (chronic) (peripheral) acute Medicare annual wellness visit, subsequent noneactive [facility] Work Phone: evaluation note* Diagnosis Dehiscence of operative wound, subsequent encounter- Primary Varicose veins of left leg with edema documented in this encounter [facility]* Diagnosis Dehiscence of operative wound, subsequent encounter- Primary S/P femoral-tibial bypass documented in this encounter [facility]* Diagnosis Dehiscence of operative wound, subsequent encounter- Primary documented in this encounter [facility] general Narrative - Reported* Type Description Date Medical History Hypertension Medical History Rheumatoid arthritis Surgical History colonoscopy Surgical History right foot surgery Hospitalization History see above Hospitalization History blood clot in right leg [facility] Other InstructionsNot on filedocumented in this encounter [facility] note No data available for this section [facility] [place] Chief Complaint and Reason for Visit Chief Complaint elavated psa Chief Complaint Amb Documentation Medicare Wellness Reason for Visit Essential (primary) hypertension Rheumatoid arthritis Venous insufficiency (chronic) (peripheral) Medicare annual wellness visit, subsequent Chief Complaint Medicare Wellness hospital follow up ([facility]) Reason for Visit Essential (primary) hypertension Malignant neoplasm of prostate Nicotine dependence Rheumatoid arthritis Venous insufficiency (chronic) (peripheral) Medicare annual wellness visit, subsequent Essential (primary) hypertension Malignant neoplasm of prostate Nicotine dependence Occlusion of femorotibial bypass graft Rheumatoid arthritis Venous insufficiency (chronic) (peripheral) Chief Complaint 6 Month Check Up Reason for Visit Essential (primary) hypertension Malignant neoplasm of prostate Nicotine dependence Rheumatoid arthritis Venous insufficiency (chronic) (peripheral) Advance Directives No Advanced Directives Records Found Advance Directive Response Recorded Date/ Time Advance Directives No July 1:12pm Summary Purpose Family History No Family History Records Found Relationship Condition Age at Onset Recorded Date/T cherry father Unknown Motor vehicle accident Unknown Not Specified Hypertension Unknown Relationship Condition Age at Onset Recorded Date/T cherry father Unknown Motor vehicle accident Unknown mother Hypertension Unknown Reason for Referral Specialty Diagnoses / Procedures Referred By Contac t Referred To Contact Diagnoses Dehiscence of operative wound, initial encounter Procedures Maxorb II Alginate Juanis Raza, FIELD SERVICER-HEADING MACHINE OPERATOR [address] [place] [address] Referral ID Status Reason Start Date Expiration Date V isits Requested Visits Authorized [id number] Pending Review 09/11/2023 09/10/2024 1 1 Additional Source Comments Care Team (unrecognized sect ion and content) Team Status: Active Member Role Status Dates Watson Carballo DO Primary Care Provider Active Team Status: Inactive Member Role Status Dates PHYSICIAN NO FAMILY Primary Care Provider Active Start: December 15, 2023 End: December 15, 2023 Watson Carballo DO Attending Provider Active Sta rt: December 15, 2023 End: December 15, 2023 Team Status: Inactive Member Role Status Dates Watson Carballo DO Primary Care Provide r, Attending Provider Active Start: March 08, 2024 End: March 08, 2024 Team Status: Active Member Role Status Dates PHYSICIAN NO FAMILY Primary Care Provider Active Start: November 26, 2023 TIERNEY Doll Attending Provider Active Start : November 26, 2023 Team Status: Inactive Member Role Status Dates Riky Self MD Attending Provider Active Watson Carballo DO Primary Care Provider Active Office Technology Professor Relationship Specialty Start Date End Date Watson Carballo DO [address] [place] [address] PCP - General Internal Medicine 06/15/19 Office Technology Professor Relationship Specialty Start Date End Date Watson Carballo DO [address] [place] [address] PCP - General Internal Medicine 06/15/19 Office Technology Professor Relationship Specialty Start Date End Date Watson Carabllo DO [address] [place] [address] PCP - General Internal Medicine 06/15/19 Office Technology Professor Relationship Specialty Start Date End Date Watson Carballo DO [address] [place] [address] PCP - General Internal Medicine 06/15/19 Team Status: Inactive Member Role Status Dates Watson Carballo DO Primary Care Provide r, Attending Provider Active Start: June 15, 2024 End: June 15, 2024 Office Technology Professor Relationship Specialty Start Date End Date Watson Carballo DO [address] [place] [address] PCP - General Internal Medicine 06/15/19 Office Technology Professor Relationship Specialty Start Date End Date Watson Carballo DO [address] [place] [address] PCP - General Internal Medicine 06/15/19 Office Technology Professor Relationship Specialty Start Date End Date Watson Carballo DO [address] [place] [address] PCP - General Internal Medicine 06/15/19 Goals (unrecognized section and content) Goals may be documented in a n alternate section (unrecognized sect ion and content) No Status Records FoundNo Status Records FoundNo Status Records FoundNo Status Records FoundNo Status Records Found INFORMATION SOURCE (unrecogn ized section and content) DATE CREATED AUTHOR 07/14/2022 [facility] DATE CREATED AUTHOR AUTHOR'S ORGANIZ ATION 02/23/2023 [facility] DATE CREATED AUTHOR AUTHOR'S ORGANIZ ATION 06/14/2024 [facility] DATE CREATED AUTHOR AUTHOR'S ORGANIZ ATION 07/17/2024 [facility] DATE CREATED AUTHOR AUTHOR'S ORGANIZ ATION 08/01/2024 [facility] REASON FOR VISIT (unrecogniz ed section and content) Reason Comments Wound Check Reason Comments Wound Check FOR RECORDS PERTAINING TO PATIENTS WHO ARE OR HAVE BEEN ENROLLED IN A CHEMICAL DEPENDENCY/SUBSTANCEABUSE PROGRAM, SOME INFORMATION MAY BE OMITTED. This clinical summary was aggregated from multiple sources. Caution should be exercised in using it in the provision of clinical care. This summary normalizes information from multiple sources, and as a consequence, information in this document may materially change the coding, format and clinical context of patient data. In addition, data may be omitted in some cases. CLINICAL DECISIONS SHOULD BE BASED ON THE PRIMARY CLINICAL RECORDS. [employer] provides no warranty or guarantee of the accuracy or completeness of information in this document.
== END 2024-08-02 15:27 | disposition home or self-care (01) ==
LOC: CT 15:26
PROVIDERS: PCP Internal Medicine; Visit Provider Internal Medicine
DX: R91.8 Other nonspecific abnormal finding of lung field (principal); F17.210 Nicotine dependence, cigarettes, uncomplicated
CPT/HCPCS: 71271

== ENCOUNTER 2025-08-29 13:33 | Outpatient (OUT) | payer MEDICARE, SELFPAY ==
--- OUTSIDE RECORDS SUMMARY | 2024-08-29 10:45 | XMS_ITS ---
Author Organization [facility] in [place] Address [address] [place] [address] Care Team Providers Care Culinary Chef Name Role Phone Watson Gross DO Primary Care Provider Unavaila Casper Reza Unavailable [phone] REASON FOR VISIT -3 Month Follow Up- Encounters Encounter Location Date Provider Diagnosis [facility] Rheumatology [address] [address] 08/29/2024 Casper Luong Plan Of Treatment Next Appt Details Provider Name:Casper Luong, 0 10/02/2025 03:30:00 PM, [address], [address], [place], [address], Progress Notes * Rian CALVODOB:1949 (75 yo M)Acc No.[id number]:08/29/2024 UNLOCKED PROGRESS NOTE Follow Up Patient: Rian HOLT :?Casper Luong MDDOB:1950???Age:74 Y???Sex: MaleDate:4Phone:[phone]:[address] [id number]:Watson Gross DO Subjective: * Chief Complaints: * 1 . -3 Month Follow Up-. * Medical History: Objective: * Vitals: Assessment: Plan: * Treatment: * * Electronic signature of Casper Luong MD, [id number] on 08/29/2025 at 01:36 PM EST Sign off status: PendingVisit Status:?R/S (Rescheduled) * Provider: Annemarie Luong MD Date: 10/30/2023 Generated for Printing/Faxing/eTransmitting on:?08/29/2025 01:36 PM EST
--- OUTSIDE RECORDS SUMMARY | 2025-01-02 10:30 | XMS_ITS ---
Author Organization [facility] in [place] Address [address] [place] [address] Care Team Providers Care Discharge Rn Name Role Phone Watson Gross DO Primary Care Provider Unavaila Casper Reza Unavailable [phone] Encounters Encounter Location Date Provider Diagnosis [facility] Rheumatology [address] [address] 01/02/2025 Casper Luong Plan Of Treatment Next Appt Details Provider Name:Casper Luong, 0 10/02/2025 03:30:00 PM, [address], [address], [place], [address], Progress Notes * Rian CALVODOB:1949 (75 yo M)Acc No.[id number]:01/02/2025 UNLOCKED PROGRESS NOTE Follow Up Patient: Debbie Rian GOSS :?Casper Luong MDDOB:1950???Age:74 Y???Sex: MaleDate:01/02/2025Phone:[phone]:[address] [id number]:Watson Gross DO Subjective: * Chief Complaints: * * Medical History: L lul-term use of Plaquenil, Methotrexate, mcfp, current use, Rheumatoid arthritis with rheumatoid factor of multiple sites without organ or systems involvement, Hypertension, Red, warm joints, Swollen joints. * Surgical History: F oot surgery . * Hospitalization/Major Diagno stic Procedure: s ee above . * Family History: F ather: . M other: alive 94 yrs. M igrated Family History:: Four children living;Mother Comments: No arthritis;Father Comments: No arthritis;. Objective: * Vitals: Assessment: Plan: * Treatment: * * Electronic signature of Casper Luong MD, [id number] on 08/29/2025 at 01:36 PM EST Sign off status: PendingVisit Status:?N/S N/C (No Show/No Charge) * Provider: Annemarie Luong MD Date: 0 01/02/2025 Generated for Printing/Faxing/eTransmitting on:?08/29/2025 01:36 PM EST
--- OUTSIDE RECORDS SUMMARY | 2025-05-01 11:00 | XMS_ITS ---
Author Organization [facility] in [place] Address [address] [place] [address] Care Team Providers Care Control Clerk Subassembly Name Role Phone Watson Gross DO Primary Care Provider Unavaila Casper Reza Unavailable [phone] REASON FOR VISIT -3 Month Follow Up- Encounters Encounter Location Date Provider Diagnosis [facility] Rheumatology [address] [address] 05/01/2025 Casper Luong Plan Of Treatment Next Appt Details Provider Name:Casper Luong, 0 10/02/2025 03:30:00 PM, [address], [address], [place], [address], Progress Notes * Rian CALVODOB:1949 (75 yo M)Acc No.[id number]:05/01/2025 UNLOCKED PROGRESS NOTE Follow Up Patient: Rian HOLT :?Casper Luong MDDOB:1950???Age:75 Y???Sex: MaleDate:05/01/2025Phone:[phone]:[address] [id number]:Watson Gross DO Subjective: * Chief Complaints: * 1 . -3 Month Follow Up-. * Medical History: Objective: * Vitals: Assessment: Plan: * Treatment: * * Electronic signature of Casper Luong MD, [id number] on 08/29/2025 at 01:36 PM EST Sign off status: PendingVisit Status:?CANC (Cancelled) * Provider: Annemarie Luong MD Date: 0 05/01/2025 Generated for Printing/Faxing/eTransmitting on:?08/29/2025 01:36 PM EST
--- OUTSIDE RECORDS SUMMARY | 2025-08-29 13:36 | XMS_ITS ---
Author Organization [employer] s tem Address [id number] [place] [address] Care Team Providers Care Cloud Architect Name Role Phone Renato Watson Anamaria JEAN Primary Care Provider [phone] Active Problems ProblemNoted DateDiagnosed DateEssential (primary) ooufptloqwso67/31/2024 Nicotine ttbyaygaiq34/31/2024aresthesia of skin07/07/2024heumatoid arthritis 07/07/2024S/P femoral-tibial epdtsu5907/07/2024Sigmoid ukiwpvyynmxhia82/31/2024 Spondylosis without myelopathy or radiculopathy, lumbar fgiapz4107/07/2024 Charcot's joint of foot, left09/11/2023cquired caumoiohwwi84/05/2024urrent rqbymb4709/11/2023iabetes mellitus due to underlying condition with diabetic fldwxinzdospzo31/05/2024iabetic peripheral ehhyevflrb61/05/2024Elevated PSA 09/11/20238992Uomqzbub30/05/3474Ybkrtwycgi65/05/2024AD (peripheral artery disease) 09/11/2023rimary osteoarthritis of left foot09/11/2023rostate qddzfc7509/11/2023 Rheumatoid factor ydzuersz08/05/2024upture of operation wound09/11/2023 Current Treatment and Therapy Plans No current plan information found. Past Treatment and Therapy Plans
--- OUTSIDE RECORDS SUMMARY | 2025-08-29 13:36 | XMS_ITS | Patient Health Record ---
Author Organization [facility] in [place] Address [address] [place] [address] Care Team Providers Care Beading Machine Operator Name Role Phone Watson Gross DO Primary Care Provider Casper Wallace [phone] Allergies No Known Allergies Results Component Value Reference Range Notes CALCIUM Reviewed date:06/27/2025 03:48:12 PM Interpretation: Performing Lab: Notes/Report: MTX PANEL (CBC, ALB,ALT, AST , ALK ,CREA w/GFR CKD-EPI)) Reviewed date:06/27/2025 03:49:14 PM Interpretation: Performing Lab: Notes/Report: SED RATE and CRP Reviewed date:06/27/2025 03:49:57 PM Interpretation: Performing Lab: Notes/Report: Reason For Referral No Information Medications Medication SIG (Take, Route, Frequency, Duration) Notes Start Date End Date Status Hydroxychloroquine Sulfate 200 MG Take 1 tablet by mouth once daily; Duration: 90 ActiveMethotrexate Sodium 2.5 MGTAKE 8 TABLETS BY MOUTH ONCE A WEEK; Duration: 84ActiveTurmeric 500 MG1 tablet Orally BIDActiveValsartan 160 MG1 tablet Orally DailyActiveVitamin C 500 MG1 tablet Orally Once a dayActivePlavix 75 MG1 tablet Orally Once a dayActiveVitamin D 50 MCG (1999)1 capsule Orally BIDActive Aspirin 81 81 MG1 tablet Orally Once a dayActiveZincActiveEliquis 5 MG1 tablet Orally Twice a dayNot-TakingamLODIPine Besylate 5 MG1 tablet Orally Once a day; Duration: 30 day(s)Not-TakingFolic Acid 1MGTAKE ONE TABLET BY MOUTH ONCE DAILY Orally Once a day; Duration: 30ActiveMultivitaminNot-TakingpredniSONE 5 MGTAKE 1 TABLET BY MOUTH ONCE DAILY NEEDED DIRECTED; Duration: 90ActiveRosuvastatin Calcium 5 MG1 tablet Orally Once a dayActive Immunizations Vaccine Route Administration Date Status Comme nts Flu, Unspecified Undefined 07/08/2016 Pending Flu, NvlhvyslhsgNzbvych20/14/2019Administered Social History Tobacco Use: Social History Observation Description Date Details (start date - stop date) Current Smoker NA - NA Tobacco Use/Smoking Question Answer Notes Patient is a current smoker How often do you smoke cigarettes?every dayAlcohol Screen (Audit-C) Question Answer Notes Did you have a drink containing alcohol in the p ast year? No Vfqjpe8ChvcdysyyasnriRwxfmqnl Problems Problem Type SNOMED Code ICD Code Onset Dates Problem Status W/U Status Risk Notes Problem Chronic pain (88475694) Other chronic steve n (G89.29) ActiveconfirmedProblemLocalized, primary osteoarthritis of the ankle and/or foot (952328320)Primary osteoarthritis, right ankle and foot (M19.071)Activeconfirmed ProblemLocalized, primary osteoarthritis of the ankle and/or foot (548286234) Primary osteoarthritis, left ankle and foot (M19.072)ActiveconfirmedProblemPain in right foot (587165565004668)Pain in right foot (M79.671)Activeconfirmed ProblemPain in left foot (338271317439280)Pain in left foot (M79.672)Active confirmedProblemLumbosacral spondylosis without myelopathy (48095985)Lumbosacral radiculopathy due to degenerative joint disease of spine (M47.27)Activeconfirmed ProblemRheumatoid arthritis (93577745)Rheumatoid arthritis involving multiple sites with positive rheumatoid factor (M05.79)Activeconfirmed Vital Signs Heart Rate 78 /min 06/28/2025 Blood pressure udihgeqyn33 mm Hg06/28/20255858Dsnfrl47 in06/28/2025lood pressure cwipncsr139 mm Hg06/28/20258951Ogbrhs763 lbs1MI27.44 kg/m206/28/2025 Encounters Encounter Location Date Provider Diagnosis [facility] Rheumatology [address] [place] [address] 09/29/2024 Casper Ag Other chronic pain G89.29 ; Primary osteoarthritis, right ankle and foot M19.071 ; Primary osteoarthritis, left ankle and foot M19.072 ; Pain in left shoulder M25.512 ; Trochanteric bursitis, left hip M70.62 ; Lumbosacral radiculopathy due to degenerative joint disease of spine M47.27 ; Rheumatoid arthritis involving multiple sites with positive rheumatoid factor M05.79 and Methotrexate, snf, current use Z79.631 [facility] Rheumatology [address] [place] [address] 01/26/2025 Casper Ag Other chronic pain G89.29 ; Primary osteoarthritis, right ankle and foot M19.071 ; Primary osteoarthritis, left ankle and foot M19.072 ; Pain in left shoulder M25.512 ; Trochanteric bursitis, left hip M70.62 ; Lumbosacral radiculopathy due to degenerative joint disease of spine M47.27 ; Rheumatoid arthritis involving multiple sites with positive rheumatoid factor M05.79 and Methotrexate, ocean transportation intermediary, current use Z79.631 [facility] Rheumatology [address] [place] [address] 06/28/2025 Casper Ag Other chronic pain G89.29 ; Primary osteoarthritis, right ankle and foot M19.071 ; Primary osteoarthritis, left ankle and foot M19.072 ; Pain in left shoulder M25.512 ; Trochanteric bursitis, left hip M70.62 ; Lumbosacral radiculopathy due to degenerative joint disease of spine M47.27 ; Rheumatoid arthritis involving multiple sites with positive rheumatoid factor M05.79 and Methotrexate, ocean transportation intermediary, current use Z79.631 [facility] Rheumatology [address] [place] [address] 01/02/2025 Casper Ag [id number] [facility] [place] [address] [address] [place], [place] [id number] Mkorz5127 [facility] [place] [address] [address] [place], [place] [id number] Luong Assessments Encounter Date Diagnosis (ICD Code) Assessment Notes Treatment Notes Treatment Clinical Notes Section Notes 09/29/2024 Other chronic pain (ICD-10 - G89 .29) Patient is stable. Patient will continue with current treatment.,Living with chronic pain, Chronic pain: adult home care, Exercising with chronic pain material was published to ohhrou7601/26/2025Other chronic pain (ICD-10 - G89.29) Patient is stable. Patient will continue with current treatment.,Living with chronic pain, Chronic pain: adult home care, Exercising with chronic pain material was published to humrox4806/28/2025Other chronic pain (ICD-10 - G89.29) Patient is stable. Patient will continue with current treatment.,Living with chronic pain, Chronic pain: adult home care, Exercising with chronic pain material was published to tfrkip9406/28/2025Primary osteoarthritis, right ankle and foot (ICD-10 - M19.071)Patient is stable. . Patient will continue with current treatment.01/26/2025Primary osteoarthritis, right ankle and foot (ICD-10 - M19.071)Patient is stable. . Patient will continue with current treatment. 09/29/2024Prry osteoarthritis, right ankle and foot (ICD-10 - M19.071)Patient is stable. . Patient will continue with current treatment.09/29/2024Prry osteoarthritis, left ankle and foot (ICD-10 - M19.072)Patient is mildly symptomatic. He is following up with the greenhouse instructor. He continues to have nonhealing ulcer on the left leg. He has had surgery for poor circulation in the lower extremities on the left side. Patient will continue with current treatment., He recently underwent angiogram for the lower extremities. He has had Doppler examination for his pulses. He has another procedure scheduled this week followed by appointment with vascular surgeon next Thursday. Oteoarthritis, Osteoarthritis (degenerative arthritis), Osteoarthritis home care, Living with osteoarthritis material was published to portal,Ankle exercises material was published to ddlsck5701/26/2025Primary osteoarthritis, left ankle and foot (ICD-10 - M19.072)Patient is stable. He is following up with the greenhouse instructor. He continues to have nonhealing ulcer onthe left leg. He has had surgery for poor circulation in the lower extremities on the left side. Patient will continue with current treatment., He recently underwent angiogram for the lower extremities. He has had Doppler examination for his pulses. He has another procedure scheduled this week followed by appointment with vascular surgeon next Thursday. Oteoarthritis, Osteoarthritis (degenerative arthritis), Osteoarthritis home care, Living with osteoarthritis material was published to portal,Ankle exercises material was published to mfvudk8106/28/2025Primary osteoarthritis, left ankle and foot (ICD-10 - M19.072)Patient is stable. He is following up with the greenhouse instructor. He continues to have nonhealing ulcer onthe left leg. He has had surgery for poor circulation in the lower extremities on the left side. Patient will continue with current treatment., He recently underwent angiogram for the lower extremities. He has had Doppler examination for his pulses. He has another procedure scheduled this week followed by appointment with vascular surgeon next Thursday. Oteoarthritis, Osteoarthritis (degenerative arthritis), Osteoarthritis home care, Living with osteoarthritis material was published to portal,Ankle exercises material was published to lfajty9706/28/2025Pain in left shoulder (ICD- 10 - M25.512)Patient is stable. I advised patient to perform exercises for the shoulders.,Joint pain home care, Shoulder pain home care, Joint Pain, Shoulder Pain material was published to portal,Frozen shoulder exercises material was published to ktzzzt7901/26/2025Pain in left shoulder (ICD-10 - M25.512)Patient is stable. I advised patient to perform exercises for the shoulders.,Joint pain home care, Shoulder pain home care, Joint Pain, Shoulder Pain material was published to portal,Frozen shoulder exercises material was published to portal 09/29/2024Pain in left shoulder (ICD-10 - M25.512)Patient is stable. I advised patient to perform exercises for the shoulders.,Joint pain home care, Shoulder pain home care, Joint Pain, Shoulder Pain material was published to portal,Frozen shoulder exercises material was published to enlmrq6309/29/2024 Trochanteric bursitis, left hip (ICD-10 - M70.62)Patient is stable. It comes and goes. I advised him to perform range of motion and stretching exercises. I gave him copies of exercises to be done at home.,Hip bursitis, Hip bursitis home care, Bursitis material was published to utghkp7501/26/2025Trochanteric bursitis, left hip (ICD-10 - M70.62)Patient is stable. I advised him to perform range of motion and stretching exercises. I gave him copies of exercises to be done at home.,Hip bursitis, Hip bursitis home care, Bursitis material was published to pmzbyq3606/28/2025Trochanteric bursitis, left hip (ICD-10 - M70.62)Patient is stable. I advised him to perform range of motion and stretching exercises. I gave him copies of exercises to be done at home.,Hip bursitis, Hip bursitis home care, Bursitis material was published to xmmbra9206/28/2025Lumbosacral radiculopathy due to degenerative joint disease of spine (ICD-10 - M47.27) Patient is stable. I advised patient to perform range of motion and stretching exercises for the low back.,Osteoarthritis, Osteoarthritis (degenerative arthritis), Spondylosis, Lumbar radiculopathy, Lumbar radiculopathy home care, Degenerative disc disease material was published to portal,Back exercises material was published to nizyus7101/26/2025Lumbosacral radiculopathy due to degenerative joint disease of spine (ICD-10 - M47.27)Patient is stable. I advised patient to perform range of motion and stretching exercises for the low back.,Osteoarthritis, Osteoarthritis (degenerative arthritis), Spondylosis, Lumbar radiculopathy, Lumbar radiculopathy home care, Degenerative disc disease material was published to portal,Back exercises material was published to portal 09/29/2024Lumbosacral radiculopathy due to degenerative joint disease of spine (ICD-10 - M47.27)Patient is stable. I advised patient to perform range of motion and stretching exercises for the low back.,Osteoarthritis, Osteoarthritis (degenerative arthritis), Spondylosis, Lumbar radiculopathy, Lumbar radiculopathy home care, Degenerative disc disease material was published to portal,Back exercises material was published to udqbbc6309/29/2024Rheumatoid arthritis involving multiple sites with positive rheumatoid factor (ICD-10 - M05.79)Patient is symptomatic in his right wrist. Patient does not have any other active synovitis on examination. Patient will continue the current treatment with current dose of methotrexate.,Living with rheumatoid arthritis (RA), Rheumatoid arthritis, Rheumatoid arthritis home care material was publishe d to iegdzr2701/26/2025Rheumatoid arthritis involving multiple sites with positive rheumatoid factor (ICD-10 - M05.79)Patient is symptomatic in his right wrist. Patient does not have any other active synovitis on examination. Patient will continue the current treatment with current dose of methotrexate.,Living with r heumatoid arthritis (RA), Rheumatoid arthritis, Rheumatoid arthritis home care material was published to yuveuz1206/28/2025Rheumatoid arthritis involving multiple sites with positive rheumatoid factor (ICD-10 - M05.79)Patient is stable. Patient does not have any other active synovitis on examination. Patient will continue the current treatment with current dose of methotrexate.,Living with rheumatoid arthritis (RA), Rheumatoid arthritis, Rheumatoid arthritis home care material was published to yrsfvy5206/28/2025Methotrexate, ocean transportation intermediary, current use (ICD-10 - Z79.631)We will check labs for follow-up. We will check labs for follow-up. Patient was advised to receive yearly eye exams to check for Plaquenil toxicity.01/26/2025Methotrexate, ocean transportation intermediary, current use (ICD-10 - Z79.631)We will check labs for follow-up. We will check labs for follow-up. Patient was advised to receive yearly eye exams to check for Plaquenil toxicity. 09/29/2024Methotrexate, ocean transportation intermediary, current use (ICD-10 - Z79.631)We will check labs for follow-up. We will check labs for follow-up. Patient was advised to receive yearly eye exams to check for Plaquenil toxicity. Plan Of Treatment Pending Test Test Name Order Date CALCIUM 05/26/2024 CALCIUM 09/29/2024 CALCIUM 01/26/2025 MTX PANEL (CBC, ALB,ALT, AST, ALK and CR EA) 05/26/2024 SED RATE and CRP 01/26/2025 SED RATE and CRP 09/29/2024 SED RATE and CRP 05/26/2024 ALBUMIN 02/02/2020 ALBUMIN 03/26/2020 ALBUMIN 06/04/2020 ALBUMIN 07/27/2020 ALBUMIN 10/29/2020 ALBUMIN 12/31/2020 ALT 12/31/2020 ALT 10/29/2020 ALT 07/27/2020 ALT 06/04/2020 ALT 03/26/2020 ALT 02/02/2020 AST 03/26/2020 AST 06/04/2020 AST 02/02/2020 AST 07/27/2020 AST 10/29/2020 AST 12/31/2020 CRP 12/31/2020 CRP 10/29/2020 CRP 07/27/2020 CRP 02/02/2020 CRP 06/04/2020 CRP 03/26/2020 CALCIUM 03/26/2020 CALCIUM 06/04/2020 CALCIUM 02/02/2020 CALCIUM 07/27/2020 CALCIUM 10/29/2020 CALCIUM 12/31/2020 ESR 12/31/2020 ESR 10/29/2020 ESR 07/27/2020 ESR 02/02/2020 ESR 03/26/2020 ESR 06/04/2020 ALP 03/26/2020 ALP 02/02/2020 ALP 06/04/2020 ALP 07/27/2020 ALP 10/29/2020 ALP 12/31/2020 CBC AND AUTO DIFF * 12/31/2020 CBC AND AUTO DIFF * 10/29/2020 CBC AND AUTO DIFF * 07/27/2020 CBC AND AUTO DIFF * 06/04/2020 CBC AND AUTO DIFF * 03/26/2020 CBC AND AUTO DIFF * 02/02/2020 CREATININE 03/26/2020 CREATININE 02/02/2020 CREATININE 06/04/2020 CREATININE 07/27/2020 CREATININE 10/29/2020 CREATININE 12/31/2020 MTX PANEL (CBC, ALB,ALT, AST, ALK ,CREA w/GFR CKD-EPI)) 01/26/2025 MTX PANEL (CBC, ALB,ALT, AST, ALK ,CREA w/GFR CKD-EPI)) 09/29/2024 Next Appt Details Provider Name:Casper Luong, 0 10/02/2025 03:30:00 PM, [address], [address], [place], [address], Insurance Providers Payer Name Payer Address Payer Phone Subscriber Number Group Number Insured Name Patient Relationship to Insured Coverage Start Date Coverage End Date [employer] ADV PLAN [address] [place] [address] [id number] [facility] Rian Calvo Self - patient is the insured 7 Medical (General) History Medical History History ICD Code Long-term use of Plaquenil Methotrexate, snf, current useRheumatoid arthritis with rheumatoid factor of multiple sites without organ or systems involvementHypertensionRed, warm jointsSwollen jointsSurgical History Surgery Date(Month/Year) Foot surgery Hospitalization History Reason Date(Month/Year) see above
--- OUTSIDE RECORDS SUMMARY | 2025-08-29 13:36 | XMS_ITS | Patient Health Record ---
Author Organization [facility] Address [address] [place] [address] Care Team Providers Care Dog Obedience Instructor Name Role Phone Grant Tenorio Unavailable [phone] Allergies Allergen (clinical drug ingredient) Drug/Non Drug Allergy documented on EMR Reaction Allergy Type Onset Date Status No Known Drug Allergies (uncoded)UnknownAllergyActive Reason For Referral No Information Medications Medication SIG (Take, Route, Frequency, Duration) Notes Start Date End Date Status Prednisone 5 mg ORAL UnknownMobicActivehydroxychloroquineUnknownamLODIPineUnknownvalsartanUnknown Methotrexate Sodium 2.5 mgtake 8 tablet by oral route once a week ORALUnknown folic acid 1 mgORALUnknown Social History Tobacco Use: Social History Observation Description Date Details (start date - stop date) Current Smoker NA - NA Smoking History Question Answer Notes Smoking Status Current Smoker Problems Problem Type SNOMED Code ICD Code Onset Dates Problem Status W/U Status Risk Notes Problem Open wound of great toe, left, sequela (S91.102S)ActiveconfirmedProblemDiabetic neuropathy (339223096)Diabetes mellitus due to underlying condition with diabetic polyneuropathy, unspecified whether court stenographer insulin use (E08.42) ActiveconfirmedProblemArthropathy associated with a neurological disorder (43198993)Charcot's joint of foot, left (M14.672)ActiveconfirmedProblemAcquired rocker bottom foot of left lower extremity (M21.6X2)ActiveconfirmedProblem Diabetic peripheral neuropathy (521371014)Diabetic peripheral neuropathy (E11.42)ActiveconfirmedProblemAcquired keratoderma (888714720)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)ActiveconfirmedProblemCallosity (300326201)[place] or callus (L84)ActiveconfirmedProblemTendon contracture (402042682)Short Achilles tendon of left lower extremity (M67.02)ActiveconfirmedProblemPeripheral vascular disease (087761655)PAD (peripheral artery disease) (I73.9)ActiveconfirmedProblem Rheumatoid factor positive (778261291)Rheumatoid factor positive (R76.8)Active confirmedProblemLocalized, primary osteoarthritis of the ankle and/or foot (146030887)Primary osteoarthritis of left foot (M19.072)ActiveconfirmedProblem Ischemia (51711405)Ischemia (I99.8)ActiveconfirmedProblemNeuropathy (595368701) Neuropathy (G62.9)Activeconfirmed Plan Of Treatment No Information Insurance Providers Payer Name Payer Address Payer Phone Subscriber Number Group Number Insured Name Patient Relationship to Insured Coverage Start Date Coverage End Date Medicare Anthem Advantage [address] [place] [address] [id number] [id number] BECKI ALARCON Self - patient is the insured Medical (General) History Medical History History ICD Code Rheumatoid arthritis: Yes Blood Clots: YesCancer YesHave you been seen by a dentist in the last year? NoDo you have any dental problems i.e. Broken, loose, or chipped teeth, absess, gum disease? YesSurgical History Surgery Date(Month/Year) right foot 2013
--- OUTSIDE RECORDS SUMMARY | 2025-08-29 13:36 | XMS_ITS | Clinical Summary ---
Author Organization [facility] Address [id number] [address] [place] [address] Care Team Providers Care Hosiery Mater Name Role Phone Watson Gross DO Primary Care Provider [phone] Allergies Active AllergyReactionsCriticalityNoted DateCommentsLeflunomideOther (See Comments)04/26/2023 Medications MedicationSigDispense QuantityRefillsLast FilledStart DateEnd DateStatus amlodipine besylate/valsartan (AMLODIPINE-VALSARTAN ORAL) Take by mouth daily.Active hydroxychloroquine (PLAQUENIL) 200 mg tablet Take by mouth daily.Active folic acid (FOLVITE) 1 mg tablet Take 1 tablet (1 mg total) by mouth in the morning.Active methotrexate 2.5 mg chemo tablet Take 6 tablets by mouth once a weekActive valsartan (DIOVAN) 80 mg tablet Take 0.5 tablets (40 mg total) by mouth in the morning.Active apixaban (ELIQUIS) 5 mg tablet Take by mouth 2 (two) times a day.Active aspirin 81 mg chewable tablet Chew 1 tablet (81 mg total) and swallow nightly.Active Active Problems ProblemNoted DateDiagnosed DateEssential (primary) qumodjpiipes58/31/2024 Nicotine jkqbgibjeu81/31/2024aresthesia of skin07/07/2024heumatoid arthritis 07/07/2024S/P femoral-tibial rwwgza1307/07/2024Sigmoid cxrsyparsuienw70/31/2024 Spondylosis without myelopathy or radiculopathy, lumbar trbxfq7907/07/2024 Charcot's joint of foot, left09/11/2023cquired ekqbwrylaqp12/05/2024urrent ydyytv7609/11/2023iabetes mellitus due to underlying condition with diabetic udpgldffrrygxd59/05/2024iabetic peripheral liqhbmmgvk51/05/2024Elevated PSA 09/11/20237403Xjytwfmg82/05/6498Wyurrrhifp84/05/2024AD (peripheral artery disease) 09/11/2023rimary osteoarthritis of left foot09/11/2023rostate eruali7009/11/2023 Rheumatoid factor dlortrdh06/05/2024upture of operation wound09/11/2023 Social History Tobacco UseTypesPacks/DayYears UsedDateSmoking Tobacco: Every DayCigarettes Smokeless Tobacco: Never Tobacco Cessation:Ready to Q uit: Not Asked; Counseling Given: Not Answered Alcohol UseStandard Drinks/WeekCommentsNot Currently0 (1 standard drink = 0.6 oz pure alcohol)AUDIT-CAnswerDate RecordedFrequency of Alcohol ConsumptionNever 06/15/2019Average Number of DrinksNot on file06/15/2019Frequency of Binge DrinkingNot on file06/15/2019ChildcareAnswerDate RecordedChildcareUnknown 02/16/2019EmploymentAnswerDate SdzmsneiAvvfhzoxdxNkzkwdm13/12/2019Hunger ScreeningAnswerDate RecordedWithin the past 12 months we worried whether our food would run out before we got money to buy more.Never True08/24/2024Within the past 12 months the food we bought just didn't last and we didn't have money to get more.Never True08/24/2024urpose - LifeAnswerDate RecordedPurpose and direction in hjggYxkniba08/11/2021ex and Gender InformationValueDate Recorded Sex Assigned at BirthNot on fileLegal TwjHisb4204/12/2015 11:27 AM EDTGender IdentityNot on fileSexual OrientationNot on file Last Filed Vital Signs Vital SignReadingTime TakenCommentsBlood Zctsvdfk990/8809/14/2024 2:13 PM EST Jugnk473109/14/2024 2:13 PM OCZOhodamcsbmj94.6 ??C (97.8 ??F)09/14/2024 2:13 PM ESTRespiratory Bkxc761809/28/2023 2:31 PM ESTOxygen Dpgdsrbswo032%08/06/2023 4:55 PM ESTInhaled Oxygen Concentration--Ubzofj81.2 kg (172 lb 6.4 oz)09/11/2023 10:59 AM YOHRwfbuk761.6 cm (5' 6 )08/06/2023 4:55 PM ESTBody Mass Index27.83 08/06/2023 4:55 PM EST Plan of Treatment Health MaintenanceDue DateLast DoneCommentsDiabetic Ophthalmology Exam1952 Statin Use: Wknskbxloikrls1952tatin Use: Bubyfvas1952Tobacco Sstwfomkfs1952epression Hjcwpefbw20/04/1964Diabetic Foot Exam01/08/1970 DTaP,Tdap and Td Vaccines (1 - Tdap)01/08/1971Zoster (Shingles) Vaccine (1 of 2) 01/08/1971RSV ( or age 60+ yrs) (1 - Risk 50-74 years 1-dose series) 01/08/2002Abdominal Aortic Aneurysm (AAA) Pejuzw5501/08/2017Fall Risk Screening 01/08/2017Adult BMI Jkvkmcnil43/05/15057909/11/2023OVID-19 Vaccine (2024- season), 12/14/2020, 11/13/2020Influenza Eccbbcg4205/08/2025 06/15/2024, 07/10/2023, 06/30/2022, Additional history existsTobacco Screening Medical Devices Not on file Insurance Care Teams Team MemberRelationshipSpecialtyStart DateEnd Date Watson Gross DO [address] [place] [id number] PCP - GeneralInternal Vmbpuyvu15/9/19
--- NOTE | 2025-08-29 13:37 | CT_ITS ---
The [address] [address] Patient Name: BECKI ALARCON MRN: [id number] date: 1950 Sex: M Assigned Patient Location: CT Current Patient Location: Accession/Order Number: [id number] Exam Date: 08/29/2025 13:44 Report Date: 08/30/2025 09:03 At the request of: ANGEL CARBALLO DO Procedure: CT lung screening low-dose LOW-DOSE SCREENING CHEST CT WITHOUT CONTRAST COMPARISON: 08/02/2024 CLINICAL DATA: Current smoker with 29 pack year history Spiral axial unenhanced low-dose images were obtained through the chest. Images were reviewed using both narrow and wide window settings. This CT exam was performed using one or more following dose reduction techniques: Automated exposure control, adjustment of the mA and/or kV according to patient size, or use of iterative reconstruction technique. The heart is normal size. No pericardial effusion is seen. There is coronary artery disease. Atherosclerotic plaque is also visualized at the aortic arch and proximal great vessels. No aneurysm is present. No enlarged lymph nodes are seen. There are calcified right hilar granulomas. Subtle levoscoliotic curvature and degenerative changes are present at the spine. There are some airspace lucencies compatible with obstructive disease. There is minor developing atelectasis and/or scarring in the posterior right upper lobe, along the right hemidiaphragm, posterior lateral lingula and posterior lateral left lower lobe. Similar scarring is seen at the posterior right lower lobe. There is no pleural effusion or pneumothorax. Tiny pulmonary nodules are again seen including a right intramammary lymph node. Limited cuts through the upper abdomen show no contributory findings. CT/CT lung screening low-dose IMPRESSION: OBSTRUCTIVE LUNG DISEASE. ATELECTASIS AND/OR SCARRING. SIMILAR TINY PULMONARY NODULES. Lung RADS category 2 - benign Twelve-month low-dose CT follow-up suggested Impression dictated by: Christina Parson M.D. 08/30/2025 9:03 AM Dictation Location[facility] Electronically authenticated by: [id number] Y Date: 08/30/2025 09:03
== END 2025-08-29 13:34 | disposition home or self-care (01) ==
LOC: CT 13:33
PROVIDERS: PCP Internal Medicine; Visit Provider Internal Medicine
DX: J44.9 Chronic obstructive pulmonary disease, unspecified (principal); F17.210 Nicotine dependence, cigarettes, uncomplicated; J98.11 Atelectasis
CPT/HCPCS: 71271